=== PATIENT | female | born 1960 | race Caucasian/White ===

== ENCOUNTER 2023-09-17 14:32 | Outpatient (AMB) | payer OTHER, SELFPAY ==
[2023-09-17 14:45] VITALS: BP 140/78; PULSE 76; O2SAT 98
--- NOTE | 2023-09-17 14:45 | A.OFFVIS_ITS ---
Intake Vital Signs 09/17/23 14:45 BP 140/78 H Blood Pressure Location Lt radial Position Sitting Pulse 76 Pulse Source Pulse Oximeter Pulse Oximetry (%) 98 Oxygen Delivery Method Room Air Intake Visit Reasons: mat intake Intake Note: The patient presents for a mat visit Online Advertising Director Required: No Allergies shellfish derived Allergy (Severe, Verified 09/27/23 13:02) Anaphylaxis codeine Adverse Reaction (Mild, Verified 09/27/23 13:02) Anxiety fentanyl patch Allergy (Intermediate, Uncoded 09/27/23 13:02) Redness of Skin Medication List - Last Reconciled 09/18/23 by Joyce Valdez, JONN buprenorphine-naloxone 4-1 mg 1 film buccal BID buprenorphine-naloxone 8-2 mg 1 film buccal DAILY bupropion HCl 300 mg PO QAM celecoxib 200 mg PO BID cetirizine 10 mg PO DAILY PRN clonazepam 1 mg PO DAILY clonidine HCl 0.1 mg PO BID cyclobenzaprine 10 mg PO TID duloxetine 30 mg PO DAILY gabapentin 300 mg PO TID hydromorphone ER 8 mg PO DAILY levothyroxine 100 mcg PO DAILY omeprazole 40 mg PO DAILY ondansetron 4 mg PO Q8H PRN tizanidine 4 mg PO Q8H PRN Do you need a note to return to daycare/school/sports/work: No HPI mat intake HPI Details Patient presents to clinic today with her present as a referral by Dr. Velazco for an induction on suboxone. She is being follow by Dr. Tate at [facility]. She reports her PCP is retiring and closing his practice soon. She has been taking opioid pain medications for 10+ years for chronic pain as the result of cancer and cancer treatments. (See medical history) Has recently been told by her provider that they will not be able to continue to prescribe her opioid medications to her. She endorses complicated medical history and feels as though not many medical providers want touch her or her case Patient and with many questions, repeat questions at times, and needed each step of induction written in great detail. She denies any other substance use, does not smoke or drink. She is stably housed- lives with her . She is currently taking 8mg of hydromorphone extended release nightly. She endorses a poor quality of life due to her chronic pain. She is hoping to achieve a more controlled pain and better quality of life. [facility] Medical History Long COVID Rhinitis Constipation by outlet dysfunction Muscular deconditioning Gastritis, unspecified, without bleeding Vitamin D deficiency, unspecified Postmenopausal Presence of neurostimulator Degenerative disc disease, lumbar Lumbar stenosis with neurogenic claudication Acquired hypothyroidism Moderate persistent asthma, uncomplicated Generalized anxiety disorder Lumbar back pain with radiculopathy affecting lower extremity 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 Rosacea, unspecified Varicose eczema Major depressive disorder, recurrent, in remission, unspecified Fibromyalgia Encounter for screening mammogram for malignant neoplasm of breast IBS (irritable bowel syndrome) Chronic sinusitis, unspecified Moderate persistent asthma with (acute) exacerbation Encounter for therapeutic drug level monitoring 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, intra-abdominal lymph nodes Burkitt's lymphoma of extranodal site excluding spleen and other solid organs Surgical History Hx laparoscopic cholecystectomy H/O: hysterectomy Social History (Updated 09/26/23 @ 13:29 by Angelia Sahu DO) Patient Tobacco Use Status: Tobacco use Unknown Review of Systems Const Reports as per HPI Physical Exam Vital Signs: Last Vital Signs Pulse 76 09/17/23 14:45 BP 140/78 H 09/17/23 14:45 Pulse Ox 98 09/17/23 14:45 Oxygen Delivery Method Room Air 09/17/23 14:45 Const General: cooperative and no acute distress Resp Effort & Inspection: normal respiratory effort Psych Appearance: grossly normal and well kempt Mental Status: mental status grossly normal Speech and movement: Normal speech and movement present Affect: Animated affect present and Anxious affect present Attitude: cooperative Assessment & Plan Assessment & Plan (1) Opioid dependence: Code(s): F11.20 - Opioid dependence, uncomplicated Plan: Induction plan reviewed at length with patient and her . Plan written down for patient understanding, Discussed with pt when to begin induction- (following Saturday to account for office closure over the holiday) Both patient and this administrative underwriter felt comfortable beginning induction on a Saturday so the office could follow up with her periodically during the week to offer support where needed. Comfort medications ordered and education provided on when to take and what each medication addresses. Patient and agreeable to this plan at this time. Will follow up with patient Saturday to re-iterate induction plan. Medications: New buprenorphine-naloxone 4-[address] 1 strip/tab under (each) side of tongue 1 film buccal BID 6 ea 0RF buprenorphine-naloxone 8-2 mg To be started following induction with 4mg films 1 film buccal DAILY 14 ea 0RF ondansetron 4 mg PO Q8H PRN 21 tabs 0RF nausea and vomiting tizanidine 4 mg PO Q8H PRN 21 caps 0RF muscle spasticity hydroxyzine HCl 25 mg PO TID PRN 90 tabs 0RF itching epinephrine (EpiPen) Use as directed for allergic response- after use seek emergency care 0.3 mg (0.3 mL) IM Q4H PRN 2 ea 0RF anaphylaxis Coding Level of Care Code New Pt Level 4 (03628) Diagnoses Opioid dependence F11.20 Time Spent (min) 120
== END 2023-09-17 16:59 | disposition home or self-care (01) ==
PROVIDERS: Visit Provider Nurse Practitioner Psychiatric/Mental Health
DX: F11.20 Opioid dependence, uncomplicated (principal)
CPT/HCPCS: 99204

== ENCOUNTER → 2023-09-17 14:32 | Outpatient (BNVA) | payer SELFPAY | PROVIDERS: Visit Provider Nurse Practitioner Psychiatric/Mental Health ==

== ENCOUNTER → 2023-09-23 15:37 | Outpatient (BNVA) | payer SELFPAY | PROVIDERS: Visit Provider Nurse Practitioner Family ==

== ENCOUNTER 2023-09-26 11:17 | Emergency (ER) | payer MEDICARE, SELFPAY ==
--- NOTE | 2023-09-26 | ECG_ITS ---
Test Reason : MED REACTION Blood Pressure : / mmHG Vent. Rate : 108 BPM Atrial Rate : 108 BPM P-R Int : 140 ms QRS Dur : 080 ms QT Int : 338 ms P-R-T Axes : 073 035 047 degrees QTc Int : 452 ms Sinus tachycardia Otherwise normal ECG No previous ECGs available Referred By: Generic ED Physician Electronically Signed By:MARLON ALVAREZ MD
--- NOTE | ~2023-09-26 | CT_ITS ---
EXAMINATION: CT HEAD WITHOUT CONTRAST CLINICAL INFORMATION: Altered mental status, weakness COMPARISON: None available. TECHNIQUE: Contiguous axial imaging was performed from the skull base to vertex without intravenous administration of contrast. This CT examination was performed using dose optimization techniques as appropriate, variously including the following: *Automated exposure control *Adjustment of mA and/or kV according to patient size (this includes techniques or standardized protocols for targeted exams where dose is matched to indication/reason for exam; i.e. extremities or head) *Use of iterative reconstruction technique DLP: 696 mGy-cm FINDINGS: Right frontal ventriculostomy shunt catheter is present. The tip lies just above the clivus in the region of the suprasellar cistern. The ventricles and sulci are normal in size and configuration. There is no evidence of hydrocephalus. No acute hemorrhage, mass effect or shift is evident. [place]-white differentiation is maintained. In the posterior fossa, the brainstem, cerebellum and fourth ventricle image normally. The orbits and calvarium are intact. The paranasal sinuses and mastoid air cells are well pneumatized and clear. CT/CT head/brain wo IV con IMPRESSION: 1. Right frontal shunt catheter, its tip in the suprasellar cistern, with no evidence of hydrocephalus. No acute hemorrhage, mass effect or shift.
[2023-09-26 11:23] VITALS: BP 130/62; PULSE 115; RESP 18; TEMP 36.2; O2SAT 92; BMI 34.6
--- NOTE | 2023-09-26 12:54 | ED_ITS ---
HPI - General Adult General Chief complaint: General Medical Stated complaint: going thur medication detox was unresponsive Time Seen by Provider: 09/26/23 12:52 Source: patient, family and old records reviewed Mode of arrival: EMS Limitations: altered mental status History of Present Illness HPI narrative: 62 yo female who just started to transition from pain management to suboxone comes in with c/o sedation and both arm pain and feeling R arm was off this AM though it is fine now. She is sedated and partner had a hard time with suboxone label from [facility] - was supposed to start on 2mg suboxone TID and ended up taking 8mg TID. She is sleepy and groggy and has a dry mouth. Addiction team [facility] at bedside on arrival. They have been trying to handle this from clinic since Saturday but patient's sedation worsened overnight. She is sleepy but at baseline and addiction medicine is at baseline with plan in place and follow up tomorrow MD complaint: weakness, confusion Onset (ago): day(s) (last night) Severity: moderate Relieving factors: none Exacerbating factors: medication Associated symptoms: other (had pain in arms and acting confused and disoriented, unsteady gait. ) Treatments prior to arrival: none Related Data Home Medications Medication Instructions Recorded Confirmed bupropion HCl 300 mg 24 hr tablet, 300 mg PO QAM 09/18/23 09/18/23 extended release celecoxib 200 mg capsule 200 mg PO BID 09/18/23 09/18/23 cetirizine 10 mg tablet 10 mg PO DAILY PRN 09/18/23 09/18/23 clonazepam 1 mg tablet 1 mg PO DAILY 09/18/23 09/18/23 clonidine HCl 0.1 mg tablet 0.1 mg PO BID 09/18/23 09/18/23 cyclobenzaprine 10 mg tablet 10 mg PO TID 09/18/23 09/18/23 duloxetine 30 mg capsule,delayed 30 mg PO DAILY 09/18/23 09/18/23 release gabapentin 300 mg capsule 300 mg PO TID 09/18/23 09/18/23 hydromorphone 8 mg tablet,extended 8 mg PO DAILY 09/18/23 09/18/23 release 24 hr levothyroxine 100 mcg capsule 100 mcg PO DAILY 09/18/23 09/18/23 omeprazole 40 mg capsule,delayed 40 mg PO DAILY 09/18/23 09/18/23 release Previous Rx's Medication Instructions Recorded buprenorphine 4 mg-naloxone 1 mg 1 film buccal BID #6 ea 09/17/23 sublingual film buprenorphine 8 mg-naloxone 2 mg 1 film buccal DAILY #14 ea 09/17/23 sublingual film ondansetron 4 mg disintegrating 4 mg PO Q8H PRN nausea and 09/17/23 tablet vomiting #21 tabs tizanidine 4 mg capsule 4 mg PO Q8H PRN muscle spasticity 09/17/23 #21 caps hydroxyzine HCl 25 mg tablet 25 mg PO TID PRN itching #90 tabs 09/23/23 epinephrine 0.3 mg/0.3 mL 0.3 mg (0.3 mL) IM Q4H PRN 09/24/23 injection, auto-injector (EpiPen) anaphylaxis #2 ea Allergies Allergy/AdvReac Type Severity Reaction Status Date / Time shellfish derived Allergy Severe Anaphylaxis Verified 09/26/23 11:23 codeine AdvReac Mild Anxiety Verified 09/26/23 11:23 fentanyl patch Allergy Intermediate Redness of Uncoded 09/17/23 16:32 Skin Review of Systems 2 Review of Systems: Constitutional : No Fever, No Chills, No Fatigue ENT/Mouth : No sore throat, No Rhinorrhea Eyes: No Eye Pain, No Swelling, No Redness Cardiovascular : No Chest Pain, No SOB, No Dyspnea on Exertion Respiratory : No Cough, No Sputum Gastrointestinal : No Nausea, No Vomiting, No Diarrhea, No abdominal Pain Genitourinary : No Dysuria, No Urinary Frequency, No Hematuria, Musculoskeletal : No joint pain, No Myalgias, No Joint Swelling Skin : No Skin Lesions, No rash Neuro : pos Weakness, No Numbness, No Dizziness, no Headache, pos confusion Psych : No Anxiety/Panic, No Depression Heme/Lymph: No Bruising, No Bleeding,No Lymphadenopathy Endocrine : No Polyuria, No Polydipsia All other systems reviewed and are negative [facility] Past Medical History Attestation statement: The following information was validated with the patient. 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 Rosacea, unspecified Varicose eczema Major depressive disorder, recurrent, in remission, unspecified Fibromyalgia Encounter for screening mammogram for malignant neoplasm of breast IBS (irritable bowel syndrome) Chronic sinusitis, unspecified Moderate persistent asthma with (acute) exacerbation Encounter for therapeutic drug level monitoring 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, intra-abdominal lymph nodes Burkitt's lymphoma of extranodal site excluding spleen and other solid organs Surgical History Hx laparoscopic cholecystectomy H/O: hysterectomy Social History Social History (Updated 09/26/23 @ 13:29 by Angelia Sahu DO) Patient Tobacco Use Status: Tobacco use Unknown Advance Directives: No Physical Exam ED Vital Signs: Vital Signs - 24 hr 09/26/23 11:23 09/26/23 14:30 Temperature 97.2 F 98.0 F Pulse Rate 115 H 100 Respiratory Rate 18 16 Blood Pressure 130/62 124/69 Pulse Oximetry 92 94 Oxygen Delivery Method Room Air Room Air BMI result Body Mass Index 34.6 Appearance:Oriented X3. No acute distress. Slightly sedated Eyes: Pin point ENT: Pharynx dry MM. Neck: Normal inspection. Neck supple. CVS: Normal heart rate and rhythm. Pulses normal. Respiratory: No respiratory distress. Breath sounds normal. Abdomen: Soft and nontender. Skin: Skin warm and dry. Normal skin color. Normal skin turgor. Extremities: No lower extremity edema. No calf ttp Neuro: Oriented X 3. No motor deficit. No sensory deficit. CN2-12 intact, no deficits Course Course Course Narrative: repeat labs much better and stable, reliable outpatient follow up Medications Administered Discontinued Medications Generic Name Dose Route Start Last Admin Trade Name Freq PRN Reason Stop Dose Admin Sodium Chloride 1,000 mls @ 999 mls/hr 09/26/23 15:30 09/26/23 17:24 Ns IV 09/26/23 16:30 Infused .Q1H1M BOY Infusion Sodium Chloride 1,000 mls @ 999 mls/hr 09/26/23 15:30 09/26/23 18:24 Ns IV 09/26/23 16:30 Infused .Q1H1M BOY Infusion Medical Decision Making Medical Decision Making MDM Narrative: 62 yo female with new transition to suboxone who in error took 8mg TID instead of 2mg TID now sedated and confused but no signs of resp distress and on exam not altered and no deficits. At thist [facility] addiction team at bedside and patient is stable and plan in place with follow up. Was more sedated this AM. WIll obtain labs, EKG, CT head for ICH but given lack of focal deficits I doubt she has stroke. Differential Diagnosis Differential Diagnoses: The differential diagnosis associated with the presentation includes med error, sedation Admission/Observation Consideration of admission/observation: Escalation of care including admission/observation considered GCS 15 at baseline have plan in place, Cr stable, CPK trending down Consult Healthcare Provider Management of the patient was discussed with: Clinical Research Technician Lab Data MDM Lab Attestation statement: I reviewed the patient's lab results. 09/26/23 14:38 09/26/23 17:55 Labs: Lab Results 09/26/23 09/26/23 09/26/23 Range/Units 14:38 15:56 15:59 WBC 7.7 (4.8-10.8) X10*3/uL RBC 3.97 L (4.20-5.50) X10*6/uL Hgb 11.1 L (12.0-16.0) g/dl Hct 34.5 L (37.0-47.0) % MCV 86.9 (80.0-98.0) fL MCH 28.0 (27.0-33.0) pg MCHC 32.2 (31.0-35.0) g/dl RDW 13.6 (11.0-16.0) % Plt Count 174 (160-400) X10*3/uL MPV 9.2 L (9.4-12.3) fL Immature Gran % (Auto) 0.4 (0.0-0.4) % Neut % (Auto) 62.8 (45-73) % Lymph % (Auto) 28.4 (20-40) % [place] % (Auto) 8.0 (2-11) % Eos % (Auto) 0.1 (0-4) % Baso % (Auto) 0.3 (0-2) % Lymph # (Auto) 2.2 (1.2-4.9) X10*3/uL [place] # (Auto) 0.6 (0.1-1.2) X10*3/uL Eos # (Auto) 0.0 (0.0-0.4) X10*3/uL Baso # (Auto) 0.0 (0.0-0.2) X10*3/uL Abs Immat Gran (auto) 0.03 (0.00-0.03) X10*3/uL Absolute Neuts (auto) 4.8 (2.0-8.3) x10*3/uL Absolute Nucleated RBC 0.000 (0.0-0.012) X10*3/uL Nucleated RBC % (auto) 0.0 (0.0-0.2) /100WBC VBG pH 7.37 (7.32-7.43) VBG pCO2 62 mmHg VBG pO2 38 mmHg VBG HCO3 36 H (22-26) mmol/L VBG O2 Saturation 63.0 % VBG Base Excess 9.0 mmol/L Sodium 136 (135-145) mmol/L Potassium 4.8 (3.3-5.1) mmol/L Chloride 97 (96-108) mmol/L Carbon Dioxide 34 H (22-29) mmol/L Anion Gap 10 L (12-20) BUN 19 H (9-16) mg/dL Creatinine 0.80 (0.5-1.4) mg/dL Estim Creat Clear Calc 87.9 Estimated GFR > 60 Random Glucose 89 (60-115) mg/dL Calcium 9.0 (8.4-10.2) mg/dL Total Bilirubin 0.2 (0.0-1.0) mg/dL AST 78 H (5-31) U/L ALT 75 H (0-31) U/L Alkaline Phosphatase 134 H (39-117) U/L Ammonia 26 (13-55) umol/L Total Creatine Kinase 1709 H (26-140) U/L Total Protein 6.7 (6.5-8.0) g/dL Albumin 4.2 (3.5-5.0) g/dL Urine Color Yellow Urine Appearance Clear Urine pH 6.0 (5.0-9.0) Ur Specific [place] 1.025 (1.005-1.025) Urine Protein Negative (Neg-Trace) mg/dL Urine Glucose (UA) Negative (Negative) mg/dL Urine Ketones Negative (Negative) mg/dL Urine Blood Trace H (Negative) Urine Nitrite Negative (Negative) Ur Leukocyte Esterase Negative (Negative) Urine RBC 6-10 H (0-2) /HPF Urine WBC 0-5 (0-5) /HPF Ur Squamous Epith Cells 0-2 (0-2) /HPF Urine Bacteria None Seen (None Seen) Hyaline Casts 0-2 (0-2) /LPF Urine Opiates Screen Not Detected (Not Detect) Urine Fentanyl Screen Not Detected (Not Detect) Ur Barbiturates Screen Not Detected (Not Detect) Ur Phencyclidine Scrn Not Detected (Not Detect) Ur Amphetamines Screen Not Detected (Not Detect) U Benzodiazepines Scrn Not Detected (Not Detect) Urine Cocaine Screen Not Detected (Not Detect) U Marijuana (THC) Screen Not Detected (Not Detect) 09/26/23 Range/Units 17:55 WBC (4.8-10.8) X10*3/uL RBC (4.20-5.50) X10*6/uL Hgb (12.0-16.0) g/dl Hct (37.0-47.0) % MCV (80.0-98.0) fL MCH (27.0-33.0) pg MCHC (31.0-35.0) g/dl RDW (11.0-16.0) % Plt Count (160-400) X10*3/uL MPV (9.4-12.3) fL Immature Gran % (Auto) (0.0-0.4) % Neut % (Auto) (45-73) % Lymph % (Auto) (20-40) % [place] % (Auto) (2-11) % Eos % (Auto) (0-4) % Baso % (Auto) (0-2) % Lymph # (Auto) (1.2-4.9) X10*3/uL [place] # (Auto) (0.1-1.2) X10*3/uL Eos # (Auto) (0.0-0.4) X10*3/uL Baso # (Auto) (0.0-0.2) X10*3/uL Abs Immat Gran (auto) (0.00-0.03) X10*3/uL Absolute Neuts (auto) (2.0-8.3) x10*3/uL Absolute Nucleated RBC (0.0-0.012) X10*3/uL Nucleated RBC % (auto) (0.0-0.2) /100WBC VBG pH (7.32-7.43) VBG pCO2 mmHg VBG pO2 mmHg VBG HCO3 (22-26) mmol/L VBG O2 Saturation % VBG Base Excess mmol/L Sodium 138 (135-145) mmol/L Potassium 4.4 (3.3-5.1) mmol/L Chloride 102 (96-108) mmol/L Carbon Dioxide 32 H (22-29) mmol/L Anion Gap 8 L (12-20) BUN 17 H (9-16) mg/dL Creatinine 0.73 (0.5-1.4) mg/dL Estim Creat Clear Calc 96.3 Estimated GFR > 60 Random Glucose 90 (60-115) mg/dL Calcium 8.2 L D (8.4-10.2) mg/dL Total Bilirubin (0.0-1.0) mg/dL AST (5-31) U/L ALT (0-31) U/L Alkaline Phosphatase (39-117) U/L Ammonia (13-55) umol/L Total Creatine Kinase 1601 H (26-140) U/L Total Protein (6.5-8.0) g/dL Albumin (3.5-5.0) g/dL Urine Color Urine Appearance Urine pH (5.0-9.0) Ur Specific [place] (1.005-1.025) Urine Protein (Neg-Trace) mg/dL Urine Glucose (UA) (Negative) mg/dL Urine Ketones (Negative) mg/dL Urine Blood (Negative) Urine Nitrite (Negative) Ur Leukocyte Esterase (Negative) Urine RBC (0-2) /HPF Urine WBC (0-5) /HPF Ur Squamous Epith Cells (0-2) /HPF Urine Bacteria (None Seen) Hyaline Casts (0-2) /LPF Urine Opiates Screen (Not Detect) Urine Fentanyl Screen (Not Detect) Ur Barbiturates Screen (Not Detect) Ur Phencyclidine Scrn (Not Detect) Ur Amphetamines Screen (Not Detect) U Benzodiazepines Scrn (Not Detect) Urine Cocaine Screen (Not Detect) U Marijuana (THC) Screen (Not Detect) Independent Interpretation I performed an independent interpretation of an: EKG and CT Scan Interpretation: Rate: 108 Rhythm: sinus tachycardia [place]: mpr,a; Normal P waves. Normal WILL. Normal QRS complex. ST T wave : normal no JIM qTC: normal prior studies: no acute ischemia The study has been interpreted contemporaneously by me. . Radiology Impression Discussion of test interpretation with radiology: I have reviewed the radiologist's reading. Independent Historian Clinical information obtained from an independent historian. History obtained from or confirmed by: Spouse External Record Review External record reviewed: Office record Critical Care Time Critical Care Time Critical Care Time: Yes Total Critical Care Time: 35 Attestation: 2L of IVF, repeat kidney function and CPK, medical consult I attest to this time spent taking care of the patient Discharge Plan Discharge Clinical Impression: Accidental medication error Qualifiers: Encounter type: initial encounter Qualified Code(s): T50.901A - Poisoning by unspecified drugs, medicaments and biological substances, accidental (unintentional), initial encounter Rhabdomyolysis Qualifiers: Rhabdomyolysis type: non-traumatic Qualified Code(s): M62.82 - Rhabdomyolysis Patient Disposition: Home, Self-Care Instructions: Rhabdomyolysis (ED), Adult Overdose (ED) Additional Instructions: 2mg dosing up to three times a day - wait for next dose until you start to feel withdrawal symptoms. follow up in the clinic tomorrow as planned. drink plenty of fluids after clinic tomorrow - need repeat labs, kidney function and CPK level. return for worsening pain or decreased urination. Prescriptions: No Action buprenorphine-naloxone 4-1 mg film 1 film buccal BID Qty: 6 0RF Rx Instructions: place 1 strip/tab under (each) side of tongue buprenorphine-naloxone 8-2 mg film 1 film buccal DAILY Qty: 14 0RF Rx Instructions: To be started following induction with 4mg films ondansetron 4 mg tablet,disintegrating 4 mg PO Q8H PRN (Reason: nausea and vomiting) Qty: 21 0RF tizanidine 4 mg capsule 4 mg PO Q8H PRN (Reason: muscle spasticity) Qty: 21 0RF bupropion HCl 300 mg tablet extended release 24 hr 300 mg PO QAM celecoxib 200 mg capsule 200 mg PO BID cetirizine 10 mg tablet 10 mg PO DAILY PRN clonazepam 1 mg tablet 1 mg PO DAILY clonidine HCl 0.1 mg tablet 0.1 mg PO BID cyclobenzaprine 10 mg tablet 10 mg PO TID duloxetine 30 mg capsule,delayed release(DR/EC) 30 mg PO DAILY gabapentin 300 mg capsule 300 mg PO TID hydromorphone 8 mg tablet extended release 24 hr 8 mg PO DAILY levothyroxine 100 mcg capsule 100 mcg PO DAILY omeprazole 40 mg capsule,delayed release(DR/EC) 40 mg PO DAILY hydroxyzine HCl 25 mg tablet 25 mg PO TID PRN (Reason: itching) Qty: 90 0RF epinephrine [EpiPen] 0.3 mg/0.3 mL auto-injector 0.3 mg IM Q4H PRN (Reason: anaphylaxis) Qty: 2 0RF Rx Instructions: Use as directed for allergic response- after use seek emergency care Interventions: ED Discharge Assessment Last Done: 09/26/23 18:46 Discharge Date/Time: 09/26/23 18:46
--- NOTE | 2023-09-26 13:52 | MHC.RECOVRN ---
Met with pt in ED1 as t/w spoke with pt this morning on the phone regarding concerning symptoms. Pt is a new pt to the [facility] and had been initiated on Suboxone on Sunday 09/23. Pts , Louis, called the [facility] this morning and informed t/w that pt was disoriented, unsteady gait, and could not move right arm. After speaking with [facility] provider, pt encouraged to present to ED. While in ED, pt appears drowsy, endorses feelings of lethargy. Pts Suboxone induction was complicated by the prescription being mislabeled, per pts . Pt has been taking 24 mg Suboxone daily when pt should have been taking 2-4 mg TID for induction and then titrating as appropriate. After speaking with [facility] and ED provider, pt educated and instructed to take 2 mg TID. Pt does have follow up appt at the [facility] on 09/27. Pt and deny questions or concerns for t/w at this time.
[2023-09-26 14:30] VITALS: BP 124/69; PULSE 100; RESP 16; TEMP 36.7; O2SAT 94
[2023-09-26 14:46] LABS: MANUAL DIFF FLAG NO
[2023-09-26 14:49] LABS: Basophils Percent Auto 0.3 % (0-2); Eosinophils Percent Auto 0.1 % (0-4); Hematocrit 34.5 % (37.0-47.0); Hemoglobin 11.1 g/dl (12.0-16.0); Imm Gran Abs Auto 0.03 X10*3/uL (0.00-0.03); Imm Gran Pct Auto 0.4 % (0.0-0.4); Lymphocytes Absolute Auto 2.2 X10*3/uL (1.2-4.9); Lymphocytes Percent Auto 28.4 % (20-40); Mean Corpuscular HGB Conc 32.2 g/dl (31.0-35.0); Mean Corpuscular Volume 86.9 fL (80.0-98.0); Mean Platelet Volume 9.2 fL (9.4-12.3); Monocytes Absolute Auto 0.6 X10*3/uL (0.1-1.2); Neutrophils Absolute Auto 4.8 x10*3/uL (2.0-8.3); Neutrophils Percent Auto 62.8 % (45-73); Platelet Count 174 X10*3/uL (160-400); Red Blood Count 3.97 X10*6/uL (4.20-5.50); Red Cell Distribution Width 13.6 % (11.0-16.0); White Blood Count 7.7 X10*3/uL (4.8-10.8)
[2023-09-26 15:03] LABS: Ammonia 26 umol/L (13-55)
[2023-09-26 15:09] LABS: Alanine Aminotransferase 75 U/L (0-31); Albumin Level 4.2 g/dL (3.5-5.0); Alkaline Phosphatase 134 U/L (39-117); Anion Gap 10 (12-20); Aspartate Amino Transferase 78 U/L (5-31); Bilirubin Total 0.2 mg/dL (0.0-1.0); Blood Urea Nitrogen 19 mg/dL (9-16); Carbon Dioxide 34 mmol/L (22-29); Chloride 97 mmol/L (96-108); Creatinine Clr Calc Pharmacy 87.9; Estimated Glomerular Filt Rate > 60; Glucose Random 89 mg/dL (60-115); Potassium 4.8 mmol/L (3.3-5.1); Sodium 136 mmol/L (135-145); Total Protein 6.7 g/dL (6.5-8.0)
[2023-09-26 16:02] LABS: VBG HCO3 36 mmol/L (22-26); VBG pCO2 62 mmHg; VBG pH 7.37 (7.32-7.43); VBG pO2 38 mmHg
[2023-09-26 16:03] LABS: Venous Blood Gas Refer to POC result
[2023-09-26 16:09] LABS: Appearance Urine Clear; Color Urine Yellow; Glucose Urine UA Negative (Negative); Leukocyte Esterase Urine Negative (Negative); Nitrite Urine Negative (Negative); Specific Gravity - Urine 1.025 (1.005-1.025); UMIC TRIGGER UACC YES; Urine Blood Trace (Negative); Urine Ketones Negative (Negative); Urine Protein Negative (Neg-Trace)
[2023-09-26] MEDS: 0.9 % Sodium Chloride 1,000 ML 999 ML IV ×2 (16:13→16:54)
[2023-09-26 16:14] LABS: Bacteria Urine None Seen (None Seen); Hyaline Casts Urine 0-2 /LPF (0-2); Squamous Epithelial Cell Urine 0-2 /HPF (0-2); WBC Urine 0-5 /HPF (0-5)
--- NOTE | 2023-09-26 17:18 | PC.NURSE ---
patient offering no complaints at this time, second liter of fluids infusing. patient ambulates to bathroom with strong, steady gait. aware of plan for repeat lab work after the second liter of fluids has infused. remains at bedside, call bal within reach
[2023-09-26 17:53] LABS: Amphetamine Screen Urine Not Detected (Not Detect); Barbiturates, Urine Not Detected (Not Detect); Benzodiazepines Screen Urine Not Detected (Not Detect); Cannabinoid Screen Urine Not Detected (Not Detect); Cocaine Screen Urine Not Detected (Not Detect); Fentanyl, urine Not Detected (Not Detect); Opiate Screen Urine Not Detected (Not Detect); Phencyclidine Screen Urine Not Detected (Not Detect)
[2023-09-26 18:22] LABS: Anion Gap 8 (12-20); Blood Urea Nitrogen 17 mg/dL (9-16); Calcium 8.2 mg/dL (8.4-10.2); Carbon Dioxide 32 mmol/L (22-29); Chloride 102 mmol/L (96-108); Creatinine Clr Calc Pharmacy 96.3; Estimated Glomerular Filt Rate > 60; Glucose Random 90 mg/dL (60-115); Potassium 4.4 mmol/L (3.3-5.1); Sodium 138 mmol/L (135-145)
== END 2023-09-26 18:46 | disposition home or self-care (01) ==
PROVIDERS: Emergency Provider Emergency Medicine; PCP Internal Medicine
DX: M62.82 Rhabdomyolysis (principal); R26.81 Unsteadiness on feet; R41.82 Altered mental status, unspecified; M79.602 Pain in left arm; R00.0 Tachycardia, unspecified; M79.601 Pain in right arm; R53.1 Weakness; Z79.899 Other long term (current) drug therapy
CPT/HCPCS: 36415; 70450; 80048; 80053; 80307; 81001; 82140; 82550; 82803; 85025; 93005; 96360; 96361; 99284; 99285

== ENCOUNTER → 2023-09-26 11:39 | Outpatient (BNV) | payer MEDICARE, SELFPAY | PROVIDERS: Emergency Provider Emergency Medicine; PCP Internal Medicine; Visit Provider Internal Medicine Cardiovascular Disease | DX: R00.0 Tachycardia, unspecified (principal) | CPT/HCPCS: 93010 ==

== ENCOUNTER 2023-09-27 12:57 | Outpatient (REF) | payer OTHER, SELFPAY ==
[2023-09-27 15:29] LABS: Alanine Aminotransferase 68 U/L (0-31); Albumin Level 3.8 g/dL (3.5-5.0); Alkaline Phosphatase 121 U/L (39-117); Anion Gap 9 (12-20); Aspartate Amino Transferase 61 U/L (5-31); Bilirubin Total 0.4 mg/dL (0.0-1.0); Blood Urea Nitrogen 14 mg/dL (9-16); Calcium 8.7 mg/dL (8.4-10.2); Carbon Dioxide 34 mmol/L (22-29); Chloride 103 mmol/L (96-108); Estimated Glomerular Filt Rate > 60; Glucose Random 100 mg/dL (60-115); Potassium 3.9 mmol/L (3.3-5.1); Sodium 142 mmol/L (135-145)
== END 2023-09-27 12:58 | disposition home or self-care (01) ==
LOC: HO.LAB 12:57
PROVIDERS: PCP Internal Medicine; Visit Provider Nurse Practitioner Family
DX: M62.82 Rhabdomyolysis (principal); F11.20 Opioid dependence, uncomplicated
CPT/HCPCS: 36415; 80053; 82550

== ENCOUNTER 2023-09-27 12:57 | Outpatient (AMB) | payer OTHER, SELFPAY ==
--- NOTE | 2023-09-27 13:01 | MHC.AM.SUB ---
Intake Vital Signs 09/27/23 13:21 BP 128/70 Blood Pressure Location Lt radial Position Sitting Pulse 100 Pulse Source Pulse Oximeter Intake Visit Reasons: MAT Visit Intake Note: The patient presents for a mat visit Pulmonary Disease Specialist Required: No Allergies shellfish derived Allergy (Severe, Verified 09/27/23 13:02) Anaphylaxis codeine Adverse Reaction (Mild, Verified 09/27/23 13:02) Anxiety fentanyl patch Allergy (Intermediate, Uncoded 09/27/23 13:02) Redness of Skin Do you need a note to return to daycare/school/sports/work: No HPI MAT Visit HPI Details Pt presents with her present for opioid dependence treatment and follow up She was in emergency department yesterday with suspected overdose of the buprenorphine. Upon chart review it was noted that her CPK was elevated. She reports the labels on the bottle were misleading and feels as though the pharmacy should have labeled them better. She feels groggy today, but overall states much better than yesterday. She expressed concerns that she was not done detoxing. T/w explained that the detox portion of her induction is over, and that the goal is to now find an appropriate maintenance dose. She expressed relief over this, and was agreeable to making a plan for dosing. Initially upon induction she was tolerating 8mg 2-3 daily on Saturday and Saturday per self report, she felt as though Saturday went ok. When she awoke morning, she was altered and brought to emergency department by her . T/w explained half life of medication and intent to re-start at the lowest dose. [facility] Medical History Long COVID Rhinitis Constipation by outlet dysfunction Muscular deconditioning Gastritis, unspecified, without bleeding Vitamin D deficiency, unspecified Postmenopausal Presence of neurostimulator Degenerative disc disease, lumbar Lumbar stenosis with neurogenic claudication Acquired hypothyroidism Moderate persistent asthma, uncomplicated Generalized anxiety disorder Lumbar back pain with radiculopathy affecting lower extremity 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 Rosacea, unspecified Varicose eczema Major depressive disorder, recurrent, in remission, unspecified Fibromyalgia Encounter for screening mammogram for malignant neoplasm of breast IBS (irritable bowel syndrome) Chronic sinusitis, unspecified Moderate persistent asthma with (acute) exacerbation Encounter for therapeutic drug level monitoring 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, intra-abdominal lymph nodes Burkitt's lymphoma of extranodal site excluding spleen and other solid organs Surgical History Hx laparoscopic cholecystectomy H/O: hysterectomy Social History (Updated 09/26/23 @ 13:29 by Angelia Sahu DO) Patient Tobacco Use Status: Tobacco use Unknown Physical Exam Vital Signs: Last Vital Signs Pulse 100 09/27/23 13:21 BP 128/70 09/27/23 13:21 Assessment & Plan Assessment & Plan (1) Opioid dependence: Code(s): F11.20 - Opioid dependence, uncomplicated Plan: Order for repeat labwork (CMP and CPK) per ED provider recommendation on d/c Dose of suboxone adjusted to 2mg BID Reviewed signs and symptoms of suboxone toxicity and when to present to emergency department Plan to follow up with pt via phone on Saturday Pt to follow up in office 1 week Encouraged pt to call the [facility] with any questions or concerned Orders: Orders Comprehensive Met. Panel 09/27/23 M62.82 - Rhabdomyolysis Creatine Kinase Total 09/27/23 M62.82 - Rhabdomyolysis Medications: New docusate sodium (Colace) 100 mg PO BID 60 caps 3RF buprenorphine-naloxone 2-0.5 mg (Suboxone) place 1 strip/tab under (each) side of tongue 2 film buccal DAILY 14 ea 0RF Discontinued buprenorphine-naloxone 4-[address] 1 strip/tab under (each) side of tongue Discontinued Reason: Patient no longer taking 1 film buccal BID 6 ea 0RF buprenorphine-naloxone 8-2 mg To be started following induction with 4mg films Discontinued Reason: Patient no longer taking 1 film buccal DAILY 14 ea 0RF Coding Level of Care Code Est Pt Level 4 (66472) Diagnoses Opioid dependence F11.20
[2023-09-27 13:21] VITALS: BP 128/70; PULSE 100
== END 2023-09-27 14:07 | disposition home or self-care (01) ==
PROVIDERS: Visit Provider Nurse Practitioner Family
DX: F11.20 Opioid dependence, uncomplicated (principal)
CPT/HCPCS: 99214

== ENCOUNTER 2023-10-04 12:59 | Outpatient (AMB) | payer OTHER, SELFPAY ==
--- NOTE | 2023-10-04 13:04 | MHC.AM.SUB ---
Intake Intake Visit Reasons: MAT Visit Allergies shellfish derived Allergy (Severe, Verified 09/27/23 13:02) Anaphylaxis codeine Adverse Reaction (Mild, Verified 09/27/23 13:02) Anxiety fentanyl patch Allergy (Intermediate, Uncoded 09/27/23 13:02) Redness of Skin HPI MAT Visit HPI Details Patient presents for follow up via telehealth Reports ongoing pain -- feels it is worse than when she was on hydromorphone (and even then it was not well controlled) Reports absolutely no relief with suboxone. Reports she is not sedated. Reporting poor sleep --not a new issue Sharing decreased quality of life, however upon clarification this is not new and has been an issue for months or years. Discussed possibility of either increasing dose to 4mg in the morning instead of 2mg BID Patient agreeable to trial [facility] Medical History Long COVID Rhinitis Constipation by outlet dysfunction Muscular deconditioning Gastritis, unspecified, without bleeding Vitamin D deficiency, unspecified Postmenopausal Presence of neurostimulator Degenerative disc disease, lumbar Lumbar stenosis with neurogenic claudication Acquired hypothyroidism Moderate persistent asthma, uncomplicated Generalized anxiety disorder Lumbar back pain with radiculopathy affecting lower extremity 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 Rosacea, unspecified Varicose eczema Major depressive disorder, recurrent, in remission, unspecified Fibromyalgia Encounter for screening mammogram for malignant neoplasm of breast IBS (irritable bowel syndrome) Chronic sinusitis, unspecified Moderate persistent asthma with (acute) exacerbation Encounter for therapeutic drug level monitoring 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, intra-abdominal lymph nodes Burkitt's lymphoma of extranodal site excluding spleen and other solid organs Surgical History Hx laparoscopic cholecystectomy H/O: hysterectomy Social History (Updated 09/26/23 @ 13:29 by Angelia Sahu DO) Patient Tobacco Use Status: Tobacco use Unknown Review of Systems Const Reports as per HPI Assessment & Plan Assessment & Plan (1) Opioid dependence: Code(s): F11.20 - Opioid dependence, uncomplicated Plan: patient will trial increase in AM dose follow up one week Medications: Refilled buprenorphine-naloxone 2-0.5 mg (Suboxone) place 1 strip/tab under (each) side of tongue 2 film buccal DAILY 14 ea 0RF Telehealth Telehealth Location of provider rendering services: practice address Location of patient: address on file Patient Identification confirmed using: Name, : Yes Telehealth method: voice only Patient verbally consented to treatment: Yes Patient verbally consented to billing insurance company: Yes Coding Level of Care Code Est Pt Level 4 (72806) Diagnoses Opioid dependence F11.20 Time Spent (min) 30 Comment 20 mins with patient remainder on chart review and documentation
== END 2023-10-04 13:37 | disposition home or self-care (01) ==
PROVIDERS: Visit Provider Nurse Practitioner Psychiatric/Mental Health
DX: F11.20 Opioid dependence, uncomplicated (principal)
CPT/HCPCS: 99214

== ENCOUNTER → 2023-10-04 12:59 | Outpatient (BNVA) | payer OTHER, SELFPAY | PROVIDERS: Visit Provider Nurse Practitioner Psychiatric/Mental Health | DX: M62.82 Rhabdomyolysis (principal) ==

== ENCOUNTER 2023-10-11 14:35 | Outpatient (AMB) | payer OTHER, SELFPAY ==
[2023-10-11 14:44] VITALS: BP 130/78; PULSE 100; O2SAT 96
--- NOTE | 2023-10-11 14:44 | MHC.AM.SUB ---
Intake Vital Signs 10/11/23 14:44 BP 130/78 Blood Pressure Location Lt radial Position Sitting Pulse 100 Pulse Source Pulse Oximeter Pulse Oximetry (%) 96 Oxygen Delivery Method Room Air Intake Visit Reasons: mat visit Intake Note: the patient present s for a mat visit Felt Hat Pouncing Operator Hand Required: No Allergies shellfish derived Allergy (Severe, Verified 10/11/23 14:46) Anaphylaxis codeine Adverse Reaction (Mild, Verified 10/11/23 14:46) Anxiety fentanyl patch Allergy (Intermediate, Uncoded 10/11/23 14:46) Redness of Skin HPI mat visit HPI Details Patient presents for follow up Trialed 4mg during the day--it was too sedating Still having difficulty sleeping --chronic Looking for new primary care provider. feeling very sore all over. PFSH Medical History Long COVID Rhinitis Constipation by outlet dysfunction Muscular deconditioning Gastritis, unspecified, without bleeding Vitamin D deficiency, unspecified Postmenopausal Presence of neurostimulator Degenerative disc disease, lumbar Lumbar stenosis with neurogenic claudication Acquired hypothyroidism Moderate persistent asthma, uncomplicated Generalized anxiety disorder Lumbar back pain with radiculopathy affecting lower extremity 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 Rosacea, unspecified Varicose eczema Major depressive disorder, recurrent, in remission, unspecified Fibromyalgia Encounter for screening mammogram for malignant neoplasm of breast IBS (irritable bowel syndrome) Chronic sinusitis, unspecified Moderate persistent asthma with (acute) exacerbation Encounter for therapeutic drug level monitoring 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, intra-abdominal lymph nodes Burkitt's lymphoma of extranodal site excluding spleen and other solid organs Surgical History Hx laparoscopic cholecystectomy H/O: hysterectomy Social History (Updated 09/26/23 @ 13:29 by Angelia Sahu DO) Patient Tobacco Use Status: Tobacco use Unknown Review of Systems Const Reports as per HPI Physical Exam Vital Signs: Last Vital Signs Pulse 100 10/11/23 14:44 BP 130/78 10/11/23 14:44 Pulse Ox 96 10/11/23 14:44 Oxygen Delivery Method Room Air 10/11/23 14:44 Const General: cooperative and anxious Assessment & Plan Assessment & Plan (1) Opioid dependence: Code(s): F11.20 - Opioid dependence, uncomplicated Plan: increase dose to 2mg TID follow up one week via telehealth Medications: Changed From buprenorphine-naloxone 2-0.5 mg (Suboxone) place 1 strip/tab under (each) side of tongue 2 film buccal DAILY 14 ea 0RF To buprenorphine-naloxone 2-0.5 mg (Suboxone) 1 film buccal TID 22 ea 0RF Coding Level of Care Code Est Pt Level 4 (59572) Diagnoses Opioid dependence F11.20
== END 2023-10-11 15:59 | disposition home or self-care (01) ==
PROVIDERS: Visit Provider Nurse Practitioner Psychiatric/Mental Health
DX: F11.20 Opioid dependence, uncomplicated (principal)
CPT/HCPCS: 99214

== ENCOUNTER → 2023-10-11 14:35 | Outpatient (BNVA) | payer OTHER, SELFPAY | PROVIDERS: Visit Provider Nurse Practitioner Psychiatric/Mental Health ==

== ENCOUNTER 2023-10-18 09:05 | Outpatient (AMB) | payer OTHER, SELFPAY ==
--- NOTE | 2023-10-18 09:13 | MHC.AM.SUB ---
Intake Intake Visit Reasons: mat visit Allergies shellfish derived Allergy (Severe, Verified 10/11/23 14:46) Anaphylaxis codeine Adverse Reaction (Mild, Verified 10/11/23 14:46) Anxiety fentanyl patch Allergy (Intermediate, Uncoded 10/11/23 14:46) Redness of Skin HPI mat visit HPI Details Patient presents for follow up via telehealth Last visit Suboxone dose was increased by 2mg in the middle of the day, found it helpful however feels sleepy Discussed trialing 1/2 film in AM and afternoon to see if that decreases drowsiness, patient agreeable [facility] Medical History Long COVID Rhinitis Constipation by outlet dysfunction Muscular deconditioning Gastritis, unspecified, without bleeding Vitamin D deficiency, unspecified Postmenopausal Presence of neurostimulator Degenerative disc disease, lumbar Lumbar stenosis with neurogenic claudication Acquired hypothyroidism Moderate persistent asthma, uncomplicated Generalized anxiety disorder Lumbar back pain with radiculopathy affecting lower extremity 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 Rosacea, unspecified Varicose eczema Major depressive disorder, recurrent, in remission, unspecified Fibromyalgia Encounter for screening mammogram for malignant neoplasm of breast IBS (irritable bowel syndrome) Chronic sinusitis, unspecified Moderate persistent asthma with (acute) exacerbation Encounter for therapeutic drug level monitoring 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, intra-abdominal lymph nodes Burkitt's lymphoma of extranodal site excluding spleen and other solid organs Surgical History Hx laparoscopic cholecystectomy H/O: hysterectomy Social History (Updated 09/26/23 @ 13:29 by Angelia Sahu DO) Patient Tobacco Use Status: Tobacco use Unknown Review of Systems Const Reports as per HPI Assessment & Plan Assessment & Plan (1) Opioid dependence: Code(s): F11.20 - Opioid dependence, uncomplicated Plan: continue suboxone at current dose, however patient will trial 1mg instead of 2mg dose in AM and afternoon follow up 2 weeks Medications: Refilled buprenorphine-naloxone 2-0.5 mg (Suboxone) 1 film buccal TID 42 ea 0RF Telehealth Telehealth Location of provider rendering services: practice address Location of patient: address on file Patient Identification confirmed using: Name, : Yes Telehealth method: voice only Patient verbally consented to treatment: Yes Patient verbally consented to billing insurance company: Yes Coding Level of Care Code Tele Est Pt Level 4 (02481) Diagnoses Opioid dependence F11.20 Time Spent (min) 35 Comment 25 mins with patient remainder on chart review and documentation
== END 2023-10-18 09:31 | disposition home or self-care (01) ==
PROVIDERS: Visit Provider Nurse Practitioner Psychiatric/Mental Health
DX: F11.20 Opioid dependence, uncomplicated (principal)
CPT/HCPCS: 99214

== ENCOUNTER → 2023-10-18 09:05 | Outpatient (BNVA) | payer OTHER, SELFPAY | PROVIDERS: Visit Provider Nurse Practitioner Psychiatric/Mental Health ==

== ENCOUNTER 2023-11-11 09:33 | Outpatient (AMB) | payer MEDICARE, SELFPAY ==
--- NOTE | 2023-11-11 09:34 | MHC.AM.SUB ---
Intake Vital Signs 11/11/23 09:40 BP 132/88 Blood Pressure Location Lt radial Position Sitting Pulse 98 Pulse Source Pulse Oximeter Pulse Oximetry (%) 94 Oxygen Delivery Method Room Air Intake Visit Reasons: mat visit Intake Note: the patient presents for a mat visit Semiconductor Manufacturing Technician Required: No Allergies shellfish derived Allergy (Severe, Verified 11/11/23 09:41) Anaphylaxis codeine Adverse Reaction (Mild, Verified 11/11/23 09:41) Anxiety fentanyl patch Allergy (Intermediate, Uncoded 11/11/23 09:41) Redness of Skin Do you need a note to return to daycare/school/sports/work: No HPI mat visit HPI Details Patient presents for follow up Feeling worse painwise Tolerating splitting up suboxone doses --less drowsy Verbalizing frustration with ongoing pain Has not connected with new primary care provider yet. Scheduled for injection this week [facility] Medical History Long COVID Rhinitis Constipation by outlet dysfunction Muscular deconditioning Gastritis, unspecified, without bleeding Vitamin D deficiency, unspecified Postmenopausal Presence of neurostimulator Degenerative disc disease, lumbar Lumbar stenosis with neurogenic claudication Acquired hypothyroidism Moderate persistent asthma, uncomplicated Generalized anxiety disorder Lumbar back pain with radiculopathy affecting lower extremity 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 Rosacea, unspecified Varicose eczema Major depressive disorder, recurrent, in remission, unspecified Fibromyalgia Encounter for screening mammogram for malignant neoplasm of breast IBS (irritable bowel syndrome) Chronic sinusitis, unspecified Moderate persistent asthma with (acute) exacerbation Encounter for therapeutic drug level monitoring 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, intra-abdominal lymph nodes Burkitt's lymphoma of extranodal site excluding spleen and other solid organs Surgical History Hx laparoscopic cholecystectomy H/O: hysterectomy Social History (Updated 09/26/23 @ 13:29 by Angelia Sahu DO) Patient Tobacco Use Status: Tobacco use Unknown Review of Systems Const Reports as per HPI, Reports body aches, Reports difficulty sleeping, Reports headache(s) and Reports lethargy ENT Reports headache(s) Neuro Reports headache(s) Physical Exam Vital Signs: Last Vital Signs Pulse 98 11/11/23 09:40 BP 132/88 11/11/23 09:40 Pulse Ox 94 11/11/23 09:40 Oxygen Delivery Method Room Air 11/11/23 09:40 Const General: cooperative and anxious Assessment & Plan Assessment & Plan (1) Opioid dependence: Code(s): F11.20 - Opioid dependence, uncomplicated Plan: continue suboxone at current dose follow up 3 weeks Medications: Refilled buprenorphine-naloxone 2-0.5 mg (Suboxone) 1 film buccal TID 63 ea 0RF Coding Level of Care Code Est Pt Level 4 (83400) Diagnoses Opioid dependence F11.20
[2023-11-11 09:40] VITALS: BP 132/88; PULSE 98; O2SAT 94
== END 2023-11-11 10:32 | disposition home or self-care (01) ==
PROVIDERS: Visit Provider Nurse Practitioner Psychiatric/Mental Health
DX: F11.20 Opioid dependence, uncomplicated (principal)
CPT/HCPCS: 99214

== ENCOUNTER → 2023-11-11 09:33 | Outpatient (BNVA) | payer MEDICARE, OTHER, SELFPAY | PROVIDERS: Visit Provider Nurse Practitioner Psychiatric/Mental Health | DX: F11.20 Opioid dependence, uncomplicated (principal) | CPT/HCPCS: 99212 ==

== ENCOUNTER 2023-12-13 10:46 | Outpatient (AMB) | payer OTHER, MEDICARE, SELFPAY ==
--- NOTE | 2023-12-13 11:34 | A.OFFVISCC_ITS ---
Intake Intake Visit Reasons: mat visit Allergies shellfish derived Allergy (Severe, Verified 11/11/23 09:41) Anaphylaxis codeine Adverse Reaction (Mild, Verified 11/11/23 09:41) Anxiety fentanyl patch Allergy (Intermediate, Uncoded 11/11/23 09:41) Redness of Skin HPI mat visit HPI Details Patient presents for MAT visit via telehealth She reports she has been continuing to experience a lot of acid which she describes as reflux after taking her films She is also reporting blisters under her tongue that coincides with her starting the films She is experiencing poor pain control per her report, taking her films 1mg morning, 1mg afternoon, and 2mg at night. She does admit she forgets the midday dose at times because she has so many different meds to take She had covid 2-3 weeks ago and is continuing to recover from it She endorses poor sleep [facility] Medical History Long COVID Rhinitis Constipation by outlet dysfunction Muscular deconditioning Gastritis, unspecified, without bleeding Vitamin D deficiency, unspecified Postmenopausal Presence of neurostimulator Degenerative disc disease, lumbar Lumbar stenosis with neurogenic claudication Acquired hypothyroidism Moderate persistent asthma, uncomplicated Generalized anxiety disorder Lumbar back pain with radiculopathy affecting lower extremity 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 Rosacea, unspecified Varicose eczema Major depressive disorder, recurrent, in remission, unspecified Fibromyalgia Encounter for screening mammogram for malignant neoplasm of breast IBS (irritable bowel syndrome) Chronic sinusitis, unspecified Moderate persistent asthma with (acute) exacerbation Encounter for therapeutic drug level monitoring 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, intra-abdominal lymph nodes Burkitt's lymphoma of extranodal site excluding spleen and other solid organs Surgical History Hx laparoscopic cholecystectomy H/O: hysterectomy Social History (Updated 09/26/23 @ 13:29 by Angelia Sahu DO) Patient Tobacco Use Status: Tobacco use Unknown Review of Systems Const Reports as per HPI and Reports lethargy ENT Reports mouth lesions Resp Reports chest congestion GI Reports dyspepsia and Reports heartburn Assessment & Plan Assessment & Plan (1) Opioid dependence: Code(s): F11.20 - Opioid dependence, uncomplicated Plan: -Discussed with patient switching to SL tablets to address the blisters under her tongue -Discussed with her the possibility of switching to butrans to address pain and prevent withdrawal, will discuss this more weith her at next appt if she is unable to tolerate the tablets -Follow up 2 weeks teleheatlth Medications: New buprenorphine-naloxone 2-0.5 mg 1 tab sublingual TID 36 tabs 0RF Telehealth Telehealth Location of provider rendering services: practice address Location of patient: address on file Patient Identification confirmed using: Name, : Yes Telehealth method: voice only Patient verbally consented to treatment: Yes Patient verbally consented to billing insurance company: Yes Patient informed of any privacy concerns related to visit: Yes Minutes spent on Phone/Video with Pt.: 35 Coding Level of Care Code Tele [facility] Pt Level 4 (79354) Diagnoses Opioid dependence F11.20
== END 2023-12-13 11:54 | disposition home or self-care (01) ==
PROVIDERS: Visit Provider Nurse Practitioner Family
DX: F11.20 Opioid dependence, uncomplicated (principal)
CPT/HCPCS: 99443

== ENCOUNTER → 2023-12-13 10:46 | Outpatient (BNVA) | payer MEDICARE, SELFPAY | PROVIDERS: Visit Provider Nurse Practitioner Family ==

== ENCOUNTER 2023-12-25 14:00 | Outpatient (AMB) | payer MEDICARE, SELFPAY ==
--- NOTE | 2023-12-25 14:01 | A.OFFVISCC_ITS ---
Intake Vital Signs 12/25/23 14:10 BP 126/86 Blood Pressure Location Lt radial Position Sitting Pulse 74 Pulse Source Pulse Oximeter Pulse Oximetry (%) 96 Oxygen Delivery Method Room Air Intake Visit Reasons: MAT Intake Note: The patient presents for a mat visit Center Receptionist Required: No Allergies shellfish derived Allergy (Severe, Verified 12/25/23 14:01) Anaphylaxis codeine Adverse Reaction (Mild, Verified 12/25/23 14:01) Anxiety fentanyl patch Allergy (Intermediate, Uncoded 12/25/23 14:01) Redness of Skin Do you need a note to return to daycare/school/sports/work: No HPI MAT HPI Details Patient presents for MAT visit She reports she continues to experience pain (chronic) associated with her various medical conditions,most notably in her back She also endorses excessive daytime sleepiness due to her narcolepsy, and various sedating medications She reports the tablets have been better for her than the films, sublingual blisters have resolved Upset because she feels her quality of life is poor due to pain and excessive daytime drowsiness She is also upset because she feels medical illustrator don't want to touch her because of her various medical conditions. She reports that she has been told by prior providers that you're not supposed to still be here she says this is because of her history of cancer She is continueing to experience profound acid reflux despite taking omeprazole, she also describes a feeling of fullness she describes a jug in her stomach She is asking for new inhaler script, reports her old inhaler is [facility] Medical History (Updated 12/27/23 @ 10:12 by Joyce Valdez NP) Long COVID Rhinitis Constipation by outlet dysfunction Muscular deconditioning Gastritis, unspecified, without bleeding Vitamin D deficiency, unspecified Postmenopausal Presence of neurostimulator Degenerative disc disease, lumbar Lumbar stenosis with neurogenic claudication Acquired hypothyroidism Moderate persistent asthma, uncomplicated Generalized anxiety disorder Lumbar back pain with radiculopathy affecting lower extremity 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 Rosacea, unspecified Varicose eczema Major depressive disorder, recurrent, in remission, unspecified Fibromyalgia Encounter for screening mammogram for malignant neoplasm of breast IBS (irritable bowel syndrome) Chronic sinusitis, unspecified Moderate persistent asthma with (acute) exacerbation Encounter for therapeutic drug level monitoring 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, intra-abdominal lymph nodes Burkitt's lymphoma of extranodal site excluding spleen and other solid organs Surgical History Hx laparoscopic cholecystectomy H/O: hysterectomy Social History (Updated 09/26/23 @ 13:29 by Angelia Sahu DO) Patient Tobacco Use Status: Tobacco use Unknown Review of Systems Const Reports as per HPI, Reports daytime sleepiness and Reports fatigue GI Denies melena, Denies hematochezia, Reports early satiety, Reports dyspepsia, Reports heartburn, Denies vomiting and Denies hematemesis Musc Reports muscle cramps and Reports muscle weakness Endo Reports fatigue Physical Exam Vital Signs: Last Vital Signs Pulse 74 12/25/23 14:10 BP 126/86 12/25/23 14:10 Pulse Ox 96 12/25/23 14:10 Oxygen Delivery Method Room Air 12/25/23 14:10 Const General: cooperative and no acute distress Resp Effort & Inspection: normal respiratory effort Skin General skin exam: no rashes or lesions noted Psych Appearance: grossly normal and well kempt Mental Status: mental status grossly normal Speech and movement: Normal speech and movement present Affect: normal affect Attitude: cooperative Thought process: Normal thought process present Assessment & Plan Assessment & Plan (1) Reflux gastritis: Code(s): K29.60 - Other gastritis without bleeding Plan: -Referral to gastroenterology for further workup (2) Fibromyalgia: Code(s): M79.7 - Fibromyalgia Plan: -Increase duloxetine from 30mg to 60mg -D/c cyclobenzaprine, reviewed with patient to start taking tizanidine to decrease daytime sedation (3) 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: Code(s): G47.429 - 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 Plan: -Start modafinil 100mg in the morning to address excessive daytime fatigue, reviewed with her she is starting at a lower dose to ensure she is able to tolerate it. Med education provided. Orders: Orders TSH reflex Free T4 12/25/23 F11.20 - Opioid dependence, uncomplicated Comprehensive Met. Panel 12/25/23 U09.9 - Post COVID-19 condition, unspecified Complete Blood Count Auto Diff 12/25/23 U09.9 - Post COVID-19 condition, unspecified Magnesium 12/25/23 F11.20 - Opioid dependence, uncomplicated Referrals Gastroenterology Referral K29.60 - Other gastritis without bleeding, K58.9 - Irritable bowel syndrome without diarrhea Medications: New albuterol sulfate 90 mcg/actuation 2 puffs inhalation 6XD PRN 8.5 grams 0RF shortness of breath or wheezing modafinil 100 mg PO QAM 7 tabs 0RF duloxetine 60 mg PO DAILY 14 caps 0RF Refilled buprenorphine-naloxone 2-0.5 mg 1 tab sublingual TID 36 tabs 0RF Discontinued hydroxyzine HCl Discontinued Reason: Patient Completed Course 25 mg PO TID 270 tabs 1RF for itch buprenorphine-naloxone 2-0.5 mg (Suboxone) Discontinued Reason: Patient no longer taking 1 film buccal TID 63 ea 0RF Coding Level of Care Code Est Pt Level 4 (55774) Diagnoses Reflux gastritis K29.60 Fibromyalgia M79.7 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 G47.429
[2023-12-25 14:10] VITALS: BP 126/86; PULSE 74; O2SAT 96
== END 2023-12-25 14:54 | disposition home or self-care (01) ==
PROVIDERS: Visit Provider Nurse Practitioner Family
DX: F11.20 Opioid dependence, uncomplicated (principal); K29.60 Other gastritis without bleeding; M79.7 Fibromyalgia; G47.429 Narcolepsy 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
CPT/HCPCS: 99214

== ENCOUNTER 2023-12-25 14:00 | Outpatient (REF) | payer OTHER, MEDICARE, SELFPAY ==
[2023-12-25 15:07] LABS: MANUAL DIFF FLAG NO
[2023-12-25 16:29] LABS: Basophils Percent Auto 0.5 % (0-2); Eosinophils Absolute Auto 0.1 X10*3/uL (0.0-0.4); Eosinophils Percent Auto 2.5 % (0-4); Hematocrit 32.4 % (37.0-47.0); Hemoglobin 10.5 g/dl (12.0-16.0); Imm Gran Abs Auto 0.04 X10*3/uL (0.00-0.03); Imm Gran Pct Auto 0.7 % (0.0-0.4); Lymphocytes Absolute Auto 2.1 X10*3/uL (1.2-4.9); Lymphocytes Percent Auto 38.3 % (20-40); Mean Corpuscular HGB Conc 32.4 g/dl (31.0-35.0); Mean Corpuscular Hemoglobin 26.8 pg (27.0-33.0); Mean Corpuscular Volume 82.7 fL (80.0-98.0); Mean Platelet Volume 10.5 fL (9.4-12.3); Monocytes Absolute Auto 0.5 X10*3/uL (0.1-1.2); Monocytes Percent Auto 9.5 % (2-11); Neutrophils Absolute Auto 2.7 x10*3/uL (2.0-8.3); Neutrophils Percent Auto 48.5 % (45-73); Platelet Count 173 X10*3/uL (160-400); Red Blood Count 3.92 X10*6/uL (4.20-5.50); Red Cell Distribution Width 13.8 % (11.0-16.0); White Blood Count 5.6 X10*3/uL (4.8-10.8)
[2023-12-25 18:08] LABS: Alanine Aminotransferase 20 U/L (0-31); Albumin Level 3.9 g/dL (3.5-5.0); Alkaline Phosphatase 84 U/L (39-117); Anion Gap 10 (12-20); Aspartate Amino Transferase 21 U/L (5-31); Bilirubin Total 0.3 mg/dL (0.0-1.0); Blood Urea Nitrogen 15 mg/dL (9-16); Calcium 9.3 mg/dL (8.4-10.2); Carbon Dioxide 29 mmol/L (22-29); Chloride 104 mmol/L (96-108); Estimated Glomerular Filt Rate > 60; Glucose Random 84 mg/dL (60-115); Magnesium 1.9 mg/dL (1.6-2.6); Potassium 3.9 mmol/L (3.3-5.1); Sodium 139 mmol/L (135-145); Total Protein 6.1 g/dL (6.5-8.0)
[2023-12-25 18:09] LABS: TSH reflex Free T4 1.22 uIU/mL (0.32-4.0)
== END 2023-12-25 14:01 | disposition home or self-care (01) ==
LOC: HO.LAB 14:00
PROVIDERS: PCP Internal Medicine; Visit Provider Nurse Practitioner Family
DX: U09.9 Post COVID-19 condition, unspecified (principal); F11.20 Opioid dependence, uncomplicated
CPT/HCPCS: 36415; 80053; 83735; 84443; 85025; 99212

== ENCOUNTER 2024-01-08 14:37 | Outpatient (AMB) | payer OTHER, MEDICARE, SELFPAY ==
--- NOTE | 2024-01-09 13:35 | A.OFFVISCC_ITS ---
Intake Intake Visit Reasons: MAT Allergies shellfish derived Allergy (Severe, Verified 12/25/23 14:01) Anaphylaxis codeine Adverse Reaction (Mild, Verified 12/25/23 14:01) Anxiety fentanyl patch Allergy (Intermediate, Uncoded 12/25/23 14:01) Redness of Skin HPI MAT HPI Details Patient presents for telehealth MAT appointment She reports good effect from the modafinil calling it a game changer , she no longer feels fatigued and has experienced a significant decrease in mental fog. She had an EMG today that she is awaiting results for, reports she has been experiencing an increase in muscle spasticity and rigidity and notes that it seems to have been exacerbated by having Covid in Sep/Oct. She has been taking suboxone 2mg tid, and is reporting less drowsiness associated with taking it She reports she continues to experience poor sleep at night, mostly due to the muscle spasticity and pain, although she does report there has been a decrease in pain after the adjustment in duloxetine She reports that she has been having difficulties getting refills on her medications prescribed by her PCP, she has been trying to get ahold of someone from their office for the past few weeks with no luck [facility] Medical History (Updated 01/09/24 @ 17:43 by Joyce Valdez NP) Long COVID Rhinitis Constipation by outlet dysfunction Muscular deconditioning Gastritis, unspecified, without bleeding Vitamin D deficiency, unspecified Postmenopausal Presence of neurostimulator Degenerative disc disease, lumbar Lumbar stenosis with neurogenic claudication Acquired hypothyroidism Moderate persistent asthma, uncomplicated Generalized anxiety disorder Lumbar back pain with radiculopathy affecting lower extremity 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 Rosacea, unspecified Varicose eczema Major depressive disorder, recurrent, in remission, unspecified Fibromyalgia Encounter for screening mammogram for malignant neoplasm of breast IBS (irritable bowel syndrome) Chronic sinusitis, unspecified Moderate persistent asthma with (acute) exacerbation Encounter for therapeutic drug level monitoring 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, intra-abdominal lymph nodes Burkitt's lymphoma of extranodal site excluding spleen and other solid organs Surgical History Hx laparoscopic cholecystectomy H/O: hysterectomy Social History (Updated 09/26/23 @ 13:29 by Angelia Sahu DO) Patient Tobacco Use Status: Tobacco use Unknown Review of Systems Const Reports as per HPI Musc Reports as per HPI, Reports muscle cramps, Reports muscle weakness and Reports stiffness Assessment & Plan Assessment & Plan (1) Opioid dependence: Code(s): F11.20 - Opioid dependence, uncomplicated Qualifiers: Substance use status: uncomplicated Qualified Code(s): F11.20 - Opioid dependence, uncomplicated Plan: -Mass pat reviewed -Tolerating suboxone dose, refill sent to pharmacy -[facility] -Follow up 2 weeks (2) 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: Code(s): G47.429 - 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 Plan: -Refill sent for modafinil, tolerating well, cont same dose (100mg/day) (3) Hypothyroid: Code(s): E03.9 - Hypothyroidism, unspecified Qualifiers: Hypothyroidism type: acquired Qualified Code(s): E03.9 - Hypothyroidism, unspecified Plan: -Refilled levothyroxine Medications: New levothyroxine 100 mcg PO DAILY 30 caps 0RF bupropion HCl 300 mg PO QAM 30 tabs 2RF celecoxib 200 mg PO BID 30 caps 0RF Refilled modafinil 100 mg PO QAM 30 tabs 2RF duloxetine 60 mg PO DAILY 30 caps 2RF buprenorphine-naloxone 2-0.5 mg 1 tab sublingual TID 90 tabs 0RF tizanidine 4 mg PO Q8H PRN 90 caps 0RF muscle spasticity Discontinued ondansetron Discontinued Reason: Patient no longer taking 4 mg PO Q8H PRN 21 tabs 0RF nausea and vomiting Telehealth Telehealth Location of provider rendering services: practice address Location of patient: address on file Patient Identification confirmed using: Name, : Yes Telehealth method: voice only Patient verbally consented to treatment: Yes Patient verbally consented to billing insurance company: Yes Patient informed of any privacy concerns related to visit: Yes Minutes spent on Phone/Video with Pt.: 40 Coding Level of Care Code Tele Est Pt Level 4 (75929) Diagnoses Uncomplicated opioid dependence F11.20 Substance use status: uncomplicated 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 G47.429 Acquired hypothyroidism E03.9 Hypothyroidism type: acquired
== END 2024-01-08 14:48 | disposition home or self-care (01) ==
LOC: HO.HCC 14:37
PROVIDERS: PCP Internal Medicine; Visit Provider Nurse Practitioner Family
DX: F11.20 Opioid dependence, uncomplicated (principal); G47.429 Narcolepsy 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; E03.9 Hypothyroidism, unspecified
CPT/HCPCS: 99443

== ENCOUNTER → 2024-01-08 14:37 | Outpatient (BNVA) | payer MEDICARE, SELFPAY | PROVIDERS: PCP Internal Medicine; Visit Provider Nurse Practitioner Family | DX: U09.9 Post COVID-19 condition, unspecified (principal); F11.20 Opioid dependence, uncomplicated ==

== ENCOUNTER 2024-01-22 16:20 | Outpatient (AMB) | payer OTHER, MEDICARE, SELFPAY ==
--- NOTE | 2024-01-22 16:44 | MHC.AM.SUB ---
Intake Intake Visit Reasons: MAT Allergies shellfish derived Allergy (Severe, Verified 12/25/23 14:01) Anaphylaxis codeine Adverse Reaction (Mild, Verified 12/25/23 14:01) Anxiety fentanyl patch Allergy (Intermediate, Uncoded 12/25/23 14:01) Redness of Skin HPI MAT HPI Details Patient presents via telehealth as she was unable to obtain a ride to the clinic Reports she is having a really hard time States her pain has been minimally controlled, she also has been having alternating episodes of muscle spasticity and flacidity Recently had EMG done- abnormal results, has been referred by [facility] to [facility] for further follow up Reports her mental fog has been alleviated to some degree with the modafinil Has never been checked for Lyme PFSH Medical History (Updated 01/24/24 @ 09:54 by Joyce Valdez NP) Long COVID Rhinitis Constipation by outlet dysfunction Muscular deconditioning Gastritis, unspecified, without bleeding Vitamin D deficiency, unspecified Postmenopausal Presence of neurostimulator Degenerative disc disease, lumbar Lumbar stenosis with neurogenic claudication Acquired hypothyroidism Moderate persistent asthma, uncomplicated Generalized anxiety disorder Lumbar back pain with radiculopathy affecting lower extremity 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 Rosacea, unspecified Varicose eczema Major depressive disorder, recurrent, in remission, unspecified Fibromyalgia Encounter for screening mammogram for malignant neoplasm of breast IBS (irritable bowel syndrome) Chronic sinusitis, unspecified Moderate persistent asthma with (acute) exacerbation Encounter for therapeutic drug level monitoring 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, intra-abdominal lymph nodes Burkitt's lymphoma of extranodal site excluding spleen and other solid organs Surgical History Hx laparoscopic cholecystectomy H/O: hysterectomy Social History (Updated 09/26/23 @ 13:29 by Angelia Sahu DO) Patient Tobacco Use Status: Tobacco use Unknown Review of Systems Const Reports as per HPI, Reports fatigue and Reports weakness Musc Reports muscle cramps, Reports muscle weakness and Reports stiffness Neuro Reports weakness Endo Reports fatigue Assessment & Plan Assessment & Plan (1) Opioid dependence: Code(s): F11.20 - Opioid dependence, uncomplicated Qualifiers: Substance use status: uncomplicated Qualified Code(s): F11.20 - Opioid dependence, uncomplicated Plan: -Given patient was pain transfer, and has been experiencing suboptimal relief with the buprenorphine tablets, plan is to switch to butrans patch 5mcg/hr. Med education provided, reviewed with her to discontinue patch and resume tablets if she becomes lethargic -Follow up 2 weeks (2) Muscle spasticity: Code(s): M62.838 - Other muscle spasm Plan: -Plan to check labs iron panel, folate, B12, lyme panel, ESR, CRP, and Vitamin D to help rule out underlying causes. Will check MADY pending results of initial labwork. -Pt to follow up with [facility] -Follow up 2 weeks Orders: Orders Lyme IgG/IgM w/reflex to WB Today M6.838 - Other muscle spasm Vitamin D 1,25 dihydroxy Today M6.838 - Other muscle spasm IRON PROFILE Today M6.838 - Other muscle spasm Erythrocyte Sedimentation Rate Today M6.838 - Other muscle spasm CRP High Sensitivity Today M62.838 - Other muscle spasm Transferrin Today M62.838 - Other muscle spasm Ferritin Today M62.838 - Other muscle spasm Vitamin B12 and Folate Today M62.838 - Other muscle spasm Medications: New buprenorphine 5 mcg/hour 1 patch transdermal Q7D 4 ea 0RF gabapentin 600 mg (2 x 300 mg) PO BEDTIME 60 caps 0RF gabapentin 300 mg PO DAILY 30 caps 0RF Telehealth Telehealth Location of provider rendering services: practice address Location of patient: address on file Patient Identification confirmed using: Name, : Yes Telehealth method: voice only Patient verbally consented to treatment: Yes Patient verbally consented to billing insurance company: Yes Patient informed of any privacy concerns related to visit: Yes Minutes spent on Phone/Video with Pt.: 55 Coding Level of Care Code Tele Est Pt Level 5 (08725) Diagnoses Uncomplicated opioid dependence F11.20 Substance use status: uncomplicated Muscle spasticity M62.838 Time Spent (min) 55
== END 2024-01-22 16:29 | disposition home or self-care (01) ==
LOC: HO.HCC 16:20
PROVIDERS: PCP Internal Medicine; Visit Provider Nurse Practitioner Family
DX: F11.20 Opioid dependence, uncomplicated (principal); M62.838 Other muscle spasm
CPT/HCPCS: 99443

== ENCOUNTER → 2024-01-22 16:20 | Outpatient (BNVA) | payer MEDICARE, SELFPAY | PROVIDERS: PCP Internal Medicine; Visit Provider Nurse Practitioner Family | DX: U09.9 Post COVID-19 condition, unspecified (principal); F11.20 Opioid dependence, uncomplicated ==

== ENCOUNTER 2024-02-04 16:22 | Outpatient (REF) | payer OTHER, SELFPAY ==
[2024-02-04 17:54] LABS: Appearance Urine Clear; Color Urine Yellow; Glucose Urine UA Negative (Negative); Leukocyte Esterase Urine Trace (Negative); Nitrite Urine Negative (Negative); PH 6.5 (5.0-9.0); Specific Gravity - Urine 1.025 (1.005-1.025); UMIC TRIGGER UA YES; Urine Blood Trace (Negative); Urine Ketones Negative (Negative); Urine Protein Negative (Neg-Trace)
[2024-02-04 18:02] LABS: Bacteria Urine None Seen (None Seen); Hyaline Casts Urine 0-2 /LPF (0-2); Squamous Epithelial Cell Urine 0-2 /HPF (0-2); WBC Urine 0-5 /HPF (0-5)
[2024-02-04 19:01] LABS: Iron 33 mcg/dL (30-160); Percent Iron Saturation 8 % (15-50); Total Iron Binding Capacity 412 mcg/dL (228-428); Unsaturated Iron Binding 379 ug/dL
[2024-02-04 19:09] LABS: Erythrocyte Sedimentation Rate 6 MM/HR (0-20)
[2024-02-04 19:18] LABS: Ferritin 10 ng/mL (10-250)
[2024-02-04 19:29] LABS: Vitamin B12 368 pg/mL (200-900)
[2024-02-06 08:39] LABS: Lyme Abs Screen <0.90 index
[2024-02-06 12:43] LABS: Transferrin 372 mg/dL (188-341)
[2024-02-08 17:24] LABS: VITAMIN D (1,25 OH) D3 56 pg/mL; Vit D (1,25-Dihydroxy) Total 76 pg/mL (18-72); Vitamin D (1,25 OH) D2 20 pg/mL
== END 2024-02-04 16:23 | disposition home or self-care (01) ==
LOC: HO.LAB 16:22
PROVIDERS: PCP Internal Medicine; Visit Provider Nurse Practitioner Family
DX: M62.838 Other muscle spasm (principal); U09.9 Post COVID-19 condition, unspecified; F11.20 Opioid dependence, uncomplicated
CPT/HCPCS: 36415; 81001; 82607; 82652; 82728; 82746; 83540; 84466; 85652; 86141; 86617; 86618

== ENCOUNTER 2024-02-17 12:59 | Outpatient (AMB) | payer OTHER, MEDICARE, SELFPAY ==
--- NOTE | 2024-02-17 13:06 | A.OFFVISCC_ITS ---
Vital Signs 02/17/24 13:07 BP 130/70 Blood Pressure Location Lt radial Position Sitting Respiration 19 Pulse 115 H Pulse Oximetry (%) 98 Intake Visit Reasons: MAT Allergies shellfish derived Allergy (Severe, Verified 12/25/23 14:01) Anaphylaxis codeine Adverse Reaction (Mild, Verified 12/25/23 14:01) Anxiety fentanyl patch Allergy (Intermediate, Uncoded 12/25/23 14:01) Redness of Skin HPI HPI MAT: Details: Patient presents for treatment and follow up SHe brought her medication list to verify with t/w Stating she needs a letter for her disability that she is receiving care at the [facility] She is reporting frequent hot and cold flashes that began shortly after switching from buprenorphine tablet to patch She feels as though the patch has been semi-effective in addressing her pain She continues to report poor sleep She feels as though the modafinil has been effective in addressing her chronic daytime fatigue [facility] Medical History (Updated 02/04/24 @ 16:54 by Joyce Valdez NP) Long COVID Rhinitis Constipation by outlet dysfunction Muscular deconditioning Gastritis, unspecified, without bleeding Vitamin D deficiency, unspecified Postmenopausal Presence of neurostimulator Degenerative disc disease, lumbar Lumbar stenosis with neurogenic claudication Acquired hypothyroidism Moderate persistent asthma, uncomplicated Generalized anxiety disorder Lumbar back pain with radiculopathy affecting lower extremity 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 Rosacea, unspecified Varicose eczema Major depressive disorder, recurrent, in remission, unspecified Fibromyalgia Encounter for screening mammogram for malignant neoplasm of breast IBS (irritable bowel syndrome) Chronic sinusitis, unspecified Moderate persistent asthma with (acute) exacerbation Encounter for therapeutic drug level monitoring 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, intra-abdominal lymph nodes Burkitt's lymphoma of extranodal site excluding spleen and other solid organs Surgical History Hx laparoscopic cholecystectomy H/O: hysterectomy Social History (Updated 09/26/23 @ 13:29 by Angelia Sahu DO) Patient Tobacco Use Status: Tobacco use Unknown Review of Systems Const Reports as per HPI Physical Exam Vital Signs: Last Vital Signs Pulse 115 H 02/17/24 13:07 Resp 19 02/17/24 13:07 BP 130/70 02/17/24 13:07 Pulse Ox 98 02/17/24 13:07 Const General: cooperative and no acute distress Psych Appearance: grossly normal Mental Status: mental status grossly normal Speech and movement: Normal speech and movement present Affect: normal affect Attitude: cooperative Thought process: Perseverating thought process present Thought content: Normal thought content present Assessment & Plan Assessment & Plan (1) Opioid dependence: Code(s): F11.20 - Opioid dependence, uncomplicated Category: Medical Qualifiers: Substance use status: uncomplicated Qualified Code(s): F11.20 - Opioid dependence, uncomplicated Plan -Increase bupenorphine patch from 5mcg to 7.5 mcg/hr to address potential withdrawal symptoms (hot and cold flashes), reviewed with patient to step back down to the 5mcg dose if she finds herself becoming significantly fatigued -Refilled gabapentin -Encouraged patient to continue search for PCP -Offered reassurance -Follow up 4 weeks Medications: New buprenorphine 7.5 mcg/hour 1 patch transdermal Q7D 4 ea 0RF modafinil 50 mg (1/2 x 100 mg) PO DAILY 30 tabs 0RF Refilled gabapentin 600 mg (2 x 300 mg) PO BEDTIME 60 caps 0RF gabapentin 300 mg PO DAILY 30 caps 0RF Discontinued buprenorphine-naloxone 2-0.5 mg Discontinued Reason: Patient no longer taking 1 tab sublingual TID 90 tabs 0RF
[2024-02-17 13:07] VITALS: BP 130/70; PULSE 115; RESP 19; O2SAT 98
== END 2024-02-17 14:25 | disposition home or self-care (01) ==
LOC: HO.HCC 12:59
PROVIDERS: PCP Internal Medicine; Visit Provider Nurse Practitioner Family
DX: F11.20 Opioid dependence, uncomplicated (principal)
CPT/HCPCS: 99213

== ENCOUNTER → 2024-02-17 12:59 | Outpatient (BNVA) | payer MEDICARE, SELFPAY | PROVIDERS: PCP Internal Medicine; Visit Provider Nurse Practitioner Family | DX: F11.20 Opioid dependence, uncomplicated (principal) | CPT/HCPCS: 99212 ==

== ENCOUNTER 2024-03-24 15:02 | Outpatient (AMB) | payer MEDICARE, SELFPAY ==
--- NOTE | 2024-03-24 16:06 | A.OFFVISCC_ITS ---
Intake Visit Reasons: MAT Tele Allergies shellfish derived Allergy (Severe, Verified 12/25/23 14:01) Anaphylaxis codeine Adverse Reaction (Mild, Verified 12/25/23 14:01) Anxiety fentanyl patch Allergy (Intermediate, Uncoded 12/25/23 14:01) Redness of Skin HPI HPI MAT Tele: Details: Patient presents via telehealth States she has better pain control with the dose Denies any concerns with the patches, notes some occasional itching to application site Reports she is going out of town next week to visit her mother in [place] She is asking to restart hydroxyzine, states she had some left over from her suboxone induction, and they have been helping her to fall asleep at night Reports she has been cutting her modafinil dose (100mg) in half and is having positive effect [facility] Medical History (Updated 02/04/24 @ 16:54 by Joyce Valdez NP) Long COVID Rhinitis Constipation by outlet dysfunction Muscular deconditioning Gastritis, unspecified, without bleeding Vitamin D deficiency, unspecified Postmenopausal Presence of neurostimulator Degenerative disc disease, lumbar Lumbar stenosis with neurogenic claudication Acquired hypothyroidism Moderate persistent asthma, uncomplicated Generalized anxiety disorder Lumbar back pain with radiculopathy affecting lower extremity 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 Rosacea, unspecified Varicose eczema Major depressive disorder, recurrent, in remission, unspecified Fibromyalgia Encounter for screening mammogram for malignant neoplasm of breast IBS (irritable bowel syndrome) Chronic sinusitis, unspecified Moderate persistent asthma with (acute) exacerbation Encounter for therapeutic drug level monitoring 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, intra-abdominal lymph nodes Burkitt's lymphoma of extranodal site excluding spleen and other solid organs Surgical History Hx laparoscopic cholecystectomy H/O: hysterectomy Social History (Updated 09/26/23 @ 13:29 by Angelia Sahu DO) Patient Tobacco Use Status: Tobacco use Unknown Review of Systems Const Reports as per HPI Telehealth Telehealth Telehealth Platform: Telephone Location of provider rendering services: practice address Location of patient: address on file Patient Identification confirmed using: Name, : Yes Telehealth method: voice only Patient verbally consented to treatment: Yes Patient verbally consented to billing insurance company: Yes Patient informed of any privacy concerns related to visit: Yes Minutes spent on Phone/Video with Pt.: 40 Assessment & Plan Assessment & Plan (1) Opioid dependence: Code(s): F11.20 - Opioid dependence, uncomplicated Category: Medical Qualifiers: Substance use status: uncomplicated Qualified Code(s): F11.20 - Opioid dependence, uncomplicated Plan: -TULIO palencia reviewed -No refill indicated at this time -Tolerating butrans patch 7.5mcg/hr well -Follow up 4 weeks Medications: New hydroxyzine HCl 25 mg PO BID PRN 60 tabs 0RF itching Refilled tizanidine 4 mg PO Q8H PRN 90 caps 3RF for muscle spasm
== END 2024-03-24 15:53 | disposition home or self-care (01) ==
LOC: HO.HCC 15:02
PROVIDERS: PCP Internal Medicine; Visit Provider Nurse Practitioner Family
DX: F11.20 Opioid dependence, uncomplicated (principal)
CPT/HCPCS: 99443

== ENCOUNTER → 2024-03-24 15:02 | Outpatient (BNVA) | payer OTHER, MEDICARE, SELFPAY | PROVIDERS: PCP Internal Medicine; Visit Provider Nurse Practitioner Family ==

== ENCOUNTER 2024-04-17 10:27 | Outpatient (AMB) | payer MEDICARE, SELFPAY ==
--- NOTE | 2024-04-17 10:28 | MHC.AM.SUB ---
Intake Visit Reasons: MAT Tele Allergies shellfish derived Allergy (Severe, Verified 12/25/23 14:01) Anaphylaxis codeine Adverse Reaction (Mild, Verified 12/25/23 14:01) Anxiety fentanyl patch Allergy (Intermediate, Uncoded 12/25/23 14:01) Redness of Skin HPI HPI MAT Tele: Details: Patient presents via telehealth Reports things are going well Had recent visit with her mother in [place] that went well Is unsure at this time if the 7.5 mcg/hr is too much for her or not She is electing to wait another month and see how she feels as she is also concerned about dropping her dose PFS Medical History (Updated 02/04/24 @ 16:54 by Joyce Valdez NP) Long COVID Rhinitis Constipation by outlet dysfunction Muscular deconditioning Gastritis, unspecified, without bleeding Vitamin D deficiency, unspecified Postmenopausal Presence of neurostimulator Degenerative disc disease, lumbar Lumbar stenosis with neurogenic claudication Acquired hypothyroidism Moderate persistent asthma, uncomplicated Generalized anxiety disorder Lumbar back pain with radiculopathy affecting lower extremity 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 Rosacea, unspecified Varicose eczema Major depressive disorder, recurrent, in remission, unspecified Fibromyalgia Encounter for screening mammogram for malignant neoplasm of breast IBS (irritable bowel syndrome) Chronic sinusitis, unspecified Moderate persistent asthma with (acute) exacerbation Encounter for therapeutic drug level monitoring 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, intra-abdominal lymph nodes Burkitt's lymphoma of extranodal site excluding spleen and other solid organs Surgical History Hx laparoscopic cholecystectomy H/O: hysterectomy Social History (Updated 09/26/23 @ 13:29 by Angelia Sahu DO) Patient Tobacco Use Status: Tobacco use Unknown Review of Systems Const Reports as per HPI Telehealth Telehealth Telehealth Platform: Telephone Location of provider rendering services: practice address Location of patient: address on file Patient Identification confirmed using: Name, : Yes Telehealth method: voice only Patient verbally consented to treatment: Yes Patient verbally consented to billing insurance company: Yes Patient informed of any privacy concerns related to visit: Yes Minutes spent on Phone/Video with Pt.: 25 Assessment & Plan Assessment & Plan (1) Opioid dependence: Code(s): F11.20 - Opioid dependence, uncomplicated Category: Medical Qualifiers: Substance use status: uncomplicated Qualified Code(s): F11.20 - Opioid dependence, uncomplicated Plan: -Refills sent to pharmacy for multiple medications, she was again encouraged to find a PCP as soon as possible, but assured she will have medications for the next few months. Educated her that [facility] performs one time refills for medications also if she is waiting for a PCP still in a few months. -No refill on buprenorphine patch indicated at this time -Follow up 1 week Medications: Changed From gabapentin 300 mg PO DAILY 30 caps 0RF To gabapentin Take in the morning 300 mg PO DAILY 90 caps 1RF Refilled celecoxib 200 mg PO BID 180 caps 1RF hydroxyzine HCl 25 mg PO BID PRN 60 tabs 2RF itching levothyroxine 100 mcg PO DAILY 30 tabs 2RF omeprazole 40 mg PO DAILY 90 caps 3RF duloxetine 60 mg PO DAILY 90 caps 2RF gabapentin 600 mg (2 x 300 mg) PO BEDTIME 180 caps 1RF modafinil 50 mg (1/2 x 100 mg) PO DAILY 60 tabs 0RF
== END 2024-04-17 11:15 | disposition home or self-care (01) ==
PROVIDERS: PCP Internal Medicine; Visit Provider Nurse Practitioner Family
DX: F11.20 Opioid dependence, uncomplicated (principal)
CPT/HCPCS: 99443

== ENCOUNTER → 2024-04-17 10:27 | Outpatient (BNVA) | payer MEDICARE, SELFPAY | PROVIDERS: PCP Internal Medicine; Visit Provider Nurse Practitioner Family ==

== ENCOUNTER → 2024-04-24 08:45 | Outpatient (BNVA) | payer MEDICARE, SELFPAY | PROVIDERS: PCP Internal Medicine; Visit Provider Nurse Practitioner Psychiatric/Mental Health ==

== ENCOUNTER 2024-06-03 09:14 | Outpatient (AMB) | payer OTHER, MEDICARE, SELFPAY ==
--- NOTE | 2024-06-03 08:47 | A.OFFVISCC_ITS ---
Intake Visit Reasons: MAT Tele Allergies shellfish derived Allergy (Severe, Verified 12/25/23 14:01) Anaphylaxis codeine Adverse Reaction (Mild, Verified 12/25/23 14:01) Anxiety fentanyl patch Allergy (Intermediate, Uncoded 12/25/23 14:01) Redness of Skin HPI HPI MAT Tele: Details: Patient presents for follow up via telehealth Currently prescribed buprenorphine patch 7.5mcg Tolerating current dose. Was inquiring about changing dose or formulation, however after some discussion and previous challenges with films agreeable to staying on current dose Inquiring about refilling medications, Klonopin in particular. 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 Provided additional information related to primary care providers [facility] Medical History (Updated 02/04/24 @ 16:54 by Joyce Valdez NP) Long COVID Rhinitis Constipation by outlet dysfunction Muscular deconditioning Gastritis, unspecified, without bleeding Vitamin D deficiency, unspecified Postmenopausal Presence of neurostimulator Degenerative disc disease, lumbar Lumbar stenosis with neurogenic claudication Acquired hypothyroidism Moderate persistent asthma, uncomplicated Generalized anxiety disorder Lumbar back pain with radiculopathy affecting lower extremity 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 Rosacea, unspecified Varicose eczema Major depressive disorder, recurrent, in remission, unspecified Fibromyalgia Encounter for screening mammogram for malignant neoplasm of breast IBS (irritable bowel syndrome) Chronic sinusitis, unspecified Moderate persistent asthma with (acute) exacerbation Encounter for therapeutic drug level monitoring 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, intra-abdominal lymph nodes Burkitt's lymphoma of extranodal site excluding spleen and other solid organs Surgical History Hx laparoscopic cholecystectomy H/O: hysterectomy Social History (Updated 09/26/23 @ 13:29 by Angelia Sahu DO) Patient Tobacco Use Status: Tobacco use Unknown Review of Systems Const Reports as per HPI and Reports no additional complaints Telehealth Telehealth Telehealth Platform: Telephone Location of provider rendering services: practice address Telehealth method: voice only Patient verbally consented to treatment: Yes Patient verbally consented to billing insurance company: Yes Minutes spent on Phone/Video with Pt.: 20 Assessment & Plan Assessment & Plan (1) Opioid dependence: Code(s): F11.20 - Opioid dependence, uncomplicated Category: Medical Qualifiers: Substance use status: uncomplicated Qualified Code(s): F11.20 - Opioid dependence, uncomplicated Plan: * continue patch at current dose * follow up 2 months * refill to be requested end of the week
== END 2024-06-03 09:20 | disposition home or self-care (01) ==
PROVIDERS: PCP Internal Medicine; Visit Provider Nurse Practitioner Psychiatric/Mental Health
DX: F11.20 Opioid dependence, uncomplicated (principal)
CPT/HCPCS: 99213

== ENCOUNTER → 2024-06-03 09:14 | Outpatient (BNVA) | payer MEDICARE, SELFPAY | PROVIDERS: PCP Internal Medicine; Visit Provider Nurse Practitioner Psychiatric/Mental Health ==

== ENCOUNTER 2024-07-22 13:05 | Outpatient (AMB) | payer MEDICARE, SELFPAY ==
--- NOTE | 2024-07-22 13:03 | A.OFFVISCC_ITS ---
Intake Visit Reasons: MAT Tele Allergies shellfish derived Allergy (Severe, Verified 12/25/23 14:01) Anaphylaxis codeine Adverse Reaction (Mild, Verified 12/25/23 14:01) Anxiety fentanyl patch Allergy (Intermediate, Uncoded 12/25/23 14:01) Redness of Skin HPI HPI MAT Tele: Details: Patient presents for follow up will be seeing Harman cardona appt next Saturday tolerating current buprenorphine dose no concerns related to this [facility] Medical History (Updated 02/04/24 @ 16:54 by Joyce Valdez NP) Long COVID Rhinitis Constipation by outlet dysfunction Muscular deconditioning Gastritis, unspecified, without bleeding Vitamin D deficiency, unspecified Postmenopausal Presence of neurostimulator Degenerative disc disease, lumbar Lumbar stenosis with neurogenic claudication Acquired hypothyroidism Moderate persistent asthma, uncomplicated Generalized anxiety disorder Lumbar back pain with radiculopathy affecting lower extremity 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 Rosacea, unspecified Varicose eczema Major depressive disorder, recurrent, in remission, unspecified Fibromyalgia Encounter for screening mammogram for malignant neoplasm of breast IBS (irritable bowel syndrome) Chronic sinusitis, unspecified Moderate persistent asthma with (acute) exacerbation Encounter for therapeutic drug level monitoring 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, intra-abdominal lymph nodes Burkitt's lymphoma of extranodal site excluding spleen and other solid organs Surgical History Hx laparoscopic cholecystectomy H/O: hysterectomy Social History (Updated 09/26/23 @ 13:29 by Angelia Sahu DO) Patient Tobacco Use Status: Tobacco use Unknown Review of Systems Const Reports as per HPI Telehealth Telehealth Telehealth Platform: Telephone Location of provider rendering services: practice address Location of patient: address on file Patient Identification confirmed using: Name, : Yes Telehealth method: voice only Patient verbally consented to treatment: Yes Patient verbally consented to billing insurance company: Yes Minutes spent on Phone/Video with Pt.: 15 Assessment & Plan Assessment & Plan (1) Opioid dependence: Code(s): F11.20 - Opioid dependence, uncomplicated Category: Medical Qualifiers: Substance use status: uncomplicated Qualified Code(s): F11.20 - Opioid dependence, uncomplicated Plan: * no refill needed * after PCP appt, will determine if they will take over bup rx
== END 2024-07-22 13:32 | disposition home or self-care (01) ==
PROVIDERS: PCP Internal Medicine; Visit Provider Nurse Practitioner Psychiatric/Mental Health
DX: F11.20 Opioid dependence, uncomplicated (principal)
CPT/HCPCS: 99442

== ENCOUNTER → 2024-07-22 13:05 | Outpatient (BNVA) | payer MEDICARE, SELFPAY | PROVIDERS: PCP Internal Medicine; Visit Provider Nurse Practitioner Psychiatric/Mental Health ==

== ENCOUNTER 2024-11-18 10:03 | Outpatient (AMB) | payer MEDICARE, SELFPAY ==
[2024-11-18 10:08] VITALS: BP 140/80; RESP 22
--- NOTE | 2024-11-18 10:08 | A.OFFVISCC_ITS ---
Vital Signs 11/18/24 10:08 BP 140/80 H Blood Pressure Location Rt radial Position Sitting Respiration 22 H Intake Visit Reasons: MAT Allergies shellfish derived Allergy (Severe, Verified 12/25/23 14:01) Anaphylaxis codeine Adverse Reaction (Mild, Verified 12/25/23 14:01) Anxiety fentanyl patch Allergy (Intermediate, Uncoded 12/25/23 14:01) Redness of Skin Medication List - Last Reconciled 11/18/24 by Debby Mckenzie CNP albuterol sulfate 90 mcg/actuation 2 puffs inhalation Q4H PRN buprenorphine 7.5 mcg/hour 1 patch transdermal Q7D bupropion HCl XL 300 mg PO QAM celecoxib 200 mg PO BID clonazepam 1 mg PO DAILY docusate sodium 100 mg PO BID duloxetine 90mg orally daily; 60mg in AM and 30mg PM epinephrine (EpiPen) 0.3 mg (0.3 mL) IM Q4H PRN gabapentin 300 mg PO DAILY gabapentin 600 mg (2 x 300 mg) PO BEDTIME inhalational spacing device (Aerochamber MV spacer) As directed levothyroxine 100 mcg PO DAILY modafinil 100 mg PO DAILY omeprazole 40 mg PO DAILY tizanidine 4 mg PO Q8H PRN HPI HPI MAT: Details: Patient presents for follow up Currently prescribed buprenorphine 7.5mg patch Tolerating current dose Has engaged with Primary Care at [facility] No other changes to report Review of Systems Const Reports as per HPI and Reports no additional complaints Physical Exam Vital Signs: Last Vital Signs Resp 22 H 11/18/24 10:08 BP 140/80 H 11/18/24 10:08 Const General: cooperative and no acute distress Psych Appearance: grossly normal Mental Status: mental status grossly normal Speech and movement: Normal speech and movement present Affect: normal affect Attitude: cooperative Thought content: Normal thought content present [facility] Medical History (Updated 02/04/24 @ 16:54 by Joyce Valdez NP) Long COVID Rhinitis Constipation by outlet dysfunction Muscular deconditioning Gastritis, unspecified, without bleeding Vitamin D deficiency, unspecified Postmenopausal Presence of neurostimulator Degenerative disc disease, lumbar Lumbar stenosis with neurogenic claudication Acquired hypothyroidism Moderate persistent asthma, uncomplicated Generalized anxiety disorder Lumbar back pain with radiculopathy affecting lower extremity 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 Rosacea, unspecified Varicose eczema Major depressive disorder, recurrent, in remission, unspecified Fibromyalgia Encounter for screening mammogram for malignant neoplasm of breast IBS (irritable bowel syndrome) Chronic sinusitis, unspecified Moderate persistent asthma with (acute) exacerbation Encounter for therapeutic drug level monitoring 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, intra-abdominal lymph nodes Burkitt's lymphoma of extranodal site excluding spleen and other solid organs Surgical History Hx laparoscopic cholecystectomy H/O: hysterectomy Social History (Updated 09/26/23 @ 13:29 by Angelia Sahu DO) Patient Tobacco Use Status: Tobacco use Unknown Assessment & Plan Assessment & Plan (1) Opioid dependence: Code(s): F11.20 - Opioid dependence, uncomplicated Category: Medical Qualifiers: Substance use status: uncomplicated Qualified Code(s): F11.20 - Opioid dependence, uncomplicated Plan: * no change to current dose * PCP will take over prescribing patch in December --will send refills until then Medications: Changed From duloxetine 60 mg PO DAILY 90 caps 2RF To duloxetine 90mg orally daily; 60mg in AM and 30mg PM
--- OUTSIDE RECORDS SUMMARY | 2024-11-18 11:02 | XMS_ITS | Continuity of Care Document ---
Author Organization [facility] Address [address] [place] [address] Phone Care Team Providers Care Changeover Operator Name Role Phone Krystin Monge Unavailable Unavailable Allergies, Adverse Reactions, Alerts Substance Reaction Status Criticality adhesive Active No Information shellfish derived Active No Informa tion codeine Active No Information Medications Medication Instructions Dosage Effective Dates (start - stop) Status Comments Femring 0.05 mg/24 hr vaginal insert 1 vaginal ring by vaginal route every 3 months 0.05 MG - Active lactulose 10 gram/15 mL oral solution take 15 milliliter by oral route every day 10 G - Active alprazolam 0.25 mg tablet take 1 tablet by oral route 3 times every day 0.25 MG - Active morphine 15 mg tablet take 1 tablet by oral route every 4 hours as needed 15 MG - Active ProAir HFA 90 mcg/actuation aerosol inhaler inhale 2 puff by inhalation route every 4 - 6 hours as needed - Active ibuprofen 800 mg tablet take 1 tablet by oral route 3 times every day with food 800 MG - Active BUPROPION XL (unknown strength) take 1 tablet by oral route every day Not Available - Active CYMBALTA (unknown strength) take 1 capsule by oral route 2 times every day Not Available - Active CELEBREX (unknown strength) take 2 capsule by oral route 2 times every day Not Available - Active SYNTHROID (unknown strength) take 1 tablet by oral route every day Not Available - Active OXYCONTIN (unknown strength) take 1 tablet by oral route every 12 hours Not Available - Active KLONOPIN (unknown strength) take 1 tablet by oral route 3 times every day Not Available - Active FLONASE (unknown strength) spray 1 spray by intranasal route every day in each nostril Not Available - Active LEXAPRO (unknown strength) take 1 tablet by oral route every day Not Available - Active NEURONTIN (unknown strength) take 3 capsule by oral route 3 times every day Not Available - Active CITALOPRAM HBR (unknown strength) take 1 tablet by oral route every day Not Available - Active LIDODERM (unknown strength) apply 1 patch by transdermal route every day (May wear up to 12hours.) Not Available - Active ANUSOL-HC (unknown strength) apply by topical route 2 times every day to the affected area(s) Not Available - Active estradiol 1 mg tablet take 1 tablet by oral route every day 1 MG - No Longer Active Problems Condition Type Effective Dates (start - stop) Clini altaf Status Comments No Known Problems Procedures Procedure Date Offic/outpt E&m Estab [facility] 2 15 Offic/outpt E&m Estab [facility] 2 15 Offic/outpt E&m Estab [facility] 2 15 Offic/outpt E&m Estab [facility] 2 15 Offic/outpt E&m Estab Low-mod 5 Offic/outpt E&m Estab Low-mod 5 Offic/outpt E&m Estab [facility] 2 14 Offic/outpt E&m Estab [facility] 2 14 Init Preven Meds E&m New Pt; 4064 Cytopath Cerv/vag Thin Prep; R 14 Bld Occlt Fecl Hgb Immuoas Macario 14 Cytopath Cerv/vag Thin Prep; R 14 Cytopath Cerv/vag Thin Prep; R 14 Init Preven Meds E&m New Pt; 4064 Advance Directives Directive Yes / No Effective Date File Name No Information Encounters Encounter Description Practice Location Reason(s) For Visit Diagnoses Date Provider Providers Copied on Encounter [facility], [address], [place], [place], [id number], [place] tel:[phone] VALENTIN Monge MD [facility] No Information [address], [address], [place], [place], [id number] , [place]. tel:[phone] Offic/outpt E&m Estab Mod-hi 2 [facility], [address], [place], [place], [id number], [place] tel:[phone] VALENTIN Monge MD [facility] menopausal symptoms (chief complaint) ClimactericFatigue InsomniaVitamin D deficiency [address], [address], [place], [place], [id number] , [place]. tel:[phone] Offic/outpt E&m Estab Mod-hi 2 [facility], [address], [place], [place], [id number], [place] tel:[phone] VALENTIN Monge MD [facility] menopausal symptoms (chief complaint) ClimactericInsomni a [address], [address], [place], [place], [id number] , [place]. tel:[phone] [facility], [address], [place], [place], [address], [place] tel:[phone] VALENTIN PALM No Information [address], [address], [place], [place], [id number] , [place]. tel:[phone] Offic/outpt E&m Estab Low-mod [facility], [address], [place], [place], [id number], [place] tel:[phone] VALENTIN PALM menopausal symptoms (chief complaint) ClimactericVitamin D deficiency 5 [address]le[address]and. [address], [address], [place], [place], [id number] , . tel:[phone] Offic/outpt E&m Estab Mod-hi 2 [facility], [address], [place], [place], [id number], tel:[phone] VALENTIN PALM menopausal symptoms (chief complaint) ClimactericVitamin D deficiencyFatigue 4 [address] Mccle[address]and. [address], [address], [place], [place], [id number] , [place]. tel:[phone] Init Preven Meds E&m New Pt; 40-64 [facility], [address], [place], [place], [address], tel:[phone] VALENTIN PALM annual exam (chief complaint)M enopausal symptoms (chief complaint) ROUTINE GREEN WARE CASTER EXAMINATION Jun- 4 [address]rystin[address], [address], [place], [place], [address] , [place]. tel:[phone] [facility], [address], [place], [place], [id number], tel:[phone] VALENTIN PALM No Information Sep-0 4 [address]rystin[address], [address], [place], [place], [id number] , [place]. tel:[phone] Family History Family Member Type Diagnosis Age At Onset Maternal grandmother Problem (finding) hypercholestero lemia Father Problem (finding) hypertension Paternal grandmother Problem (finding) hypertension Payers Payer name Insurance type Covered libertarian ID Authordoron murilloalberto(s) Xenia JUSTINOO BL [id number] Social History Type Description Quantity Date Captured Comments Alcohol Use Details Unknown Caffeine Use Details Unknown Tobacco Use Status No Information Smoking Status No Information Sex Female Chief Complaint And Reason For Visit No Information Reason For Referral Reason For Referral No Information Plan Of Treatment Date Type Action Status Future Order: Lab Order ThinPrep Pap with Imaging-HPV test if ASCUS Pap result (T2), Ordered on: Ordered Future Order: Lab Order ThinPrep Pap with Imaging-HPV test if ASCUS Pap result (T2), Ordered on: Ordered History Of Present Illness Encounter Date Complaint History Of Prese nt Illness menopausal symptoms The patient describes it as diminished sex drive, anorgasmia and memory loss. Associated symptoms include abdominal pain, bladder problems, bone pain, diaphoresis, hot flashes, insomnia, mood swings, palpitations, thinning hair, vaginal discharge, vaginal dryness and weight gain. Pertinent negatives include fever. menopausal symptoms The problem is worse. It occurs constantly. The patient describes it as diminished sex drive, anorgasmia and memory loss. Symptom is aggravated by stress. Denies relieving factors. Associated symptoms include diaphoresis, hot flashes, insomnia, mood swings, thinning hair, vaginal dryness and weight loss. Pertinent negatives include abdominal pain, bladder problems, bone pain, fever, nipple discharge, oligomenorrhea, palpitations and vaginal discharge. menopausal symptoms (comments) Gillian chau is a 54 yo [id number] WF, here for a follow-up on her mary-menopausal sx's which have become progressive. She started on estradiol 1 mg daily and stopped it after 5 weeks due to breast tenderness, headaches and increased vaginal discharge. She now has worsening hot flushes, insomnia and overall malaise and feels that I'm miserable. She c/o worsening joint pain and has multiple joints involved. menopausal symptoms (comments) Gillian chau is a 54 yo [id number] WF, here for a follow-up visit on her desire for HT and her menopausal sx's. She feels she is well aware of her risks and benefits of HT and agrees to them. Specifically, she is aware of the risks of VTE, brest CA and CAD/CVA. menopausal symptoms The patient describes it as diminished sex drive, anorgasmia and memory loss. Associated symptoms include hot flashes, insomnia, mood swings, thinning hair, vaginal dryness and weight gain. Pertinent negatives include abdominal pain, bladder problems, bone pain, fever, irregular menses, menorrhagia, nipple discharge, oligomenorrhea, palpitations, vaginal discharge and weight loss. menopausal symptoms The patient describes it as diminished sex drive, anorgasmia and memory loss. Associated symptoms include hot flashes, insomnia, mood swings and weight gain. Pertinent negatives include abdominal pain, bladder problems, diaphoresis, fever, menorrhagia, nipple discharge, oligomenorrhea, palpitations, thinning hair, vaginal discharge, vaginal dryness and weight loss. menopausal symptoms (comments) S he is a 53 yo [id number] WF, here for follow-up from her complex new patient exam and visit. She is fatigued, has no libido, has weight gain, poor self-esteem and night sweats. She is on Estadiol 1 mg and feels this is not enough. She is a 7 year survivor of her Burkitt's lymphoma and had salvage chemoRx which she believes started all of her emotional problems. She is on Neurontin, clonazepan, Cymbalta and alprazolam, being followed by her PCP, Dr. Mcdaniels at [facility]. Menopausal symptoms annual exam : 5. Haley ty: Term: 2. : 3. Livin. The patient states she uses hysterectomy for control. Her menses is absent. Negative for: breast discharge, breast lump(s) and breast pain. Positive for: breast self exam.Postmenopausal. Positive for Hormone replacement therapy (Type: estrogen). Menopausal symptoms negative for: vaginal dryness. Menopausal symptoms positive for: hot flashes, insomnia and night sweats. Associated symptoms include decreased libido and dyspareunia. Pertinent negatives include abnormal vaginal bleeding, anxiety, depression, difficulty falling sleep, history of infertility, nocturia, sexual dysfunction, sleep disturbances, urinary incontinence, urinary urgency, vaginal discharge and vaginal itching. Diet high calorie. She does not take calcium. She does not take Vitamin D. She does not take multivitamins.The patient states her exercise level is sedentary and frequency is never. She has not been exposed to passive smoke. She does not drink alcohol. annual exam (comments) Pt. is a 53 yo [id number] WF, here for a new patient annual exam, referred by Dr. Gil.. She has a complicated medical history and has few records here at this visit. She has a hx of Burkitt's lymphoma, Stage IV in 2006 and underwent chemotherapy. She is S/P supracervical hysterectomy, BSO, sacralcolpoexy, enterocele, perineoplasty with Dr. Gil in November 2013. She had a rectal sphincteroplasty with Dr. Gregg Branch in 2007. Menopausal symptoms (comments) S he also c/o menopausal symtoms including: hot flashes, vaginal dryness, poor libido, breast concerns, poor sleep and energy. She was started on Activella last week, but has since discontinued it. She has difficulty maintaining a schedule to her complex medical history and forgets many of her medical issues, then states, it should be in the records however, she did not arrange for her records to be sent in advance and she handed some to me at the close of the visit. This will take more than this new visit with an annual exam to sort out her many issues. Functional Status Date Functional Assessmen t No Information Instructions Date Instruction Additional Infor darshan Menopause Related to Insom johnathan Discussed diet and exercise Rela tasha to Insomnia Instructed in homeop athic and traditional options for menopause. Related to Climacteric Calcium supplementation Related to Fatigue Perform self breast exam Related to Fatigue Discussed diet and exercise Rela tasha to Fatigue Kegel exercises Related to Fatig ue Kegel exercises Related to ROUTI NE GREEN WARE CASTER EXAMINATION Calcium supplementation Related to ROUTINE GREEN WARE CASTER EXAMINATION Perform self breast exam Related to ROUTINE GREEN WARE CASTER EXAMINATION Menopause Related to ROUTI NE GREEN WARE CASTER EXAMINATION Discussed Diet and exercise Rela tasha to ROUTINE GREEN WARE CASTER EXAMINATION Assessments Type Assessment Date No Information Patient Care Teams Name Effective Dates (start - stop) Status Members No Information
--- OUTSIDE RECORDS SUMMARY | 2024-11-18 11:02 | XMS_ITS | Clinical Summary ---
Author Organization [facility] it Address [address] [place] [address] Care Team Providers Care Cable Splicer Helper Name Role Phone David Britton MD Primary Care Provider Encounters Date Type Department Care Team Description 10/22/2024 Telephone Gastroenterology - [address] [place] [address] Maame Razo MA from Last 3 Months Surgical History Surgery Date Site/Laterality Comments PARTIAL HYSTERECTOMY 2014 PROCEDURE: FL SUPRACERVICAL ABDL HYSTER W/WO RMVL TUBE OVARY CHOLECYSTECTOMY PROCEDURE: FL LAPAROSCOPY SURG CHOLECYSTECTOMY OTHER SURGICAL HISTORY 2012 PROCEDURE: HISTORY OTHER; COMMENT: Shpincteroplasty with perineum reconstruction OTHER SURGICAL HISTORY 2014 PROCEDURE: HISTORY OTHER; COMMENT: supracervical hysterectomy, BSO, reduciton of perineum, vaginal reconstruction, enterocele repair OTHER SURGICAL HISTORY 2018 PROCEDURE: FL OPEN IMPLANTATION SHARON SACRAL NERVE OTHER SURGICAL HISTORY 2006 PROCEDURE: HISTORY OTHER; COMMENT: Ommaya port insertion BACK SURGERY 2004 PROCEDURE: HISTORICAL BACK SURGERY; COMMENT: Lumbar laminectomy with instrumentation COLONOSCOPY PROCEDURE: HISTORICAL COLONOSCOPY Medical History Medical History Date Comments Burkitt lymphoma (CMS/HCC) 2006 DX:Bu rkitt lymphoma (HCC); COMMENT: stage 4 High cholesterol DX:High cholest syed Fibromyalgia DX:Fibromyalgia Hypothyroidism DX:Hypothyroidis m Insomnia DX:Insomnia Depression DX:Depression Family History Medical History Relation Name Comments Brain cancer Aunt Relation Name Status Comments Aunt Other Social History Tobacco Use Types Packs/Day Years Used Date Smoking Tobacco: Never Smokeless Tobacco: Never Alcohol Use Standard Drinks/Week Comments Never 0 (1 standard drink = 0.6 oz pur e alcohol) Sex and Gender Information Value Date Recorded Sex Assigned at Not on file Gender Identity Not on file Sexual Orientation Not on file Obstetrics History Last Filed Vital Signs Vital Sign Reading Time Taken Comments Blood Pressure 123/82 09/05/2022 1:58 PM EST Pulse 108 09/05/2022 1:58 PM EST Temperature - - Respiratory Rate - - Oxygen Saturation - - Inhaled Oxygen Concentration - - Weight 89.5 kg (197 lb 6.4 oz) 09/05/2022 1:58 P M EST Height 167.6 cm (5' 6 ) 05/31/2022 10:10 AM EDT Body Mass Index 31.86 05/31/2022 10:10 AM EDT Plan of Treatment Health Maintenance Due Date Last Done Comments COVID-19 Vaccine (#1) 1967 Pneumococcal Vaccine: Pediat rics (0 to 5 Years) and At-Risk Patients (6 to 64 Years) (1 of 2 - PCV) 1968 DTaP,Tdap,and Td Vaccines (1 - Tdap) 1981 Zoster Vaccines (1 of 2) 1981 Cervical Cancer Screening: P ap Smear 1983 Colorectal Cancer Screening: Colonoscopy 09/30/2022 Depression Screening 09/30/2022 HIV Screening 09/30/2022 Hepatitis C Screening 09/30/2022 Social Influencers of Health Screening 09/30/2022 RSV Immunization Patients 60 + Years Old (1 - Risk 60-74 years 1-dose series) 2022 Breast Cancer Screening 05/07/2024 05/07/2022 Influenza Vaccine (#1) 2024 HIB Vaccines Aged Out No longer eligi ble based on patient's age to complete this topic HPV Vaccines Aged Out No longer eligi ble based on patient's age to complete this topic Hepatitis A Vaccines Aged Out No long er eligible based on patient's age to complete this topic Hepatitis B Vaccines Aged Out No long er eligible based on patient's age to complete this topic IPV Vaccines Aged Out No longer eligi ble based on patient's age to complete this topic MMR Vaccines Aged Out No longer eligi ble based on patient's age to complete this topic Meningococcal ACWY Vaccine Aged Out N o longer eligible based on patient's age to complete this topic RSV Immunization Patients Un rodger 20 months Aged Out No longer eligible b ased on patient's age to complete this topic Varicella Vaccines Aged Out No longer eligible based on patient's age to complete this topic Procedures Procedure Name Priority Date/Time Associated Diagnosis Comments [facility] SCREENING DIGITAL Routine 05/07/2022 11:31 AM EDT Encounter for screening mammogram for malignant neoplasm of breast from Last 3 Months or Most Recently Relevant to Health Maintenance Results * [facility] SCREENING DIGITAL (05/07/2022 11:31 AM EDT) Anatomical Region Laterality Modality Mammography 05/02/2022 1:26 PM EDT Narrative 05/07/2022 11:31 AM EDT [facility] Diagnostic Imaging Department [address] [place], [place] [address] Patient: ??MAGGIE MCKEON ?/Age/Sex: 1960 - 61 - F Unit#: ??[id number] ? Location/Status: ??SPDIMAM/REG CLI ? [facility] Order[facility] Physician: ??DAVID BRITTON MD [facility] Screening Digital - 05/02/22 - 1248 INDICATION: SCREENING COMPARISON: No prior studies are available for comparison. TECHNIQUE: CC and MLO views of the breasts were obtained, using full field digital mammography with 3D tomosynthesis views in the MLO projection. XCCL views of each breast were obtained. Computer aided detection with the [employer] 7.2-H was employed. FINDINGS: The breasts contain scattered fibroglandular tissues. Metallic tissue marker visualized within the medial aspect of the right breast and lateral aspect of the left breast. 1.8 x 0.2 cm oval asymmetry within the upper outer central left breast seen on MLO tomographic slice 22 of 73 without demonstrable correlate in the CC projection. No evidence of suspicious mass on the right. ??No evidence of suspicious clustering microcalcification or architectural distortion within either breast. Rare benign-appearing breast calcifications are present bilaterally. IMPRESSION: ??Oval asymmetry within the upper outer quadrant of the left breast. Further evaluation to include MLO spot compression view and tomography in the CC and MLO projections recommended No specific mammographic evidence of breast malignancy on the right. Lack of an imaging correlate should not deter or delay biopsy of a clinically significant palpable finding. BI-RADS ??- Category 0 - Incomplete needs additional imaging evaluation. 3340F, 7025F ([id number] / [id number]) , ??[id number] Dictating Physician: ??VISHNU MORALES MD Electronically Signed by: ??VISHNU MROALES MD Dic Date/Time: ??05/07/22 1126 Sign date/Time: ??05/07/22 1131 Procedure Note Vishnu Morales MD - 10/17/2022 [facility] Diagnostic Imaging Department [address] [place] [address] Patient: MAGGIE MCKEONO.B./Age/Sex: 1960 - 61 - F Unit#: [id number] Location/Status: SPDIMAM/REG CLI Mnemonic/Ordering Site: [facility] Ordering Physician: DAVID BRITTON MD [facility] Screening Digital - 05/02/22 - 1446 INDICATION: SCREENING COMPARISON: No prior studies are available for comparison. TECHNIQUE: CC and MLO views of the breasts were obtained, using full field digital mammography with 3D tomosynthesis views in the MLO projection. XCCL viewsof each breast were obtained. Computer aided detection with the [employer] 7.2-H was employed. FINDINGS: The breasts contain scattered fibroglandular tissues. Metallic tissue marker visualized within the medial aspect of the rightbreast and lateral aspect of the left breast. 1.8 x 0.2 cm oval asymmetry within the upper outer central left breastseen on MLO tomographic slice 22 of 73 without demonstrable correlate in the CC projection. No evidence of suspicious mass on the right. No evidence of suspicious clustering microcalcification or architectural distortion within eitherbreast. Rare benign-appearing breast calcifications are present bilaterally. IMPRESSION: Oval asymmetry within the upper outer quadrant of the leftbreast. Further evaluation to include MLO spot compression view and tomography inthe CC and MLO projections recommended No specific mammographic evidence of breast malignancy on the right. Lack of an imaging correlate should not deter or delay biopsy of aclinically significant palpable finding. BI-RADS - Category 0 - Incomplete needs additional imaging evaluation.3340F, 7025F ([id number] / [id number]) , [id number] Dictating Physician: VISHNU MORALES MD Electronically Signed by: VISHNU MORALES MD Dic Date/Time: 05/07/22 1126 Sign date/Time: 05/07/22 1131 David Britton MD IMG BI PROCEDURES from Last 3 Months or Most Recently Relevant to Health Maintenance Care Teams Cable Splicer Helper Relationship Specialty Start Date End Date David Britton MD PCP - General Internal Medicine 02/23/21
--- OUTSIDE RECORDS SUMMARY | 2024-11-18 11:02 | XMS_ITS | Clinical Summary ---
Author Organization [facility] Address [address] [place] [address] Care Team Providers Care Attorney Law Clerk Name Role Phone David Britton MD Primary Care Provider [phone] Allergies Active Allergy Reactions Criticality Noted Date Comments Fentanyl 06/05/2014 Other reaction(s): Unknown Other reaction(s): DURAGESIC-25 Other reaction(s): DURAGESIC-25 Other reaction(s): Unknown Morphine And Codeine Hives 09/29/2012 Other reaction(s): Unknown Other reaction(s): <OXYCONTIN> Other reaction(s): CODEINE Other reaction(s): Unknown Shellfish 04/16/2022 Other reaction(s): Surgical adhesive tape, Unknown Shellfish Allergy 09/29/2012 01/23/2016 States can take IVP dye and topical iodine w/o difficulty ??- ??SATYA Silva Other reaction(s): Unknown Tape 02/22/2021 Other reaction(s): Unknown Medications Medication Sig Dispensed Refills Start Date End Date Status pravastatin (PRAVACHOL) tablet 20 mg 1 tablet 0 01/18/2021 Active predniSONE (DELTASONE) tablet 20 mg 1 tablet 0 04/12/2020 Active oxyCODONE-acetaminoph en (PERCOCET) 5-325 MG per tablet 1 tablet as needed 0 03/27/2022 Act johnnie omeprazole (PriLOSEC) 40 MG capsule TAKE 1 CAPSULE BY MOUTH 30 MINS BEFORE MORNING MEAL 0 02/09/2020 Active montelukast (SINGULAIR) 10 MG tablet 1 tablet 0 03/24/2020 Active minocycline (DYNACIN) 50 MG tablet Take 50 mg by mouth. 0 Active levothyroxine (SYNTHROID) tablet 100 mcg Take 1 tablet by mouth daily. 0 02/09/2020 Active hydrOXYzine (ATARAX) 25 MG tablet 1 tablet as needed 0 01/25/2020 Acti ve HYDROmorphone HCl ER 8 MG TB24 1 tablet 0 03/24/2020 Active gabapentin (NEURONTIN) 300 MG capsule 1 capsule 0 03/24/2020 Active DULoxetine (CYMBALTA) DR capsule 30 mg TAKE 1 CAPSULE BY MOUTH 3 TIMES A DAY WITH MEALS 90 0 02/09/2020 Active cyclobenzaprine (FLEXERIL) 10 MG tablet 1 tablet 0 01/25/2020 Active cloNIDine (CATAPRES) tablet 0.1 mg Take 1 tablet by mouth 2 (two) times a day. 0 02/09/2020 Active clonazePAM (KlonoPIN) 1 MG tablet TAKE 1/2-1 TABLET BY MOUTH NEEDED AT BEDTIME FOR 90 DAYS 0 01/20/2020 Active cetirizine (ZyrTEC) 10 MG tablet 1 tablet 0 Active buPROPion (WELLBUTRIN XL) 300 MG 24 hr tablet Take 1 tablet by mouth daily. 0 04/08/2020 Active celecoxib (CeleBREX) 200 MG capsule TAKE 1 CAPSULE BY MOUTH TWICE A DAY WITH FOOD 0 02/09/2020 Active budesonide-formoterol (SYMBICORT) 160-4.5 MCG/ACT inhaler Inhale 2 puffs into the lungs every 12 (twelve) hours. 0 03/24/2020 Active Bempedoic Acid (Nexletol) 180 MG TABS 1 tablet 0 Active azithromycin (ZITHROMAX) 250 MG tablet 2 tablets on the first day, then 1 tablet daily for 4 days 0 Active beclomethasone dipropionate (QVAR) 40 MCG/ACT inhaler 2 puffS 0 06/18/2019 Active beclomethasone (Qvar) 80 MCG/ACT inhaler 1 puff 0 01/25/2020 Active Azelaic Acid 15 % cream 1 application 0 Active albuterol (Ventolin HFA) 108 (90 Base) MCG/ACT inhaler 2 puff as needed 0 01/25/2020 Act johnnie Active Problems Problem Noted Date Diagnosed Date Acute medial meniscus tear, right, initial encou nter 05/10/2022 Family History Medical History Relation Name Comments Diabetes Father Relation Name Status Comments Father Social History Tobacco Use Types Packs/Day Years Used Date Smoking Tobacco: Never Smokeless Tobacco: Never Alcohol Use Standard Drinks/Week Comments Not Currently 0 (1 standard drink = 0.6 oz pur e alcohol) Sex and Gender Information Value Date Recorded Sex Assigned at Not on file Gender Identity Not on file Sexual Orientation Not on file Job Start Date Occupation Industry Not on file Not on file Not on file Last Filed Vital Signs Vital Sign Reading Time Taken Comments Blood Pressure - - Pulse - - Temperature - - Respiratory Rate - - Oxygen Saturation - - Inhaled Oxygen Concentration - - Weight 88.5 kg (195 lb) 05/09/2022 2:53 PM EDT Height 165.1 cm (5' 5 ) 05/09/2022 2:53 PM EDT Body Mass Index 32.45 05/09/2022 2:53 PM EDT Plan of Treatment Health Maintenance Due Date Last Done Comments Hepatitis C Screening 1960 COVID-19 Vaccine (#1) 04/13/1963 Depression Screening 1974 BMI Counseling 1980 Preventative Health Evaluation 1980 DTap / Tdap / Td (1 - Tdap) 1981 Cervical Cancer Screening (Pap Smear) 1983 Colon Cancer Screening (Colonoscopy) 2007 Breast Cancer Screening (Mammogram) 2012 Shingrix-Zoster Vaccine (1 of 2) 2012 Influenza Vaccine (#1) 2024 8, 10/03/2017, 07/16/2016, Additional history exists RSV Adult > 60+ Yrs or (1 - 1-dose 75+ series) 2037 Pneumococcal Vaccine Aged Out 02/06/2016 No long er eligible based on patient's age to complete this topic Hepatitis B Vaccines Aged Out No long er eligible based on patient's age to complete this topic RSV Ped < 20 months Aged Out No longe r eligible based on patient's age to complete this topic Care Teams Attorney Law Clerk Relationship Specialty Start Date End Date David Britton MD PCP - General Internal Medicine 02/26/22
--- OUTSIDE RECORDS SUMMARY | 2024-11-18 11:02 | XMS_ITS | Encounter Summary ---
Author Organization [facility] Address [address] [place] [address] Care Team Providers Care Subscription Clerk Name Role Phone David Britton MD Primary Care Provider [phone] Encounter Details Date Type Department Care Team (Late st Contact Info) Description 10/22/2024 Telephone Gastroenterology - [address] [place] [address] Maame Razo MA Social History Tobacco Use Types Packs/Day Years Used Date Smoking Tobacco: Never Smokeless Tobacco: Never Alcohol Use Standard Drinks/Week Comments Never 0 (1 standard drink = 0.6 oz pur e alcohol) Sex and Gender Information Value Date Recorded Sex Assigned at Not on file Gender Identity Not on file Sexual Orientation Not on file documented as of this encounter Progress Notes * Maame Razo MA - 10/22/2024 2:50 PM EST PT UNABLE TO BE SCHEDULED DUE TO THE INSURANCE BEING [employer]. documented in this encounter Plan of Treatment Not on file documented as of this encounter Visit Diagnoses Not on filedocumented in this encounter Care Teams Subscription Clerk Relationship Specialty Start Date End Date David Britton MD PCP - General Internal Medicine 02/23/21 documented as of this encounter
== END 2024-11-18 11:52 | disposition home or self-care (01) ==
PROVIDERS: PCP Internal Medicine; Visit Provider Nurse Practitioner Psychiatric/Mental Health
DX: F11.20 Opioid dependence, uncomplicated (principal)
CPT/HCPCS: 99213

== ENCOUNTER → 2024-11-18 10:03 | Outpatient (BNVA) | payer MEDICARE, SELFPAY | PROVIDERS: PCP Internal Medicine; Visit Provider Nurse Practitioner Psychiatric/Mental Health | DX: F11.20 Opioid dependence, uncomplicated (principal); Z51.81 Encounter for therapeutic drug level monitoring | CPT/HCPCS: 99212 ==

== ENCOUNTER 2024-12-16 09:29 | Outpatient (REF) | payer MEDICARE, OTHER, SELFPAY ==
--- OUTSIDE RECORDS SUMMARY | 2024-12-16 11:52 | XMS_ITS | Patient Health Record ---
Author Organization [facility] Address [address] [place] [address] Care Team Providers Care Head Porter Baggage Name Role Phone DAVID BRITTON Primary Care Provider David Birtton Unavailable [phone] Allergies Allergen (clinical drug ingredient) Drug/Non Drug Allergy documented on EMR Reaction Allergy Type Onset Date Status Shellfish (FN) SHELLFISH (uncoded) Unknown Allergy Active SURGICAL TAPE (uncoded) Unknown Allergy Active fentanyl Fentanyl Unknown Drug Allergy Active oxycodone Oxycodone HCl Unknown Drug Allergy Act johnnie Reason For Referral No Information Medications Medication SIG (Take, Route, Frequency, Duration) Notes Start Date End Date Status oxyCODONE-Acetaminophen 5-325 MG 1 tablet as needed Orally every 24 hrs for 30 days 04/18/2023 Active Levothyroxine Sodium 100 MCG TAKE 1 TABLET BY MOUTH EVERY DAY for 90 Active Beclomethasone Dipropionate 40 MCG/ACT 2 puffS Inhalation BID Not-Taking Cetirizine HCl 10 MG 1 tablet Orally Onc e a day for 90 days Active Montelukast Sodium 10 MG 1 tablet Orally Once a day for 90 days Not-Taking cloNIDine HCl 0.1 MG TAKE 1 TABLET BY [facility] TWICE A DAY for 90 Active Qvar 80 MCG/ACT 1 puff Inhalation Twice a day for 30 Not-Taking predniSONE 20 MG 1 tablet Orally TAPERING DOSE Not-Taking Celecoxib 200 MG TAKE 1 CAPSULE BY MOUTH TWICE A DAY WITH FOOD for 90 Active Omeprazole 40 MG TAKE 1 CAPSULE BY MOUTH 30 MINS BEFORE MORNING MEAL for 90 Active Paxlovid (300/100) 20 x 150 MG & 10 x 100MG as directed Orally as directed for 5 days 08/15/2023 Active DULoxetine HCl 30 MG TAKE 1 CAPSULE BY MOUTH 3 TIMES A DAY WITH MEALS for 90 Active Azithromycin 500 MG 1 tablet Orally Once a day for 10 days Not-Taking Ventolin HFA 108 (90 Base) MCG/ACT 2 puff as needed Inhalation every 4 hrs PRN PRN Not-Taking ProAir HFA 108 (90 Base) MCG/ACT 2 puffs as needed Inhalation every 4 hrs prn PRN Not-Taking HYDROmorphone HCl ER 8 MG 1 tablet Orall y Once a day for 30 days 09/16/2023 Active buPROPion HCl ER (XL) 300 MG TAKE 1 TABLET BY MOUTH EVERY DAY for 90 Active hydrOXYzine HCl 25 MG 1 tablet as needed Orally TID PRN Active Pravastatin Sodium 20 MG 1 tablet Orally Once a day for 90 days 01/18/2021 Not-Taking Azelaic Acid 15 % 1 application Externally Twice a day Active Azithromycin 250 MG 2 tablets on the day, then 1 tablet daily for 4 days Orally Once a day for 5 day(s) Not-Taking Gabapentin 300 MG TAKE 1 CAPSULE BY MOUTH 3 TIMES A DAY for 90 Active Azithromycin 250 MG [address] day, then 1 tablet daily for 4 days Orally Once a day for 5 day(s) Not-Taking Albuterol Sulfate HFA 108 (90 Base) MCG/ACT INHALE 2 PUFFS BY MOUTH EVERY 4 HOURS NEEDED for 20 Active Nexletol 180 MG 1 tablet Orally Once a day for 90 days Not-Taking clonazePAM 1 MG 1 tablet Orally Twic e a day for 60 days 10/26/2023 Active Cyclobenzaprine HCl 10 MG TAKE 1 TABLET BY MOUTH THREE TIMES A DAY for 30 Active Immunizations Vaccine Route Administration Date Status Comme nts H1N1 Immunization administration, including counseling when performed IM Intramuscular 10/10/2009 Administered [facility] Influenza (split), 3 yrs and above IM Intramuscular 09/28/2019 Administered [facility] Influenza (split), 3 yrs and above IM Intramuscular 07/29/2020 Administered [facility] Pneumococcal conjugate PCV 13 IM Intramuscular 02/06/2016 Administered [facility] Tdap IM Intramuscular 04/15/2015 Administered [facility] Social History Tobacco Use: Social History Observation Description Date Details (start date - stop date) Never Smoker NA - NA Tobacco Use/Smoking Question Answer Notes Are you a nonsmoker Additional Findings: Tobacco Non-User Current no n-smoker Alcohol Screen (Audit-C) Question Answer Notes Did you have a drink containing alcohol in the p ast year? No Points 0 Interpretation Negative Tobacco use other than smoking: Question Answer Notes Are you an other tobacco user? No Section Notes: MARITAL HX: Met Louis at [facility]. Lied together for3 years and the got 30 years ago. He was born in [facility] His father was in [facility] [employer]. [place] in [place] 18 [place] y[place] Parents Has a brother and a sister who lives in [place] and a yemeni . 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 Good health Type 2 diabetic on metformin Exercises regularly Moved to [facility] in 1975 . Moved to in 2019 She followed in January and living in a rental house in [facility] to buy a house. Have 2 daughters: Kd Mckeon 29 yr single Masters in Public Health from [address] Working as coordinator for [employer] in [facility] Lives with boyfriend Ahmet Obi Mike 25 yrs Studying at [employer] in [employer] Living in [place] other girls MARITAL HX: Met Louis at [facility]. Lied together for3 years and the got 30 years ago. He was born in [facility] His father was in [facility] [employer]. Lived [place] age 18 Speaks y[place] Parents Has a brother and a sister who lives in [place] and a yemeni . 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 Good health Type 2 diabetic on metformin Exercises regularly Moved to [facility] in 1975 . Moved to in 2019 She followed in January and living in a rental house in [facility] to buy a house. Have 2 daughters: Kd Mckeon 29 yr single Masters in Public Health from [address] Working as coordinator for [employer] in [facility] Lives with boyfriend Ahmet Obi Mike 25 yrs Studying at [employer] in Communications Living in [place] other girls. MARITAL HX: Met Louis at [facility]. Lied together for3 years and the got 30 years ago. He was born in [facility] His father was in [employer]. [place] age 18 [place] y[place] Parents Has a brother and a sister who lives in [place] and a yemeni . 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 Good health Type 2 diabetic on metformin Exercises regularly Moved to [facility] in 1975 . Moved to in 2019 She followed in January and living in a rental house in [facility] to buy a house. Have 2 daughters: Kd Mckeon 29 yr single Masters in Public Health from [address] Working as coordinator for [employer] in [facility] Lives with boyfriend Ahmet Obi Mckeon 25 yrs Studying at [employer] in [employer] Living in apt[place] other girls. MARITAL HX: Met Louis at [facility]. Lied together for3 years and the got 30 years ago. He was born in [facility] His father was in [employer]. Lived in [facility] till age 18 [place]aks y[place] Parents Has a brother and a sister who lives in [place] and a yemeni . 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 Good health Type 2 diabetic on metformin Exercises regularly Moved to [facility] in 1975 . Moved to in 2019 She followed in January and living in a rental house in [facility] to buy a house. Have 2 daughters: Kd Mckeon 29 yr single Masters in Public Health from [address] Working as coordinator for [employer] in [facility] Lives with boyfriend Ahmet Obi Mike 25 yrs Studying at [employer] BA in [employer] Living in [place] other girls MARITAL HX: Met Louis at [facility]. Lied together for3 years and the got 30 years ago. He was born in [facility] His father was in [employer]. [place] age 18 [place] Parents Has a brother and a sister who lives in [place] and a yemeni . 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 Good health Type 2 diabetic on metformin Exercises regularly Moved to [facility] in 1975 . Moved to in 2019 She followed in January and living in a rental house in [facility] to buy a house. Have 2 daughters: Kd Mckeon 29 yr single Masters in Public Health from [address] Working as coordinator for [employer] in [facility] Lives with boyfriend Ahmet Obi Mckeon 25 yrs Studying at [employer] in [employer] Living in apt[place] other girls MARITAL HX: Met Louis at [facility]. Lied together for3 years and the got 30 years ago. He was born in [facility] His father was in [facility] [employer]. [place] age 18 [place] Parents Has a brother and a sister who lives in [place] and a yemeni . 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 Good health Type 2 diabetic on metformin Exercises regularly Moved to [facility] in 1975 . Moved to in 2019 She followed in January and living in a rental house in [facility] to buy a house. Have 2 daughters: Kd Mckeon 29 yr single Masters in Public Health from [address] Working as coordinator for [employer] in [facility] Lives with boyfriend Ahmet Obi Mckeon 25 yrs Studying at [employer] in [employer] Living in apt[place] other girls MARITAL HX: Met Louis at [facility]. Lied together for3 years and the got 30 years ago. He was born in [facility] His father was in [employer]. [place] age 18 [place] Parents Has a brother and a sister who lives in [place] and a yemeni . 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 Good health Type 2 diabetic on metformin Exercises regularly Moved to [facility] in 1975 . Moved to in 2019 She followed in January and living in a rental house in [facility] to buy a house. Have 2 daughters: Kd Mckeon 29 yr single Masters in Public Health from [address] 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 Lied together for3 years and the got 30 years ago. He was born in [facility] His father was in [employer]. [place] age 18 [place] Parents Has a brother and a sister who lives in [place] and a yemeni . 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 Good health Type 2 diabetic on metformin Exercises regularly Moved to [facility] in 1975 . Moved to in 2019 She followed in January and living in a rental house in [facility] to buy a house. Have 2 daughters: Kd Mckeon 29 yr single Masters in Public Health from [address]. Working as coordinator for [employer] in [facility] Lives with boyfriend Ahmet Obi Mckeon 25 yrs Studying at [employer] in [employer] Living in apt[place] other girls MARITAL HX: Met Louis at [facility]. Lied together for3 years and the got 30 years ago. He was born in [facility] His father was in [employer]. [place] age 18 [place] Parents Has a brother and a sister who lives in [place] and a y[place]i . 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 Good health Type 2 diabetic on metformin Exercises regularly Moved to [facility] in 1975 . Moved to in 2019 She followed in January and living in a rental house in [facility] to buy a house. Have 2 daughters: Kd Mckeon 29 yr single Masters in Public Health from [address]. Working as coordinator for [employer] in [facility] Lives with boyfriend Ahmet Obi Mckeon 25 yrs Studying at [employer] in [employer] Living in apt[place] other girls MARITAL HX: Met Louis at [facility]. Lied together for3 years and the got 30 years ago. He was born in [facility] His father was in [employer]. [place] age 18 [place] Parents Has a brother and a sister who lives in [place] and a y[place]i . 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 Good health Type 2 diabetic on metformin Exercises regularly Moved to [facility] in 1975 . Moved to in 2019 She followed in January and living in a rental house in [facility] to buy a house. Have 2 daughters: Kd Mckeon 29 yr single Masters in Public Health from [address]. Working as coordinator for [employer] in [facility] Lives with boyfriend Ahmet Obi Mckeon 25 yrs Studying at [employer] in Communications Living in apt[place] other girls MARITAL HX: Met Louis at [facility]. Lied together for3 years and the got 30 years ago. He was born in [facility] His father was in [employer]. [place] age 18 [place] Parents Has a brother and a sister who lives in [place] and a y[place]i . 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 Good health Type 2 diabetic on metformin Exercises regularly Moved to [facility] in 1975 . Moved to in 2019 She followed in January and living in a rental house in [facility] to buy a house. Have 2 daughters: Kd Mckeon 29 yr single Masters in Public Health from [address]. Working as coordinator for [employer] in [facility] Lives with boyfriend Ahmet Obi Mckeon 25 yrs Studying at [employer] in Communications Living in apt[place] other girls MARITAL HX: Met Louis at [facility]. Lied together for3 years and the got 30 years ago. He was born in [facility] His father was in [facility] [employer]. Lived [place] age 18 [place] Parents Has a brother and a sister who lives in [place] and a y[place]i . 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 Good health Type 2 diabetic on metformin Exercises regularly Moved to [facility] in 1975 . Moved to in 2019 She followed in January and living in a rental house in [facility] to buy a house. Have 2 daughters: Kd Mckeon 29 yr single Masters in Public Health from [address]. 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 Lied together for3 years and the got 30 years ago. He was born in [facility] His father was in [employer]. [place] age 18 [place] Parents Has a brother and a sister who lives in [place] and a y[place]i . 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 Good health Type 2 diabetic on metformin Exercises regularly Moved to [facility] in 1975 . Moved to in 2019 She followed in January and living in a rental house in [facility] to buy a house. Have 2 daughters: Kd Mckeon 29 yr single Masters in Public Health from [address]. Working as coordinator for [employer] in [facility] Lives with boyfriend Ahmet Obi Mckeon 25 yrs Studying at [employer] in [employer] Living in [place] other girls MARITAL HX: Met Louis at [facility]. Lied together for3 years and the got 30 years ago. He was born in [facility] His father was in [employer]. L[place] age 18 [place] Parents Has a brother and a sister who lives in [place] and a y[place]i . 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 Good health Type 2 diabetic on metformin Exercises regularly Moved to [facility] in 1975 . Moved to in 2019 She followed in January and living in a rental house in [facility] to buy a house. Have 2 daughters: Kd Mckeon 29 yr single Masters in Public Health from [address]. Working as coordinator for [employer] in [facility] Lives with boyfriend Ahmet Obi Mckeon 25 yrs Studying at [employer] in [employer] Living in apt[place] other girls MARITAL HX: Met oLuis at [facility]. Lied together for3 years and the got 30 years ago. He was born in [facility] His father was in [employer]. L[place] age 18 [place] Parents Has a brother and a sister who lives in [place] and a y[place] . 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 Good health Type 2 diabetic on metformin Exercises regularly Moved to [facility] in 1975 . Moved to in 2019 She followed in January and living in a rental house in [facility] to buy a house. Have 2 daughters: Kd Mckeon 29 yr single Masters in Public Health from [address]. Working as coordinator for [employer] in [facility] Lives with boyfriend Ahmet Obi Mike 25 yrs Studying at [employer] in [employer] [facility] [place] [facility] [place] [place]. MARITAL HX: Met Louis at [facility]. Lied together for3 years and the got 30 years ago. He was born in [facility] His father was in [employer]. Lived in [facility] [place] age 18 [place] Parents Has a brother and a sister who lives in [place] and a y[place]i . 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 Good health Type 2 diabetic on metformin Exercises regularly Moved to [facility] in 1975 . Moved to in 2019 She followed in January and living in a rental house in [facility] to buy a house. Have 2 daughters: Kd Mckeon 29 yr single Masters in Public Health from [address]. Working as coordinator for [employer] in [facility] Lives with boyfriend Ahmet Obi Mike 25 yrs Studying at [employer] in [employer] Living in [place] other girls MARITAL HX: Met Louis at [facility]. Lied together for3 years and the got 30 years ago. He was born in [facility] His father was in [employer]. L[place] age 18 [place] Parents Has a brother and a sister who lives in [place] and a yemeni . 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 Good health Type 2 diabetic on metformin Exercises regularly Moved to [facility] in 1975 . Moved to in 2019 She followed in January and living in a rental house in [facility] to buy a house. Have 2 daughters: Kd Mckeon 29 yr single Masters in Public [employer] from [address]. Working as coordinator for [employer] in [facility] Lives with boyfriend Ahmet Obi Mckeno 25 yrs Studying at [employer] in [employer] Living in [place] other girls MARITAL HX: Met Louis at [facility]. Lied together for3 years and the got 30 years ago. He was born in [facility] His father was in [employer]. L[place] age 18 [place] Parents Has a brother and a sister who lives in [place] and a [place] . 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 Good health Type 2 diabetic on metformin Exercises regularly Moved to [facility] in 1975 . Moved to in 2019 She followed in January and living in a rental house in [facility] to buy a house. Have 2 daughters: dK Mckeon 29 yr single Masters in Public Health from [address]. Working as coordinator for [employer] in [facility] Lives with boyfriend Ahmet Obi Mckeon 25 yrs Studying at [employer] in [employer] Living in apt[place] other girls MARITAL HX: Met Louis at [facility]. Lied together for3 years and the got 30 years ago. He was born in [facility] His father was in [employer]. [place] age 18 [place] Parents Has a brother and a sister who lives in [place] and a [place] . 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 Good health Type 2 diabetic on metformin Exercises regularly Moved to [facility] in 1975 . Moved to in 2019 She followed in January and living in a rental house in [facility] to buy a house. Have 2 daughters: Kd Mckeon 29 yr single Masters in Public Health from [address]. Working as coordinator for [employer] in [facility] Lives with boyfriend Ahmet Obi Mckeon 25 yrs Studying at [employer] in [employer] Living in apt[place] other girls MARITAL HX: Met Louis at [facility]. Lied together for3 years and the got 30 years ago. He was born in [facility] His father was in [employer]. [place]ived [place] age 18 [place] Parents Has a brother and a sister who lives in [place] and a [place] . 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 Good health Type 2 diabetic on metformin Exercises regularly Moved to [facility] in 1975 . Moved to in 2019 She followed in January and living in a rental house in [facility] to buy a house. Have 2 daughters: Kd Mckeon 29 yr single Masters in Public Health from [address] 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 Lied together for3 years and the got 30 years ago. He was born in [facility] His father was in [facility] [employer]. [place] 18 Speaks yemeni Parents Has a brother and a sister who lives in [place] and a yemeni . 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 Good health Type 2 diabetic on metformin Exercises regularly Moved to [facility] in 1975 . Moved to in 2019 She followed in January and living in a rental house in [facility] [facility] [place] to buy a house. Have 2 daughters: Kd Mckeon 29 yr single Masters in Public Health from [address] 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 Lied together for3 years and the got 30 years ago. He was born in [facility] His father was in [facility] [employer]. [place] age 18 Speaks yemeni Parents Has a brother and a sister who lives in [place] and a yemeni . 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 Good health Type 2 diabetic on metformin Exercises regularly Moved to [facility] in 1975 . Moved to in 2019 She followed in January and living in a rental house in [place] to buy a house. Have 2 daughters: #Polly Mckeon 29 yr single Masters in Public Health from [address] Working as coordinator for [employer] in [place] Lives with boyfriend Ahmet #Shawnee Mckeon 25 yrs Studying at [employer] BA in Communications [place] Problems Problem Type SNOMED Code ICD Code Onset Dates Problem Status W/U Status Risk Notes Problem Rosacea (066024525) Rosacea (695.3) Active confirmed Problem 104389399 Fibromyalgia (M79.7) Active confirmed Problem Screening for malignant neoplasm of breast (870554800) Encounter for screening mammogram for malignant neoplasm of breast (Z12.31) Active confirmed Problem 09671844 KADEEM (generalized anxiety disorder) (F41.1) Active confirmed Problem Rosacea (225887492) Rosacea (L71.9) Active confirmed 12/14/20 Was on chronic antibiotics. Told her to wait till she sees Dr aj on 01/17/21 Problem 49978857 Vitamin D deficiency (E55.9) Active confirmed 03/06/23 Will start on 50,000 units weekly for 3 months and 2000 units Problem Hyperlipidemia (54580872) Hyperlipidemia (E78.5) Active confirmed 03/21/21 started on pravastatin 2 months ago, will repeat lipid profile before next tigist. high ldl low hdl levels 01/22/22 pravastatin gave pt a headache and muscle aches and pt stopped using it. cholesterol high total 217, low HDL, low LDL. pt has a high ratio due to low hdl. will discuss in detail next appt. spent 45 minutes todays visit on back pain and bowel habit changes Problem Fatigue (35081345) Fatigue (R53.83) Active confirmed 08/19/23 Reassured her that she will get better Problem Rhinitis (38097553) Rhinitis (J31.0) Active confirmed Problem Urinary incontinence (335445851) Urinary incontinence (R32) Active confirmed 06/21/21 Started after her pelvic surgery Having incontinence now . Will refer to urogynecologist Problem 718389936 Acquired hypothyroidism (E03.9) Active confirmed Problem Sinusitis (66945693) Sinusitis (J32.9) Active confirmed 05/22/22 seasonal, ongoing over a week. will send azithromycin and prednisone which usually works for pt Problem Medication monitoring (911260390) Medication monitoring encounter (Z51.81) Active confirmed Will come every 2 months for medication review to monitor efficacy , pill count. 03/21/21 continues taking hydromorphone daily, will send in early prescription, pt going on vacation and will not be back until after the medication would run out. Problem Constipation by outlet obstruction (39290053) Constipation by outlet dysfunction (K59.02) Active confirmed Problem Postmenopausal (50112809) Postmenopausal (Z78.0) Active confirmed Getting hot flashes Feels hot all the time Will refer her to business control manager Dr Yovani adair at [facility] She wants to wait until the pandemic is over. Problem 04330004 Recurrent major depressive disorder, in remission (F33.40) Active confirmed Problem 81269684 Irritable bowel syndrome, unspecified type (K58.9) Active confirmed 02/22/[address] Guardado next month for colonoscopy/endo scopy 03/21/21 endoscopy/colono scopy scheduled for end of march/early april Problem Nondependent opioid abuse (595487817) Chronic narcotic use (F11.90) Active confirmed Problem 4086000 Gastritis without bleeding, unspecified chronicity, unspecified gastritis type (K29.70) Active confirmed Will refer to Miguel Guardado Problem Narcolepsy without cataplexy (87620880063626) Narcolepsy due to underlying condition without cataplexy (G47.429) Active confirmed 12/14/20 Staes this is from the consequence of her chemotherapy Problem 276573418 Failed back syndrome of lumbar spine (M96.1) Active confirmed Problem Encounter for disability assessment (Z02.71) Active confirmed Problem 460141096762150 Moderate persistent reactive airway disease with acute exacerbation (J45.41) Active confirmed Will give medro l dose orquidea and refer to Dr Dinh Problem Lumbar radiculopathy (267473857) Lumbar back pain with radiculopathy affecting lower extremity (M54.16) Active confirmed Problem 683553118 Hx laparoscopic cholecystectomy (Z90.49) Active confirmed Problem Neurostimulator device in situ (finding) (493866180) Presence of neurostimulator (Z96.82) Active confirmed in lumbar regio n for pain. [facility] will refer to [facility], dr shaheed jama, he works with this Problem 77523413 Muscular deconditioning (R29.898) Active confirmed Following her chemotherapy Feels very week Wants PT program only after risk ov Covid is over Problem 961500556 Pain syndrome, chronic (G89.4) Active confirmed on hydromorphone. Back pain getting worse. Mobility decreased Has an imbedded neurostimulator put in 2019 in [place]. Will get MRI and refer 01/22/22 MRI showed stenosis of spinal canal. was referred to Dr Fuentes . 04/17/[address] Ema Mora last month She advised PT with [facility] and couldnt offer her programming for [employer] . She hasnt started the PT yet. I gave her Percocet 5/325 TID prn #30 a month ago She was nervous and used one only. Told her to take for breakthrough pain 05/22/22 not started PT for back due to knee issue. starting Knee PT and hopes to do PT for back as well and get in with [facility] for [facility] 05/15/23 Lost her handcontroller for her neurostimulator. Will make personal request to Dr Shaheed Jama to see her cary. Problem 438307580 Burkitt's lymphoma of extranodal site excluding spleen and other solid organs (C83.79) Active confirmed 02/22/21 in remission, on chronic pain management Problem 784117715 Burkitt's lymphoma of intra-abdominal lymph nodes (C83.73) Active confirmed Problem Uncomplicated moderate persistent asthma (139933944) Moderate persistent reactive airway disease without complication (J45.40) Active confirmed Problem 510804156 Hx of hysterectomy (Z90.710) Active confirmed Problem 074953152 Varicose eczema (I83.10) Active confirmed Will refer to [facility] for evaluation Problem Degeneration of lumbar intervertebral disc (85785491) Degenerative disc disease, lumbar (M51.36) Active confirmed Problem Neurogenic claudication (541449445) Lumbar stenosis with neurogenic claudication (M48.062) Active confirmed Problem 243925975 COVID (U07.1) Active confirmed 08/15/23 Had Vaccine and 1 booster Tested positive last night Has laryngitis, sinus symptoms Will send Saumyalovimiguel and Cherelle Gibbons. Told Louis to get tested He is asymptomatic Problem Chronic [id number]-[id number]-37 syndrome (disorder) (7248706272) Long COVID (U09.9) Active confirmed Plan Of Treatment Pending Test Test Name Order Date DEXA Hip and Spine 03/21/2021 Future Test Test Name Order Date DEXA Hip and Spine 08/26/2020 MAMMOGRAM, SCREENING 08/26/2020 CBC WITH AUTO DIFF 11/12/2022 COMPREHENSIVE METABOLIC PANEL 11/12/2022 LIPID PROFILE 11/12/2022 TSH 11/12/2022 VITAMIN D, 25-HYDROXY 11/12/2022 Insurance Providers Payer Name Payer Address Payer Phone Subscriber Number Group Number Insured Name Patient Relationship to Insured Coverage Start Date Coverage End Date [employer] Preferred [address] [place] [address] [id number] Kia Mckeon Self - patient is the insured Medical (General) History Medical History History ICD Code Chicken Pox. When she was in graduate [place] [employer] Irritable Bowel Syndrome..briggs ffered from abdominal pain, bloating and diarrhea Levsin sl helped. Now gets constipation. Fibromyalgia/Chronic Fatigue Syndrome. Had weakness and somnolence for many years Had seen medical director of hospice, sleep specialists and neurologist and this diagnoses was affixed Reactive Airway Disease , Gets sneezing, cough and wheezing with change in season, Went to [facility] ED 2 weeks ago and given QVar, Montelukast and oral prednisone with tapered dose Reactive Airway Disease/Neftaly rgies Gets sneezing, cough , wheezing with season changes, Went to [facility] ED 2 weeks ago and received treatment with QVar, Montelukast and Oral Prednisone in tapered dose Primary Hypothyroidism. Diag nosed 10 years ago. On levothyroxine replacement dose Generalized Anxiety Disorder . Takes 1/2 mg Clonazepam 1 mg at night to help her calm down and sleep. Also has Hydroxyzine on hand although hasnt used it for over a year Chronic Recurrent Depression . Started after diagnosed and treated for Burkitts Lymphoma in 2006 . Prescribed various antidepressants Currently on Duloxetine and apparently in remission Failed Back Syndrome. Had fu dorcas of her Lumbar4 and 5 with donor bone and hardware by Dr Kevin Burr, neurosurgeon at [facility] in [place] in 2004. Had relief from pain for 1 year and after that the pain came back Has been on treated with muscle relaxants, Shraddha and now hydromorphone 8 mg alvino at bedtime for past 10 years. Was given medical disability Burkitts Lymphoma Stage 4. D iagnosed when she noticed her breasts were getting bigger Had 3 breast biopsies Fibrous tissue The she started to have sever back pain . Saw her PCP who did labs and XRay and out her in hospital Had biopsy of spinal tumor and diagnosis made in May 2007, Had 2 chest port and a brain [place] surgically implanted and started on agressive chemo/adjuvant therapy protocol given by [facility] collaboration in [place]. Told she had very slim chances of survival. Had 18 months of treatment and hospitalized twice for neutropenic fever. 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 Had received blood transfusions and blood products during the treatment. Told she may get relapse and it is a miracle that she is still alive! Medical Disability. 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 It will be valid till she turns 67 Surgical History Surgery Date(Month/Year) Laparascopic surgeriesx3 for endometrios es Partial hysterectomy and rec onstruction of vagina and perineum when she had urinary incontinence after complication of sphincteroplasty 2013 Sphincteroplasty for rectal incontinence .Made too tight Had difficulty in moving bowels Reoperated and fixed 4 years later 2009 Lap Cholecystectomy Showed metastases in gallbladder 2007 Fusion of Lumbar4 and 5 with hardware and bone grafts Dr Kevin Burr Relief of pain was for 1 year only. [address] Mcintyre [facility] 2018 Chest Ports. 2 placed for chemo Removed 2009 2006 [place] brain, For chemotherapy Still in situ 2006 Breast biopsies x3 2006
--- OUTSIDE RECORDS SUMMARY | 2024-12-16 11:52 | XMS_ITS | Clinical Summary ---
Author Organization [facility] it Address [address] [place] [address] Care Team Providers Care Second Shift Supervisor Name Role Phone David Britton MD Primary Care Provider [phone] Encounters Date Type Department Care Team Description 10/22/2024 Telephone Gastroenterology - [address] [place] [address] Maame Razo MA from Last 3 Months Surgical History Surgery Date Site/Laterality Comments PARTIAL HYSTERECTOMY 2014 PROCEDURE: [place] SUPRACERVICAL ABDL HYSTER W/WO RMVL TUBE OVARY CHOLECYSTECTOMY PROCEDURE: [place] LAPAROSCOPY SURG CHOLECYSTECTOMY OTHER SURGICAL HISTORY 2012 PROCEDURE: HISTORY OTHER; COMMENT: Shpincteroplasty with perineum reconstruction OTHER SURGICAL HISTORY 2014 PROCEDURE: HISTORY OTHER; COMMENT: supracervical hysterectomy, BSO, reduciton of perineum, vaginal reconstruction, enterocele repair OTHER SURGICAL HISTORY 2018 PROCEDURE: [place] OPEN IMPLANTATION SHARON SACRAL NERVE OTHER SURGICAL [...] Procedure Name Priority Date/Time Associated Diagnosis Comments [facility] SCREENING DIGITAL Routine 05/07/2022 11:31 AM EDT Encounter for screening mammogram for malignant neoplasm of breast from Last 3 Months or Most Recently Relevant to Health Maintenance Results * [facility] SCREENING DIGITAL (05/07/2022 11:31 AM EDT) Anatomical Region Laterality Modality Mammography 05/02/2022 1:26 PM EDT Narrative 05/07/2022 11:31 AM EDT [facility] Diagnostic Imaging Department [address] [place], [place] [address] Patient: ??MAGGIE MCKEON ?/Age/Sex: 1960 - 61 - F Unit#: ??[id number] ? Location/Status: ??SPDIMAM/REG CLI ? Mnemonic/Ordering Site: ??DIGSC/SPMAM Ordering Physician: ??DAVID BRITTON MD [facility] Screening Digital - 05/02/22 - 3070 INDICATION: SCREENING COMPARISON: No prior studies are available for comparison. TECHNIQUE: CC and MLO views of the breasts were obtained, using full field digital mammography with 3D tomosynthesis views in the MLO projection. XCCL views of each breast were obtained. Computer aided detection with the BlastRoots 7.2-H was employed. FINDINGS: The breasts contain [...] additional imaging evaluation. 3340F, 7025F (G0202 / 74407) , ??[id number] Dictating Physician: ??VISHNU MORALES MD Electronically Signed by: ??VISHNU MORALES MD Dic Date/Time: ??05/07/22 1126 Sign date/Time: ??05/07/22 1131 Procedure Note Vishnu Morales MD - 10/17/2022 [facility] Diagnostic Imaging Department [address] [place] [id number] Patient: MAGGIE MCKEON /Age/Sex: 1960 - 61 - F Unit#: [id number] Location/Status: SPDIMA/REG CLI Mnemonic/Ordering Site: [facility] Ordering Physician: DAVID BRITTON MD [facility] Screening Digital - 05/02/22 - 1456 INDICATION: SCREENING COMPARISON: No prior studies are available for comparison. TECHNIQUE: CC and MLO views of the breasts were obtained, using full field digital mammography with 3D tomosynthesis views in the MLO projection. XCCL viewsof each breast were obtained. Computer aided detection with the BlastRoots 7.2-H was employed. FINDINGS: The breasts contain [...] needs additional imaging evaluation.3340F, 7025F (G0202 / [id number]) , [id number] Dictating Physician: VISHNU MORALES MD Electronically Signed by: VISHNU MORALES MD Dic Date/Time: 05/07/22 1126 Sign date/Time: 05/07/22 1131 David Britton MD IMG BI PROCEDURES Final Result from Last 3 Months or Most Recently Relevant to Health Maintenance Care Teams Second Shift Supervisor Relationship Specialty Start Date End Date David Britton MD PCP - General Internal Medicine 02/23/21
--- OUTSIDE RECORDS SUMMARY | 2024-12-16 11:52 | XMS_ITS | Continuity of Care Document ---
Author Organization [facility] Address [address] [place] [address] Phone Care Team Providers Care Dormitory Maid Name Role Phone Krystin Monge Unavailable Unavailable [...] Problems Procedures Procedure Date Offic/outpt E&m Estab [facility] 2 15 Offic/outpt E&m Estab [facility] 2 15 Offic/outpt E&m Estab [facility] 2 15 Offic/outpt E&m Estab [facility] 2 15 Offic/outpt E&m Estab Low-mod 5 Offic/outpt E&m Estab Low-mod 5 Offic/outpt E&m Estab [facility] 2 14 Offic/outpt E&m Estab [facility] 2 14 Init Preven Meds E&m New [...] Diagnoses Date Provider Providers Copied on Encounter [facility], [address], [place], [place], [id number], [place] tel:[phone] VALENTIN Monge MD [facility] No Information [address] Krystin. [address] [facility], [address], [place], [place], [address] , [place]. tel:[phone] Offic/outpt E&m Estab Mod-hi 2 [facility], [address], [place], [place], [address], [place] tel:[phone] VALENTIN Monge MD [facility] menopausal symptoms (chief complaint) ClimactericFatigue InsomniaVitamin D deficiency 5 [address] Krystin. [address] [facility], [address], [place], [place], [address] , [place]. tel:[phone] Offic/outpt E&m Estab Mod-hi 2 [facility], [address], [place], [place], [address], [place] tel:[phone] VALENTIN Monge MD [facility] menopausal symptoms (chief complaint) ClimactericInsomni a 5 [address] Krystin. [address] [facility], [address], [place], [place], [address] , [place]. tel:[phone] [facility], [address], [place], [place], [address], [place] tel:[phone] VALENTIN PALM No Information [address]. [address] [facility] [facility], [address], [place], [place], [address] , [place]. tel:[phone] Offic/outpt E&m Estab Low-mod [facility], [address], [place], [place], [address], [place] tel:[phone] VALENTIN PALM menopausal symptoms (chief complaint) ClimactericVitamin D deficiency 5 Mariposa Mcclelland. [address] [facility], [facility] [address], [place], [place], [address] , . tel:[phone] Offic/outpt E&m Estab Mod-hi 2 [facility], [address], [place], [place], [address], tel:[phone] VALENTIN PALM menopausal symptoms (chief complaint) ClimactericVitamin D deficiencyFatigue 4 Mariposa Mcclelland. [address] [facility], [address], [place], [place], [address] , [place]. tel:[phone] Init Preven Meds E&m New Pt; 40-64 [facility], [address], [place], [place], [address], tel:[phone] VALENTIN PALM annual exam (chief complaint)M enopausal symptoms (chief complaint) ROUTINE PATROL SERGEANT SHERIFF'S OFFICE EXAMINATION Jun- 4 Bakarier Krystin. [address] [facility], [facility] [address], [place], [place], [address] , [place]. tel:[phone] [facility], [address], [place], [place], [address], tel:[phone] VALENTIN PALM No Information Sep-0 4 Luroberter Krystin. [address] [facility], [address], [place], [place], [address] , [place]. tel:[phone] Family History Family Member Type Diagnosis Age At Onset Maternal grandmother Problem (finding) hypercholestero lemia Father Problem (finding) hypertension Paternal grandmother Problem (finding) hypertension Payers Payer name Insurance type Covered republican ID Authordoron murilloalberto(s) Xenia JUSTINOO BL [id number] Social History Type Description Quantity Date Captured [...] (comments) Gillian chau is a 54 yo [id number] WF, here for a follow-up on her [...] (comments) Gillian chau is a 54 yo [id number] WF, here for a follow-up visit on [...] (comments) S he is a 53 yo [id number] WF, here for follow-up from her complex [...] followed by her PCP, Dr. Mcdaniels at [facility]. Menopausal symptoms annual exam : 5. Haley [...] exam (comments) Pt. is a 53 yo [id number] WF, here for a new patient annual [...] Information Instructions Date Instruction Additional Infor darshan Discussed diet and exercise Rela tasha to Insomnia Menopause Related to Insom johnathan Instructed in homeop athic and traditional options for menopause. Related to Climacteric Kegel exercises Related to Fatig ue Discussed diet and exercise Rela tasha to Fatigue Perform self breast exam Related to Fatigue Calcium supplementation Related to Fatigue Menopause Related to ROUTI NE PATROL SERGEANT SHERIFF'S OFFICE EXAMINATION Perform self breast exam Related to ROUTINE PATROL SERGEANT SHERIFF'S OFFICE EXAMINATION Calcium supplementation Related to ROUTINE PATROL SERGEANT SHERIFF'S OFFICE EXAMINATION Kegel exercises Related to ROUTI NE PATROL SERGEANT SHERIFF'S OFFICE EXAMINATION Discussed Diet and exercise Rela tasha to ROUTINE PATROL SERGEANT SHERIFF'S OFFICE EXAMINATION Assessments Type Assessment Date No Information Patient Care Teams Name Effective Dates (start - stop) Status Members No Information
--- OUTSIDE RECORDS SUMMARY | 2024-12-16 11:52 | XMS_ITS | Encounter Summary ---
Author Organization [facility] Address [address] [place] [address] Care Team Providers Care Business Technology Professor Name Role Phone David Britton MD Primary Care Provider [phone] Encounter Details Date Type Department Care Team (Late st Contact Info) Description 10/22/2024 Telephone Gastroenterology - [address] [place] [address] Maame Razo MA Social History [...] BE SCHEDULED DUE TO THE INSURANCE BEING [facility]. documented in this encounter Plan of Treatment Not on file documented as of this encounter Visit Diagnoses Not on filedocumented in this encounter Care Teams Business Technology Professor Relationship Specialty Start Date End Date David Britton MD PCP - General Internal Medicine 02/23/21 documented as of this encounter
--- OUTSIDE RECORDS SUMMARY | 2024-12-16 11:52 | XMS_ITS | Clinical Summary ---
Author Organization [facility] Address [address] [place] [address] Care Team Providers Care Sap Basis Architect Name Role Phone David Britton MD Primary Care Provider [phone] Allergies Active Allergy Reactions Criticality Noted Date [...] age to complete this topic Care Teams Sap Basis Architect Relationship Specialty Start Date End Date David Britton MD PCP - General Internal Medicine 02/26/22
--- OUTSIDE RECORDS SUMMARY | 2024-12-16 11:52 | XMS_ITS | Patient Health Record ---
Author Organization [facility] [employer] Address [address] [place] [address] [id number] Care Team Providers Care Health Officer Name Role Phone TC HAHN Primary Care Provider MARTITA DARNELL Unavailable [phone] ALLERGIES Allergen (clinical drug ingredient) Drug/Non Drug Allergy documented on EMR Reaction Allergy Type Onset Date Status Shellfish (FN) Shell Fish (uncoded) anaphylaxis Allergy Active codeine Codeine Itchy, SOB Drug Allergy Active RESULTS Component Value Reference Range Notes URIC ACID (905) Reviewed date:08/20/2024 08:47:45 AM Interpretation: Performing Lab:[facility], [place] [facility] Emely Chatman Notes/Report: FASTING: YES FASTING:YES NON-FASTING; NON-FASTING; NON-FASTING; NON-FASTING; NON-FAST URIC ACID 3.1 2.5-7.0 mg/dL Therapeutic ta rget for gout patients: <6.0 mg/dL THYROID PEROXIDASE AND THYRO GLOBULIN ANTIBODIES (7260) Reviewed date:08/20/2024 08:47:45 AM Interpretation: Performing Lab:T[facility], [place] [facility] Emely Chatman Notes/Report: NON-FASTING; NON-FASTING; NON-FASTING; NON-FASTING; NON-FAST FASTING:YES FASTING: YES THYROGLOBULIN ANTIBODIES <1 < or = 1 IU/mL THYROID PEROXIDASE ANTIBODIES 2 <9 IU/mL THYROID PANEL WITH TSH (7444 ) Reviewed date:08/20/2024 08:47:45 AM Interpretation: Performing Lab:NLTamago, [place] [facility] Emely Chatman Notes/Report: NON-FASTING; NON-FASTING; NON-FASTING; NON-FASTING; NON-FAST FASTING:YES FASTING: YES T3 UPTAKE 30 22-35 % T4 (THYROXINE), TOTAL 7.3 5.1-11.9 mcg/dL FREE T4 INDEX (T7) 2.2 1.4-3.8 TSH 1.69 0.40-4.50 mIU/L SED RATE BY MODIFIED WESTERG SADIA (809) Reviewed date:08/20/2024 08:47:45 AM Interpretation: Performing Lab:NL2, [place] [facility] [id number] [facility] [place] Jose Cruz Chatman Notes/Report: NON-FASTING; NON-FASTING; NON-FASTING; NON-FASTING; NON-FAST FASTING:YES FASTING: YES SED RATE BY MODIFIED JEANNAREN 6 < OR = 30 mm/h METHYLMALONIC ACID (15820) Reviewed date:08/24/2024 01:40:29 PM Interpretation: Performing Lab:SRINIVAS [facility] Maureen/Elizabeth HeYing [id number] [facility] , [id number] Luca Tan M.D.,PhD Notes/Report: NON-FASTING; NON-FASTING; NON-FASTING; NON-FASTING; NON-FAST FASTING:YES FASTING: YES METHYLMALONIC ACID 165 69-390 nmol/L Serum methylmalonic acid (MMA) levels are used to diagnose and monitor several rare inborn errors of metabolism, including methylmalonic aciduria. The enzymatic conversion of MMA to succinic acid requires vitamin B12 (adenosyl-cobalamin) as a cofactor. Serum MMA levels are also used for assessing functional vitamin B12 deficiency. Vitamin B12 is essential for neurodevelopment, particularly early in . Undiagnosed maternal vitamin B12 deficiency may be associated with adverse / outcomes, such as neural tube defects and intrauterine growth restriction. [facility] utilized Multi-Modal Decomposition (MMD) analysis to establish first and second trimester- specific MMA reference intervals in , as given below: MMA, First trimester (<13 wks gestation): 58-167 nmol/L MMA, Second trimester (13-23 wks gestation): 63-241 nmol/L This test was developed and its analytical performance characteristics have been determined by [facility]. It has not been cleared or approved by the FDA. This assay has been validated pursuant to the CLIA regulations and is used for clinical purposes. MAGNESIUM (622) Reviewed date:08/20/2024 08:47:45 AM Interpretation: Performing Lab:BRIGIDA2, [place] [facility] [address] [facility] Jose Cruz [facility] Notes/Report: NON-FASTING; NON-FASTING; NON-FASTING; NON-FASTING; NON-FAST FASTING:YES FASTING: YES MAGNESIUM 2.1 1.5-2.5 mg/dL IRON, TIBC AND FERRITIN PANE L (5616) Reviewed date:08/20/2024 08:47:45 AM Interpretation: Performing Lab:BRIGIDA2, [place] [facility] [facility] Notes/Report: NON-FASTING; NON-FASTING; NON-FASTING; NON-FASTING; NON-FAST FASTING:YES FASTING: YES IRON, TOTAL 67 45-160 mcg/dL IRON BINDING CAPACITY 417 250-450 mcg/dL (altaf c) % SATURATION 16 16-45 % (calc) FERRITIN 7 16-288 ng/mL COMPREHENSIVE METABOLIC PANE L (02361) Reviewed date:08/20/2024 08:47:45 AM Interpretation: Performing Lab:Tyra, [place] [facility] [facility] Notes/Report: NON-FASTING; NON-FASTING; NON-FASTING; NON-FASTING; NON-FAST FASTING:YES FASTING: YES GLUCOSE 82 65-99 mg/dL Fasting reference interval UREA NITROGEN (BUN) 17 7-25 mg/dL CREATININE 0.84 0.50-1.05 mg/dL EGFR 79 > OR = 60 mL/min/1.73m2 BUN/CREATININE RATIO SEE NOTE: 6-22 (calc) Not Reported: BUN and Creatinine are within reference range. SODIUM 142 135-146 mmol/L POTASSIUM 4.2 3.5-5.3 mmol/L CHLORIDE 102 98-110 mmol/L CARBON DIOXIDE 32 20-32 mmol/L CALCIUM 9.3 8.6-10.4 mg/dL PROTEIN, TOTAL 6.2 6.1-8.1 g/dL ALBUMIN 4.4 3.6-5.1 g/dL GLOBULIN 1.8 1.9-3.7 g/dL (calc) ALBUMIN/GLOBULIN RATIO 2.4 1.0-2.5 (calc) BILIRUBIN, TOTAL 0.3 0.2-1.2 mg/dL ALKALINE PHOSPHATASE 89 37-153 U/L AST 11 10-35 U/L ALT 14 6-29 U/L CBC (INCLUDES DIFF/PLT) (639 9) Reviewed date:08/20/2024 08:47:45 AM Interpretation: Performing Lab:NL2, [facility] [id number] [id number] Emely Chatman Notes/Report: NON-FASTING; NON-FASTING; NON-FASTING; NON-FASTING; NON-FAST FASTING:YES FASTING: YES WHITE BLOOD CELL COUNT 5.1 3.8-10.8 Thousand/ uL RED BLOOD CELL COUNT 4.85 3.80-5.10 Million/uL HEMOGLOBIN 13.8 11.7-15.5 g/dL HEMATOCRIT 42.3 35.0-45.0 % MCV 87.2 80.0-100.0 fL MCH 28.5 27.0-33.0 pg MCHC 32.6 32.0-36.0 g/dL For adults, a slight decrease in the calculated MCHC value (in the range of 30 to 32 g/dL) is most likely not clinically significant; however, it should be interpreted with caution in correlation with other red cell parameters and the patient's clinical condition. RDW 15.0 11.0-15.0 % PLATELET COUNT 186 140-400 Thousand/uL MPV 10.0 7.5-12.5 fL ABSOLUTE NEUTROPHILS 2372 9105-6658 cells/uL ABSOLUTE LYMPHOCYTES 2264 850-3900 cells/uL ABSOLUTE MONOCYTES 342 200-950 cells/uL ABSOLUTE EOSINOPHILS 92 15-500 cells/uL ABSOLUTE BASOPHILS 31 0-200 cells/uL NEUTROPHILS 46.5 LYMPHOCYTES 44.4 MONOCYTES 6.7 EOSINOPHILS 1.8 BASOPHILS 0.6 CARDIO IQ(R) VITAMIN D, 25 H YDROXY (82392) Reviewed date:08/26/2024 09:11:34 AM Interpretation: Performing Lab:SRINIVAS [facility]/Elizabeth Kebede [id number] [place] [place], NqggyitjpZP[address] Luca Tan M.D.,PhD Notes/Report: NON-FASTING; NON-FASTING; NON-FASTING; NON-FASTING; NON-FAST FASTING:YES FASTING: YES VITAMIN D, 25-OH, TOTAL 21 30-100 ng/mL Vitamin D, 25-Hydroxy reports concentrations of two common forms, 25-OHD2 and 25-OHD3. 25-OHD3 indicates both endogenous production and supplementation. 25-OHD2 is an indicator of exogenous sources such as diet or supplementation. Therapy is based on measurement of Total 25-OHD, with levels <20 ng/mL indicative of Vitamin D deficiency, while levels between 20 ng/mL and 30 ng/mL suggest insufficiency. Optimal levels are > or = 30 ng/mL. For additional information, please refer to http://education.GMI/faq/LLM214 (This link is being provided for informational/ educational purposes only.) VITAMIN D, 25-OH, D3 11 This test was developed and its analytical performance characteristics have been determined by [facility] [place], [place]. It has not been cleared or approved by the U.S. Food and Drug Administration. This assay has been validated pursuant to the CLIA regulations and is used for clinical purposes. VITAMIN D, 25-OH, D2 10 This test was developed and its analytical performance characteristics have been determined by [facility] [place]. It has not been cleared or approved by the U.S. Food and Drug Administration. This assay has been validated pursuant to the CLIA regulations and is used for clinical purposes. CARDIO IQ(R) LIPOPROTEIN (a) (57568) Reviewed date:08/26/2024 09:12:12 AM Interpretation: Performing Lab:[facility] [place] [address], [address], [id number] Matt Smalls PhD,[facility] Notes/Report: NON-FASTING; NON-FASTING; NON-FASTING; NON-FASTING; NON-FAST FASTING:YES FASTING: YES LIPOPROTEIN (a) 42 <75 nmol/L Risk: Optimal <75 nmol/L; Moderate 75-125 nmol/L; High >125 nmol/L. Cardiovascular event risk category cut points (optimal, moderate, high) are based on Isaura Quiñones [facility] 2017;69:692-711. CARDIO IQ(R) LIPID PANEL (91 716) Reviewed date:08/26/2024 09:12:04 AM Interpretation: Performing Lab:Bailey, [employer], [address], QmypwytibFC[address] Matt Smalls PhD,[facility] Notes/Report: NON-FASTING; NON-FASTING; NON-FASTING; NON-FASTING; NON-FAST FASTING:YES FASTING: YES CHOLESTEROL, TOTAL 234 <200 mg/dL HDL CHOLESTEROL 66 >49 mg/dL TRIGLYCERIDES 84 <150 mg/dL LDL-CHOLESTEROL 149 <100 mg/dL (calc) Desirable range <100 mg/dL for primary prevention; <70 mg/dL for patients with CHD or diabetic patients with >= 2 CHD risk factors. LDL-C is now calculated using the Sivakumar-Elam calculation, which is a validated novel method providing better accuracy than the Friedewald equation in the estimation of LDL-C. Sivakumar SS et al. FLAKO. 2013;310(19): 8434-5110 (http://education.Tracab.com/faq/CER384) LDL-C is now calculated using the Sivakumar-Elam calculation, which is a validated novel method providing better accuracy than the Friedewald equation in the estimation of LDL-C. Sivakumar SS et al. FLAKO. 2013;310(19): 1582-3194 (http://education.Tracab.com/faq/LKD852) CHOL/HDLC RATIO 3.5 <5.0 calc NON HDL CHOLESTEROL 168 <130 mg/dL (calc) For patients with diabetes plus 1 major ASCVD risk factor, treating to a non-HDL-C goal of <100 mg/dL (LDL-C of <70 mg/dL) is considered a therapeutic option. For patients with diabetes plus 1 major ASCVD risk factor, treating to a non-HDL-C goal of <100 mg/dL (LDL-C of <70 mg/dL) is considered a therapeutic option. CARDIO IQ(R) INSULIN (82491) Reviewed date:08/26/2024 09:12:12 AM Interpretation: Performing Lab:Bailey [employer] [employer], [address], TqidguodrUP[address] Matt Smalls PhD,[facility] Notes/Report: NON-FASTING; NON-FASTING; NON-FASTING; NON-FASTING; NON-FAST FASTING:YES FASTING: YES INSULIN 7.3 <18.5 uIU/mL CARDIO IQ(R) HS CRP (24178) Reviewed date:08/26/2024 09:12:12 AM Interpretation: Performing Lab:Bailey, [employer], [address], QmbadsvlsFM[address] Matt Smalls PhD,[facility] Notes/Report: NON-FASTING; NON-FASTING; NON-FASTING; NON-FASTING; NON-FAST FASTING:YES FASTING: YES HS CRP 5.1 <1.0 mg/L Reference Range: Optimal <1.0 mg/L, according to Ari MONZON et al. Endocr Pract.2017;23(Suppl 2):1-87. The AHA/CDC Guidelines recommend hs-CRP ranges for identifying Relative Cardiovascular Risk in patients ages >17 years: <1.0 mg/L Lower Relative Cardiovascular Risk; 1.0-3.0 mg/L Average Relative Cardiovascular Risk; 3.1-10.0 mg/L Higher Relative Cardiovascular Risk. If result is between 3.1 and 10.0 mg/L, consider retesting in 1-2 weeks to exclude a benign transient elevation secondary to infection or inflammation from the baseline CRP value. Persistent elevations of >10.0 mg/L upon retesting may be associated with infection and inflammation. The AHA/CDC recommendations are based on Martinez TA, Chanelle GA, Donn RW, et al. Markers of inflammation and cardiovascular disease: application to clinical and public health practice: A statement for healthcare professionals from the Centers for Disease Control and Prevention and the [place] Heart Association. Circulation 2003; 107(3): 499-511. For ages >17 Years: hs-CRP mg/L Risk According to AHA/CDC Guidelines <1.0 Lower relative cardiovascular risk. 1.0-3.0 Average relative cardiovascular risk. 3.1-10.0 Higher relative cardiovascular risk. Consider retesting in 1 to 2 weeks to exclude a benign transient elevation in the baseline CRP value secondary to infection or inflammation. >10.0 Persistent elevation, upon retesting, may be associated with infection and inflammation. Juan TA, Chanelle GA, Donn RW, et al. Markers of inflammation and cardiovascular disease: application to clinical and public health practice: A statement for healthcare professionals from the Centers for Disease Control and Prevention and the [place] Heart Association. Circulation 2003; 107(3): 499-511. CARDIO IQ(R) HOMOCYSTEINE (9 1733) Reviewed date:08/26/2024 09:12:12 AM Interpretation: Performing Lab:Z4, [employer] [address], [address], GdjmypvvhMI[address] Matt Smalls PhD,[facility] Notes/Report: NON-FASTING; NON-FASTING; NON-FASTING; NON-FASTING; NON-FAST FASTING:YES FASTING: YES HOMOCYSTEINE 11.0 <10.4 umol/L Homocysteine is increased by functional deficiency of folate or vitamin B12. Testing for methylmalonic acid differentiates between these deficiencies. Other causes of increased homocysteine include renal failure, folate antagonists such as methotrexate and phenytoin, and exposure to nitrous oxide. Selhumingo J, et al. [facility] [employer]. 1999;131(5):331-9. Homocysteine is increased by functional deficiency of folate or vitamin B12. Testing for methylmalonic acid differentiates between these deficiencies. Other causes of increased homocysteine include renal failure, folate antagonists such as methotrexate and phenytoin, and exposure to nitrous oxide. Selhub J, et al., [place] [employer]. 1999;131(5):331-9. CARDIO IQ(R) HEMOGLOBIN A1c (81367) Reviewed date:08/26/2024 09:12:12 AM Interpretation: Performing Lab:C[place], [employer], [address], KlvwpkzfuET[address] Matt Smalls PhD,[facility] Notes/Report: NON-FASTING; NON-FASTING; NON-FASTING; NON-FASTING; NON-FAST FASTING:YES FASTING: YES HEMOGLOBIN A1c 5.5 <5.7 % For the purpose of screening for the presence of diabetes: <5.7% is consistent with the absence of diabetes; 5.7-6.4% is consistent with increased risk for diabetes (prediabetes); >= 6.5% is consistent with diabetes. This assay result is consistent with a decreased risk of diabetes. Currently, no consensus exists regarding use of hemoglobin A1c for diagnosis of diabetes in children. According to [place] Diabetes Association (ADA) guidelines, hemoglobin A1c <7.0% represents optimal control in non- diabetic patients. Different metrics may apply to specific patient populations. Standards of Medical Care in Diabetes (ADA). This test was performed on the Annamarie ciera c503 platform. Effective 12/31/2023, a change in test platforms from the [employer] Supervisor to the Annamarie ciera c503 may have shifted HbA1c results compared to historical results. Based on laboratory validation testing conducted at [facility], the Annamarie platform relative to the Marinelli platform had an average increase in HbA1c value of <=0.3%. This difference is within accepted variability established by the National Glycohemoglobin Standardization Program. Note that not all individuals will have had a shift in their results and direct comparisons between historical and current results for testing conducted on different platforms is not recommended. CARDIO IQ(R) APOLIPOPROTEIN EVAL (66922) Reviewed date:08/26/2024 09:12:12 AM Interpretation: Performing Lab:[facility], [facility] [place] [address], [address], OgknhtgmhUF[address] Matt Smalls PhD,[facility] Notes/Report: NON-FASTING; NON-FASTING; NON-FASTING; NON-FASTING; NON-FAST FASTING:YES FASTING: YES APOLIPOPROTEIN A1 163 >124 mg/dL Risk, Male: Optimal >= 115 mg/dL; High < 115 mg/dL; Risk, Female: Optimal >= 125 mg/dL; High <125 mg/dL; Cardiovascular event risk category cut points (optimal, high) are based on the AMORIS study Walldius G et al. J [employer] Med. 2004;255:188-205. APOLIPOPROTEIN B 120 <90 mg/dL Risk: Optimal <90 mg/dL; Moderate 90-119 mg/dL; High >= 120 mg/dL; Cardiovascular event risk category cut points (optimal, moderate, high) are based on National Lipid Association recommendations- Rosario TA et al. J of Clin Lipid. 2015; 9: 129-169 and Ari PS et al. Endocr Pract. 2017;23(Suppl 2):1-87. APOLIPOPROTEIN B/A1 RATIO 0.74 <0.63 Risk, Male: Optimal <0.77 mg/dL; Moderate 0.77-0.95 mg/dL; High >0.95 mg/dL; Risk, Female: Optimal <0.63 mg/dL; Moderate 0.63-0.78 mg/dL; High >0.78 mg/dL. Cardiovascular event risk category cut points (optimal, moderate, high) are based on the AMORIS study, Teo Gayle et al. J [employer] Med. 2004;255:188-205. TESTOSTERONE, FREE (DIALYSIS ) AND TOTAL,MS (24452) Reviewed date:08/25/2024 04:36:02 PM Interpretation: Performing Lab:SRINIVAS [place]/As Seen on TV [facility] [id number] Nicole Gannon, BfujonzfqNV[address] Luca Tan M.D.,PhD Notes/Report: NON-FASTING; NON-FASTING; NON-FASTING; NON-FASTING; NON-FAST FASTING:YES FASTING: YES TESTOSTERONE, TOTAL, MS 13 2-45 ng/dL For additional information, please refer to http://education.DocLogix/faq/ TotalTestosteroneLCMSMSFAQ1 65 (This link is being provided for informational/ educational purposes only.) This test was developed and its analytical performance characteristics have been determined by [place]. It has not been cleared or approved by the U.S. Food and Drug Administration. This assay has been validated pursuant to the CLIA regulations and is used for clinical purposes. TESTOSTERONE, FREE 1.8 0.1-6.4 pg/mL This test was developed and its analytical performance characteristics have been determined by [facility] [place], [place]. It has not been cleared or approved by the U.S. Food and Drug Administration. This assay has been validated pursuant to the CLIA regulations and is used for clinical purposes. REASON FOR REFERRAL Reason please refer pt to [facility] for dx of GERD, dysphagia, abdominal bloating Patient would like to try [facility] (Sandra) please resend Diagnosis 1 GERD without esophag itis (K21.9) Diagnosis 2 Dysphagia, unspecifi ed (R13.10) Diagnosis 3 Bloating (R14.0) Referral Organization [facility] Referring Provider First Name MARTITA Referring Provider Last Name CARIE Referring Provider Speciality Preventive Medicine Referred Organization [facility] Referred Address [address] [place] [id number], Referred Provider Specialty Gastroentero logy General Notes NATHANIEL CELESTE 01/2024 12:14:53 PM >BMP Form, Referral, OV Note and insurane information faxed to [facility] [phone] AMY 09/08/2024 02:13:48 PM >Referral, OV Note and Demographics faxed to Gastro [phone] AMY 09/29/2024 12:38:21 PM >[facility] Form, Referral, OV Note and demographics faxed to [phone]. Referral Priority Routine Reason please refer to [facility] for dx of HLD, elevated inflammation Diagnosis 1 Hyperlipidemia, unsp ecified (E78.5) Diagnosis 2 CRP elevated (R79.82 ) Diagnosis 3 Vitamin D deficiency (E55.9) Diagnosis 4 Low ferritin (R79.0) Referral Organization [facility] Referring Provider First Name MARTITA Referring Provider Last Name CARIE Referring Provider Speciality Preventive Medicine Referred Organization [facility] Referred Address [address] [place] [id number], Referred Provider Specialty Nutrition General Notes SHIV GORDON 1 12/07/2023 02:27:35 PM >demographics, insurance info, referral and office note have been faxed to [facility] [phone] Referral Priority Routine MEDICATIONS Medication SIG (Take, Route, Frequency, Duration) Notes Start Date End Date Status Medrol 4 MG as directed Orally daily for 6 days 11/05/2024 Active CoQ10 100 MG 1 tab Orally twice a day for 30 days 08/28/2024 Not-Taking tiZANidine HCl 4 MG 1 tablet at bedtime as needed Orally Every 8 hours PRN Not-Taking Omeprazole 40 MG 1 capsule 30 minutes before morning meal Orally Once a day Not-Taking Levothyroxine Sodium 100 MCG 1 tablet in the morning on an empty stomach Orally Once a day for 90 days Active Co-Enzyme Q-10 Not-T aking Celecoxib 200 MG 1 capsule with food Orally Once a day for 90 days 02/22/2025 Active Multi For Her - as directed Orally Not-Taking Albuterol Sulfate HFA 108 (90 Base) MCG/ACT 1 puff as needed Inhalation every 4 hrs PRN Active Famotidine 20 MG 1 tab Orally Once a day for 90 days 07/31/2024 Active Ezetimibe 10 MG TAKE 1 TABLET BY EMANI TH EVERY DAY FOR 30 DAYS for 90 days Active Atorvastatin Calcium 20 MG TAKE 1 TABLET BY MOUTH EVERY DAY FOR 30 DAYS for 90 Not-Taking DULoxetine HCl 60 MG 1 capsule Orally On ce a day Active clonazePAM 1 MG 1 tablet Orally Once a day Active Vitamin D3 1.25 MG (54541 UT) 1 capsule Orally Not-Taking buPROPion HCl ER (XL) 300 MG 1 tablet in the morning Orally Once a day Active Modafinil 100 MG 1 tablet in the morning Orally Once a day Active hydrOXYzine HCl 25 MG 1 tablet as needed Orally Twice a day PRN Active Gabapentin 300 MG 2 capsules Orally Bedtime Active Buprenorphine 7.5 MCG/HR 1 patch to skin Transdermal once a week for 30 days 11/24/2024 12/24/2024 Active Stress B Not-Taking SOCIAL HISTORY Tobacco Use: Social History Observation Description Date Details (start date - stop date) Never Smoker NA - NA Sex Assigned At : Social History Observation Description Sex Assigned At Unknown Household Question Answer Notes Marital status: Number of adults in household: 2 Tobacco Use/Smoking Question Answer Notes Tobacco use: nonsmoker Section Notes: Kia lives in [place] w /spouse. She loves to read and enjoys watching biographies, documentories and history. Kia lives in [place] w /spouse. She loves to read and enjoys watching biographies, documentories and history. Kia lives in [place] w /spouse. She loves to read and enjoys watching biographies, documentories and history. Kia lives in [place] w /spouse. She loves to read and enjoys watching biographies, documentories and history. 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) Active confirmed Narcolepsy with out cataplexy (45377179704532) Problem Chronic pain syndrome (G89.4) Active confirmed Chronic pain syndrome (002546842) Problem Fibromyalgia (M79.7) Active confirmed Fibromyalgia (047232472) Problem Female genital prolapse, unspecified (N81.9) Active confirmed Prolapse of fem aquiles genital organs (33121691) Problem Dysphagia, unspecified (R13.10) Active confirmed Dysphagia (84877866) Problem Mild intermittent asthma without complication (J45.20) Active confirmed Mild intermitte nt asthma (338934027) Problem Vitamin D deficiency (E55.9) Active confirmed Vitamin D deficiency (31141171) Problem Low ferritin (R79.0) Active confirmed Ferritin level low (247578437) Problem Mixed anxiety and depressive disorder (F41.8) Active confirmed Mixed anxiety a nd depressive disorder (125280537) Problem GERD without esophagitis (K21.9) Active confirmed Gastroesophagea l reflux disease (026283682) Problem 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) Active confirmed Blood chemistry abnormal (293282653) Problem CRP elevated (R79.82) Active confirmed C-reactive prot ein abnormal (787732789) Problem Opiate dependence, continuous (F11.20) Active confirmed Opioid dependen ce (45322915) VITAL SIGNS Heart Rate 109 /min 08/28/2024 Height-cm 166.37 cm 11/05/2024 Oximetry 99 % 08/28/2024 Blood pressure diastolic 88 mm Hg 08/28/2024 Weight-kg 78.47 kg 08/28/2024 Height 65.5 in 11/05/2024 Blood pressure systolic 138 mm Hg 08/28/2024 Weight 173 lbs 08/28/2024 BMI 28.35 kg/m2 08/28/2024 Encounters Encounter Location Date Provider Diagnosis [address] [id number] 07/31/2024 MARTITA DARNELL Chronic pain syndrom e G89.4 ; Opiate dependence, continuous F11.20 ; Fibromyalgia M79.7 ; Hypothyroidism, unspecified E03.9 ; Mixed anxiety and depressive disorder F41.8 ; Insomnia, unspecified G47.00 ; Narcolepsy without cataplexy G47.419 ; Anemia, unspecified D64.9 ; Mild intermittent asthma without complication J45.20 ; GERD without esophagitis K21.9 ; Hyperlipidemia, unspecified E78.5 and Female genital prolapse, unspecified N81.[address] [id number] 08/28/2024 [facility] Hyperlipidemia, unspecified E78.5 ; Vitamin D deficiency E55.9 ; CRP elevated R79.82 ; Elevated homocysteine R79.89 ; Low ferritin R79.0 ; GERD without esophagitis K21.9 ; Bloating R14.0 ; Dysphagia, unspecified R13.10 and Hypothyroidism, unspecified E03.[address] [id number] 09/29/2024 [facility] Hyperlipidemia, unspecified E78.5 and Elevated homocysteine R79.[address] [id number] 11/05/2024 [facility] Hyperlipidemia, unspecified E78.5 ; GERD without esophagitis K21.9 and Bronchitis J40 [address] [id number] 11/09/[address] [id number] 11/19/2024 [facility] GERD without esophagitis K21.9 and Hyperlipidemia, unspecified E78.[address] [id number] 12/01/[address] [id number] 09/29/2024 [facility] ASSESSMENTS Encounter Date Diagnosis Assessment Notes Treatment Notes Treatment Clinical Notes Section Notes 07/31/2024 Chronic pain syndrome (ICD-10 - G89.4) 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 lumber with generalized pain syndrome, opioid therapy since 2008 Currently on topical buprenorphine treatment through [facility] in [facility] and gabapentin also in place Will continue POC at this time 07/31/2024 Opiate dependence, continuous (ICD-10 - F11.20) 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 lumber with generalized pain syndrome, opioid therapy since 2008 Currently on topical buprenorphine treatment through [facility] in [facility] and gabapentin also in place Will continue POC at this 08/28/2024 Hyperlipidemia, unspecified (ICD-10 - E78.5) Pt states she has been on a statin in the past but unable to tolerate again Willing to try again with coq10 Will start atorvastin Discussed mediterranean diet, low inflammatory foods will continue to monitor May need Rapatha if unable to tolerate 08/28/2024 Vitamin D deficiency (ICD-10 - E55.9) Will start high dose x 2 mo then 2000iu daily Increase vit D rich foods Monitor levels periodically 09/29/2024 Hyperlipidemia, unspecified (ICD-10 - E78.5) Will stop statin therapy due to significant increase in her baseline polymyalgias with increase in pain where she does not usually suffer from pain Will trial Zetia 10mg daily Agreed to sport intern to assist with diet, decrease inflammation Will recheck labs in 4 mo 11/05/2024 Hyperlipidemia, unspecified (ICD-10 - E78.5) Pt is tolerating the zetia well Will repeat labs with next visit If still elevated, candidate for Repatha Continue low fat, low cholesterol diet Exercise, maintain healthy weight 11/05/2024 GERD without esophagitis (ICD-10 - K21.9) GI health has improved with the pepcid but continues with belching, flatulence, abd cramping Has GI apt in Nov Also discussed GI mapping in future 11/19/2024 GERD without esophagitis (ICD-10 - K21.9) 11/19/2024 Hyperlipidemia, unspecified (ICD-10 - E78.5) 11/05/2024 Bronchitis (ICD-10 - J40) Discussed viral vs bacterial infections and the need to be proactive with with symptom management in the future; at this time needs antibiotic treatment as sinobrochitis clinically Neti pot/nasal lavage Mucinex DM BID Albuterol inhaler TID fluids To call if any worsening s/s 09/29/2024 Elevated homocysteine (ICD-10 - R79.89) Pt is going to try another brand of b complex Will check back in 4 weeks 08/28/2024 CRP elevated (ICD-10 - R79.82) Low inflammatory diet Increased exercise Statin therapy as indicated Int fasting Will continue to monitor 07/31/2024 Fibromyalgia (ICD-10 - M79.7) Chronic pain syndrome with fibromyalgia Currently on cymbalta and gabapentin Will continue POC at this time 07/31/2024 Hypothyroidism, unspecified (ICD-10 - E03.9) Continue meds as indicated Check thyroid panel yearly, sooner as indicated 08/28/2024 Elevated homocysteine (ICD-10 - R79.89) To start B complex daily Will continue to monitor levels periodically Check CBC 08/28/2024 Low ferritin (ICD-10 - R79.0) Pt to increase iron rich foods at this time Will continue to monitor along with CBC periodically 07/31/2024 Mixed anxiety and 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) Pt just saw psychiatrist Does not see therapy Discussed integrative care with KADE After much discussion, pt was very open with past and its refections on present Will continue to dive into treatment on nonpharm therapies as well through [facility] 07/31/2024 Insomnia, unspecified (ICD-10 - G47.00) Pt states narcolepsy and insomnia Treated with Modafinil at this time Will continue to monitor 08/28/2024 GERD without esophagitis (ICD-10 - K21.9) Discussed adverse effects of pepcid and tizanidine as far as sedation/lower BP and OK to continue take both meds Pt continues to have bloating and int dysphagia that affects her ability to eat Will refer to GI as needs both endo and colonoscopy 07/31/2024 Narcolepsy without cataplexy (ICD-10 - G47.419) As above, treated with with Modafenil 08/28/2024 Bloating (ICD-10 - R14.0) as above 08/28/2024 Dysphagia, unspecified (ICD-10 - R13.10) as above 07/31/2024 Anemia, unspecified (ICD-10 - D64.9) Will check CBC, iron studies, MMA and homocysteine Enriched diet 07/31/2024 Mild intermittent asthma without complication (ICD-10 - J45.20) Continue occasional use of inhaler; mostly exercise induced Avoid allergens Promptly address any infections Call if using inhalers more frequently 08/28/2024 Hypothyroidism, unspecified (ICD-10 - E03.9) Continue meds as indicated currently therapeutic Check thyroid panel yearly, sooner as indicated 07/31/2024 GERD without esophagitis (ICD-10 - K21.9) Discussed having Maalox/Mylanta on hand for times of severe squeezing pain will trial pepcid twice a day for a month then re-eval with next visit 07/31/2024 Hyperlipidemia, unspecified (ICD-10 - E78.5) Discussed lowing lipid levels with diet Low inflammatory, Mediterranean diet Exercise as tolerated Control weight 07/31/2024 Female genital prolapse, unspecified (ICD-10 - N81.9) Will refer patient to pelvic floor therapy Pt has not seen urogyn as well 08/28/2024 Other Total time spen t with patient 32 minutes which includes face to face visit, education and coordination of care. 09/29/2024 Other Pt would also like a referral to [facility] to see if she could get in earlier than Feb She had gone there in past Total time spent with patient 32 minutes which includes face to face visit, education and coordination of care. 11/05/2024 Other Total time spen t with patient 32 minutes which includes face to face visit, education and coordination of care. PLAN OF TREATMENT Future Test Test Name Order Date THYROID PANEL WITH TSH (7444) 08/28/2024 CARDIO IQ(R) LIPID PANEL (72559) 024 IRON, TIBC AND FERRITIN PANEL (5616) 10/2023 COMPREHENSIVE METABOLIC PANEL (12663) CARDIO IQ(R) HS CRP (30939) 08/28/2024 CARDIO IQ(R) APOLIPOPROTEIN EVAL (72701) 08/28/2024 CARDIO IQ(R) HOMOCYSTEINE (89543) 2023 CARDIO IQ(R) VITAMIN D, 25 HYDROXY (9173 5) 08/28/2024 Next Appt Details Provider Name:MARTITA CLAYDYLAN Robb, 01/06/2025 02:15:00 PM, [address] [place] [address], [place], [place], [id number], Insurance Providers Payer Name Payer Address Payer Phone Subscriber Number Group Number Insured Name Patient Relationship to Insured Coverage Start Date Coverage End Date [employer] [address] NATACHA ARANA [phone] [id number] KIA SANDERS Self - patient is the insured [employer] [address] [place] [address] [id number] KIA SANDERS Self - patient is the insured MEDICAL (GENERAL) HISTORY Medical History History ICD Code Allergies Hay fever Anxiety Exercise induced Asthma Blood Transfusion Cancer Depression Fractured coccyx GERD Endometriosis Vaginal prolapse Hyperlipidemia IBS Walking Pneumonia Hypothyroidism Insomnia Fibromyalgia Colon Polyp Surgical History Surgery Date(Month/Year) Endometriosos 1979, 1983 Lumbar Back surgery, PLIF wi th instrumentation 2019 install [employer] [facility] System 2004, 2019 Bilateral breast biopsy 2017, 2021 Colonoscopy Torturous Sphincter - Colon Polyp 2014 Echocardiogram 2021 Stomach Endoscopy 2008 Gallbladder removal - cancerous 2008 Hysterectomy 2017 Sigmoidoscopy - Multiple Stress Echo - 2021 Stress Test (thallium perfusion) 2021 Stage 4 Burkitt's Lymphoma 2007 DEXA Scan 2021 - [facility] normal per patien t 2021 Endoscopy 2014 Hospitalization History Reason Date(Month/Year) [facility] Cancer 2009
[2024-12-16 13:11] LABS: Folate 6.3 ng/mL (> or = 4.0); Vitamin B12 333 pg/mL (200-900)
[2024-12-18 21:13] LABS: Transglutaminase IgA <1.0 U/mL
[2024-12-23 12:04] LABS: Vitamin D 25-OH, D2 5 ng/mL; Vitamin D 25-OH, D3 24 ng/mL; Vitamin D 25-OH, Total 29 ng/mL (30-100)
== END 2024-12-16 09:30 | disposition home or self-care (01) ==
LOC: HO.LAB 09:29
PROVIDERS: PCP Hospitalist; Visit Provider Nurse Practitioner Family
DX: R10.9 Unspecified abdominal pain (principal); R19.7 Diarrhea, unspecified; E55.9 Vitamin D deficiency, unspecified; K58.1 Irritable bowel syndrome with constipation; K21.9 Gastro-esophageal reflux disease without esophagitis; K59.01 Slow transit constipation; R14.0 Abdominal distension (gaseous); R10.13 Epigastric pain
CPT/HCPCS: 36415; 82306; 82607; 82746; 86364; 99202

== ENCOUNTER 2024-12-16 09:29 | Outpatient (AMB) | payer MEDICARE, SELFPAY ==
--- NOTE | 2024-12-16 09:46 | A.OFFVIS_ITS ---
Vital Signs 12/16/24 09:49 Height 5 ft 5.5 in Weight 183 lb BMI 30.0 BP 143/68 H Blood Pressure Location Lt brachial Position Sitting Pulse 104 H Pulse Oximetry (%) 98 Oxygen Delivery Method Room Air Intake Visit Reasons: Dysphagia, GERD, ABD Bloating Intake Note: New consult for dysphagia, GERD, and abdominal bloating. Patient cc: abdominal pain with bloating, acid reflex/burning sensation with acid coming to her throat, chocking and gagging, constipation with bloody hemorrhoids on and off. Electric Furnace Operator Required: No Accompanied by: Self / Same As Patient Allergies shellfish derived Allergy (Severe, Verified 12/16/24 09:45) Anaphylaxis codeine Adverse Reaction (Mild, Verified 12/16/24 09:45) Anxiety fentanyl patch Allergy (Intermediate, Uncoded 12/25/23 14:01) Redness of Skin HPI HPI Dysphagia, GERD, ABD Bloating: Details: 64-year-old female with past medical history of hyper or thyroidism, asthma, anxiety, lumbar pain, narcolepsy, rosacea, depression, IBS, chronic sinusitis, Burkitt's lymphoma hypercholesteremia, muscle spasticity is here today for initial consultation. Patient was sent by addiction medicine for symptoms of IBS and abdominal pain. Patient continues to have symptoms abdominal bloating and cramping as well as constipation. Occasional loose stools but for the most part patient reports that she is constipated. Patient also reports occasional nausea dyspepsia without dysphagia or odynophagia. Patient also reports severe acid reflux, was prescribed omeprazole in the past, however at this time patient is not taking anything. Patient reports that sometimes her acid reflux is so se svetlana that she feels like burning with plan is going up all the way to her throat. Patient denies melena, hematochezia, unintentional weight loss or ribbon like stools. Last colonoscopy and endoscopy in 2014 [facility] Medical History (Updated 01/11/25 @ 20:06 by JAMES Jaime-) Hx of sigmoidoscopy Long COVID Rhinitis Constipation by outlet dysfunction Muscular deconditioning Gastritis, unspecified, without bleeding Vitamin D deficiency, unspecified Postmenopausal Presence of neurostimulator Degenerative disc disease, lumbar Lumbar stenosis with neurogenic claudication Acquired hypothyroidism Moderate persistent asthma, uncomplicated Generalized anxiety disorder Lumbar back pain with radiculopathy affecting lower extremity 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 Rosacea, unspecified Varicose eczema Major depressive disorder, recurrent, in remission, unspecified Fibromyalgia Encounter for screening mammogram for malignant neoplasm of breast IBS (irritable bowel syndrome) Chronic sinusitis, unspecified Moderate persistent asthma with (acute) exacerbation Encounter for therapeutic drug level monitoring 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, intra-abdominal lymph nodes Burkitt's lymphoma of extranodal site excluding spleen and other solid organs Surgical History S/P colon polypectomy History of colonoscopy History of esophagogastroduodenoscopy (EGD) Hx laparoscopic cholecystectomy H/O: hysterectomy Family History (Updated 12/16/24 @ 10:04 by Debby Javier) Father Diabetes Mother HTN (hypertension) Social History (Updated 12/16/24 @ 10:02 by Debby Javier) Household Members: Family Alcohol intake: current Alcohol intake frequency: holidays/special occasions only Patient Tobacco Use Status: Tobacco use Unknown Review of Systems Const Denies weight gain and Denies weight loss ENT Reports no additional complaints, Denies dysphagia and Denies odynophagia Card Reports no additional complaints Resp Reports no additional complaints GI Denies abdominal pain, Denies belching, Denies melena, Denies bloating, Denies change in bowel habits, Denies dysphagia, Denies excessive flatus, Denies dyspepsia, Denies heartburn, Denies diarrhea, Denies loose stools, Denies nausea, Denies odynophagia and Denies vomiting Musc Reports no additional complaints Neuro Reports no additional complaints Psych Reports no additional complaints Endo Reports no additional complaints Physical Exam Vital Signs: Last Vital Signs Pulse 104 H 12/16/24 09:49 BP 143/68 H 12/16/24 09:49 Pulse Ox 98 12/16/24 09:49 Oxygen Delivery Method Room Air 12/16/24 09:49 BMI result Body Mass Index 30.0 Const General: healthy appearing, no acute distress and well developed Nutritional Appearance: well nourished Orientation/consciousness: patient oriented x3 Resp Effort & Inspection: normal respiratory effort, able to speak in complete sentences, no tracheal deviation and symmetric chest movement Auscultation: clear to auscultation bilaterally Cardio Rate: regular rate GI Inspection: Yes normal to inspection and No distended Palpation (GI): Soft to palpation, not firm, nontender and No hepatosplenomegaly present Auscultation: normal bowel sounds General: Yes no CVA tenderness Back/Spine/Pelvis Back: no CVA tenderness Skin General skin exam: elasticity normal, turgor normal and dry skin Neuro General: patient oriented x3 Psych Appearance: grossly normal Mental Status: mental status grossly normal Assessment & Plan Assessment & Plan (1) IBS (irritable bowel syndrome): Code(s): K58.9 - Irritable bowel syndrome, unspecified Category: Medical Qualifiers: Irritable bowel syndrome type: with constipation Qualified Code(s): K58.1 - Irritable bowel syndrome with constipation (2) GERD (gastroesophageal reflux disease): Code(s): K21.9 - Gastro-esophageal reflux disease without esophagitis Qualifiers: Esophagitis presence: esophagitis presence not specified Qualified Code(s): K21.9 - Gastro-esophageal reflux disease without esophagitis (3) Constipation: Code(s): K59.00 - Constipation, unspecified Qualifiers: Constipation type: slow transit constipation Qualified Code(s): K59.01 - Slow transit constipation (4) Postprandial abdominal bloating: Code(s): R14.0 - Abdominal distension (gaseous) (5) Dyspepsia: Code(s): R10.13 - Epigastric pain Plan Discussed with patient the importance of avoiding dietary triggers late night snacking. Staying upright for minimal 3 hours after meals discussed with patient. Patient will start taking pantoprazole. Will check H pylori before patient starts and she can take famotidine in the meantime. Will check transglutaminase, vitamin B12, folate, vitamin-D level. Patient reports constipation. Will start her on Dulcolax daily. Patient will be sent for upper GI with barium swallow. Message sent to Surgical schedule tubal patient for upper endoscopy and colonoscopy. I will see patient in 3 months, sooner on as needed basis. She is agreeable to this plan and verbalizes understanding of instructions. She was given the opportunity to ask questions and all questions answered. Thank you for allowing me to participate in her care Orders: Orders Transglutaminase IgA 12/16/24 R10.9 - Unspecified abdominal pain Vitamin B12 and Folate 12/16/24 R19.7 - Diarrhea, unspecified FL upper GI w Ba Swallow 12/16/24 K21.9 - Gastro-esophageal reflux disease without esophagitis Vitamin D 25-OH (D2 and D3) 12/16/24 E55.9 - Vitamin D deficiency, unspecified Medications: New pantoprazole take one tablet half an hour before breakfast 40 mg PO DAILY 30 tabs 2RF K2 1.9 - Gastro-esophageal reflux disease without esophagitis bisacodyl (Dulcolax (bisacodyl)) 10 mg (2 x 5 mg) PO BEDTIME 180 tabs 4RF Coding Level of Care Code New Pt Level 4 (58648) Diagnoses Irritable bowel syndrome with constipation K58.1 Irritable bowel syndrome type: with constipation Gastroesophageal reflux disease, unspecified whether esophagitis present K21.9 Esophagitis presence: esophagitis presence not specified Slow transit constipation K59.01 Constipation type: slow transit constipation Postprandial abdominal bloating R14.0 Dyspepsia R10.13 Time Spent (min) 50 Comment 35 minute spent with patient and additional 15 minutes spent reviewing her records
--- OUTSIDE RECORDS SUMMARY | 2024-12-16 09:47 | XMS_ITS | Patient Health Record ---
Author Organization [facility] [employer] [facility], [facility] Address [address] [place] [address] Care Team Providers Care Assessment Director Name Role Phone Rohan Dowell Unavailable [phone] Arslan BRICE, Sarah Unavailable Unavailable Allergies Allergen (clinical drug ingredient) Drug/Non Drug Allergy documented on EMR Reaction Allergy Type Onset Date Status codeine Codeine itching Drug Allergy Active Reason For Referral No Information Medications Medication SIG (Take, Route, Frequency, Duration) Notes Start Date End Date Status HYDROmorphone HCl 2 MG 1 tablet as neede d Orally every 6 hrs Active HYDROmorphone HCl ER 8 MG 1 tablet Orally Once a day Active Problems Problem Type SNOMED Code ICD Code Onset Dates Problem Status W/U Status Risk Notes Problem Carpal tunnel syndrome (14414747) Carpal tunnel syndrome, right upper limb (G56.01) Active confirmed Problem Arthralgia of the pelvic region and thigh (027448134) Pain in right hip (M25.551) Active confirmed Problem Solitary sacroiliitis (574534281) Sacroiliitis, not elsewhere classified (M46.1) Active confirmed Problem Lumbosacral spondylosis without myelopathy (89081244) Spondylosis without myelopathy or radiculopathy, lumbar region (M47.816) Active confirmed Problem Spinal stenosis of lumbar region (86061590) Spinal stenosis, lumbar region (M48.06) Active confirmed Problem Fibromyalgia (763338493) Fibromyalgia (M79.7) Active confirmed Problem Post-laminectomy syndrome (57305167) Postlaminectomy syndrome, not elsewhere classified (M96.1) Active confirmed Problem Neurogenic claudication (016159493) Spinal stenosis, lumbar region with neurogenic claudication (M48.062) Active confirmed Plan Of Treatment No Information Insurance Providers Payer Name Payer Address Payer Phone Subscriber Number Group Number Insured Name Patient Relationship to Insured Coverage Start Date Coverage End Date Medical [place] [employer]vant[employer] PPO [address] [place] [phone] [id number] Kia Mcekon Self - patient is the insured Medical (General) History Medical History History ICD Code 10/06/16 per pt no anticoagulants 12/04/16 per pt no anticoagulants 02/28/17 - per pt; no anticoagulants 05/23/17 - per pt; no anticoagulants 08/29/17 - per pt: no anticoagulants 12/26/17 - per pt: no anticoagulants 04/17/18 - per pt: no anticoagulants 07/03/18 - per pt: no anticoagulants 07/16/19 - per pt: no anticoagulants
--- OUTSIDE RECORDS SUMMARY | 2024-12-16 09:47 | XMS_ITS ---
Author Organization [facility] Address [address] [place] [address] Care Team Providers Care Reimbursement Manager Name Role Phone DAVID BRITTON Primary Care Provider David Britton Unavailable [phone] Medications Medication SIG (Take, Route, Fr equency, Duration) Notes Start Date End Date Status clonazePAM 1 MG 1 tablet Orally Twic e a day for 60 days 10/26/2023 Active Encounters Encounter Location Date Provider Diagnosis [facility] [address] [place] [address] 10/26/2023 DAVID BRITTON Plan Of Treatment Medication Medication Name Sig Start Date Stop Date Notes clonazePAM 1 MG 1 tablet Orally Twice a day for 60 days Progress Notes * Mary MCKEONiDOB:1960 (63 yo F)Acc No.[id number]:10/26/2023 Patient:?MIKEMaryi :1960???Age:63 Y???Sex:Female Address:[address] [place], [address] * Refills? Refill clonazePAM Tablet, 1 MG, Orally, 120, 1 tablet, Twice a day, 60 days, Refills=2 * true * Date:? Generated for Printi gil/Fataneshag/eTransmitting on:?12/16/2024 09:47 AM EST
--- OUTSIDE RECORDS SUMMARY | 2024-12-16 09:47 | XMS_ITS | Encounter Summary ---
Author Organization [facility] Address [address] [place] [address] Care Team Providers Care Direct Sales Representative Name Role Phone David Britton MD Primary Care Provider [phone] Encounter Details Date Type Department Care Team (Late st Contact Info) Description 10/22/2024 Telephone Gastroenterology - [address] [place] [address] Maame Razo MA Social History Tobacco Use Types Packs/Day Years Used Date Smoking Tobacco: Never Smokeless Tobacco: Never Alcohol Use Standard Drinks/Week Comments Never 0 (1 standard drink = 0.6 oz pur e alcohol) Comments Unknown Sex and Gender Information Value Date Recorded Sex Assigned at Not on file Legal Sex Female 8:11 AM EST Gender Identity Not on file Sexual Orientation Not on file documented as of this encounter Progress Notes * Maame Razo MA - 10/22/2024 2:50 PM EST PT UNABLE TO BE SCHEDULED DUE TO THE INSURANCE BEING [facility]. documented in this encounter Plan of Treatment Not on file documented as of this encounter Visit Diagnoses Not on filedocumented in this encounter Care Teams Direct Sales Representative Relationship Specialty Start Date End Date David Britton MD PCP - General Internal Medicine 02/23/21 documented as of this encounter
--- OUTSIDE RECORDS SUMMARY | 2024-12-16 09:48 | XMS_ITS ---
Author Organization [facility] Address [address] [place] [address] Care Team Providers Care Senior Safety Support Manager Name Role Phone DAVID BRITTON Primary Care Provider [phone] David Britton Unavailable [phone] REASON FOR VISIT refill controlled Medications Medication SIG (Take, Route, Fr equency, Duration) Notes Start Date End Date Status clonazePAM 1 MG 1 tablet Orally Once a day for 30 days 10/17/2023 Active Encounters Encounter Location Date Provider Diagnosis [facility] [address] [place] [address] 10/16/2023 DAVID BRITTON Plan Of Treatment Medication Medication Name Sig Start Date Stop Date Notes clonazePAM 1 MG 1 tablet Orally Once a day for 30 days Progress Notes * Mary MCKEONiDOB:1960 (63 yo F)Acc No.[id number]:10/16/2023 Patient:?MikeMaryi :1960???Age:63 Y???Sex:Female Address:[address] [place], [address] * Refills? Refill clonazePAM Tablet, 1 MG, Orally, 30 Tablet, 1 tablet, Once a day, 30 days, Refills=2 * true * Date:? Generated for Printi gil/Fataneshag/eTransmitting on:?12/16/2024 09:48 AM EST
--- OUTSIDE RECORDS SUMMARY | 2024-12-16 09:48 | XMS_ITS ---
Author Organization [facility] Address [address] [place] [id number] Care Team Providers Care Human Resources Receptionist Name Role Phone TC HAHN Primary Care Provider MARTITA DARNELL Unavailable [phone] REASON FOR VISIT f/u MEDICATIONS Medication SIG (Take, Route, Frequency, Duration) Notes Start Date End Date Status Levothyroxine Sodium 100 MCG 1 tablet in the morning on an empty stomach Orally Once a day for 90 days Active Celecoxib 200 MG 1 capsule with food Orally Once a day for 90 days 02/22/2025 Active Famotidine 20 MG 1 tab Orally Once a day for 90 days 07/31/2024 Active Ezetimibe 10 MG TAKE 1 TABLET BY EMANI TH EVERY DAY FOR 30 DAYS for 90 days Active Buprenorphine 7.5 MCG/HR 1 patch to skin Transdermal once a week for 30 days 11/24/2024 12/24/2024 Active Encounters Encounter Location Date Provider Diagnosis [address] [phone] 11/19/2024 MARTITA DARNELL GERD without esophagitis K21.9 and Hyperlipidemia, unspecified E78.5 ASSESSMENTS Encounter Date Diagnosis Assessment Notes Treatment Notes Treatment Clinical Notes Section Notes 11/19/2024 GERD without esophagitis (ICD-10 - K21.9) 11/19/2024 Hyperlipidemia, unspecified (ICD-10 - E78.5) PLAN OF TREATMENT Medication Medication Name Sig Start Date Stop Date Notes Levothyroxine Sodium 100 MCG 1 tablet in the morning on an empty stomach Orally Once a day for 90 days Celecoxib 200 MG 1 capsule with food Orally Once a day for 90 days 02/22/2025 Famotidine 20 MG 1 tab Orally Once a day for 90 days 07/31/2024 Ezetimibe 10 MG TAKE 1 TABLET BY EMANI TH EVERY DAY FOR 30 DAYS for 90 days Buprenorphine 7.5 MCG/HR 1 patch to skin Transdermal once a week for 30 days 11/24/2024 12/24/2024 Next Appt Details Provider Name:MARTITA Robb, 01/06/2025 02:15:00 PM, [address] [place] [address], [phone], Progress Notes * STONE SANDERSIDOB:1960 (64 yo F)Acc No.[id number]:11/19/2024 Patient:??MAGGIE SANDERS :1960?Age:64 Y?Sex:Fe male Phone: Address:[address] [place] [address] , [place] [address] * Refills?? Refill Buprenorphine Patch Weekly, 7.5 MCG/HR, Transdermal, 4, 1 patch to skin, once a week, 30 days, Refills=0 Refill Levothyroxine Sodium Tablet, 100 MCG, Orally, 90, 1 tablet in the morning on an empty stomach, Once a day, 90 days, Refills=1 Refill Celecoxib Capsule, 200 MG, Orally, 90, 1 capsule with food, Once a day, 90 days, Refills=1 Refill Famotidine Tablet, 20 MG, Orally, 90 Tablet, 1 tab, Once a day, 90 days, Refills=1 Refill Ezetimibe Tablet, 10 MG, 90 Tablet, TAKE 1 TABLET BY MOUTH EVERY DAY FOR 30 DAYS, 90 days, Refills=1 * true * Date:??
--- OUTSIDE RECORDS SUMMARY | 2024-12-16 09:48 | XMS_ITS | Clinical Summary ---
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 Name Role Phone David Britton MD Primary Care Provider [phone] Encounters Date Type Department Care Team Description 10/22/2024 Telephone Gastroenterology - [address] [place] [address] Maame Razo MA from Last 3 Months Surgical History Surgery Date Site/Laterality Comments PARTIAL HYSTERECTOMY 2014 PROCEDURE: [place] SUPRACERVICAL ABDL HYSTER W/WO RMVL TUBE OVARY CHOLECYSTECTOMY PROCEDURE: [place] LAPAROSCOPY SURG CHOLECYSTECTOMY OTHER SURGICAL HISTORY 2012 PROCEDURE: HISTORY OTHER; COMMENT: Shpincteroplasty with perineum reconstruction OTHER SURGICAL HISTORY 2014 PROCEDURE: HISTORY OTHER; COMMENT: supracervical hysterectomy, BSO, reduciton of perineum, vaginal reconstruction, enterocele repair OTHER SURGICAL HISTORY 2018 PROCEDURE: [place] OPEN IMPLANTATION SHARON SACRAL NERVE OTHER SURGICAL [...] Last Done Comments COVID-19 Vaccine (#1) 1967 DTaP,Tdap,and Td Vaccines (1 - Tdap) 1981 Pneumococcal Vaccine: 50+ Ye ars (1 of 2 - PCV) 1981 Pneumococcal Vaccine: Pediat rics (0 to 5 Years) and At-Risk Patients (6 to 64 Years) (1 of 2 - PCV) 1981 Zoster Vaccines (1 of 2) 1981 [...] patient's age to complete this topic Meningococcal B Vacine Aged Out No lo nger eligible based on patient's age to complete this topic RSV Immunization Patients Un rodger 20 months Aged Out No longer eligible b ased on patient's age to complete this topic Varicella Vaccines Aged Out No longer eligible based on patient's age to complete this topic Procedures Procedure Name Priority Date/Time Associated Diagnosis Comments [facility] SCREENING DIGITAL Routine 05/07/2022 11:31 AM EDT Encounter for screening mammogram for malignant neoplasm of breast from Last 3 Months or Most Recently Relevant to Health Maintenance Results * [facility] SCREENING DIGITAL (05/07/2022 11:31 AM EDT) Anatomical Region Laterality Modality Mammography 05/02/2022 1:26 PM EDT Narrative 05/07/2022 11:[address] [facility] Diagnostic Imaging Department [address] [place], [place] [id number] Patient: ??MAGGIE MCKEON ?/Age/Sex: 1960 - 61 - F Unit#: ??[id number] ? Location/Status: ??SPDIMAM/REG CLI ? Mnemonic/Ordering Site: ??DIGSC/SPMAM Ordering Physician: ??DAVID BRITTON MD [facility] Screening Digital - 05/02/22 - [id number] INDICATION: SCREENING COMPARISON: No prior studies are available for comparison. TECHNIQUE: CC and MLO views of the breasts were obtained, using full field digital mammography with 3D tomosynthesis views in the MLO projection. XCCL views of each breast were obtained. Computer aided detection with the Stratasan 7.2-H was employed. FINDINGS: The breasts contain [...] additional imaging evaluation. 3340F, 7025F (G0202 / [id number]) , ??[id number] Dictating Physician: ??VISHNU MORALES MD Electronically Signed by: ??VISHNU MORALES MD Dic Date/Time: ??05/07/22 1126 Sign date/Time: ??05/07/22 1131 Procedure Note Vishnu Morales MD - 10/17/2022 [facility] Diagnostic Imaging Department [address] [place] [id number] Patient: MAGGIE MCKEON /Age/Sex: 1960 - 61 - F Unit#: [id number] Location/Status: SPDIMA/REG CLI Mnemonic/Ordering Site: [facility] Ordering Physician: DAVID BRITTON MD [facility] Screening Digital - 05/02/22 - [id number] INDICATION: SCREENING COMPARISON: No prior studies are available for comparison. TECHNIQUE: CC and MLO views of the breasts were obtained, using full field digital mammography with 3D tomosynthesis views in the MLO projection. XCCL viewsof each breast were obtained. Computer aided detection with the Stratasan 7.2-H was employed. FINDINGS: The breasts contain [...] needs additional imaging evaluation.3340F, 7025F (G0202 / [id number]) , [id number] Dictating Physician: VISHNU MORALES MD Electronically Signed by: VISHNU MORALES MD Dic Date/Time: 05/07/22 1126 Sign date/Time: 05/07/22 1131 David Britton MD IMG BI PROCEDURES Final Result from Last 3 Months or Most Recently Relevant to Health Maintenance Care Teams Coffee Roaster Helper Relationship Specialty Start Date End Date David Britton MD PCP - General Internal Medicine 02/23/21
--- OUTSIDE RECORDS SUMMARY | 2024-12-16 09:48 | XMS_ITS | Patient Health Record ---
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 Role Phone TOM ANDREW Primary Care Provider Allergies Allergen (clinical drug ingredient) Drug/Non Drug Allergy documented on EMR Reaction Allergy Type Onset Date Status codeine Codeine hives Drug Allergy Active Shellfish (FN) Shellfish-derived Products anaphylaxis Drug Allergy Active Reason For Referral Reason Burkitt lymphoma- Dr Frazier Referral Organization [facility] Referring Provider First Name ANDREW Referring Provider Last Name [facility] Referring Provider Speciality Internal M edicine Referred Provider Specialty Hematology Referral Priority Routine Reason narcolepsy without c ataplexy- Dr Dinh Referral Organization [facility] Referring Provider First Name ANDREW Referring Provider Last Name [facility] Referring Provider Speciality Internal edicine Referred Provider Specialty Sleep Medici ne Referral Priority Routine Medications Medication SIG (Take, Route, Frequency, Duration) Notes Start Date End Date Status Modafinil 100 MG 1 tablet in the morn ing Orally Once a day Active Levothyroxine Sodium 100 MCG 1 tablet in the morning on an empty stomach Orally Once a day Active Co-Enzyme Q-10 30 MG as directed Orally Active Vitamin D3 125 MCG (5000 UT) 1 capsule Orally Once a day Active CoQ10 100 MG as directed Orally Active buPROPion HCl ER (XL) 300 MG 1 tablet in the morning Orally Once a day Active tiZANidine HCl 4 MG 1 tablet at bedtime as needed Orally Once a day Active DULoxetine HCl 60 MG 1 capsule Orally On ce a day Active clonazePAM 1 MG 1 tablet Orally Once a day Active Famotidine 20 MG 1 tablet at bedtime as needed Orally 2 times a day Active Ezetimibe 10 MG 1 tablet Orally Once a day Active Multi For Her 50+ - as directed Orally Active Albuterol Sulfate HFA 108 (90 Base) MCG/ACT 1 puff as needed Inhalation every 4 hrs Active Gabapentin 300 MG 1 capsule Orally Onc e a day Active Buprenorphine 7.5 MCG/HR 1 patch to skin Transdermal Active Celecoxib 200 MG 1 capsule with food Orally Once a day Active Problems Problem Type SNOMED Code ICD Code Onset Dates Problem Status W/U Status Risk Notes Problem Hypothyroidism (30910017) Hypothyroidism, unspecified (E03.9) Active confirmed Problem Vitamin D deficiency (10025752) Vitamin D deficiency, unspecified (E55.9) Active confirmed Problem Mixed hyperlipidemia (315269384) Mixed hyperlipidemia (E78.2) Active confirmed Problem Generalized anxiety disorder (34316052) Generalized anxiety disorder (F41.1) Active confirmed Problem Narcolepsy without cataplexy (85994095834461) 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) Active confirmed Problem Chronic pain syndrome (519470203) Chronic pain syndrome (G89.4) Active confirmed Problem Mild intermittent asthma (834927470) Mild intermittent asthma, uncomplicated (J45.20) Active confirmed Problem Gastro-esophageal reflux disease without esophagitis (733493344) Gastro-esophageal reflux disease without esophagitis (K21.9) Active confirmed Problem Degeneration of thoracolumbar intervertebral disc (09974267) Other intervertebral disc degeneration, thoracolumbar region (M51.35) Active confirmed Problem Fibromyalgia (356528668) Fibromyalgia (M79.7) Active confirmed Vital Signs Heart Rate 112 /min 12/10/2024 Temperature 97.8 degrees Fahrenheit 12/10/2024 Blood pressure diastolic 100 mm Hg 12/10/2024 Oximetry 97 % 12/10/2024 Height 5'5'' in 12/10/2024 Blood pressure systolic 150 mm Hg 12/10/2024 Weight 185.1 lbs 12/10/2024 BMI 30.8 kg/m2 12/10/2024 Encounters Encounter Location Date Provider Diagnosis [address] [address] 12/10/2024 [facility] Mixed hyperlipidemia E78.2 ; Burkitt lymphoma, in remission C83.7A ; Gastro-esophageal reflux disease without esophagitis K21.9 ; Hypothyroidism, unspecified E03.9 ; Mild intermittent asthma, uncomplicated J45.20 ; Vitamin D deficiency, unspecified E55.9 ; Generalized anxiety disorder F41.1 ; Drug-induced constipation K59.03 ; Narcolepsy without cataplexy G47.419 ; Fibromyalgia M79.7 ; Chronic pain syndrome G89.4 and Other intervertebral disc degeneration, thoracolumbar region M51.35 Assessments Encounter Date Diagnosis (ICD Code) Assessment Notes Treatment Notes Treatment Clinical Notes Section Notes 12/10/2024 Mixed hyperlipidemia (ICD-10 - E78.2) Mrs. Mckeon is 64 years old lady with metastatic Burkitt's lymphoma diagnosed in 2006 status post chemo, degenerative disc disease and status post back surgery in 2004 and had donor bone placement along with hardware, chronic pain syndrome currently on Suboxone and gabapentin through [facility], generalized anxiety disorder/depression /insomnia, narcolepsy without cataplexy, mixed hyperlipidemia, GERD, hypothyroidism, mild intermittent asthma, vitamin D deficiency, constipation is here to establish care. Plan is as Burkitt's lymphoma. According to the patient diagnosed in 2006 with stage IV/metastatic Burkitt's lymphoma especially in the spine. She have Port in scalp for chemotherapy or CSF. She is not seen hematology oncology at [facility] but no records were found at the system. She is stable at this point and does not complain of any weight loss or any other systemic or constitutional symptoms. We will give her referral to see hematology oncology. Narcolepsy without cataplexy. She is currently on modafinil 100 mg. She has not had polysomnographic or any other studies. She will be given referral to sleep medicine for further evaluation and treatment. Chronic pain syndrome/fibromyalg ia. Currently on Suboxone 7.5 mg patch and she is also on gabapentin 300 mg along with duloxetine which helps with fibromyalgia and neuropathic pain. Will continue on current regimen. She will come back in 4 weeks and we will sign a controlled substance contract and will take over medication. Generalized anxiety disorder/depression . She is stable on current regimen and she may benefit from therapy which we will discuss on next appointment. Mixed hyperlipidemia. Currently on Zetia 10 mg daily. Her recent lipid panel showed total cholesterol of 234, HDL 66, triglycerides 84 and LDL of 149. Unfortunately she cannot tolerate statins. We will try pravastatin or Crestor and we will discuss our next appointment. Her goal total cholesterol is less than 200 and LDL under 100. Hypothyroidism. Continue levothyroxine 100 mcg daily and TSH was 1.69. Anemia. Her hemoglobin was 13 and hematocrit was 42 but ferritin levels were running low and iron studies were within normal limits. Acid reflux. She is currently on famotidine 20 mg 1 tablet twice a day and she is going to have intake with GI at [facility] for upper endoscopy and colonoscopy in the next few weeks Generalized anxiety disorder/depression . She is stable at this point on duloxetine 60 mg 1 tablet daily, bupropion ER 300 mg 1 tablet daily and she is also on Klonopin 1 mg. Chronic constipation. Most likely secondary to opioid use. Advised to use [id number] Metamucil/:/MiraLAX and she can also use prunes, appropriate hydration. Vitamin D deficiency. Her vitamin D levels were running low. Currently on vitamin D3 2000 international units. She will take it for 12 weeks and after that she will take 1000 international units 3-4 times a week for maintenance. Mild intermittent asthma. Stable on albuterol inhaler as needed. Inflammatory markers. Her last sed rate and CRP were normal. Stress incontinence and uterine prolapse. She will make appointment with your bond runner at [place]. She has seen them before. She will need referral to a bond runner. She had mammogram done roughly 2 years ago. 60 minutes spent with the patient reviewing her history, making a plan, documentation, referrals 12/10/2024 Burkitt lymphoma, in remission (ICD-10 - C83.7A) Mrs. Mckeon is 64 years old lady with metastatic Burkitt's lymphoma diagnosed in 2006 status post chemo, degenerative disc disease and status post back surgery in 2004 and had donor bone placement along with hardware, chronic pain syndrome currently on Suboxone and gabapentin through [facility], generalized anxiety disorder/depression /insomnia, narcolepsy without cataplexy, mixed hyperlipidemia, GERD, hypothyroidism, mild intermittent asthma, vitamin D deficiency, constipation is here to establish care. Plan is as Burkitt's lymphoma. According to the patient diagnosed in 2006 with stage IV/metastatic Burkitt's lymphoma especially in the spine. She have Port in scalp for chemotherapy or CSF. She is not seen hematology oncology at [facility] but no records were found at the system. She is stable at this point and does not complain of any weight loss or any other systemic or constitutional symptoms. We will give her referral to see hematology oncology. Narcolepsy without cataplexy. She is currently on modafinil 100 mg. She has not had polysomnographic or any other studies. She will be given referral to sleep medicine for further evaluation and treatment. Chronic pain syndrome/fibromyalg ia. Currently on Suboxone 7.5 mg patch and she is also on gabapentin 300 mg along with duloxetine which helps with fibromyalgia and neuropathic pain. Will continue on current regimen. She will come back in 4 weeks and we will sign a controlled substance contract and will take over medication. Generalized anxiety disorder/depression . She is stable on current regimen and she may benefit from therapy which we will discuss on next appointment. Mixed hyperlipidemia. Currently on Zetia 10 mg daily. Her recent lipid panel showed total cholesterol of 234, HDL 66, triglycerides 84 and LDL of 149. Unfortunately she cannot tolerate statins. We will try pravastatin or Crestor and we will discuss our next appointment. Her goal total cholesterol is less than 200 and LDL under 100. Hypothyroidism. Continue levothyroxine 100 mcg daily and TSH was 1.69. Anemia. Her hemoglobin was 13 and hematocrit was 42 but ferritin levels were running low and iron studies were within normal limits. Acid reflux. She is currently on famotidine 20 mg 1 tablet twice a day and she is going to have intake with GI at [facility] for upper endoscopy and colonoscopy in the next few weeks Generalized anxiety disorder/depression . She is stable at this point on duloxetine 60 mg 1 tablet daily, bupropion ER 300 mg 1 tablet daily and she is also on Klonopin 1 mg. Chronic constipation. Most likely secondary to opioid use. Advised to use [id number] Metamucil/:/MiraLAX and she can also use prunes, appropriate hydration. Vitamin D deficiency. Her vitamin D levels were running low. Currently on vitamin D3 2000 international units. She will take it for 12 weeks and after that she will take 1000 international units 3-4 times a week for maintenance. Mild intermittent asthma. Stable on albuterol inhaler as needed. Inflammatory markers. Her last sed rate and CRP were normal. Stress incontinence and uterine prolapse. She will make appointment with your bond runner at [place]. She has seen them before. She will need referral to a bond runner. She had mammogram done roughly 2 years ago. 60 minutes spent with the patient reviewing her history, making a plan, documentation, referrals 12/10/2024 Gastro-esophageal reflux disease without esophagitis (ICD-10 - K21.9) Mrs. Mckeon is 64 years old lady with metastatic Burkitt's lymphoma diagnosed in 2006 status post chemo, degenerative disc disease and status post back surgery in 2004 and had donor bone placement along with hardware, chronic pain syndrome currently on Suboxone and gabapentin through [facility], generalized anxiety disorder/depression /insomnia, narcolepsy without cataplexy, mixed hyperlipidemia, GERD, hypothyroidism, mild intermittent asthma, vitamin D deficiency, constipation is here to establish care. Plan is as Burkitt's lymphoma. According to the patient diagnosed in 2006 with stage IV/metastatic Burkitt's lymphoma especially in the spine. She have Port in scalp for chemotherapy or CSF. She is not seen hematology oncology at [facility] but no records were found at the system. She is stable at this point and does not complain of any weight loss or any other systemic or constitutional symptoms. We will give her referral to see hematology oncology. Narcolepsy without cataplexy. She is currently on modafinil 100 mg. She has not had polysomnographic or any other studies. She will be given referral to sleep medicine for further evaluation and treatment. Chronic pain syndrome/fibromyalg ia. Currently on Suboxone 7.5 mg patch and she is also on gabapentin 300 mg along with duloxetine which helps with fibromyalgia and neuropathic pain. Will continue on current regimen. She will come back in 4 weeks and we will sign a controlled substance contract and will take over medication. Generalized anxiety disorder/depression . She is stable on current regimen and she may benefit from therapy which we will discuss on next appointment. Mixed hyperlipidemia. Currently on Zetia 10 mg daily. Her recent lipid panel showed total cholesterol of 234, HDL 66, triglycerides 84 and LDL of 149. Unfortunately she cannot tolerate statins. We will try pravastatin or Crestor and we will discuss our next appointment. Her goal total cholesterol is less than 200 and LDL under 100. Hypothyroidism. Continue levothyroxine 100 mcg daily and TSH was 1.69. Anemia. Her hemoglobin was 13 and hematocrit was 42 but ferritin levels were running low and iron studies were within normal limits. Acid reflux. She is currently on famotidine 20 mg 1 tablet twice a day and she is going to have intake with GI at [facility] for upper endoscopy and colonoscopy in the next few weeks Generalized anxiety disorder/depression . She is stable at this point on duloxetine 60 mg 1 tablet daily, bupropion ER 300 mg 1 tablet daily and she is also on Klonopin 1 mg. Chronic constipation. Most likely secondary to opioid use. Advised to use [id number] Metamucil/:/MiraLAX and she can also use prunes, appropriate hydration. Vitamin D deficiency. Her vitamin D levels were running low. Currently on vitamin D3 2000 international units. She will take it for 12 weeks and after that she will take 1000 international units 3-4 times a week for maintenance. Mild intermittent asthma. Stable on albuterol inhaler as needed. Inflammatory markers. Her last sed rate and CRP were normal. Stress incontinence and uterine prolapse. She will make appointment with your bond runner at [place]. She has seen them before. She will need referral to a bond runner. She had mammogram done roughly 2 years ago. 60 minutes spent with the patient reviewing her history, making a plan, documentation, referrals 12/10/2024 Hypothyroidism, unspecified (ICD-10 - E03.9) Mrs. Mckeon is 64 years old lady with metastatic Burkitt's lymphoma diagnosed in 2006 status post chemo, degenerative disc disease and status post back surgery in 2004 and had donor bone placement along with hardware, chronic pain syndrome currently on Suboxone and gabapentin through [facility], generalized anxiety disorder/depression /insomnia, narcolepsy without cataplexy, mixed hyperlipidemia, GERD, hypothyroidism, mild intermittent asthma, vitamin D deficiency, constipation is here to establish care. Plan is as Burkitt's lymphoma. According to the patient diagnosed in 2006 with stage IV/metastatic Burkitt's lymphoma especially in the spine. She have Port in scalp for chemotherapy or CSF. She is not seen hematology oncology at [facility] but no records were found at the system. She is stable at this point and does not complain of any weight loss or any other systemic or constitutional symptoms. We will give her referral to see hematology oncology. Narcolepsy without cataplexy. She is currently on modafinil 100 mg. She has not had polysomnographic or any other studies. She will be given referral to sleep medicine for further evaluation and treatment. Chronic pain syndrome/fibromyalg ia. Currently on Suboxone 7.5 mg patch and she is also on gabapentin 300 mg along with duloxetine which helps with fibromyalgia and neuropathic pain. Will continue on current regimen. She will come back in 4 weeks and we will sign a controlled substance contract and will take over medication. Generalized anxiety disorder/depression . She is stable on current regimen and she may benefit from therapy which we will discuss on next appointment. Mixed hyperlipidemia. Currently on Zetia 10 mg daily. Her recent lipid panel showed total cholesterol of 234, HDL 66, triglycerides 84 and LDL of 149. Unfortunately she cannot tolerate statins. We will try pravastatin or Crestor and we will discuss our next appointment. Her goal total cholesterol is less than 200 and LDL under 100. Hypothyroidism. Continue levothyroxine 100 mcg daily and TSH was 1.69. Anemia. Her hemoglobin was 13 and hematocrit was 42 but ferritin levels were running low and iron studies were within normal limits. Acid reflux. She is currently on famotidine 20 mg 1 tablet twice a day and she is going to have intake with GI at [facility] for upper endoscopy and colonoscopy in the next few weeks Generalized anxiety disorder/depression . She is stable at this point on duloxetine 60 mg 1 tablet daily, bupropion ER 300 mg 1 tablet daily and she is also on Klonopin 1 mg. Chronic constipation. Most likely secondary to opioid use. Advised to use [id number] Metamucil/:/MiraLAX and she can also use prunes, appropriate hydration. Vitamin D deficiency. Her vitamin D levels were running low. Currently on vitamin D3 2000 international units. She will take it for 12 weeks and after that she will take 1000 international units 3-4 times a week for maintenance. Mild intermittent asthma. Stable on albuterol inhaler as needed. Inflammatory markers. Her last sed rate and CRP were normal. Stress incontinence and uterine prolapse. She will make appointment with your bond runner at [place]. She has seen them before. She will need referral to a bond runner. She had mammogram done roughly 2 years ago. 60 minutes spent with the patient reviewing her history, making a plan, documentation, referrals 12/10/2024 Mild intermittent asthma, uncomplicated (ICD-10 - J45.20) Mrs. Mckeon is 64 years old lady with metastatic Burkitt's lymphoma diagnosed in 2006 status post chemo, degenerative disc disease and status post back surgery in 2004 and had donor bone placement along with hardware, chronic pain syndrome currently on Suboxone and gabapentin through [facility], generalized anxiety disorder/depression /insomnia, narcolepsy without cataplexy, mixed hyperlipidemia, GERD, hypothyroidism, mild intermittent asthma, vitamin D deficiency, constipation is here to establish care. Plan is as Burkitt's lymphoma. According to the patient diagnosed in 2006 with stage IV/metastatic Burkitt's lymphoma especially in the spine. She have Port in scalp for chemotherapy or CSF. She is not seen hematology oncology at [facility] but no records were found at the system. She is stable at this point and does not complain of any weight loss or any other systemic or constitutional symptoms. We will give her referral to see hematology oncology. Narcolepsy without cataplexy. She is currently on modafinil 100 mg. She has not had polysomnographic or any other studies. She will be given referral to sleep medicine for further evaluation and treatment. Chronic pain syndrome/fibromyalg ia. Currently on Suboxone 7.5 mg patch and she is also on gabapentin 300 mg along with duloxetine which helps with fibromyalgia and neuropathic pain. Will continue on current regimen. She will come back in 4 weeks and we will sign a controlled substance contract and will take over medication. Generalized anxiety disorder/depression . She is stable on current regimen and she may benefit from therapy which we will discuss on next appointment. Mixed hyperlipidemia. Currently on Zetia 10 mg daily. Her recent lipid panel showed total cholesterol of 234, HDL 66, triglycerides 84 and LDL of 149. Unfortunately she cannot tolerate statins. We will try pravastatin or Crestor and we will discuss our next appointment. Her goal total cholesterol is less than 200 and LDL under 100. Hypothyroidism. Continue levothyroxine 100 mcg daily and TSH was 1.69. Anemia. Her hemoglobin was 13 and hematocrit was 42 but ferritin levels were running low and iron studies were within normal limits. Acid reflux. She is currently on famotidine 20 mg 1 tablet twice a day and she is going to have intake with GI at [facility] for upper endoscopy and colonoscopy in the next few weeks Generalized anxiety disorder/depression . She is stable at this point on duloxetine 60 mg 1 tablet daily, bupropion ER 300 mg 1 tablet daily and she is also on Klonopin 1 mg. Chronic constipation. Most likely secondary to opioid use. Advised to use [id number] Metamucil/:/MiraLAX and she can also use prunes, appropriate hydration. Vitamin D deficiency. Her vitamin D levels were running low. Currently on vitamin D3 2000 international units. She will take it for 12 weeks and after that she will take 1000 international units 3-4 times a week for maintenance. Mild intermittent asthma. Stable on albuterol inhaler as needed. Inflammatory markers. Her last sed rate and CRP were normal. Stress incontinence and uterine prolapse. She will make appointment with your bond runner at [place]. She has seen them before. She will need referral to a bond runner. She had mammogram done roughly 2 years ago. 60 minutes spent with the patient reviewing her history, making a plan, documentation, referrals 12/10/2024 Vitamin D deficiency, unspecified (ICD-10 - E55.9) Mrs. Mckeon is 64 years old lady with metastatic Burkitt's lymphoma diagnosed in 2006 status post chemo, degenerative disc disease and status post back surgery in 2004 and had donor bone placement along with hardware, chronic pain syndrome currently on Suboxone and gabapentin through [facility], generalized anxiety disorder/depression /insomnia, narcolepsy without cataplexy, mixed hyperlipidemia, GERD, hypothyroidism, mild intermittent asthma, vitamin D deficiency, constipation is here to establish care. Plan is as Burkitt's lymphoma. According to the patient diagnosed in 2006 with stage IV/metastatic Burkitt's lymphoma especially in the spine. She have Port in scalp for chemotherapy or CSF. She is not seen hematology oncology at [facility] but no records were found at the system. She is stable at this point and does not complain of any weight loss or any other systemic or constitutional symptoms. We will give her referral to see hematology oncology. Narcolepsy without cataplexy. She is currently on modafinil 100 mg. She has not had polysomnographic or any other studies. She will be given referral to sleep medicine for further evaluation and treatment. Chronic pain syndrome/fibromyalg ia. Currently on Suboxone 7.5 mg patch and she is also on gabapentin 300 mg along with duloxetine which helps with fibromyalgia and neuropathic pain. Will continue on current regimen. She will come back in 4 weeks and we will sign a controlled substance contract and will take over medication. Generalized anxiety disorder/depression . She is stable on current regimen and she may benefit from therapy which we will discuss on next appointment. Mixed hyperlipidemia. Currently on Zetia 10 mg daily. Her recent lipid panel showed total cholesterol of 234, HDL 66, triglycerides 84 and LDL of 149. Unfortunately she cannot tolerate statins. We will try pravastatin or Crestor and we will discuss our next appointment. Her goal total cholesterol is less than 200 and LDL under 100. Hypothyroidism. Continue levothyroxine 100 mcg daily and TSH was 1.69. Anemia. Her hemoglobin was 13 and hematocrit was 42 but ferritin levels were running low and iron studies were within normal limits. Acid reflux. She is currently on famotidine 20 mg 1 tablet twice a day and she is going to have intake with GI at [facility] for upper endoscopy and colonoscopy in the next few weeks Generalized anxiety disorder/depression . She is stable at this point on duloxetine 60 mg 1 tablet daily, bupropion ER 300 mg 1 tablet daily and she is also on Klonopin 1 mg. Chronic constipation. Most likely secondary to opioid use. Advised to use [id number] Metamucil/:/MiraLAX and she can also use prunes, appropriate hydration. Vitamin D deficiency. Her vitamin D levels were running low. Currently on vitamin D3 2000 international units. She will take it for 12 weeks and after that she will take 1000 international units 3-4 times a week for maintenance. Mild intermittent asthma. Stable on albuterol inhaler as needed. Inflammatory markers. Her last sed rate and CRP were normal. Stress incontinence and uterine prolapse. She will make appointment with your bond runner at [place]. She has seen them before. She will need referral to a bond runner. She had mammogram done roughly 2 years ago. 60 minutes spent with the patient reviewing her history, making a plan, documentation, referrals 12/10/2024 Generalized anxiety disorder (ICD-10 - F41.1) Mrs. Mckeon is 64 years old lady with metastatic Burkitt's lymphoma diagnosed in 2006 status post chemo, degenerative disc disease and status post back surgery in 2004 and had donor bone placement along with hardware, chronic pain syndrome currently on Suboxone and gabapentin through [facility], generalized anxiety disorder/depression /insomnia, narcolepsy without cataplexy, mixed hyperlipidemia, GERD, hypothyroidism, mild intermittent asthma, vitamin D deficiency, constipation is here to establish care. Plan is as Burkitt's lymphoma. According to the patient diagnosed in 2006 with stage IV/metastatic Burkitt's lymphoma especially in the spine. She have Port in scalp for chemotherapy or CSF. She is not seen hematology oncology at [facility] but no records were found at the system. She is stable at this point and does not complain of any weight loss or any other systemic or constitutional symptoms. We will give her referral to see hematology oncology. Narcolepsy without cataplexy. She is currently on modafinil 100 mg. She has not had polysomnographic or any other studies. She will be given referral to sleep medicine for further evaluation and treatment. Chronic pain syndrome/fibromyalg ia. Currently on Suboxone 7.5 mg patch and she is also on gabapentin 300 mg along with duloxetine which helps with fibromyalgia and neuropathic pain. Will continue on current regimen. She will come back in 4 weeks and we will sign a controlled substance contract and will take over medication. Generalized anxiety disorder/depression . She is stable on current regimen and she may benefit from therapy which we will discuss on next appointment. Mixed hyperlipidemia. Currently on Zetia 10 mg daily. Her recent lipid panel showed total cholesterol of 234, HDL 66, triglycerides 84 and LDL of 149. Unfortunately she cannot tolerate statins. We will try pravastatin or Crestor and we will discuss our next appointment. Her goal total cholesterol is less than 200 and LDL under 100. Hypothyroidism. Continue levothyroxine 100 mcg daily and TSH was 1.69. Anemia. Her hemoglobin was 13 and hematocrit was 42 but ferritin levels were running low and iron studies were within normal limits. Acid reflux. She is currently on famotidine 20 mg 1 tablet twice a day and she is going to have intake with GI at [facility] for upper endoscopy and colonoscopy in the next few weeks Generalized anxiety disorder/depression . She is stable at this point on duloxetine 60 mg 1 tablet daily, bupropion ER 300 mg 1 tablet daily and she is also on Klonopin 1 mg. Chronic constipation. Most likely secondary to opioid use. Advised to use [id number] Metamucil/:/MiraLAX and she can also use prunes, appropriate hydration. Vitamin D deficiency. Her vitamin D levels were running low. Currently on vitamin D3 2000 international units. She will take it for 12 weeks and after that she will take 1000 international units 3-4 times a week for maintenance. Mild intermittent asthma. Stable on albuterol inhaler as needed. Inflammatory markers. Her last sed rate and CRP were normal. Stress incontinence and uterine prolapse. She will make appointment with your bond runner at [place]. She has seen them before. She will need referral to a bond runner. She had mammogram done roughly 2 years ago. 60 minutes spent with the patient reviewing her history, making a plan, documentation, referrals 12/10/2024 Drug-induced constipation (ICD-10 - K59.03) Mrs. Mckeon is 64 years old lady with metastatic Burkitt's lymphoma diagnosed in 2006 status post chemo, degenerative disc disease and status post back surgery in 2004 and had donor bone placement along with hardware, chronic pain syndrome currently on Suboxone and gabapentin through [facility], generalized anxiety disorder/depression /insomnia, narcolepsy without cataplexy, mixed hyperlipidemia, GERD, hypothyroidism, mild intermittent asthma, vitamin D deficiency, constipation is here to establish care. Plan is as Burkitt's lymphoma. According to the patient diagnosed in 2006 with stage IV/metastatic Burkitt's lymphoma especially in the spine. She have Port in scalp for chemotherapy or CSF. She is not seen hematology oncology at [facility] but no records were found at the system. She is stable at this point and does not complain of any weight loss or any other systemic or constitutional symptoms. We will give her referral to see hematology oncology. Narcolepsy without cataplexy. She is currently on modafinil 100 mg. She has not had polysomnographic or any other studies. She will be given referral to sleep medicine for further evaluation and treatment. Chronic pain syndrome/fibromyalg ia. Currently on Suboxone 7.5 mg patch and she is also on gabapentin 300 mg along with duloxetine which helps with fibromyalgia and neuropathic pain. Will continue on current regimen. She will come back in 4 weeks and we will sign a controlled substance contract and will take over medication. Generalized anxiety disorder/depression . She is stable on current regimen and she may benefit from therapy which we will discuss on next appointment. Mixed hyperlipidemia. Currently on Zetia 10 mg daily. Her recent lipid panel showed total cholesterol of 234, HDL 66, triglycerides 84 and LDL of 149. Unfortunately she cannot tolerate statins. We will try pravastatin or Crestor and we will discuss our next appointment. Her goal total cholesterol is less than 200 and LDL under 100. Hypothyroidism. Continue levothyroxine 100 mcg daily and TSH was 1.69. Anemia. Her hemoglobin was 13 and hematocrit was 42 but ferritin levels were running low and iron studies were within normal limits. Acid reflux. She is currently on famotidine 20 mg 1 tablet twice a day and she is going to have intake with GI at [facility] for upper endoscopy and colonoscopy in the next few weeks Generalized anxiety disorder/depression . She is stable at this point on duloxetine 60 mg 1 tablet daily, bupropion ER 300 mg 1 tablet daily and she is also on Klonopin 1 mg. Chronic constipation. Most likely secondary to opioid use. Advised to use [id number]-hdyaevr Metamucil/:/MiraLAX and she can also use prunes, appropriate hydration. Vitamin D deficiency. Her vitamin D levels were running low. Currently on vitamin D3 2000 international units. She will take it for 12 weeks and after that she will take 1000 international units 3-4 times a week for maintenance. Mild intermittent asthma. Stable on albuterol inhaler as needed. Inflammatory markers. Her last sed rate and CRP were normal. Stress incontinence and uterine prolapse. She will make appointment with your bond runner at [place]. She has seen them before. She will need referral to a bond runner. She had mammogram done roughly 2 years ago. 60 minutes spent with the patient reviewing her history, making a plan, documentation, referrals 12/10/2024 Narcolepsy without cataplexy (ICD-10 - G47.419) Mrs. Mckeon is 64 years old lady with metastatic Burkitt's lymphoma diagnosed in 2006 status post chemo, degenerative disc disease and status post back surgery in 2004 and had donor bone placement along with hardware, chronic pain syndrome currently on Suboxone and gabapentin through [facility], generalized anxiety disorder/depression /insomnia, narcolepsy without cataplexy, mixed hyperlipidemia, GERD, hypothyroidism, mild intermittent asthma, vitamin D deficiency, constipation is here to establish care. Plan is as Burkitt's lymphoma. According to the patient diagnosed in 2006 with stage IV/metastatic Burkitt's lymphoma especially in the spine. She have Port in scalp for chemotherapy or CSF. She is not seen hematology oncology at [facility] but no records were found at the system. She is stable at this point and does not complain of any weight loss or any other systemic or constitutional symptoms. We will give her referral to see hematology oncology. Narcolepsy without cataplexy. She is currently on modafinil 100 mg. She has not had polysomnographic or any other studies. She will be given referral to sleep medicine for further evaluation and treatment. Chronic pain syndrome/fibromyalg ia. Currently on Suboxone 7.5 mg patch and she is also on gabapentin 300 mg along with duloxetine which helps with fibromyalgia and neuropathic pain. Will continue on current regimen. She will come back in 4 weeks and we will sign a controlled substance contract and will take over medication. Generalized anxiety disorder/depression . She is stable on current regimen and she may benefit from therapy which we will discuss on next appointment. Mixed hyperlipidemia. Currently on Zetia 10 mg daily. Her recent lipid panel showed total cholesterol of 234, HDL 66, triglycerides 84 and LDL of 149. Unfortunately she cannot tolerate statins. We will try pravastatin or Crestor and we will discuss our next appointment. Her goal total cholesterol is less than 200 and LDL under 100. Hypothyroidism. Continue levothyroxine 100 mcg daily and TSH was 1.69. Anemia. Her hemoglobin was 13 and hematocrit was 42 but ferritin levels were running low and iron studies were within normal limits. Acid reflux. She is currently on famotidine 20 mg 1 tablet twice a day and she is going to have intake with GI at [facility] for upper endoscopy and colonoscopy in the next few weeks Generalized anxiety disorder/depression . She is stable at this point on duloxetine 60 mg 1 tablet daily, bupropion ER 300 mg 1 tablet daily and she is also on Klonopin 1 mg. Chronic constipation. Most likely secondary to opioid use. Advised to use [id number] Metamucil/:/MiraLAX and she can also use prunes, appropriate hydration. Vitamin D deficiency. Her vitamin D levels were running low. Currently on vitamin D3 2000 international units. She will take it for 12 weeks and after that she will take 1000 international units 3-4 times a week for maintenance. Mild intermittent asthma. Stable on albuterol inhaler as needed. Inflammatory markers. Her last sed rate and CRP were normal. Stress incontinence and uterine prolapse. She will make appointment with your bond runner at [place]. She has seen them before. She will need referral to a bond runner. She had mammogram done roughly 2 years ago. 60 minutes spent with the patient reviewing her history, making a plan, documentation, referrals 12/10/2024 Fibromyalgia (ICD-10 - M79.7) Mrs. Mckeon is 64 years old lady with metastatic Burkitt's lymphoma diagnosed in 2006 status post chemo, degenerative disc disease and status post back surgery in 2004 and had donor bone placement along with hardware, chronic pain syndrome currently on Suboxone and gabapentin through [facility], generalized anxiety disorder/depression /insomnia, narcolepsy without cataplexy, mixed hyperlipidemia, GERD, hypothyroidism, mild intermittent asthma, vitamin D deficiency, constipation is here to establish care. Plan is as Burkitt's lymphoma. According to the patient diagnosed in 2006 with stage IV/metastatic Burkitt's lymphoma especially in the spine. She have Port in scalp for chemotherapy or CSF. She is not seen hematology oncology at [facility] but no records were found at the system. She is stable at this point and does not complain of any weight loss or any other systemic or constitutional symptoms. We will give her referral to see hematology oncology. Narcolepsy without cataplexy. She is currently on modafinil 100 mg. She has not had polysomnographic or any other studies. She will be given referral to sleep medicine for further evaluation and treatment. Chronic pain syndrome/fibromyalg ia. Currently on Suboxone 7.5 mg patch and she is also on gabapentin 300 mg along with duloxetine which helps with fibromyalgia and neuropathic pain. Will continue on current regimen. She will come back in 4 weeks and we will sign a controlled substance contract and will take over medication. Generalized anxiety disorder/depression . She is stable on current regimen and she may benefit from therapy which we will discuss on next appointment. Mixed hyperlipidemia. Currently on Zetia 10 mg daily. Her recent lipid panel showed total cholesterol of 234, HDL 66, triglycerides 84 and LDL of 149. Unfortunately she cannot tolerate statins. We will try pravastatin or Crestor and we will discuss our next appointment. Her goal total cholesterol is less than 200 and LDL under 100. Hypothyroidism. Continue levothyroxine 100 mcg daily and TSH was 1.69. Anemia. Her hemoglobin was 13 and hematocrit was 42 but ferritin levels were running low and iron studies were within normal limits. Acid reflux. She is currently on famotidine 20 mg 1 tablet twice a day and she is going to have intake with GI at [facility] for upper endoscopy and colonoscopy in the next few weeks Generalized anxiety disorder/depression . She is stable at this point on duloxetine 60 mg 1 tablet daily, bupropion ER 300 mg 1 tablet daily and she is also on Klonopin 1 mg. Chronic constipation. Most likely secondary to opioid use. Advised to use [id number] Metamucil/:/MiraLAX and she can also use prunes, appropriate hydration. Vitamin D deficiency. Her vitamin D levels were running low. Currently on vitamin D3 2000 international units. She will take it for 12 weeks and after that she will take 1000 international units 3-4 times a week for maintenance. Mild intermittent asthma. Stable on albuterol inhaler as needed. Inflammatory markers. Her last sed rate and CRP were normal. Stress incontinence and uterine prolapse. She will make appointment with your bond runner at [place]. She has seen them before. She will need referral to a bond runner. She had mammogram done roughly 2 years ago. 60 minutes spent with the patient reviewing her history, making a plan, documentation, referrals 12/10/2024 Chronic pain syndrome (ICD-10 - G89.4) Mrs. Mckeon is 64 years old lady with metastatic Burkitt's lymphoma diagnosed in 2006 status post chemo, degenerative disc disease and status post back surgery in 2004 and had donor bone placement along with hardware, chronic pain syndrome currently on Suboxone and gabapentin through [facility], generalized anxiety disorder/depression /insomnia, narcolepsy without cataplexy, mixed hyperlipidemia, GERD, hypothyroidism, mild intermittent asthma, vitamin D deficiency, constipation is here to establish care. Plan is as Burkitt's lymphoma. According to the patient diagnosed in 2006 with stage IV/metastatic Burkitt's lymphoma especially in the spine. She have Port in scalp for chemotherapy or CSF. She is not seen hematology oncology at [facility] but no records were found at the system. She is stable at this point and does not complain of any weight loss or any other systemic or constitutional symptoms. We will give her referral to see hematology oncology. Narcolepsy without cataplexy. She is currently on modafinil 100 mg. She has not had polysomnographic or any other studies. She will be given referral to sleep medicine for further evaluation and treatment. Chronic pain syndrome/fibromyalg ia. Currently on Suboxone 7.5 mg patch and she is also on gabapentin 300 mg along with duloxetine which helps with fibromyalgia and neuropathic pain. Will continue on current regimen. She will come back in 4 weeks and we will sign a controlled substance contract and will take over medication. Generalized anxiety disorder/depression . She is stable on current regimen and she may benefit from therapy which we will discuss on next appointment. Mixed hyperlipidemia. Currently on Zetia 10 mg daily. Her recent lipid panel showed total cholesterol of 234, HDL 66, triglycerides 84 and LDL of 149. Unfortunately she cannot tolerate statins. We will try pravastatin or Crestor and we will discuss our next appointment. Her goal total cholesterol is less than 200 and LDL under 100. Hypothyroidism. Continue levothyroxine 100 mcg daily and TSH was 1.69. Anemia. Her hemoglobin was 13 and hematocrit was 42 but ferritin levels were running low and iron studies were within normal limits. Acid reflux. She is currently on famotidine 20 mg 1 tablet twice a day and she is going to have intake with GI at [facility] for upper endoscopy and colonoscopy in the next few weeks Generalized anxiety disorder/depression . She is stable at this point on duloxetine 60 mg 1 tablet daily, bupropion ER 300 mg 1 tablet daily and she is also on Klonopin 1 mg. Chronic constipation. Most likely secondary to opioid use. Advised to use [id number] Metamucil/:/MiraLAX and she can also use prunes, appropriate hydration. Vitamin D deficiency. Her vitamin D levels were running low. Currently on vitamin D3 2000 international units. She will take it for 12 weeks and after that she will take 1000 international units 3-4 times a week for maintenance. Mild intermittent asthma. Stable on albuterol inhaler as needed. Inflammatory markers. Her last sed rate and CRP were normal. Stress incontinence and uterine prolapse. She will make appointment with your bond runner at [place]. She has seen them before. She will need referral to a bond runner. She had mammogram done roughly 2 years ago. 60 minutes spent with the patient reviewing her history, making a plan, documentation, referrals 12/10/2024 Other intervertebral disc degeneration, thoracolumbar region (ICD-10 - M51.35) Mrs. Mckeon is 64 years old lady with metastatic Burkitt's lymphoma diagnosed in 2006 status post chemo, degenerative disc disease and status post back surgery in 2004 and had donor bone placement along with hardware, chronic pain syndrome currently on Suboxone and gabapentin through [facility], generalized anxiety disorder/depression /insomnia, narcolepsy without cataplexy, mixed hyperlipidemia, GERD, hypothyroidism, mild intermittent asthma, vitamin D deficiency, constipation is here to establish care. Plan is as Burkitt's lymphoma. According to the patient diagnosed in 2006 with stage IV/metastatic Burkitt's lymphoma especially in the spine. She have Port in scalp for chemotherapy or CSF. She is not seen hematology oncology at [facility] but no records were found at the system. She is stable at this point and does not complain of any weight loss or any other systemic or constitutional symptoms. We will give her referral to see hematology oncology. Narcolepsy without cataplexy. She is currently on modafinil 100 mg. She has not had polysomnographic or any other studies. She will be given referral to sleep medicine for further evaluation and treatment. Chronic pain syndrome/fibromyalg ia. Currently on Suboxone 7.5 mg patch and she is also on gabapentin 300 mg along with duloxetine which helps with fibromyalgia and neuropathic pain. Will continue on current regimen. She will come back in 4 weeks and we will sign a controlled substance contract and will take over medication. Generalized anxiety disorder/depression . She is stable on current regimen and she may benefit from therapy which we will discuss on next appointment. Mixed hyperlipidemia. Currently on Zetia 10 mg daily. Her recent lipid panel showed total cholesterol of 234, HDL 66, triglycerides 84 and LDL of 149. Unfortunately she cannot tolerate statins. We will try pravastatin or Crestor and we will discuss our next appointment. Her goal total cholesterol is less than 200 and LDL under 100. Hypothyroidism. Continue levothyroxine 100 mcg daily and TSH was 1.69. Anemia. Her hemoglobin was 13 and hematocrit was 42 but ferritin levels were running low and iron studies were within normal limits. Acid reflux. She is currently on famotidine 20 mg 1 tablet twice a day and she is going to have intake with GI at [facility] for upper endoscopy and colonoscopy in the next few weeks Generalized anxiety disorder/depression . She is stable at this point on duloxetine 60 mg 1 tablet daily, bupropion ER 300 mg 1 tablet daily and she is also on Klonopin 1 mg. Chronic constipation. Most likely secondary to opioid use. Advised to use [id number] Metamucil/:/MiraLAX and she can also use prunes, appropriate hydration. Vitamin D deficiency. Her vitamin D levels were running low. Currently on vitamin D3 2000 international units. She will take it for 12 weeks and after that she will take 1000 international units 3-4 times a week for maintenance. Mild intermittent asthma. Stable on albuterol inhaler as needed. Inflammatory markers. Her last sed rate and CRP were normal. Stress incontinence and uterine prolapse. She will make appointment with your bond runner at [place]. She has seen them before. She will need referral to a bond runner. She had mammogram done roughly 2 years ago. 60 minutes spent with the patient reviewing her history, making a plan, documentation, referrals Plan Of Treatment Next Appt Details Provider Name:ANDREW SANTOS , 01/07/2025 10:30:00 AM, [address] [place] [address] [address], [place], [id number], Insurance Providers Payer Name Payer Address Payer Phone Subscriber Number Group Number Insured Name Patient Relationship to Insured Coverage Start Date Coverage End Date [employer] [address] [place] [address] [id number] Kia Mckeon Self - patient is the insured 3 [employer] [address] [address] [place] [address] [id number] Kia Mckeon Self - patient is the insured 4 Medical (General) History Medical History History ICD Code GERD HLD Hypothyriodism Narcolepsy/ Insomnia W/O CATAPLEXY KADEEM/ MDD fibromyalgia CPS Dysphagia Elevated Homocystiene Opiod dependent Burkitts Lymphoma in spine stage- 05/2007 - S/P Chemo stage 4 chronic constipation secondary to long-t erm opioid use Surgical History Surgery Date(Month/Year) Anal sphinctorplasty after Enteroecle repair after Back surgery cage and donor bone and burak in lumbar area 2004 dwelling Port in scalp used for chemothe rapy
[2024-12-16 09:49] VITALS: BP 143/68; PULSE 104; O2SAT 98
--- OUTSIDE RECORDS SUMMARY | 2024-12-16 09:49 | XMS_ITS | Clinical Summary ---
Author Organization [facility] Address [address] [place] [id number] Care Team Providers Care Heavy Equipment Supervisor Name Role Phone David Britton MD Primary Care Provider [phone] Allergies Active Allergy Reactions Criticality Noted Date [...] age to complete this topic Care Teams Heavy Equipment Supervisor Relationship Specialty Start Date End Date David Britton MD PCP - General Internal Medicine 02/26/22
--- OUTSIDE RECORDS SUMMARY | 2024-12-16 09:49 | XMS_ITS ---
Author Organization [facility] Address [address] [place] [address] Care Team Providers Care Supervisor Phosphoric Acid Name Role Phone ANDREW SANTOS Primary Care Provider Allergies Allergen (clinical drug ingredient) Drug/Non Drug Allergy documented on EMR Reaction Allergy Type Onset Date Status codeine Codeine hives Drug Allergy Active Shellfish (FN) Shellfish-derived Products anaphylaxis Drug Allergy Active Reason For Referral Reason Burkitt lymphoma- Dr Frazier Referral Organization [facility] Referring Provider First Name ANDREW Referring Provider Last Name JANET Referring Provider Speciality Internal M edicine Referred Provider Specialty Hematology Referral Priority Routine Reason narcolepsy without c ataplexy- Dr Dinh Referral Organization [facility] Referring Provider First Name ANDREW Referring Provider Last Name [facility] Referring Provider Speciality Internal edicine Referred Provider Specialty Sleep Medici ne Referral Priority Routine REASON FOR VISIT new patient; ppw mailed Medications Medication SIG (Take, Route, Frequency, Duration) Notes Start Date End Date Status Levothyroxine Sodium 100 MCG 1 tablet in the morning on an empty stomach Orally Once a day Active CoQ10 100 MG as directed Orally Active tiZANidine HCl 4 MG 1 tablet at bedtime as needed Orally Once a day Active Gabapentin 300 MG 1 capsule Orally Onc e a day Active Buprenorphine 7.5 MCG/HR 1 patch to skin Transdermal Active Co-Enzyme Q-10 30 MG as directed Orally Active Famotidine 20 MG 1 tablet at bedtime as needed Orally 2 times a day Active Multi For Her 50+ - as directed Orally Active Albuterol Sulfate HFA 108 (90 Base) MCG/ACT 1 puff as needed Inhalation every 4 hrs Active Celecoxib 200 MG 1 capsule with food Orally Once a day Active Vitamin D3 125 MCG (5000 UT) 1 capsule Orally Once a day Active buPROPion HCl ER (XL) 300 MG 1 tablet in the morning Orally Once a day Active DULoxetine HCl 60 MG 1 capsule Orally On ce a day Active clonazePAM 1 MG 1 tablet Orally Once a day Active Ezetimibe 10 MG 1 tablet Orally Once a day Active Modafinil 100 MG 1 tablet in the morn ing Orally Once a day Active Problems Problem Type SNOMED Code ICD Code Onset Dates Problem Status W/U Status Risk Notes Problem Mixed hyperlipidemia (471163590) Mixed hyperlipidemia (E78.2) Active confirmed Problem Gastro-esophageal reflux disease without esophagitis (302992126) Gastro-esophageal reflux disease without esophagitis (K21.9) Active confirmed Problem Hypothyroidism (30475894) Hypothyroidism, unspecified (E03.9) Active confirmed Problem Mild intermittent asthma (668482921) Mild intermittent asthma, uncomplicated (J45.20) Active confirmed Problem Vitamin D deficiency (06550240) Vitamin D deficiency, unspecified (E55.9) Active confirmed Problem Generalized anxiety disorder (92633833) Generalized anxiety disorder (F41.1) Active confirmed Problem Narcolepsy without cataplexy (46695964341671) 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) Active confirmed Problem Fibromyalgia (837680291) Fibromyalgia (M79.7) Active confirmed Problem Chronic pain syndrome (819484198) Chronic pain syndrome (G89.4) Active confirmed Problem Degeneration of thoracolumbar intervertebral disc (00043533) Other intervertebral disc degeneration, thoracolumbar region (M51.35) Active confirmed Vital Signs Temperature 97.8 degrees Fahrenheit 12/10/19 25 Oximetry 97 % 12/10/2024 Heart Rate 112 /min 12/10/2024 Blood pressure systolic 150 mm Hg 12/10/19 25 Blood pressure diastolic 100 mm Hg 025 Weight 185.1 lbs 12/10/2024 BMI 30.8 kg/m2 12/10/2024 Height 5'5'' in 12/10/2024 Encounters Encounter Location Date Provider Diagnosis [address] [address] 12/10/2024 ANDREW SANTOS Mixed hyperlipidemia E78.2 ; Burkitt lymphoma, in [...] syndrome currently on Suboxone and gabapentin through [facility], generalized anxiety disorder/depression /insomnia, narcolepsy without cataplexy, mixed hyperlipidemia, GERD, hypothyroidism, mild intermittent asthma, vitamin D deficiency, constipation is here to establish care. Plan is as Burkitt's lymphoma. According to the patient diagnosed in 2006 with stage IV/metastatic Burkitt's lymphoma especially in the spine. She have Port in scalp for chemotherapy or CSF. She is not seen hematology oncology at [facility] but no records were found at the [...] going to have intake with GI at [facility] for upper endoscopy and colonoscopy in the next few weeks Generalized anxiety disorder/depression . She is stable at this point on duloxetine 60 mg 1 tablet daily, bupropion ER 300 mg 1 tablet daily and she is also on Klonopin 1 mg. Chronic constipation. Most likely secondary to opioid use. Advised to use [id number] Metamucil/:/MiraLAX and she can also use prunes, [...] prolapse. She will make appointment with your washing and screening plant supervisor at [facility]. She has seen them before. She will need referral to a washing and screening plant supervisor. She had mammogram done roughly 2 years [...] syndrome currently on Suboxone and gabapentin through [facility], generalized anxiety disorder/depression /insomnia, narcolepsy without cataplexy, mixed hyperlipidemia, GERD, hypothyroidism, mild intermittent asthma, vitamin D deficiency, constipation is here to establish care. Plan is as Burkitt's lymphoma. According to the patient diagnosed in 2006 with stage IV/metastatic Burkitt's lymphoma especially in the spine. She have Port in scalp for chemotherapy or CSF. She is not seen hematology oncology at [facility] but no records were found at the [...] going to have intake with GI at [facility] for upper endoscopy and colonoscopy in the next few weeks Generalized anxiety disorder/depression . She is stable at this point on duloxetine 60 mg 1 tablet daily, bupropion ER 300 mg 1 tablet daily and she is also on Klonopin 1 mg. Chronic constipation. Most likely secondary to opioid use. Advised to use [id number]-htgpofm Metamucil/:/MiraLAX and she can also use prunes, [...] prolapse. She will make appointment with your washing and screening plant supervisor at [facility]. She has seen them before. She will need referral to a washing and screening plant supervisor. She had mammogram done roughly 2 years [...] syndrome currently on Suboxone and gabapentin through [facility], generalized anxiety disorder/depression /insomnia, narcolepsy without cataplexy, mixed hyperlipidemia, GERD, hypothyroidism, mild intermittent asthma, vitamin D deficiency, constipation is here to establish care. Plan is as Burkitt's lymphoma. According to the patient diagnosed in 2006 with stage IV/metastatic Burkitt's lymphoma especially in the spine. She have Port in scalp for chemotherapy or CSF. She is not seen hematology oncology at [facility] but no records were found at the [...] going to have intake with GI at [facility] for upper endoscopy and colonoscopy in the next few weeks Generalized anxiety disorder/depression . She is stable at this point on duloxetine 60 mg 1 tablet daily, bupropion ER 300 mg 1 tablet daily and she is also on Klonopin 1 mg. Chronic constipation. Most likely secondary to opioid use. Advised to use [id number]-fth-pzegkrr Metamucil/:/MiraLAX and she can also use prunes, [...] prolapse. She will make appointment with your washing and screening plant supervisor at [facility]. She has seen them before. She will need referral to a washing and screening plant supervisor. She had mammogram done roughly 2 years [...] syndrome currently on Suboxone and gabapentin through [facility], generalized anxiety disorder/depression /insomnia, narcolepsy without cataplexy, mixed hyperlipidemia, GERD, hypothyroidism, mild intermittent asthma, vitamin D deficiency, constipation is here to establish care. Plan is as Burkitt's lymphoma. According to the patient diagnosed in 2006 with stage IV/metastatic Burkitt's lymphoma especially in the spine. She have Port in scalp for chemotherapy or CSF. She is not seen hematology oncology at [facility] but no records were found at the [...] going to have intake with GI at [facility] for upper endoscopy and colonoscopy in the next few weeks Generalized anxiety disorder/depression . She is stable at this point on duloxetine 60 mg 1 tablet daily, bupropion ER 300 mg 1 tablet daily and she is also on Klonopin 1 mg. Chronic constipation. Most likely secondary to opioid use. Advised to use [id number]-dxhszeo Metamucil/:/MiraLAX and she can also use prunes, [...] prolapse. She will make appointment with your washing and screening plant supervisor at [facility]. She has seen them before. She will need referral to a washing and screening plant supervisor. She had mammogram done roughly 2 years [...] syndrome currently on Suboxone and gabapentin through [facility], generalized anxiety disorder/depression /insomnia, narcolepsy without cataplexy, mixed hyperlipidemia, GERD, hypothyroidism, mild intermittent asthma, vitamin D deficiency, constipation is here to establish care. Plan is as Burkitt's lymphoma. According to the patient diagnosed in 2006 with stage IV/metastatic Burkitt's lymphoma especially in the spine. She have Port in scalp for chemotherapy or CSF. She is not seen hematology oncology at [facility] but no records were found at the [...] going to have intake with GI at [facility] for upper endoscopy and colonoscopy in the next few weeks Generalized anxiety disorder/depression . She is stable at this point on duloxetine 60 mg 1 tablet daily, bupropion ER 300 mg 1 tablet daily and she is also on Klonopin 1 mg. Chronic constipation. Most likely secondary to opioid use. Advised to use [id number]-nhx-btayyty Metamucil/:/MiraLAX and she can also use prunes, [...] prolapse. She will make appointment with your washing and screening plant supervisor at [facility]. She has seen them before. She will need referral to a washing and screening plant supervisor. She had mammogram done roughly 2 years [...] syndrome currently on Suboxone and gabapentin through [facility], generalized anxiety disorder/depression /insomnia, narcolepsy without cataplexy, mixed hyperlipidemia, GERD, hypothyroidism, mild intermittent asthma, vitamin D deficiency, constipation is here to establish care. Plan is as Burkitt's lymphoma. According to the patient diagnosed in 2006 with stage IV/metastatic Burkitt's lymphoma especially in the spine. She have Port in scalp for chemotherapy or CSF. She is not seen hematology oncology at [facility] but no records were found at the [...] going to have intake with GI at [facility] for upper endoscopy and colonoscopy in the next few weeks Generalized anxiety disorder/depression . She is stable at this point on duloxetine 60 mg 1 tablet daily, bupropion ER 300 mg 1 tablet daily and she is also on Klonopin 1 mg. Chronic constipation. Most likely secondary to opioid use. Advised to use [id number]-txa-wdlqrrr Metamucil/:/MiraLAX and she can also use prunes, [...] prolapse. She will make appointment with your washing and screening plant supervisor at [facility]. She has seen them before. She will need referral to a washing and screening plant supervisor. She had mammogram done roughly 2 years [...] syndrome currently on Suboxone and gabapentin through [facility], generalized anxiety disorder/depression /insomnia, narcolepsy without cataplexy, mixed hyperlipidemia, GERD, hypothyroidism, mild intermittent asthma, vitamin D deficiency, constipation is here to establish care. Plan is as Burkitt's lymphoma. According to the patient diagnosed in 2006 with stage IV/metastatic Burkitt's lymphoma especially in the spine. She have Port in scalp for chemotherapy or CSF. She is not seen hematology oncology at [facility] but no records were found at the [...] going to have intake with GI at [facility] for upper endoscopy and colonoscopy in the next few weeks Generalized anxiety disorder/depression . She is stable at this point on duloxetine 60 mg 1 tablet daily, bupropion ER 300 mg 1 tablet daily and she is also on Klonopin 1 mg. Chronic constipation. Most likely secondary to opioid use. Advised to use umqa-avt-puvvcxk Metamucil/:/MiraLAX and she can also use prunes, [...] prolapse. She will make appointment with your washing and screening plant supervisor at [facility]. She has seen them before. She will need referral to a washing and screening plant supervisor. She had mammogram done roughly 2 years [...] syndrome currently on Suboxone and gabapentin through [facility], generalized anxiety disorder/depression /insomnia, narcolepsy without cataplexy, mixed hyperlipidemia, GERD, hypothyroidism, mild intermittent asthma, vitamin D deficiency, constipation is here to establish care. Plan is as Burkitt's lymphoma. According to the patient diagnosed in 2006 with stage IV/metastatic Burkitt's lymphoma especially in the spine. She have Port in scalp for chemotherapy or CSF. She is not seen hematology oncology at [facility] but no records were found at the [...] going to have intake with GI at [facility] for upper endoscopy and colonoscopy in the next few weeks Generalized anxiety disorder/depression . She is stable at this point on duloxetine 60 mg 1 tablet daily, bupropion ER 300 mg 1 tablet daily and she is also on Klonopin 1 mg. Chronic constipation. Most likely secondary to opioid use. Advised to use [id number]-sdc-owfptsc Metamucil/:/MiraLAX and she can also use prunes, [...] prolapse. She will make appointment with your washing and screening plant supervisor at [facility]. She has seen them before. She will need referral to a washing and screening plant supervisor. She had mammogram done roughly 2 years [...] syndrome currently on Suboxone and gabapentin through [facility], generalized anxiety disorder/depression /insomnia, narcolepsy without cataplexy, mixed hyperlipidemia, GERD, hypothyroidism, mild intermittent asthma, vitamin D deficiency, constipation is here to establish care. Plan is as Burkitt's lymphoma. According to the patient diagnosed in 2006 with stage IV/metastatic Burkitt's lymphoma especially in the spine. She have Port in scalp for chemotherapy or CSF. She is not seen hematology oncology at [facility] but no records were found at the [...] going to have intake with GI at [facility] for upper endoscopy and colonoscopy in the next few weeks Generalized anxiety disorder/depression . She is stable at this point on duloxetine 60 mg 1 tablet daily, bupropion ER 300 mg 1 tablet daily and she is also on Klonopin 1 mg. Chronic constipation. Most likely secondary to opioid use. Advised to use [id number]-lay-odpdgmb Metamucil/:/MiraLAX and she can also use prunes, [...] prolapse. She will make appointment with your washing and screening plant supervisor at [facility]. She has seen them before. She will need referral to a washing and screening plant supervisor. She had mammogram done roughly 2 years [...] syndrome currently on Suboxone and gabapentin through [facility], generalized anxiety disorder/depression /insomnia, narcolepsy without cataplexy, mixed hyperlipidemia, GERD, hypothyroidism, mild intermittent asthma, vitamin D deficiency, constipation is here to establish care. Plan is as Burkitt's lymphoma. According to the patient diagnosed in 2006 with stage IV/metastatic Burkitt's lymphoma especially in the spine. She have Port in scalp for chemotherapy or CSF. She is not seen hematology oncology at [facility] but no records were found at the [...] going to have intake with GI at [facility] for upper endoscopy and colonoscopy in the next few weeks Generalized anxiety disorder/depression . She is stable at this point on duloxetine 60 mg 1 tablet daily, bupropion ER 300 mg 1 tablet daily and she is also on Klonopin 1 mg. Chronic constipation. Most likely secondary to opioid use. Advised to use saio-saz-wuxuaus Metamucil/:/MiraLAX and she can also use prunes, [...] prolapse. She will make appointment with your washing and screening plant supervisor at [facility]. She has seen them before. She will need referral to a washing and screening plant supervisor. She had mammogram done roughly 2 years [...] syndrome currently on Suboxone and gabapentin through [facility], generalized anxiety disorder/depression /insomnia, narcolepsy without cataplexy, mixed hyperlipidemia, GERD, hypothyroidism, mild intermittent asthma, vitamin D deficiency, constipation is here to establish care. Plan is as Burkitt's lymphoma. According to the patient diagnosed in 2006 with stage IV/metastatic Burkitt's lymphoma especially in the spine. She have Port in scalp for chemotherapy or CSF. She is not seen hematology oncology at [facility] but no records were found at the [...] going to have intake with GI at [facility] for upper endoscopy and colonoscopy in the next few weeks Generalized anxiety disorder/depression . She is stable at this point on duloxetine 60 mg 1 tablet daily, bupropion ER 300 mg 1 tablet daily and she is also on Klonopin 1 mg. Chronic constipation. Most likely secondary to opioid use. Advised to use uklq-qth-fdgomur Metamucil/:/MiraLAX and she can also use prunes, [...] prolapse. She will make appointment with your washing and screening plant supervisor at [facility]. She has seen them before. She will need referral to a washing and screening plant supervisor. She had mammogram done roughly 2 years [...] syndrome currently on Suboxone and gabapentin through [facility], generalized anxiety disorder/depression /insomnia, narcolepsy without cataplexy, mixed hyperlipidemia, GERD, hypothyroidism, mild intermittent asthma, vitamin D deficiency, constipation is here to establish care. Plan is as Burkitt's lymphoma. According to the patient diagnosed in 2006 with stage IV/metastatic Burkitt's lymphoma especially in the spine. She have Port in scalp for chemotherapy or CSF. She is not seen hematology oncology at [facility] but no records were found at the [...] going to have intake with GI at [facility] for upper endoscopy and colonoscopy in the next few weeks Generalized anxiety disorder/depression . She is stable at this point on duloxetine 60 mg 1 tablet daily, bupropion ER 300 mg 1 tablet daily and she is also on Klonopin 1 mg. Chronic constipation. Most likely secondary to opioid use. Advised to use [id number]-aeethdg Metamucil/:/MiraLAX and she can also use prunes, [...] prolapse. She will make appointment with your washing and screening plant supervisor at [facility]. She has seen them before. She will need referral to a washing and screening plant supervisor. She had mammogram done roughly 2 years ago. 60 minutes spent with the patient reviewing her history, making a plan, documentation, referrals Plan Of Treatment Referrals Referral Date Details 12/10/2024 12/10/2024, Burkitt lymphoma- Dr Frazier 12/10/2024 12/10/2024, narcolep sy without cataplexy- Dr Dinh Next Appt Details Follow Up: 4 Weeks- Suboxone , Reason: Provider Name:ANDREW SANTOS , 01/07/2025 10:30:00 AM, [address] [place] [address], [id number], Progress Notes * Mary MCKEONiDOB:1960 (64 yo F)Acc No.[id number]:12/10/2024 Progress Notes Patient:?Kia MCKEON Provider:?ANDREW SANTOS MD :1960???Age:64 Y???Sex:Female D ate:12/10/2024 Phone: Address:[address] [place] [address] , [place], [id number] Subjective: * Chief Complaints: * ???New patient; ppw mailed * HPI: ???Internal Medicine:? Mrs. Mckeon is 64-year-old lady with history of stage IV Burkitt's lymphoma diagnosed in 2006 when she was in [place] with significant metastases to the spine, hyperlipidemia, acid reflux, hypothyroidism, mild intermittent asthma, vitamin D deficiency, chronic pain syndrome secondary to back surgery, generalized anxiety disorder, narcolepsy/insomnia without cataplexy, stress incontinence because of uterine prolapse and enterocele/anal sphincter procedures after .? According to the patient she was diagnosed with Burkitt's lymphoma after back surgery in 2004 and she had a donor bone.? She had chemo through [facility] in scalp for spine metastatic lesions.? She has not seen hematology oncology since he came to [place] 2- 3 years ago. She has chronic pain syndrome and she is currently on Suboxone 7.5 mcg weekly patch and she gets it from [facility] pain management.? She has acid reflux and she is going to have upper endoscopy and colonoscopy intake in the next few weeks.? She is seeing your washing and screening plant supervisor at [facility] for uterine prolapse and stress incontinence.? She has narcolepsy and insomnia without cataplexy but she has not seen press service reader for further workup.? She has anxiety/depression and symptoms are well controlled on current regimen.? She does not see a therapist or psychiatrist at this point in time.? She has elevated sed rate and CRP most likely secondary to inflammation.? She tries to be active as much as possible but she does not exercise regularly.? She has chronic constipation and she is not using any laxatives at this point.? No other active issues or concerns. * ROS:?General/Constitutional:?Overall health?Good.?Change in appetite?denies.?Chills?denies.?Fever?denies.?Night sweats?denies.?Sleep disturbance?denies.?Weight gain?denies.?Weight loss?denies.?Neurologic:?Patient denies?balance difficulty, difficulty speaking, dizziness.?Difficulty speaking?denies.?Dizziness?denies.?Gait abnormality?denies.?Headache?denies.?Loss of strength?denies.?Memory loss?denies.?Seizures?denies.?Tingling/Numbness?denies .?Ophthalmologic:?Blurred vision?denies.?Discharge?denies.?Dry eye?denies.?Red eye?denies.?ENT:?Change in Voice?Denies.?Cold Symptoms?Denies.?Cough?Denies.?Dizziness?Denies.?Nasal Congestion?Denies.?Otalgia?Denies.?postnasal drip?Denies.?Blocked ear?denies.?Nosebleed?denies.?Snoring?denies.?Cardiovascular:?Diaphoresis?Denies.?Pedal Edema?Denies.?PND (Paroxsymal nocturnal dyspnea)?Denies.?Chest pain?denies.?Difficulty laying flat?denies.?Dyspnea on exertion?denies.?Heart murmur?denies.?Orthopnea?denies.?Respiratory:?Asthma?denies.?Cough?denies.?Shortness of breath with exertion?denies.?Sputum production?denies.?Wheezing?denies.?Gastrointestinal:?Change in bowel habits?denies.?Constipation?denies.?Decreased appetite?denies.?Diarrhea?denies.?Heartburn?denies.?Nausea?denies.?Vomiting?jacqueline es.?Musculoskeletal:?tingling/numbness?Denies.?myalgias?Denies.?Joint Swelling?Denies.?extremeties?normal.?Arthritis?denies.?Back problems?,admits.?Carpal tunnel?denies.?Joint stiffness?denies.?Muscle aches?denies.?Endocrine:?Bowel Changes?Denies.?Breast Discharge?Denies.?poor libido?Denies.?Cold intolerance?denies.?Excessive sweating?denies.?Excessive thirst?denies.?Frequent urination?denies.?Thyroid problems?denies.?Skin:?Bruising?Denies.?Eczema?denies.?Hair changes?denies.?Rash?denies.?Skin lesion(s)?denies.?Psychiatric:?Anxiety?denies.?Depressed mood?denies.?Difficulty sleeping?,admits.?Nervous breakdown?denies.?Substance abuse?denies.?Urology:?abnormal menstrual bleeding?denies.?blood in urine?denies.?burning on urination?denies.?difficulty urinating?denies.?discharge?denies.?dysuria?denies.?urinary incontinence?stress incontinence secondary to uterine prolapse.? * Medical History:? * OB History:?Total pregnancies?4, .?Total living children?2.?Miscarriage(s)?2.? * Surgical History:?Anal sphin ctorplasty after Enteroecle repair after Back surgery cage and donor bone and burak in lumbar area 2005dwelling Port in scalp used for chemotherapy * Hospitalization/Major Diagno stic Procedure:? * Family History:?Father: dece ased, diagnosed with Diabetes.?Mother: .?Maternal Grand Mother: diagnosed with Stroke.? Father had DM T 1. * Social History:?Miscellaneous:?Exercise: none. ?Living with: spouse. ?Marital status: . ?Occupation: Unemployed. ???Non smoker Etoh- No. * Medications:?TakingBuprenorp jurgen 7.5 MCG/HR Patch Weekly 1 patch to skin Transdermal Gabapentin 300 MG Capsule 1 capsule Orally Once a day Modafinil 100 MG Tablet 1 tablet in the morning Orally Once a day buPROPion HCl ER (XL) 300 MG Tablet Extended Release 24 Hour 1 tablet in the morning Orally Once a day Vitamin D3 125 MCG (5000 UT) Capsule 1 capsule Orally Once a day clonazePAM 1 MG Tablet 1 tablet Orally Once a day DULoxetine HCl 60 MG Capsule Delayed Release Particles 1 capsule Orally Once a day Ezetimibe 10 MG Tablet 1 tablet Orally Once a day Famotidine 20 MG Tablet 1 tablet at bedtime as needed Orally 2 times a day Albuterol Sulfate HFA 108 (90 Base) MCG/ACT Aerosol Solution 1 puff as needed Inhalation every 4 hrs Multi For Her 50+ - Tablet as directed Orally Celecoxib 200 MG Capsule 1 capsule with food Orally Once a day Co-Enzyme Q-10 30 MG Capsule as directed Orally Levothyroxine Sodium 100 MCG Tablet 1 tablet in the morning on an empty stomach Orally Once a day tiZANidine HCl 4 MG Tablet 1 tablet at bedtime as needed Orally Once a day CoQ10 100 MG Capsule as directed Orally Medication List reviewed and reconciled with the patientTaking Buprenorphine 7.5 MCG/HR Patch Weekly 1 patch to skin Transdermal Taking Gabapentin 300 MG Capsule 1 capsule Orally Once a day Taking Modafinil 100 MG Tablet 1 tablet in the morning Orally Once a day Taking buPROPion HCl ER (XL) 300 MG Tablet Extended Release 24 Hour 1 tablet in the morning Orally Once a day Taking Vitamin D3 125 MCG (5000 UT) Capsule 1 capsule Orally Once a day Taking clonazePAM 1 MG Tablet 1 tablet Orally Once a day Taking DULoxetine HCl 60 MG Capsule Delayed Release Particles 1 capsule Orally Once a day Taking Ezetimibe 10 MG Tablet 1 tablet Orally Once a day Taking Famotidine 20 MG Tablet 1 tablet at bedtime as needed Orally 2 times a day Taking Albuterol Sulfate HFA 108 (90 Base) MCG/ACT Aerosol Solution 1 puff as needed Inhalation every 4 hrs Taking Multi For Her 50+ - Tablet as directed Orally Taking Celecoxib 200 MG Capsule 1 capsule with food Orally Once a day Taking Co-Enzyme Q-10 30 MG Capsule as directed Orally Taking Levothyroxine Sodium 100 MCG Tablet 1 tablet in the morning on an empty stomach Orally Once a day Taking tiZANidine HCl 4 MG Tablet 1 tablet at bedtime as needed Orally Once a day Taking CoQ10 100 MG Capsule as directed Orally Medication List reviewed and reconciled with the patient * Allergies:?Shellfish-derived Products: anaphylaxis - Allergy - Criticality HighCodeine: hives - Side Effects - Criticality High Objective: * Vitals:?Temp:97.8F, Oxygen s at %:97%, HR:112/min, BP:150/100mm Hg, Wt:185.1lbs, BMI:30.8Index, Ht: 5'5''. * Examination: ???General Examination: ?Psychiatry?Normal.?GENERAL APPEARANCE:?Well developed, well nourished, in no acute distress.?MUSCULOSKELETAL:?Normal.?HEAD:?Normocephalic, atraumatic.?EYES:?Pupils equal, round, reactive to light and accommodation, sclera non-icteric.?EARS:?Normal.?ORAL CAVITY:?Normal.?THROAT:?Clear.?OROPHARYNX?Normal.?SINUSES?Normal.?NECK/THYROID:?Neck supple, full range of motion, no cervical lymphadenopathy.?SKIN:?Warm and dry, no suspicious lesions.?HEART:?Normal.?LUNGS:?Normal.?BREASTS:?__.?ABDOMEN:?Soft, nontender, nondistended, bowel sounds present, normal.?EXTREMITIES:?Normal.?PERIPHERAL PULSES:?Normal.?NEUROLOGIC:?Nonfocal,? appropriate?motor strength normal upper and lower extremities, sensory exam intact.?FEMALE GENITOURINARY:?__.?MALE GENITOURINARY:?__.?PODIATRIC:?Normal.?Chief Hospital Administrator? .? Assessment: * Assessment: 1.?Burkitt lymphoma, in jerry ssion - C83.7A (Primary)???2.?Mixed hyperlipidemia - E78.2???3.?Gastro-esophageal reflux disease without esophagitis - K21.9???4.?Hypothyroidism, unspecified - E03.9???5.?Mild intermittent asthma, uncomplicated - J45.20???6.?Vitamin D deficiency, unspecified - E55.9???7.?Generalized anxiety disorder - F41.1???8.?Drug-induced constipation - K59.03???9.?Narcolepsy without cataplexy - G47.419?? 10.?Fibromyalgia - M79.7???11.?Chronic pain syndrome - G89.4???12.?Other intervertebral disc degeneration, thoracolumbar region - M51.35??? Mrs. Mckeon is 64 years old lady with metastatic Burkitt's lymphoma diagnosed in 2006 status post chemo, degenerative disc disease and status post back surgery in 2004 and had donor bone placement along with hardware, chronic pain syndrome currently on Suboxone and gabapentin through [facility], generalized anxiety disorder/depression/insomnia, narcolepsy without cataplexy, mixed hyperlipidemia, GERD, hypothyroidism, mild intermittent asthma, vitamin D deficiency, constipation is here to establish care.? Plan is as Burkitt's lymphoma.? According to the patient diagnosed in 2006 with stage IV/metastatic Burkitt's lymphoma especially in the spine.? She have Port in scalp for chemotherapy or CSF.? She is not seen hematology oncology at [facility] but no records were found at the system.? She is stable at this point and does not complain of any weight loss or any other systemic or constitutional symptoms.? We will give her referral to see hematology oncology. Narcolepsy without cataplexy.? She is currently on modafinil 100 mg.? She has not had polysomnographic or any other studies.? She will be given referral to sleep medicine for further evaluation and treatment. Chronic pain syndrome/fibromyalgia.? Currently on Suboxone 7.5 mg patch and she is also on gabapentin 300 mg along with duloxetine which helps with fibromyalgia and neuropathic pain.? Will continue on current regimen.? She will come back in 4 weeks and we will sign a controlled substance contract and will take over medication. Generalized anxiety disorder/depression.? She is stable on current regimen and she may benefit from therapy which we will discuss on next appointment. Mixed hyperlipidemia.? Currently on Zetia 10 mg daily.? Her recent lipid panel showed total cholesterol of 234, HDL 66, triglycerides 84 and LDL of 149.? Unfortunately she cannot tolerate statins.? We will try pravastatin or Crestor and we will discuss our next appointment.? Her goal total cholesterol is less than 200 and LDL under 100. Hypothyroidism.? Continue levothyroxine 100 mcg daily and TSH was 1.69. Anemia.? Her hemoglobin was 13 and hematocrit was 42 but ferritin levels were running low and iron studies were within normal limits. Acid reflux.? She is currently on famotidine 20 mg 1 tablet twice a day and she is going to have intake with GI at [facility] for upper endoscopy and colonoscopy in the next few weeks Generalized anxiety disorder/depression.? She is stable at this point on duloxetine 60 mg 1 tablet daily, bupropion ER 300 mg 1 tablet daily and she is also on Klonopin 1 mg. Chronic constipation.? Most likely secondary to opioid use.? Advised to use [id number] Metamucil/:/MiraLAX and she can also use prunes, appropriate hydration. Vitamin D deficiency.? Her vitamin D levels were running low.? Currently on vitamin D3 2000 international units.? She will take it for 12 weeks and after that she will take 1000 international units 3-4 times a week for maintenance. Mild intermittent asthma.? Stable on albuterol inhaler as needed. Inflammatory markers.? Her last sed rate and CRP were normal. Stress incontinence and uterine prolapse.? She will make appointment with your washing and screening plant supervisor at [facility].? She has seen them before. She will need referral to a washing and screening plant supervisor.? She had mammogram done roughly 2 years ago. 60 minutes spent with the patient reviewing her history, making a plan, documentation, referrals Plan: * Treatment: * Procedure Codes:?3077F SYST BP = 140 MM HG6 [id number] DIAST BP = 90 MM HG * Preventive Medicine:?COVID- DONE FLU- DONE Pneumonia- Shingrix- Tdap- Colonoscopy- Mammogram-2022 Promotional Marketing Analyst-? Eye Exam-? Derm-. * Follow Up:?4 Weeks- Suboxone * * Sign off status: Completed true * Provider:?ANDREW SANTOS MD Date:?12/10 Generated for Rob cordero/Elsi/eTransmitting on:?12/16/2024 09:49 AM EST History and Physical Notes * HPI (History of Present Illness) Category Sub-Category Detail Notes Category Not es Internal Medicine Mrs. Minoo mullins is 64-year-old lady with history of stage IV Burkitt's lymphoma diagnosed in 2006 when she was in [place] with significant metastases to the spine, hyperlipidemia, acid reflux, hypothyroidism, mild intermittent asthma, vitamin D deficiency, chronic pain syndrome secondary to back surgery, generalized anxiety disorder, narcolepsy/insomnia without cataplexy, stress incontinence because of uterine prolapse and enterocele/anal sphincter procedures after . According to the patient she was diagnosed with Burkitt's lymphoma after back surgery in 2004 and she had a donor bone. She had chemo through [place] in scalp for spine metastatic lesions. She has not seen hematology oncology since he came to [place] 2-3 years ago. She has chronic pain syndrome and she is currently on Suboxone 7.5 mcg weekly patch and she gets it from [facility] pain management. She has acid reflux and she is going to have upper endoscopy and colonoscopy intake in the next few weeks. She is seeing your washing and screening plant supervisor at [facility] for uterine prolapse and stress incontinence. She has narcolepsy and insomnia without cataplexy but she has not seen press service reader for further workup. She has anxiety/depression and symptoms are well controlled on current regimen. She does not see a therapist or psychiatrist at this point in time. She has elevated sed rate and CRP most likely secondary to inflammation. She tries to be active as much as possible but she does not exercise regularly. She has chronic constipation and she is not using any laxatives at this point. No other active issues or concerns Examination Category Sub-Category Detail Notes Category Not es General Examination GENERAL APPEARANCE: Well dev eloped, well nourished, in no acute distress HEAD: Normocephalic, atrau matic EYES: Pupils equal, round, reactive to light and accommodation, sclera non-icteric EARS: Normal THROAT: Clear NECK/THYROID: Neck supple, full ra nge of motion, no cervical lymphadenopathy HEART: Normal LUNGS: Normal ABDOMEN: Soft, nontender, non distended, bowel sounds present, normal NEUROLOGIC: Nonfocal, appropriat e motor strength normal upper and lower extremities, sensory exam intact SKIN: Warm and dry, no michael picious lesions EXTREMITIES: Normal PERIPHERAL PULSES: Normal BREASTS: __ MUSCULOSKELETAL: Normal MALE GENITOURINARY: __ FEMALE GENITOURINARY: __ ORAL CAVITY: Normal PODIATRIC: Normal Psychiatry Normal OROPHARYNX Normal SINUSES Normal Chief Hospital Administrator Consultation Request Notes Referral Date Referring Provider Referred Provider Not es 12/10/2024 ANDREW SANTOS Burkitt lympho ma- Dr Frazier 12/10/2024 ANDREW SANTOS narcolepsy wit hout cataplexy- Dr Dinh
--- OUTSIDE RECORDS SUMMARY | 2024-12-16 09:49 | XMS_ITS ---
Author Organization [facility], [facility] Address [address], [place] [id number] Care Team Providers Care Warehouse Record Clerk Name Role Phone TC HAHN Primary Care Provider [phone] [facility] MARTITA DARNELL Unavailable [phone] REASON FOR VISIT Refills MEDICATIONS Medication SIG (Take, Route, Frequency, Duration) Notes Start Date End Date Status Buprenorphine 7.5 MCG/HR 1 patch to skin Transdermal once a week for 28 days 11/09/2024 12/09/2024 Active Encounters Encounter Location Date Provider Diagnosis [facility] [address], [place] [id number] 11/09/2024 MARTITA DARNELL PLAN OF TREATMENT Medication Medication Name Sig Start Date Stop Date Notes Buprenorphine 7.5 MCG/HR 1 patch to skin Transdermal once a week for 28 days 11/09/2024 12/09/2024 Next Appt Details Provider Name:MARTITA Robb, 01/06/2025 02:15:00 PM, [address] [place] [address], [phone], Progress Notes * LIYAH SANDERSB:1960 (64 yo F)Acc No.[id number]:11/09/2024 Patient:??MAGGIE SANDERS :1960?Age:64 Y?Sex:Fe male Phone: Address:[address] [place] [place] [address] * Refills?? Refill Buprenorphine Patch Weekly, 7.5 MCG/HR, Transdermal, 4, 1 patch to skin, once a week, 28 days, Refills=0 * true * Date:??
--- OUTSIDE RECORDS SUMMARY | 2024-12-16 09:49 | XMS_ITS ---
Author Organization [facility] Address [address] [place] [address] Care Team Providers Care Frame Polisher Name Role Phone ADVID BRITTON Primary Care Provider [phone] David [place]on Unavailable [phone] REASON FOR VISIT controlled refill Medications Medication SIG (Take, Route, Frequency, Duration) Notes Start Date End Date Status HYDROmorphone HCl ER 8 MG 1 tablet Orall y Once a day for 30 days 09/16/2023 Active clonazePAM 1 MG 1 tablet Orally Once a day for 30 days 09/16/2023 Active Encounters Encounter Location Date Provider Diagnosis [facility] [address] [place] [address] 09/16/2023 DAVID BRITTON Plan Of Treatment Medication Medication Name Sig Start Date Stop Date Notes HYDROmorphone HCl ER 8 MG 1 tablet Orall y Once a day for 30 days 09/16/2023 clonazePAM 1 MG 1 tablet Orally Once a day for 30 days 09/16/2023 Progress Notes * Mary MCKEONiDOB:1960 (62 yo F)Acc No.[id number]:09/16/2023 Patient:?Kia Mckeon :1960???Age:62 Y???Sex:Female Address:[address] [place], [address] * Refills? Refill clonazePAM Tablet, 1 MG, Orally, 30 Tablet, 1 tablet, Once a day, 30 days, Refills=0 Refill HYDROmorphone HCl ER Tablet Extended Release 24 Hour, 8 MG, Orally, 30 Tablet, 1 tablet, Once a day, 30 days, Refills=0 * true * Date:? Generated for Rob cordero/Elsi/Danielle on:?12/16/2024 09:49 AM EST
--- OUTSIDE RECORDS SUMMARY | 2024-12-16 09:49 | XMS_ITS ---
Author Organization [facility], [facility] Address [address] [place] [id number] Care Team Providers Care Software Design Engineer Name Role Phone TC HAHN Primary Care Provider MARTITA DARNELL Unavailable [phone] REASON FOR VISIT Referral? Encounters Encounter Location Date Provider Diagnosis [facility], [address] [phone] 12/01/2024 MARTITA DARNELL PLAN OF TREATMENT Next Appt Details Provider Name:MARTITA Robb, 01/06/2025 02:15:00 PM, [address] [place] [address], [phone], Progress Notes * STONE SANDERSIDOB:1960 (64 yo F)Acc No.[id number]:12/01/2024 Patient:??MAGGIE SANDERS :1960?Age:64 Y?Sex:Fe male Phone: Address:[address] [place] [address] * true * Date:??
== END 2024-12-16 10:45 | disposition home or self-care (01) ==
PROVIDERS: PCP Internal Medicine; Visit Provider Nurse Practitioner Family
DX: K58.1 Irritable bowel syndrome with constipation (principal); K21.9 Gastro-esophageal reflux disease without esophagitis; K59.01 Slow transit constipation; R14.0 Abdominal distension (gaseous); R10.13 Epigastric pain
CPT/HCPCS: 99204

== ENCOUNTER 2024-12-17 13:34 | Outpatient (REF) | payer MEDICARE, OTHER, SELFPAY ==
--- OUTSIDE RECORDS SUMMARY | 2024-12-17 15:36 | XMS_ITS | Encounter Summary ---
Author Organization [facility] Address [address] [place] [address] Care Team Providers Care Semiconductor Technician Name Role Phone David Britton MD Primary Care Provider [phone] Encounter Details Date Type Department Care Team (Late st Contact Info) Description 10/22/2024 Telephone Gastroenterology - [address] [place] [address] Maame Razo [place] Social History [...] as of this encounter Progress Notes * Maaem Razo [place] - 10/22/2024 2:50 PM EST PT UNABLE TO BE SCHEDULED DUE TO THE INSURANCE BEING [facility] / [facility]. documented in this encounter Plan of Treatment Not on file documented as of this encounter Visit Diagnoses Not on filedocumented in this encounter Care Teams Semiconductor Technician Relationship Specialty Start Date End Date David Britton MD PCP - General Internal Medicine 02/23/21 documented as of this encounter
--- OUTSIDE RECORDS SUMMARY | 2024-12-17 15:36 | XMS_ITS | Patient Health Record ---
Author Organization [facility] Address [address] [place] [address] Care Team Providers Care Medical Geneticist Name Role Phone DAVID BRITTON Primary Care Provider [phone] David Britton Unavailable [phone] Allergies Allergen (clinical drug ingredient) Drug/Non Drug [...] HCl 0.1 MG TAKE [address]T [address] [facility] TWICE A DAY for 90 Active Qvar [...] Vaccine Route Administration Date Status Comme nts Tdap IM Intramuscular 04/15/2015 Administered OLD RE CORDS Pneumococcal conjugate PCV 13 IM Intramuscular 02/06/2016 Administered OLD RECORDS Influenza (split), 3 yrs and above IM Intramuscular 09/28/2019 Administered OLD RECORDS Influenza (split), 3 yrs and above IM Intramuscular 07/29/2020 Administered CVS H1N1 Immunization administration, including counseling when performed IM Intramuscular 10/10/2009 Administered OLD RECORDS Social History Tobacco Use: Social History Observation [...] Section Notes: MARITAL HX: Met Louis at [facility]. Lied together for3 years and the got 30 years ago. He was born in [place] His father was in [facility] [employer]. [place] 18 Speaks ecuad[place] Parents Has a brother and a sister who lives in [place] and a ecuadorean . 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 Good health Type 2 diabetic on metformin Exercises regularly Moved to [facility] in 1975 . Moved to in 2019 She followed in January and living in a rental house in [facility] to buy a house. Have 2 daughters: Kd Mckeon 29 yr single Masters in Public Health from [address] Working as coordinator for [employer] in [facility] Lives with boyfriend Ahmet Obi Mike 25 yrs Studying at [employer] in [place] Living in [place] other girls MARITAL HX: Met Louis at [facility]. Lied together for3 years and the got 30 years ago. He was born in [place] His father was in [facility] [employer]. [place] 18 Speaks ecu[place] Parents Has a brother and a sister who lives in [place] and a ecuadorean . 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 Good health Type 2 diabetic on metformin Exercises regularly Moved to [facility] in 1975 . Moved to in 2019 She followed in January and living in a rental house in [facility] to buy a house. Have 2 daughters: Kd Mckeon 29 yr single Masters in Public Health from [address] Working as coordinator for [employer] in [facility] Lives with boyfriend Ahmet Obi Mike 25 yrs Studying at [employer] in [place] Living in apt[place] other girls MARITAL HX: Met Louis at [facility]. Lied together for3 years and the got 30 years ago. He was born in [place] His father was in [employer]. [place] 18 Speaks ecu[place] Parents Has a brother and a sister who lives in [place] and a ecuadorean . 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 Good health Type 2 diabetic on metformin Exercises regularly Moved to [facility] in 1975 . Moved to in 2019 She followed in January and living in a rental house in [facility] to buy a house. Have 2 daughters: Kd Mckeon 29 yr single Masters in Public Health from [address] Working as coordinator for [employer] in [facility] Lives with boyfriend Ahmet Obi Mckeon 25 yrs Studying at [employer] in [place] Living in apt[place] other girls MARITAL HX: Met Louis at [facility]. Lied together for3 years and the got 30 years ago. He was born in [place] His father was in [employer]. Lived in [facility] till age 18 Speaks ecuad[place] Parents Has a brother and a sister who lives in [place] and a ecuadorean . 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 Good health Type 2 diabetic on metformin Exercises regularly Moved to [facility] in 1975 . Moved to in 2019 She followed in January and living in a rental house in [facility] to buy a house. Have 2 daughters: Kd Mckeon 29 yr single Masters in Public Health from [address] Working as coordinator for [employer] in [facility] Lives with boyfriend Ahmet Obi Mckeon 25 yrs Studying at [employer] BA in [place] [employer] Living in apt[place] other girls MARITAL HX: Met Louis at [facility]. Lied together for3 years and the got 30 years ago. He was born in [place] His father was in [employer]. [place] 18 Speaks ecu[place] Parents Has a brother and a sister who lives in [place] and a ecuadorean . 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 Good health Type 2 diabetic on metformin Exercises regularly Moved to [facility] in 1975 . Moved to in 2019 She followed in January and living in a rental house in [facility] to buy a house. Have 2 daughters: Kd Mckeon 29 yr single Masters in Public Health from [address] Working as coordinator for [employer] in [facility] Lives with boyfriend Ahmet Obi Mckeon 25 yrs Studying at [employer] in [employer] Living in apt[place] other girls MARITAL HX: Met Louis at [facility]. Lied together for3 years and the got 30 years ago. He was born in [place] His father was in [facility] [employer]. [place] 18 Speaks ecu[place] Parents Has a brother and a sister who lives in [place] and a ecuadorean . 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 Good health Type 2 diabetic on metformin Exercises regularly Moved to [facility] in 1975 . Moved to in 2019 She followed in January and living in a rental house in [facility] to buy a house. Have 2 daughters: Kd Mckeon 29 yr single Masters in Public Health from [address] Working as coordinator for [employer] in [facility] Lives with boyfriend Ahmet Obi Mckeon 25 yrs Studying at [employer] in [place] Living in apt[place] other girls MARITAL HX: Met Louis at [facility]. Lied together for3 years and the got 30 years ago. He was born in [place] His father was in [employer]. [place] 18 Speaks ecu[place] Parents Has a brother and a sister who lives in [place] and a ecuadorean . 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 Good health Type 2 diabetic on metformin Exercises regularly Moved to [facility] in 1975 . Moved to in 2019 She followed in January and living in a rental house in [facility] to buy a house. Have 2 daughters: Kd Mckeon 29 yr single Masters in Public Health from [address] Working as coordinator for [employer] in [facility] Lives with boyfriend Ahmet Obi Mckeon 25 yrs Studying at [employer] in [place] Living in apt[place] other girls MARITAL HX: Met Louis at [facility]. Lied together for3 years and the got 30 years ago. He was born in [place] His father was in [employer]. [place] 18 Speaks [place] Parents Has a brother and a sister who lives in [place] and a ecuadorean . 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 Good health Type 2 diabetic on metformin Exercises regularly Moved to [facility] in 1975 . Moved to in 2019 She followed in January and living in a rental house in [facility] to buy a house. Have 2 daughters: Kd Mckeon 29 yr single Masters in Public Health from [address] Working as coordinator for [employer] in [place] Lives with boyfriend Ahmet Obi Mckeon 25 yrs Studying at [employer] in [place] [facility] MARITAL HX: Met Louis at [facility]. Lied together for3 years and the got 30 years ago. He was born in [place] His father was in [employer]. Lived in [facility] till age 18 Speaks ecu[place] Parents Has a brother and a sister who lives in [place] and a ecuadorean . 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 Good health Type 2 diabetic on metformin Exercises regularly Moved to [facility] in 1975 . Moved to in 2019 She followed in January and living in a rental house in [facility] to buy a house. Have 2 daughters: Kd Mckeon 29 yr single Masters in Public Health from [address] Working as coordinator for [employer] in [place] Lives with boyfriend Ahmet Obi Mckeon 25 yrs Studying at [employer] in [place] Living in apt[place] other girls MARITAL HX: Met Louis at [facility]. Lied together for3 years and the got 30 years ago. He was born in [place] His father was in [employer]. [place] 18 Speaks [place] Parents Has a brother and a sister who lives in [place] and a ecuadorean . 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 Good health Type 2 diabetic on metformin Exercises regularly Moved to [facility] in 1975 . Moved to in 2019 She followed in January and living in a rental house in [facility] to buy a house. Have 2 daughters: Kd Mckeon 29 yr single Masters in Public Health from [address]. Working as coordinator for [employer] in [facility] Lives with boyfriend Ahmet Obi Mckeon 25 yrs Studying at [employer] in [employer] Living in apt[place] other girls MARITAL HX: Met Louis at [facility]. Lied together for3 years and the got 30 years ago. He was born in [place] His father was in [employer]. [place] 18 Speaks [place] Parents Has a brother and a sister who lives in [place] and a ecuadorean . 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 Good health Type 2 diabetic on metformin Exercises regularly Moved to [facility] in 1975 . Moved to in 2019 She followed in January and living in a rental house in [facility] to buy a house. Have 2 daughters: Kd Mckeon 29 yr single Masters in Public Health from [address]. Working as coordinator for [employer] in [facility] Lives with boyfriend Ahmet Obi Mckeon 25 yrs Studying at [employer] BA in Communications Living in [place] other girls MARITAL HX: Met Louis at [facility]. Lied together for3 years and the got 30 years ago. He was born in [place] His father was in [facility] [employer]. [place] 18 Speaks [place] Parents Has a brother and a sister who lives in [place] and a ecuadorean . 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 Good health Type 2 diabetic on metformin Exercises regularly Moved to [facility] in 1975 . Moved to in 2019 She followed in January and living in a rental house in [facility] to buy a house. Have 2 daughters: Kd Mckeon 29 yr single Masters in Public Health from [address]. Working as coordinator for [employer] in [facility] Lives with boyfriend Ahmet Obi Mckeon 25 yrs Studying at [employer] in [place] Living in apt[place] other girls MARITAL HX: Met Louis at [facility]. Lied together for3 years and the got 30 years ago. He was born in [place] His father was in [employer]. [place] 18 Speaks [place] Parents Has a brother and a sister who lives in [place] and a ecuadorean . 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 Good health Type 2 diabetic on metformin Exercises regularly Moved to [facility] in 1975 . Moved to in 2019 She followed in January and living in a rental house in [facility] to buy a house. Have 2 daughters: Kd Mckeon 29 yr single Masters in Public Health from [address] Working as coordinator for [employer] in [facility] Lives with boyfriend Ahmet Obi Mckeon 25 yrs Studying at [employer] in [place] [facility]. MARITAL HX: Met Louis at [facility]. Lied together for3 years and the got 30 years ago. He was born in [place] His father was in [employer]. [place] 18 Speaks ecu[place] Parents Has a brother and a sister who lives in [place] and a ecuadorean . 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 Good health Type 2 diabetic on metformin Exercises regularly Moved to [facility] in 1975 . Moved to in 2019 She followed in January and living in a rental house in [facility] to buy a house. Have 2 daughters: Kd Mckeon 29 yr single Masters in Public Health from [address] Working as coordinator for [employer] in [facility] Lives with boyfriend Ahmet Obi Mckeon 25 yrs Studying at [employer] in [place] Living in apt[place] other girls MARITAL HX: Met Louis at [facility]. Lied together for3 years and the got 30 years ago. He was born in [place] His father was in [employer]. L[place] 18 Speaks [place] Parents Has a brother and a sister who lives in [place] and a ecuadorean . 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 Good health Type 2 diabetic on metformin Exercises regularly Moved to [facility] in 1975 . Moved to in 2019 She followed in January and living in a rental house in [facility] to buy a house. Have 2 daughters: Kd Mckeon 29 yr single Masters in Public Health from [address] Working as coordinator for [employer] in [facility] Lives with boyfriend Ahmet Obi Mckeon 25 yrs Studying at [employer] BA in [place] [employer] [facility]. MARITAL HX: Met Louis at [facility]. Lied together for3 years and the got 30 years ago. He was born in [place] His father was in [employer]. Lived in [facility] till age 18 Speaks ecu[place] Parents Has a brother and a sister who lives in [place] and a ecuadorean . 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 Good health Type 2 diabetic on metformin Exercises regularly Moved to [facility] in 1975 . Moved to in 2019 She followed in January and living in a rental house in [facility] to buy a house. Have 2 daughters: Kd Mckeon 29 yr single Masters in Public Health from [address] Working as coordinator for [employer] in [facility] Lives with boyfriend Ahmet Obi Mike 25 yrs Studying at [employer] BA in [place] [employer] Living in apt[place] other girls. MARITAL HX: Met Louis at [facility]. Lied together for3 years and the got 30 years ago. He was born in [place] His father was in [employer]. Lived [place] age 18 Speaks [place] Parents Has a brother and a sister who lives in [place] and a [place] . 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 Good health Type 2 diabetic on metformin Exercises regularly Moved to [facility] in 1975 . Moved to in 2019 She followed in January and living in a rental house in [facility] to buy a house. Have 2 daughters: Kd Mckeon 29 yr single Masters in Public Health from [address] Working as coordinator for [employer] in [facility] Lives with boyfriend Ahmet Obi Mckeon 25 yrs Studying at [employer] in [place] Living in apt[place] other girls MARITAL HX: Met Louis at [facility]. Lied together for3 years and the got 30 years ago. He was born in [place] His father was in [employer]. [place] 18 Speaks [place] Parents Has a brother and a sister who lives in [place] and a ecu[place]orean . 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 Good health Type 2 diabetic on metformin Exercises regularly Moved to [facility] in 1975 . Moved to in 2019 She followed in January and living in a rental house in [facility] to buy a house. Have 2 daughters: Kd Mckeon 29 yr single Masters in Public Health from [address] Working as coordinator for [employer] in [facility] Lives with boyfriend Ahmet Obi Mckeon 25 yrs Studying at [employer] in [place] Living in apt[place] other girls MARITAL HX: Met Louis at [facility]. Lied together for3 years and the got 30 years ago. He was born in [place] His father was in [employer]. [place] 18 Speaks ecu[place] Parents Has a brother and a sister who lives in [place] and a ecu[place] . 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 Good health Type 2 diabetic on metformin Exercises regularly Moved to [facility] in 1975 . Moved to in 2019 She followed in January and living in a rental house in [facility] to buy a house. Have 2 daughters: Kd Mckeon 29 yr single Masters in Public Health from [address] Working as coordinator for [employer] in [facility] Lives with boyfriend Ahmet Obi Mckeon 25 yrs Studying at [employer] in [place] Living in apt[place] other girls MARITAL HX: Met Louis at [facility]. Lied together for3 years and the got 30 years ago. He was born in [place] His father was in [employer]. [place] 18 Speaks [place] Parents Has a brother and a sister who lives in [place] and a [place] . 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 Good health Type 2 diabetic on metformin Exercises regularly Moved to [facility] in 1975 . Moved to in 2019 She followed in January and living in a rental house in [facility] to buy a house. Have 2 daughters: Kd Mckeon 29 yr single Masters in Public Health from [address] Working as coordinator for [employer] in [facility] Lives with boyfriend Ahmet Obi Mckeon 25 yrs Studying at [employer] BA in [place] [employer] Living in apt[place] other girls MARITAL HX: Met Louis at [facility]. Lied together for3 years and the got 30 years ago. He was born in [place] His father was in [facility] [employer]. [place] 18 Speaks [place] Parents Has a brother and a sister who lives in [place] and a [place] . 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 Good health Type 2 diabetic on metformin Exercises regularly Moved to [facility] in 1975 . Moved to in 2019 She followed in January and living in a rental house in [facility] to buy a house. Have 2 daughters: Kd Mckeon 29 yr single Masters in Public Health from [address] Working as coordinator for [employer] in [facility] Lives with boyfriend Ahmet Obi Mckeon 25 yrs Studying at [employer] BA in [place] [employer] Living in apt[place] other girls MARITAL HX: Met Louis at [facility]. Lied together for3 years and the got 30 years ago. He was born in [place] His father was in [facility] [employer]. [place] 18 Speaks [place] Parents Has a brother and a sister who lives in [place] and a [place] . 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 Good health Type 2 diabetic on metformin Exercises regularly Moved to [facility] in 1975 . Moved to in 2019 She followed in January and living in a rental house in [facility] to buy a house. Have 2 daughters: #Polly Mckeon 29 yr single Masters in Public Health from [address] Working as coordinator for [employer] in [place] Lives with boyfriend Ahmet #Shawnee Mckeon 25 yrs Studying at [employer] BA in Communications [facility] Problems Problem Type SNOMED Code ICD Code Onset Dates Problem Status W/U Status Risk Notes Problem Rosacea (731160910) Rosacea (695.3) Active confirmed Problem 238763098 Fibromyalgia (M79.7) Active confirmed Problem Screening for malignant neoplasm of breast (111003797) Encounter for screening mammogram for malignant neoplasm of breast (Z12.31) Active confirmed Problem 40137126 KADEEM (generalized anxiety disorder) (F41.1) Active confirmed Problem Rosacea (843546743) Rosacea (L71.9) Active confirmed 12/14/20 Was on chronic antibiotics. Told her to wait till she sees Dr aj on 01/17/21 Problem 02119927 Vitamin D deficiency (E55.9) Active confirmed 03/06/23 Will start on 50,000 units weekly for 3 months and 2000 units Problem Hyperlipidemia (65037868) Hyperlipidemia (E78.5) Active confirmed 03/21/21 started on [...] pain and bowel habit changes Problem Fatigue (45094114) Fatigue (R53.83) Active confirmed 08/19/23 Reassured her that she will get better Problem Rhinitis (78375800) Rhinitis (J31.0) Active confirmed Problem Urinary incontinence (740437362) Urinary incontinence (R32) Active confirmed 06/21/21 Started after her pelvic surgery Having incontinence now . Will refer to urogynecologist Problem 742916226 Acquired hypothyroidism (E03.9) Active confirmed Problem Sinusitis (66034824) Sinusitis (J32.9) Active confirmed 05/22/22 seasonal, ongoing over a week. will send azithromycin and prednisone which usually works for pt Problem Medication monitoring (106911081) Medication monitoring encounter (Z51.81) Active confirmed Will come every 2 months for medication review to monitor efficacy , pill count. 03/21/21 continues taking hydromorphone daily, will send in early prescription, pt going on vacation and will not be back until after the medication would run out. Problem Constipation by outlet obstruction (99487926) Constipation by outlet dysfunction (K59.02) Active confirmed Problem Postmenopausal (62884194) Postmenopausal (Z78.0) Active confirmed Getting hot flashes Feels hot all the time Will refer her to cloth printing inspector Dr Yovani adair at [facility] She wants to wait until the pandemic is over. 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) Active confirmed 12/14/20 Staes this is from the consequence of her chemotherapy Problem 717852522 Failed back syndrome of lumbar spine (M96.1) Active confirmed Problem Encounter for disability assessment (Z02.71) Active confirmed Problem 918719354602417 Moderate persistent reactive airway disease with acute exacerbation (J45.41) Active confirmed Will give medro l dose orquidea and refer to Dr Dinh Problem Lumbar radiculopathy (171626782) Lumbar back pain with radiculopathy affecting lower extremity (M54.16) Active confirmed Problem 955059210 Hx laparoscopic cholecystectomy (Z90.49) Active confirmed Problem Neurostimulator device in situ (finding) (838491304) Presence of neurostimulator (Z96.82) Active confirmed in lumbar regio n for pain. [employer] will refer to [facility], dr shaheed jama, he works with this Problem 01671173 Muscular deconditioning (R29.898) Active confirmed Following her chemotherapy Feels very week Wants PT program only after risk ov Covid is over Problem 121200959 Pain syndrome, chronic (G89.4) Active confirmed on hydromorphone. Back pain getting worse. Mobility decreased Has an imbedded neurostimulator put in 2019 in [place]. Will get MRI and refer 01/22/22 MRI [...] Shaheed Jama to see her cary. 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) Active confirmed Problem Uncomplicated moderate persistent asthma (247321737) Moderate persistent reactive airway disease without complication (J45.40) Active confirmed Problem 682459735 Hx of hysterectomy (Z90.710) Active confirmed Problem 979610312 Varicose eczema (I83.10) Active confirmed Will refer to [facility] for evaluation Problem Degeneration of lumbar intervertebral disc (37377901) Degenerative disc disease, lumbar (M51.36) Active confirmed Problem Neurogenic claudication (806424419) Lumbar stenosis with neurogenic claudication (M48.062) Active confirmed Problem 633221430 COVID (U07.1) Active confirmed 08/15/23 Had Vaccine and 1 booster Tested positive last night Has laryngitis, sinus symptoms Will send Saumyalovimiguel and Cherelle Gibbons. 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 Now gets constipation. Fibromyalgia/Chronic Fatigue Syndrome. Had weakness and somnolence for many years Had seen bow machine operator, sleep specialists and neurologist and this diagnoses was affixed Reactive Airway Disease , Gets sneezing, cough and wheezing with change in season, Went to [facility] ED 2 weeks ago and given QVar, Montelukast and oral prednisone with tapered dose Reactive Airway Disease/Neftaly rgies Gets sneezing, cough , wheezing with season changes, Went to [facility] 2 weeks ago and received treatment [...] hardware by Dr Kevin Burr, neurosurgeon at [facility] in [place] in 2004. Had relief from pain for [...] on agressive chemo/adjuvant therapy protocol given by [facility] in [place]. Told she had very slim chances of survival. Had 18 months of treatment and hospitalized twice for neutropenic fever. 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 Had received blood transfusions and blood products during the treatment. Told she may get relapse and it is a miracle that she is still alive! Medical Disability. 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 [...] only. [address] Mcintyre [facility] 2018 Chest Ports. 2 placed for chemo Removed 2009 2006 [place] brain, For chemotherapy Still in situ 2006 Breast biopsies x3 2006
--- OUTSIDE RECORDS SUMMARY | 2024-12-17 15:36 | XMS_ITS | Clinical Summary ---
Author Organization [facility] it Address [address] [place] [address] Care Team Providers Care Assembly Machine Feeder Name Role Phone David Britton MD Primary Care Provider [phone] Encounters Date Type Department Care Team Description 10/22/2024 Telephone Gastroenterology - [address] [place] [address] Maame Razo MA from Last 3 Months Surgical History Surgery Date Site/Laterality Comments PARTIAL HYSTERECTOMY 2014 PROCEDURE: WI SUPRACERVICAL ABDL HYSTER W/WO RMVL TUBE OVARY CHOLECYSTECTOMY PROCEDURE: WI LAPAROSCOPY SURG CHOLECYSTECTOMY OTHER SURGICAL HISTORY 2012 PROCEDURE: HISTORY OTHER; COMMENT: Shpincteroplasty with perineum reconstruction OTHER SURGICAL HISTORY 2014 PROCEDURE: HISTORY OTHER; COMMENT: supracervical hysterectomy, BSO, reduciton of perineum, vaginal reconstruction, enterocele repair OTHER SURGICAL HISTORY 2018 PROCEDURE: WI OPEN IMPLANTATION SHARON SACRAL NERVE OTHER SURGICAL [...] Procedure Name Priority Date/Time Associated Diagnosis Comments [facility] SCREENING DIGITAL Routine 05/07/2022 11:31 AM EDT Encounter for screening mammogram for malignant neoplasm of breast from Last 3 Months or Most Recently Relevant to Health Maintenance Results * [facility] SCREENING [facility] (05/07/2022 11:31 AM EDT) Anatomical Region Laterality Modality Mammography 05/02/2022 1:26 PM EDT Narrative 05/07/2022 11:31 AM EDT [facility] Diagnostic Imaging Department [address] [place], [place] [id number] Patient: ??MAGGIE MCKEON ?/Age/Sex: 1960 - 61 - F Unit#: ??[id number] ? Location/Status: ??SPDIMAM/REG CLI ? Mnemonic/Ordering Site: ??DIGSC/SPMAM Ordering Physician: ??DAVID BRITTON MD [facility] Screening Digital - 05/02/22 - 1469 INDICATION: SCREENING COMPARISON: No prior studies are available for comparison. TECHNIQUE: CC and MLO views of the breasts were obtained, using full field digital mammography with 3D tomosynthesis views in the MLO projection. XCCL views of each breast were obtained. Computer aided detection with the Chegg 7.2-H was employed. FINDINGS: The breasts contain [...] additional imaging evaluation. 3340F, 7025F (G0202 / 70272) , ??[id number] Dictating Physician: ??VISHNU MORALES MD Electronically Signed by: ??VISHNU MORALES MD Dic Date/Time: ??05/07/22 1126 Sign date/Time: ??05/07/22 1131 Procedure Note Vishnu Morales MD - 10/17/2022 [facility] Diagnostic Imaging Department [address] [place] [id number] Patient: MAGGIE MCKEON /Age/Sex: 1960 - 61 - F Unit#: [id number] Location/Status: SPDIMA/REG CLI Mnemonic/Ordering Site: [facility] Ordering Physician: DAVID BRITTON MD [facility] Screening Digital - 05/02/22 - 1456 INDICATION: SCREENING COMPARISON: No prior studies are available for comparison. TECHNIQUE: CC and MLO views of the breasts were obtained, using full field digital mammography with 3D tomosynthesis views in the MLO projection. XCCL viewsof each breast were obtained. Computer aided detection with the Chegg 7.2-H was employed. FINDINGS: The breasts contain [...] needs additional imaging evaluation.3340F, 7025F (G0202 / 87730) , [id number] Dictating Physician: VISHNU MORALES MD Electronically Signed by: VISHNU MORALES MD Dic Date/Time: 05/07/22 1126 Sign date/Time: 05/07/22 1131 David Britton MD IMG BI PROCEDURES Final Result from Last 3 Months or Most Recently Relevant to Health Maintenance Care Teams Assembly Machine Feeder Relationship Specialty Start Date End Date David Britton MD PCP - General Internal Medicine 02/23/21
--- OUTSIDE RECORDS SUMMARY | 2024-12-17 15:37 | XMS_ITS | Clinical Summary ---
Author Organization [facility] Address [address] [place] [address] Care Team Providers Care Assistant Media Buyer Name Role Phone David Britton MD Primary Care Provider [phone] Allergies Active Allergy Reactions Criticality Noted Date [...] age to complete this topic Care Teams Assistant Media Buyer Relationship Specialty Start Date End Date David Britton MD PCP - General Internal Medicine 02/26/22
--- OUTSIDE RECORDS SUMMARY | 2024-12-17 15:37 | XMS_ITS | Continuity of Care Document ---
Author Organization [facility] Address [address] [place] [address] Phone Care Team Providers Care Transitional Care Liaison Name Role Phone Krystin Monge Unavailable Unavailable [...] Problems Procedures Procedure Date Offic/outpt E&m Estab [facility] 2 15 Offic/outpt E&m Estab [facility] 2 15 Offic/outpt E&m Estab [facility] 2 15 Offic/outpt E&m Estab [facility] 2 15 Offic/outpt E&m Estab Low-mod 5 Offic/outpt E&m Estab Low-mod 5 Offic/outpt E&m Estab [facility] 2 14 Offic/outpt E&m Estab [facility] 2 14 Init Preven Meds E&m New [...] Diagnoses Date Provider Providers Copied on Encounter [facility], [address], [place], [place], [address], [place] tel:[phone] VALENTIN Monge MD [facility] No Information [address] Lutter Krystin. [address] [facility], [address], [place], [place], [address] , [place]. tel:[phone] Offic/outpt E&m Estab Mod-hi 2 [facility], [address], [place], [place], [address], [place] tel:[phone] VALENTIN Monge MD [facility] menopausal symptoms (chief complaint) ClimactericFatigue InsomniaVitamin D deficiency 5 Lutter Krystin. [address], [address], [place], [place], [address] , [place]. tel:[phone] Offic/outpt E&m Estab Mod-hi 2 [facility], [address], [place], [place], [address], [place] tel:[phone] VALENTIN Monge MD [facility] menopausal symptoms (chief complaint) ClimactericInsomni a 5 [address]utter Krystin. [address], [address], [place], [place], [address] , [place]. tel:[phone] [facility], [address], [place], [place], [address], [place] tel:[phone] VALENTIN PALM No Information [address]rystin. [address], [address], [place], [place], [address] , [place]. tel:[phone] Offic/outpt E&m Estab Low-mod [facility], [address], [place], [place], [address], [place] tel:[phone] VALENTIN PALM menopausal symptoms (chief complaint) ClimactericVitamin D deficiency 5 Mariposa Mcclelland. [address], [facility] [address], [place], [place], [address] , . tel:[phone] Offic/outpt E&m Estab Mod-hi 2 [facility], [address], [place], [place], [address], tel:[phone] VALENTIN PALM menopausal symptoms (chief complaint) ClimactericVitamin D deficiencyFatigue 4 Mariposa Mcclelland. [address], [address], [place], [place], [address] , [place]. tel:[phone] Init Preven Meds E&m New Pt; 40-64 [facility], [address], [place], [place], [address], tel:[phone] VALENTIN PLAM annual exam (chief complaint)M enopausal symptoms (chief complaint) ROUTINE PAVING BLOCK CUTTER EXAMINATION Jun- 4 Bakarier Krystin. [address], [facility] [address], [place], [place], [address] , [place]. tel:[phone] [facility], [address], [place], [place], [address], tel:[phone] VALENTIN PALM No Information Sep-0 4 Luroberter Krystin. [address], [address], [place], [place], [address] , [place]. tel:[phone] Family History Family Member Type Diagnosis Age At Onset Maternal grandmother Problem (finding) hypercholestero lemia Father Problem (finding) hypertension Paternal grandmother Problem (finding) hypertension Payers Payer name Insurance type Covered democrat ID Authordoron murilloalberto(s) Xenia JUSTINOO BL [id number] Social History Type Description Quantity Date Captured [...] (comments) Gillian chau is a 54 yo [id number] WF, here for a follow-up on her [...] (comments) Gillian chau is a 54 yo [id number] WF, here for a follow-up visit on [...] (comments) S he is a 53 yo [id number] WF, here for follow-up from her complex [...] followed by her PCP, Dr. Mcdaniels at [facility]. Menopausal symptoms annual exam : 5. [...] exam (comments) Pt. is a 53 yo [id number] WF, here for a new patient annual [...] to Fatigue Menopause Related to ROUTI NE PAVING BLOCK CUTTER EXAMINATION Perform self breast exam Related to ROUTINE PAVING BLOCK CUTTER EXAMINATION Calcium supplementation Related to ROUTINE PAVING BLOCK CUTTER EXAMINATION Kegel exercises Related to ROUTI NE PAVING BLOCK CUTTER EXAMINATION Discussed Diet and exercise Rela tasha to ROUTINE PAVING BLOCK CUTTER EXAMINATION Assessments Type Assessment Date No Information Patient Care Teams Name Effective Dates (start - stop) Status Members No Information
[2024-12-18 15:03] LABS: H Pylori Breath Test Negative (Negative)
== END 2024-12-17 13:35 | disposition home or self-care (01) ==
LOC: HO.LNP 13:34
PROVIDERS: PCP Hospitalist; Visit Provider Nurse Practitioner Family
DX: K29.60 Other gastritis without bleeding (principal)
CPT/HCPCS: 83013; 99211

== ENCOUNTER 2024-12-17 13:34 | Outpatient (AMB) | payer MEDICARE, OTHER, SELFPAY ==
--- NOTE | 2024-12-17 14:07 | AM.OFFVISNUR ---
Intake Visit Reasons: H Pylori Breath Test Allergies shellfish derived Allergy (Severe, Verified 12/16/24 09:45) Anaphylaxis codeine Adverse Reaction (Mild, Verified 12/16/24 09:45) Anxiety fentanyl patch Allergy (Intermediate, Uncoded 12/25/23 14:01) Redness of Skin Nursing Note Patient presents for collection of H Pylori breath test. Patient has been fasting for 1 hour (nothing to eat, drink, no chewing gum or smoking) has not taken any antacid medication for at least 2 weeks and has no allergies to artificial sweeteners.?? Assessment & Plan Assessment & Plan (1) Reflux gastritis: Code(s): K29.60 - Other gastritis without bleeding Category: Medical Plan Patient presents for collection of H Pylori breath test. Patient has been fasting for 1 hour (nothing to eat, drink, no chewing gum or smoking) has not taken any antacid medication for at least 2 weeks and has no allergies to artificial sweeteners.???This test checks for an overgrowth of bacteria in your stomach. We all have bacteria but some may have more than others. It is treatable. if the test comes back negative there is nothing else to do. If the test result is positive we will treat you with 2 antibiotics and a medication to decrease the acid in your stomach (PPI) for 2 weeks. Two weeks after you have completed the treatment we will retest you to make sure the overgrowth has resolved Patient Instructions: Process for specimen collection and reason for testing was explained to the patient. Specimen collection. Patient instructed to take a deep breath and then exhale into the blue bag, filling it up as much as possible. Patient instructed to drink a mixture of water and the artificial sweetener with a straw. A 15 minute wait period was observed. Patient instructed to take a deep breath and then exhale into the pink bag, filling it up as much as possible.?? Coding Level of Care Code Established Pt Est Pt Level 1 (31431) Patient Type Established Medical Decision Making Straight Forward Diagnoses Reflux gastritis K29.60
--- OUTSIDE RECORDS SUMMARY | 2024-12-17 14:31 | XMS_ITS ---
Author Organization [facility] Address [address] [place] [address] Care Team Providers Care Welder Fitter Apprentice Name Role Phone DAVID BRITTON Primary Care Provider David Britton Unavailable [phone] Medications Medication SIG (Take, Route, Fr equency, Duration) Notes Start Date End Date Status clonazePAM 1 MG 1 tablet Orally Twic e a day for 60 days 10/26/2023 Active Encounters Encounter Location Date Provider Diagnosis [facility] [address] [place] [address] 10/26/2023 DAVID BRITTON Plan Of Treatment Medication Medication Name Sig Start Date Stop Date Notes clonazePAM 1 MG 1 tablet Orally Twice a day for 60 days Progress Notes * MIKE MaryiDOB:1960 (63 yo F)Acc No.[id number]:10/26/2023 Patient:?Mary MCKEONi :1960???Age:63 Y???Sex:Female Address:[address] [place], [address] * Refills? Refill clonazePAM Tablet, 1 MG, Orally, 120, 1 tablet, Twice a day, 60 days, Refills=2 * true * Date:? Generated for Printi ng/Fataneshag/eTransmitting on:?12/17/2024 02:31 PM EST
--- OUTSIDE RECORDS SUMMARY | 2024-12-17 14:31 | XMS_ITS | Encounter Summary ---
Author Organization [facility] Address [address] [place] [address] Care Team Providers Care Engraving Plate Maker Name Role Phone David Britton MD Primary Care Provider [phone] Encounter Details Date Type Department Care Team (Late st Contact Info) Description 10/22/2024 Telephone Gastroenterology - [address] [place] [address] Maame Razo [place] Social History [...] BE SCHEDULED DUE TO THE INSURANCE BEING FOR[facility]LY [facility]. documented in this encounter Plan of Treatment Not on file documented as of this encounter Visit Diagnoses Not on filedocumented in this encounter Care Teams Engraving Plate Maker Relationship Specialty Start Date End Date David Britton MD PCP - General Internal Medicine 02/23/21 documented as of this encounter
--- OUTSIDE RECORDS SUMMARY | 2024-12-17 14:31 | XMS_ITS | Patient Health Record ---
Author Organization [facility] [place] [facility], [facility] Address [address] [place] [address] Care Team Providers Care Groundwater Monitoring Technician Name Role Phone Rohan Dowell Unavailable [phone] Arslan BRICE, Sarah Unavailable Unavailable Allergies Allergen [...] Status Risk Notes Problem Carpal tunnel syndrome (95980663) Carpal tunnel syndrome, right upper limb (G56.01) Active confirmed Problem Arthralgia of the pelvic region and thigh (994338605) Pain in right hip (M25.551) Active confirmed Problem Solitary sacroiliitis (575188941) Sacroiliitis, not elsewhere classified (M46.1) Active confirmed Problem Lumbosacral spondylosis without myelopathy (08425732) Spondylosis without myelopathy or radiculopathy, lumbar region (M47.816) Active confirmed Problem Spinal stenosis of lumbar region (92524053) Spinal stenosis, lumbar region (M48.06) Active confirmed Problem Fibromyalgia (418613325) Fibromyalgia (M79.7) Active confirmed Problem Post-laminectomy syndrome (03072514) Postlaminectomy syndrome, not elsewhere classified (M96.1) Active confirmed Problem Neurogenic claudication (544067103) Spinal stenosis, lumbar region with neurogenic claudication (M48.062) Active confirmed Plan Of Treatment No Information Insurance Providers Payer Name Payer Address Payer Phone Subscriber Number Group Number Insured Name Patient Relationship to Insured Coverage Start Date Coverage End Date [employer] [place] [employer] Advantage PPO [address] [place] [phone] [id number] Kia Mckeon Self - patient is the [...]
--- OUTSIDE RECORDS SUMMARY | 2024-12-17 14:32 | XMS_ITS ---
Author Organization [facility], [facility] Address [address] [place] [id number] Care Team Providers Care Pharmacy Coordinator Name Role Phone TC HAHN Primary Care Provider [phone] MARTITA DARNELL Unavailable [phone] REASON FOR VISIT f/u MEDICATIONS Medication SIG [...] Active Encounters Encounter Location Date Provider Diagnosis [address] [id number] 11/19/2024 MARTITA DARNELL GERD without esophagitis K21.9 [...] Details Provider Name:MARTITA Robb, 01/06/2025 02:15:00 PM, [address] [place] [address], [phone], Progress Notes * STONE SANDERSIDOB:1960 (64 yo F)Acc No.[id number]:11/19/2024 Patient:??MAGGIE SANDERS :1960?Age:64 Y?Sex:Fe male Phone: Address:[address] [place] [address] , [place] [address] * Refills?? Refill Buprenorphine Patch Weekly, 7.5 [...]
--- OUTSIDE RECORDS SUMMARY | 2024-12-17 14:32 | XMS_ITS | Patient Health Record ---
Author Organization [facility] [employer] [facility] Address 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 Patrol Police Officer Name Role Phone TOM MORALES Primary Care Provider Allergies Allergen (clinical drug ingredient) Drug/Non Drug Allergy documented on EMR Reaction Allergy Type Onset Date Status codeine Codeine hives Drug Allergy Active Shellfish (FN) Shellfish-derived Products anaphylaxis Drug Allergy Active Reason For Referral Reason Burkitt lymphoma- Dr Frazier Referral Organization [facility] Referring Provider First Name ANDREW Referring Provider Last Name [facility] Referring Provider Speciality Internal M edicine Referred Provider Specialty Hematology Referral Priority Routine Reason narcolepsy without c ataplexy- Dr Dinh Referral Organization [facility] Referring Provider First Name ANDREW Referring Provider Last Name [facility] Referring Provider Speciality Internal edicine Referred Provider [...] Status W/U Status Risk Notes Problem Hypothyroidism (11340708) Hypothyroidism, unspecified (E03.9) Active confirmed Problem Vitamin D deficiency (14447499) Vitamin D deficiency, unspecified (E55.9) Active confirmed Problem Mixed hyperlipidemia (194070440) Mixed hyperlipidemia (E78.2) Active confirmed Problem Generalized anxiety disorder (91310721) Generalized anxiety disorder (F41.1) Active confirmed Problem Narcolepsy without cataplexy (20381165493412) 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) Active confirmed Problem Chronic pain syndrome (008500311) Chronic pain syndrome (G89.4) Active confirmed Problem Mild intermittent asthma (813523957) Mild intermittent asthma, uncomplicated (J45.20) Active confirmed Problem Gastro-esophageal reflux disease without esophagitis (854984604) Gastro-esophageal reflux disease without esophagitis (K21.9) Active confirmed Problem Degeneration of thoracolumbar intervertebral disc (51650518) Other intervertebral disc degeneration, thoracolumbar region (M51.35) Active confirmed Problem Fibromyalgia (716928340) Fibromyalgia (M79.7) Active confirmed Vital Signs Heart Rate 112 /min 12/10/2024 Temperature 97.8 degrees Fahrenheit 12/10/2024 Blood pressure diastolic 100 mm Hg 12/10/2024 Oximetry 97 % 12/10/2024 Height 5'5'' in 12/10/2024 Blood pressure systolic 150 mm Hg 12/10/2024 Weight 185.1 lbs 12/10/2024 BMI 30.8 kg/m2 12/10/2024 Encounters Encounter Location Date Provider Diagnosis [address] [address] 12/10/2024 MORALES GUL Mixed hyperlipidemia E78.2 ; [...] syndrome currently on Suboxone and gabapentin through [facility], generalized anxiety disorder/depression /insomnia, narcolepsy without cataplexy, mixed hyperlipidemia, GERD, hypothyroidism, mild intermittent asthma, vitamin D deficiency, constipation is here to establish care. Plan is as Burkitt's lymphoma. According to the patient diagnosed in 2006 with stage IV/metastatic Burkitt's lymphoma especially in the spine. She have Port in scalp for chemotherapy or CSF. She is not seen hematology oncology at [facility] but no records were found at [...] going to have intake with GI at [facility] for upper endoscopy and colonoscopy in the next few weeks Generalized anxiety disorder/depression . She is stable at this point on duloxetine 60 mg 1 tablet daily, bupropion ER 300 mg 1 tablet daily and she is also on Klonopin 1 mg. Chronic constipation. Most likely secondary to opioid use. Advised to use dhkn-dum-knrqhfo Metamucil/:/MiraLAX and she can also use prunes, [...] prolapse. She will make appointment with your operations and maintenance specialist at [facility]. She has seen them before. She will need referral to a operations and maintenance specialist. She had mammogram done roughly 2 years [...] syndrome currently on Suboxone and gabapentin through [facility], generalized anxiety disorder/depression /insomnia, narcolepsy without cataplexy, mixed hyperlipidemia, GERD, hypothyroidism, mild intermittent asthma, vitamin D deficiency, constipation is here to establish care. Plan is as Burkitt's lymphoma. According to the patient diagnosed in 2006 with stage IV/metastatic Burkitt's lymphoma especially in the spine. She have Port in scalp for chemotherapy or CSF. She is not seen hematology oncology at [facility] but no records were found at [...] going to have intake with GI at [facility] for upper endoscopy and colonoscopy in the next few weeks Generalized anxiety disorder/depression . She is stable at this point on duloxetine 60 mg 1 tablet daily, bupropion ER 300 mg 1 tablet daily and she is also on Klonopin 1 mg. Chronic constipation. Most likely secondary to opioid use. Advised to use zdof-duz-areusmx Metamucil/:/MiraLAX and she can also use prunes, [...] prolapse. She will make appointment with your operations and maintenance specialist at [facility]. She has seen them before. She will need referral to a operations and maintenance specialist. She had mammogram done roughly 2 years [...] syndrome currently on Suboxone and gabapentin through [facility], generalized anxiety disorder/depression /insomnia, narcolepsy without cataplexy, mixed hyperlipidemia, GERD, hypothyroidism, mild intermittent asthma, vitamin D deficiency, constipation is here to establish care. Plan is as Burkitt's lymphoma. According to the patient diagnosed in 2006 with stage IV/metastatic Burkitt's lymphoma especially in the spine. She have Port in scalp for chemotherapy or CSF. She is not seen hematology oncology at [facility] but no records were found at [...] going to have intake with GI at [facility] for upper endoscopy and colonoscopy in the next few weeks Generalized anxiety disorder/depression . She is stable at this point on duloxetine 60 mg 1 tablet daily, bupropion ER 300 mg 1 tablet daily and she is also on Klonopin 1 mg. Chronic constipation. Most likely secondary to opioid use. Advised to use nkvk-ybo-nvhwumj Metamucil/:/MiraLAX and she can also use prunes, [...] prolapse. She will make appointment with your operations and maintenance specialist at [facility]. She has seen them before. She will need referral to a operations and maintenance specialist. She had mammogram done roughly 2 years [...] syndrome currently on Suboxone and gabapentin through [facility], generalized anxiety disorder/depression /insomnia, narcolepsy without cataplexy, mixed hyperlipidemia, GERD, hypothyroidism, mild intermittent asthma, vitamin D deficiency, constipation is here to establish care. Plan is as Burkitt's lymphoma. According to the patient diagnosed in 2006 with stage IV/metastatic Burkitt's lymphoma especially in the spine. She have Port in scalp for chemotherapy or CSF. She is not seen hematology oncology at [facility] but no records were found at [...] going to have intake with GI at [facility] for upper endoscopy and colonoscopy in the next few weeks Generalized anxiety disorder/depression . She is stable at this point on duloxetine 60 mg 1 tablet daily, bupropion ER 300 mg 1 tablet daily and she is also on Klonopin 1 mg. Chronic constipation. Most likely secondary to opioid use. Advised to use cxue-rej-lerwhcb Metamucil/:/MiraLAX and she can also use prunes, [...] prolapse. She will make appointment with your operations and maintenance specialist at [facility]. She has seen them before. She will need referral to a operations and maintenance specialist. She had mammogram done roughly 2 years [...] syndrome currently on Suboxone and gabapentin through [facility], generalized anxiety disorder/depression /insomnia, narcolepsy without cataplexy, mixed hyperlipidemia, GERD, hypothyroidism, mild intermittent asthma, vitamin D deficiency, constipation is here to establish care. Plan is as Burkitt's lymphoma. According to the patient diagnosed in 2006 with stage IV/metastatic Burkitt's lymphoma especially in the spine. She have Port in scalp for chemotherapy or CSF. She is not seen hematology oncology at [facility] but no records were found at [...] going to have intake with GI at [facility] for upper endoscopy and colonoscopy in the next few weeks Generalized anxiety disorder/depression . She is stable at this point on duloxetine 60 mg 1 tablet daily, bupropion ER 300 mg 1 tablet daily and she is also on Klonopin 1 mg. Chronic constipation. Most likely secondary to opioid use. Advised to use ssac-zuk-oieijts Metamucil/:/MiraLAX and she can also use prunes, [...] prolapse. She will make appointment with your operations and maintenance specialist at [facility]. She has seen them before. She will need referral to a operations and maintenance specialist. She had mammogram done roughly 2 years [...] syndrome currently on Suboxone and gabapentin through [facility], generalized anxiety disorder/depression /insomnia, narcolepsy without cataplexy, mixed hyperlipidemia, GERD, hypothyroidism, mild intermittent asthma, vitamin D deficiency, constipation is here to establish care. Plan is as Burkitt's lymphoma. According to the patient diagnosed in 2006 with stage IV/metastatic Burkitt's lymphoma especially in the spine. She have Port in scalp for chemotherapy or CSF. She is not seen hematology oncology at [facility] but no records were found at [...] going to have intake with GI at [facility] for upper endoscopy and colonoscopy in the next few weeks Generalized anxiety disorder/depression . She is stable at this point on duloxetine 60 mg 1 tablet daily, bupropion ER 300 mg 1 tablet daily and she is also on Klonopin 1 mg. Chronic constipation. Most likely secondary to opioid use. Advised to use fhrh-fno-alhrbit Metamucil/:/MiraLAX and she can also use prunes, [...] prolapse. She will make appointment with your operations and maintenance specialist at [facility]. She has seen them before. She will need referral to a operations and maintenance specialist. She had mammogram done roughly 2 years [...] syndrome currently on Suboxone and gabapentin through [facility], generalized anxiety disorder/depression /insomnia, narcolepsy without cataplexy, mixed hyperlipidemia, GERD, hypothyroidism, mild intermittent asthma, vitamin D deficiency, constipation is here to establish care. Plan is as Burkitt's lymphoma. According to the patient diagnosed in 2006 with stage IV/metastatic Burkitt's lymphoma especially in the spine. She have Port in scalp for chemotherapy or CSF. She is not seen hematology oncology at [facility] but no records were found at [...] going to have intake with GI at [facility] for upper endoscopy and colonoscopy in the next few weeks Generalized anxiety disorder/depression . She is stable at this point on duloxetine 60 mg 1 tablet daily, bupropion ER 300 mg 1 tablet daily and she is also on Klonopin 1 mg. Chronic constipation. Most likely secondary to opioid use. Advised to use bfla-jsm-vzqpybs Metamucil/:/MiraLAX and she can also use prunes, [...] prolapse. She will make appointment with your operations and maintenance specialist at [facility]. She has seen them before. She will need referral to a operations and maintenance specialist. She had mammogram done roughly 2 years [...] syndrome currently on Suboxone and gabapentin through [facility], generalized anxiety disorder/depression /insomnia, narcolepsy without cataplexy, mixed hyperlipidemia, GERD, hypothyroidism, mild intermittent asthma, vitamin D deficiency, constipation is here to establish care. Plan is as Burkitt's lymphoma. According to the patient diagnosed in 2006 with stage IV/metastatic Burkitt's lymphoma especially in the spine. She have Port in scalp for chemotherapy or CSF. She is not seen hematology oncology at [facility] but no records were found at [...] going to have intake with GI at [facility] for upper endoscopy and colonoscopy in the next few weeks Generalized anxiety disorder/depression . She is stable at this point on duloxetine 60 mg 1 tablet daily, bupropion ER 300 mg 1 tablet daily and she is also on Klonopin 1 mg. Chronic constipation. Most likely secondary to opioid use. Advised to use dhrh-mrl-hcatuqf Metamucil/:/MiraLAX and she can also use prunes, [...] prolapse. She will make appointment with your operations and maintenance specialist at [facility]. She has seen them before. She will need referral to a operations and maintenance specialist. She had mammogram done roughly 2 years [...] syndrome currently on Suboxone and gabapentin through [facility], generalized anxiety disorder/depression /insomnia, narcolepsy without cataplexy, mixed hyperlipidemia, GERD, hypothyroidism, mild intermittent asthma, vitamin D deficiency, constipation is here to establish care. Plan is as Burkitt's lymphoma. According to the patient diagnosed in 2006 with stage IV/metastatic Burkitt's lymphoma especially in the spine. She have Port in scalp for chemotherapy or CSF. She is not seen hematology oncology at [facility] but no records were found at [...] going to have intake with GI at [facility] for upper endoscopy and colonoscopy in the next few weeks Generalized anxiety disorder/depression . She is stable at this point on duloxetine 60 mg 1 tablet daily, bupropion ER 300 mg 1 tablet daily and she is also on Klonopin 1 mg. Chronic constipation. Most likely secondary to opioid use. Advised to use rlec-nxj-alygpaf Metamucil/:/MiraLAX and she can also use prunes, [...] prolapse. She will make appointment with your operations and maintenance specialist at [facility]. She has seen them before. She will need referral to a operations and maintenance specialist. She had mammogram done roughly 2 years [...] syndrome currently on Suboxone and gabapentin through [facility], generalized anxiety disorder/depression /insomnia, narcolepsy without cataplexy, mixed hyperlipidemia, GERD, hypothyroidism, mild intermittent asthma, vitamin D deficiency, constipation is here to establish care. Plan is as Burkitt's lymphoma. According to the patient diagnosed in 2006 with stage IV/metastatic Burkitt's lymphoma especially in the spine. She have Port in scalp for chemotherapy or CSF. She is not seen hematology oncology at [facility] but no records were found at [...] going to have intake with GI at [facility] for upper endoscopy and colonoscopy in the next few weeks Generalized anxiety disorder/depression . She is stable at this point on duloxetine 60 mg 1 tablet daily, bupropion ER 300 mg 1 tablet daily and she is also on Klonopin 1 mg. Chronic constipation. Most likely secondary to opioid use. Advised to use rgbg-qus-tweouku Metamucil/:/MiraLAX and she can also use prunes, [...] prolapse. She will make appointment with your operations and maintenance specialist at [facility]. She has seen them before. She will need referral to a operations and maintenance specialist. She had mammogram done roughly 2 years [...] syndrome currently on Suboxone and gabapentin through [facility], generalized anxiety disorder/depression /insomnia, narcolepsy without cataplexy, mixed hyperlipidemia, GERD, hypothyroidism, mild intermittent asthma, vitamin D deficiency, constipation is here to establish care. Plan is as Burkitt's lymphoma. According to the patient diagnosed in 2006 with stage IV/metastatic Burkitt's lymphoma especially in the spine. She have Port in scalp for chemotherapy or CSF. She is not seen hematology oncology at [facility] but no records were found at [...] going to have intake with GI at [facility] for upper endoscopy and colonoscopy in the next few weeks Generalized anxiety disorder/depression . She is stable at this point on duloxetine 60 mg 1 tablet daily, bupropion ER 300 mg 1 tablet daily and she is also on Klonopin 1 mg. Chronic constipation. Most likely secondary to opioid use. Advised to use oewa-jud-cbfnhle Metamucil/:/MiraLAX and she can also use prunes, [...] prolapse. She will make appointment with your operations and maintenance specialist at [facility]. She has seen them before. She will need referral to a operations and maintenance specialist. She had mammogram done roughly 2 years [...] syndrome currently on Suboxone and gabapentin through [facility], generalized anxiety disorder/depression /insomnia, narcolepsy without cataplexy, mixed hyperlipidemia, GERD, hypothyroidism, mild intermittent asthma, vitamin D deficiency, constipation is here to establish care. Plan is as Burkitt's lymphoma. According to the patient diagnosed in 2006 with stage IV/metastatic Burkitt's lymphoma especially in the spine. She have Port in scalp for chemotherapy or CSF. She is not seen hematology oncology at [facility] but no records were found at [...] going to have intake with GI at [facility] for upper endoscopy and colonoscopy in the next few weeks Generalized anxiety disorder/depression . She is stable at this point on duloxetine 60 mg 1 tablet daily, bupropion ER 300 mg 1 tablet daily and she is also on Klonopin 1 mg. Chronic constipation. Most likely secondary to opioid use. Advised to use dozn-omk-srdwneq Metamucil/:/MiraLAX and she can also use prunes, [...] prolapse. She will make appointment with your operations and maintenance specialist at [facility]. She has seen them before. She will need referral to a operations and maintenance specialist. She had mammogram done roughly 2 years ago. 60 minutes spent with the patient reviewing her history, making a plan, documentation, referrals Plan Of Treatment Next Appt Details Provider Name:ANDREW SANTOS , 01/07/2025 10:30:00 AM, [address] [place] [address] [address], [place], [address], Insurance Providers Payer Name Payer Address Payer Phone Subscriber Number Group Number Insured Name Patient Relationship to Insured Coverage Start Date Coverage End Date [employer] [address] [place] [address] [id number] Kia Mckeon Self - patient is the insured 3 [employer] [address] [address] [place] [address] [id number] Kia Mckeon Self - patient is the [...]
--- OUTSIDE RECORDS SUMMARY | 2024-12-17 14:32 | XMS_ITS | Clinical Summary ---
Author Organization [facility] it Address [address] [place] [address] Care Team Providers Care Furniture Mover Name Role Phone David Britton MD Primary Care Provider [phone] Encounters Date Type Department Care Team Description 10/22/2024 Telephone Gastroenterology - [address] [place] [address] Maame Razo MA from Last 3 Months Surgical History Surgery Date Site/Laterality Comments PARTIAL HYSTERECTOMY 2014 PROCEDURE: MD SUPRACERVICAL ABDL HYSTER W/WO RMVL TUBE OVARY CHOLECYSTECTOMY PROCEDURE: MD LAPAROSCOPY SURG CHOLECYSTECTOMY OTHER SURGICAL HISTORY 2012 PROCEDURE: HISTORY OTHER; COMMENT: Shpincteroplasty with perineum reconstruction OTHER SURGICAL HISTORY 2014 PROCEDURE: HISTORY OTHER; COMMENT: supracervical hysterectomy, BSO, reduciton of perineum, vaginal reconstruction, enterocele repair OTHER SURGICAL HISTORY 2018 PROCEDURE: MD OPEN IMPLANTATION SHARON SACRAL NERVE OTHER SURGICAL [...] Procedure Name Priority Date/Time Associated Diagnosis Comments [facility] SCREEN[facility] DIGITAL Routine 05/07/2022 11:31 AM EDT Encounter for screening mammogram for malignant neoplasm of breast from Last 3 Months or Most Recently Relevant to Health Maintenance Results * [facility] SCRE[facility]ING [facility] (05/07/2022 11:31 AM EDT) Anatomical Region Laterality Modality Mammography 05/02/2022 1:26 PM EDT Narrative 05/07/2022 11:31 AM EDT [facility] Diagnostic Imaging Department [address] [place], [place] [id number] Patient: ??MAGGIE MCKEON ?/Age/Sex: 1960 - 61 - F Unit#: ??[id number] ? Location/Status: ??SPDIMAM/REG CLI ? Mnemonic/Ordering Site: ??DIGSC/SPMAM Ordering Physician: ??DAVID BRITTON MD [facility] Screening Digital - 05/02/22 - 1952 INDICATION: SCREENING COMPARISON: No prior studies are available for comparison. TECHNIQUE: CC and MLO views of the breasts were obtained, using full field digital mammography with 3D tomosynthesis views in the MLO projection. XCCL views of each breast were obtained. Computer aided detection with the [employer] 7.2-H was employed. FINDINGS: The breasts contain [...] additional imaging evaluation. 3340F, 7025F (G0202 / 95026) , ??[id number] Dictating Physician: ??VISHNU MORALES MD Electronically Signed by: ??VISHNU MORALES MD Dic Date/Time: ??05/07/22 1126 Sign date/Time: ??05/07/22 1131 Procedure Note Vishnu Morales MD - 10/17/2022 [facility] Diagnostic Imaging Department [address] [place] [id number] Patient: MAGGIE MCKEON /Age/Sex: 1960 - 61 - F Unit#: [id number] Location/Status: SPDIMA/REG CLI Mnemonic/Ordering Site: [facility] Ordering Physician: DAVID BRITTON MD [facility] Screening Digital - 05/02/22 - 1456 INDICATION: SCREENING COMPARISON: No prior studies are available for comparison. TECHNIQUE: CC and MLO views of the breasts were obtained, using full field digital mammography with 3D tomosynthesis views in the MLO projection. XCCL viewsof each breast were obtained. Computer aided detection with the [employer] 7.2-H was employed. FINDINGS: The breasts contain [...] needs additional imaging evaluation.3340F, 7025F (G0202 / 41546) , [id number] Dictating Physician: VISHNU MORALES MD Electronically Signed by: VISHNU MORALES MD Dic Date/Time: 05/07/22 1126 Sign date/Time: 05/07/22 1131 David Britton MD IMG BI PROCEDURES Final Result from Last 3 Months or Most Recently Relevant to Health Maintenance Care Teams Furniture Mover Relationship Specialty Start Date End Date David Britton MD PCP - General Internal Medicine 02/23/21
--- OUTSIDE RECORDS SUMMARY | 2024-12-17 14:33 | XMS_ITS ---
Author Organization [facility] Address [address] [place] [address] Care Team Providers Care Physiatrist Name Role Phone DAVID BRITTON Primary Care Provider David Britton Unavailable [phone] REASON FOR VISIT refill controlled Medications Medication SIG (Take, Route, Fr equency, Duration) Notes Start Date End Date Status clonazePAM 1 MG 1 tablet Orally Once a day for 30 days 10/17/2023 Active Encounters Encounter Location Date Provider Diagnosis [facility] [address] [place] [address] 10/16/2023 DAVID BRITTON Plan Of Treatment Medication Medication Name Sig Start Date Stop Date Notes clonazePAM 1 MG 1 tablet Orally Once a day for 30 days Progress Notes * Mary MCKEONiDOB:1960 (63 yo F)Acc No.[id number]:10/16/2023 Patient:?MikeMaryi :1960???Age:63 Y???Sex:Female Address:[address] [place], [address] * Refills? Refill clonazePAM Tablet, 1 MG, Orally, 30 Tablet, 1 tablet, Once a day, 30 days, Refills=2 * true * Date:? Generated for Printi ng/Fataneshag/eTransmitting on:?12/17/2024 02:32 PM EST
--- OUTSIDE RECORDS SUMMARY | 2024-12-17 14:33 | XMS_ITS | Patient Health Record ---
Author Organization [facility] Address [address] [place] [id number] Care Team Providers Care City Treasurer Name Role Phone TC HAHN Primary Care Provider MARTITA DARNELL Unavailable [phone] ALLERGIES Allergen (clinical drug ingredient) Drug/Non Drug Allergy documented on EMR Reaction Allergy Type Onset Date Status Shellfish (FN) Shell Fish (uncoded) anaphylaxis Allergy Active codeine Codeine Itchy, SOB Drug Allergy Active RESULTS Component Value Reference Range Notes CARDIO IQ(R) APOLIPOPROTEIN EVAL (23140) Reviewed date:08/26/2024 09:12:12 AM Interpretation: Performing Lab:[facility], [facility] [place] [address], [address], GwafdsvenXV[address] Matt Smalls PhD,[facility] Notes/Report: NON-FASTING; NON-FASTING; NON-FASTING; NON-FASTING; NON-FAST FASTING:YES FASTING: YES APOLIPOPROTEIN A1 163 >124 mg/dL Risk, Male: Optimal >= 115 mg/dL; High < 115 mg/dL; Risk, Female: Optimal >= 125 mg/dL; High <125 mg/dL; Cardiovascular event risk category cut points (optimal, high) are based on the AMORIS study Fausto G et al. J Dog Pound Attendant Med. 2004;255:188-205. APOLIPOPROTEIN B 120 <90 mg/dL Risk: Optimal <90 mg/dL; Moderate 90-119 mg/dL; High >= 120 mg/dL; Cardiovascular event risk category cut points (optimal, moderate, high) are based on National Lipid Association recommendations- Marlene TA et al. J of Clin Lipid. 2015; 9: 129-169 and Ari PS et al. Endocr Pract. 2017;23(Suppl 2):1-87. APOLIPOPROTEIN B/A1 RATIO 0.74 <0.63 Risk, Male: Optimal <0.77 mg/dL; Moderate 0.77-0.95 mg/dL; High >0.95 mg/dL; Risk, Female: Optimal <0.63 mg/dL; Moderate 0.63-0.78 mg/dL; High >0.78 mg/dL. Cardiovascular event risk category cut points (optimal, moderate, high) are based on the AMORIS study, Bruce G et al. J Dog Pound Attendant Med. 2004;255:188-205. CARDIO IQ(R) HEMOGLOBIN A1c (52305) Reviewed date:08/26/2024 09:12:12 AM Interpretation: Performing Lab:[place], [facility], [address], OzsiyajbwIW[address] Matt Smalls PhD,[facility] Notes/Report: NON-FASTING; NON-FASTING; NON-FASTING; NON-FASTING; NON-FAST FASTING:YES [...] diagnosis of diabetes in children. According to [place] Diabetes Association (ADA) guidelines, hemoglobin A1c <7.0% represents optimal control in non- diabetic patients. Different metrics may apply to specific patient populations. Standards of Medical Care in Diabetes (ADA). This test was performed on the Annamarie ciera c503 platform. Effective 12/31/2023, a change in test platforms from the [employer] Accounting Manager to the Annamarie ciera c503 may have shifted HbA1c results compared to historical results. Based on laboratory validation testing conducted at [facility], the Annamarie platform relative to the Marinelli platform had an average increase in HbA1c value of <=0.3%. This difference is within accepted variability established by the National Glycohemoglobin Standardization Program. Note that not all individuals will have had a shift in their results and direct comparisons between historical and current results for testing conducted on different platforms is not recommended. CARDIO IQ(R) HOMOCYSTEINE (9 1733) Reviewed date:08/26/2024 09:12:12 AM Interpretation: Performing Lab:[facility], [facility] [place] [address], [address], PumygcjcuNG[address] Matt Smalls PhD,[facility] Notes/Report: NON-FASTING; NON-FASTING; NON-FASTING; NON-FASTING; NON-FAST FASTING:YES FASTING: YES HOMOCYSTEINE 11.0 <10.4 umol/L Homocysteine is increased by functional deficiency of folate or vitamin B12. Testing for methylmalonic acid differentiates between these deficiencies. Other causes of increased homocysteine include renal failure, folate antagonists such as methotrexate and phenytoin, and exposure to nitrous oxide. Chris Amin, et al. [place] [facility] Med. 1999;131(5):331-9. Homocysteine is increased by functional deficiency of folate or vitamin B12. Testing for methylmalonic acid differentiates between these deficiencies. Other causes of increased homocysteine include renal failure, folate antagonists such as methotrexate and phenytoin, and exposure to nitrous oxide. Chris Amin, et al., [place] [facility] Med. 1999;131(5):331-9. CARDIO IQ(R) HS CRP (95544) Reviewed date:08/26/2024 09:12:12 AM Interpretation: Performing Lab:[facility], [facility] [place] [address], [address], XfpymyafiKA[address] Matt Smalls PhD,[facility] Notes/Report: NON-FASTING; NON-FASTING; NON-FASTING; NON-FASTING; NON-FAST FASTING:YES [...] inflammation. The AHA/CDC recommendations are based on Chanelle Goodman, Donn SOLORIO, et al. Markers of inflammation and cardiovascular disease: application to clinical and public health practice: A statement for healthcare professionals from the Centers for Disease Control and Prevention and the [place] Heart Association. Circulation 2003; 107(3): 499-511. For [...] may be associated with infection and inflammation. Chanelle Goodman, Donn SOLORIO, et al. Markers of inflammation and cardiovascular disease: application to clinical and public health practice: A statement for healthcare professionals from the Centers for Disease Control and Prevention and the [place] Heart Association. Circulation 2003; 107(3): 499-511. CARDIO IQ(R) INSULIN (81245) Reviewed date:08/26/2024 09:12:12 AM Interpretation: Performing Lab:[facility] [employer] ( [facility] ), [address], ZazwtntaiYD[address] Matt Smalls PhD,[facility] Notes/Report: NON-FASTING; NON-FASTING; NON-FASTING; NON-FASTING; NON-FAST FASTING:YES FASTING: YES INSULIN 7.3 <18.5 uIU/mL CARDIO IQ(R) LIPID PANEL (91 716) Reviewed date:08/26/2024 09:12:04 AM Interpretation: Performing Lab:[facility] [employer] ( [employer] ), [address], FqxaoxjbzWR[address] Matt Smalls PhD,[facility] Notes/Report: NON-FASTING; NON-FASTING; NON-FASTING; NON-FASTING; NON-FAST FASTING:YES [...] LDL-C. Sivakumar SS et al. FLAKO. 2013;310(19): 5954-5494 (http://education.Veronica.SilverBack Technologies/faq/IIK477) LDL-C is now calculated using the Sivakumar-Elam calculation, which is a validated novel method providing better accuracy than the Friedewald equation in the estimation of LDL-C. Sivakumar SS et al. FLAKO. 2013;310(19): 1497-1919 (http://education.Veronica.[employer]/faq/KNU434) CHOL/HDLC RATIO 3.5 <5.0 calc NON HDL [...] is considered a therapeutic option. CARDIO IQ(R) LIPOPROTEIN (a) (78985) Reviewed date:08/26/2024 09:12:12 AM Interpretation: Performing Lab:[facility] [place] [address], [address] [facility] [address] HospitalFaqfghuxkMB[address] Matt Smalls PhD,[facility] Notes/Report: NON-FASTING; NON-FASTING; NON-FASTING; NON-FASTING; NON-FAST FASTING:YES FASTING: YES LIPOPROTEIN (a) 42 <75 nmol/L Risk: Optimal <75 nmol/L; Moderate 75-125 nmol/L; High >125 nmol/L. Cardiovascular event risk category cut points (optimal, moderate, high) are based on Isaura Quiñones JACC 2017;69:692-711. CARDIO IQ(R) VITAMIN D, 25 H YDROXY (23479) Reviewed date:08/26/2024 09:11:34 AM Interpretation: Performing Lab:[facility] [id number] Nicole Gannon, NfqacchjhZP[address] Luca Tan M.D.,PhD Notes/Report: NON-FASTING; NON-FASTING; NON-FASTING; [...] ng/mL. For additional information, please refer to http://education.Regeneca Worldwide/faq/KRN781 (This link is being provided for informational/ educational purposes only.) VITAMIN D, 25-OH, D3 11 This test was developed and its analytical performance characteristics have been determined by [facility] [employer], [place]. It has not been cleared or approved by the U.S. Food and Drug Administration. This assay has been validated pursuant to the CLIA regulations and is used for clinical purposes. VITAMIN D, 25-OH, D2 10 This test was developed and its analytical performance characteristics have been determined by [facility] [employer], [place]. It has not been cleared or approved by the U.S. Food and Drug Administration. This assay has been validated pursuant to the CLIA regulations and is used for clinical purposes. CBC (INCLUDES DIFF/PLT) (639 9) Reviewed date:08/20/2024 08:47:45 AM Interpretation: Performing Lab:TIARA [facility] Ma[facility]en [facility] Sdhhrkiy052 [facility] WindberIzwzaxryvciKB[address] Emely Chatman Notes/Report: NON-FASTING; NON-FASTING; NON-FASTING; NON-FASTING; [...] MPV 10.0 7.5-12.5 fL ABSOLUTE NEUTROPHILS 2372 3084-9323 cells/uL ABSOLUTE LYMPHOCYTES 2264 850-3900 cells/uL ABSOLUTE MONOCYTES 342 200-950 cells/uL ABSOLUTE EOSINOPHILS 92 15-500 cells/uL ABSOLUTE BASOPHILS 31 0-200 cells/uL NEUTROPHILS 46.5 LYMPHOCYTES 44.4 MONOCYTES 6.7 EOSINOPHILS 1.8 BASOPHILS 0.6 COMPREHENSIVE METABOLIC PANE L (41667) Reviewed date:08/20/2024 08:47:45 AM Interpretation: Performing Lab:NL2, [facility] N[address] [place], [place] [address] Emely Chatman Notes/Report: NON-FASTING; NON-FASTING; NON-FASTING; NON-FASTING; [...] 11 10-35 U/L ALT 14 6-29 U/L IRON, TIBC AND FERRITIN PANE L (5616) Reviewed date:08/20/2024 08:47:45 AM Interpretation: Performing Lab:TIARA [facility] Emely Chatman Notes/Report: NON-FASTING; NON-FASTING; NON-FASTING; NON-FASTING; NON-FAST FASTING:YES FASTING: YES IRON, TOTAL 67 45-160 mcg/dL IRON BINDING CAPACITY 417 250-450 mcg/dL (altaf c) % SATURATION 16 16-45 % (calc) FERRITIN 7 16-288 ng/mL MAGNESIUM (622) Reviewed date:08/20/2024 08:47:45 AM Interpretation: Performing Lab:TIARA [facility] Emely Chatman Notes/Report: NON-FASTING; NON-FASTING; NON-FASTING; NON-FASTING; NON-FAST FASTING:YES FASTING: YES MAGNESIUM 2.1 1.5-2.5 mg/dL METHYLMALONIC ACID (02224) Reviewed date:08/24/2024 01:40:29 PM Interpretation: Performing Lab:SRINIVAS [facility] Maureen/Elizabeth Kebede [id number] [facility] Centeraugustina Gannon, GxwkgzwuuIY[address] Luca Tan M.D.,PhD Notes/Report: NON-FASTING; NON-FASTING; NON-FASTING; [...] neural tube defects and intrauterine growth restriction. [facility] utilized Multi-Modal Decomposition (MMD) analysis to establish first and second trimester- specific MMA reference intervals in , as given below: MMA, First trimester (<13 wks gestation): 58-167 nmol/L MMA, Second trimester (13-23 wks gestation): 63-241 nmol/L This test was developed and its analytical performance characteristics have been determined by [facility]. It has not been cleared or approved by the FDA. This assay has been validated pursuant to the CLIA regulations and is used for clinical purposes. SED RATE BY MODIFIED JEANNA MCCULLOUGH (809) Reviewed date:08/20/2024 08:47:45 AM Interpretation: Performing Lab:TIARA [facility] Mutyncxy[address] Emely Chatman Notes/Report: NON-FASTING; NON-FASTING; NON-FASTING; NON-FASTING; NON-FAST FASTING:YES FASTING: YES SED RATE BY MODIFIED BRIT 6 < OR = 30 mm/h TESTOSTERONE, FREE (DIALYSIS ) AND TOTAL,MS (67180) Reviewed date:08/25/2024 04:36:02 PM Interpretation: Performing Lab:Yanick [facility] [id number] Nicole Gannon, LhmzbksuoCY[address] Luca Tan M.D.,PhD Notes/Report: NON-FASTING; NON-FASTING; NON-FASTING; NON-FASTING; NON-FAST FASTING:YES FASTING: YES TESTOSTERONE, TOTAL, MS 13 2-45 ng/dL For additional information, please refer to http://education.Ghz Technology.SilverBack [employer]/faq/ TotalTestosteroneLCMSMSFAQ1 65 (This link is being provided for informational/ educational purposes only.) This test was developed and its analytical performance characteristics have been determined by [employer], [place]. It has not been cleared or approved by the U.S. Food and Drug Administration. This assay has been validated pursuant to the CLIA regulations and is used for clinical purposes. TESTOSTERONE, FREE 1.8 0.1-6.4 pg/mL This test was developed and its analytical performance characteristics have been determined by [employer], [place]. It has not been cleared or approved by the U.S. Food and Drug Administration. This assay has been validated pursuant to the CLIA regulations and is used for clinical purposes. THYROID PANEL WITH TSH (7444 ) Reviewed date:08/20/2024 08:47:45 AM Interpretation: Performing Lab:2, [facility] Emely Chatman Notes/Report: NON-FASTING; NON-FASTING; NON-FASTING; NON-FASTING; NON-FAST FASTING:YES FASTING: YES T3 UPTAKE 30 22-35 % T4 (THYROXINE), TOTAL 7.3 5.1-11.9 mcg/dL FREE T4 INDEX (T7) 2.2 1.4-3.8 TSH 1.69 0.40-4.50 mIU/L THYROID PEROXIDASE AND THYRO GLOBULIN ANTIBODIES (7260) Reviewed date:08/20/2024 08:47:45 AM Interpretation: Performing Lab:NL2, [facility] Emely Chatman Notes/Report: NON-FASTING; NON-FASTING; NON-FASTING; NON-FASTING; NON-FAST FASTING:YES FASTING: YES THYROGLOBULIN ANTIBODIES <1 < or = 1 IU/mL THYROID PEROXIDASE ANTIBODIES 2 <9 IU/mL URIC ACID (905) Reviewed date:08/20/2024 08:47:45 AM Interpretation: Performing Lab:[facility], [facility] Emely Chatman Notes/Report: NON-FASTING; NON-FASTING; NON-FASTING; NON-FASTING; NON-FAST FASTING:YES FASTING: YES URIC ACID 3.1 2.5-7.0 mg/dL Therapeutic ta rget for gout patients: <6.0 mg/dL REASON FOR REFERRAL Reason please refer pt to [facility] for dx of GERD, dysphagia, abdominal bloating Patient would like to try [facility] (Sandra) please resend Diagnosis 1 GERD without esophag itis (K21.9) Diagnosis 2 Dysphagia, unspecifi ed (R13.10) Diagnosis 3 Bloating (R14.0) Referral Organization [facility] Referring Provider First Name MARTITA Referring Provider Last Name CARIE Referring Provider Speciality Preventive Medicine Referred Organization [facility] Referred Address [address] [place] [phone], Referred Provider Specialty Gastroentero logy General Notes NATHANIEL CELESTE 01/2024 12:14:53 PM >BMP Form, Referral, OV Note and insurane information faxed to [facility] [phone] AMY 09/08/2024 02:13:48 PM >Referral, OV Note and Demographics faxed to Gastro [phone] AMY 09/29/2024 12:38:21 PM >[facility] Form, Referral, OV Note and demographics faxed to [phone]. Referral Priority Routine Reason please refer to [facility] for dx of HLD, elevated inflammation Diagnosis 1 Hyperlipidemia, unsp ecified (E78.5) Diagnosis 2 CRP elevated (R79.82 ) Diagnosis 3 Vitamin D deficiency (E55.9) Diagnosis 4 Low ferritin (R79.0) Referral Organization [facility] Referring Provider First Name MARTITA Referring Provider Last Name CARIE Referring Provider Speciality Preventive Medicine Referred Organization [facility] Referred Address [address] [place] [id number], Referred Provider Specialty Nutrition General Notes SHIV GORDON 1 12/07/2023 02:27:35 PM >demographics, insurance info, referral and office note have been faxed to [facility] Nutrition [phone] Referral Priority Routine MEDICATIONS Medication SIG (Take, [...] a day Active Vitamin D3 1.25 MG (06880 UT) 1 capsule Orally Not-Taking buPROPion HCl [...] use: nonsmoker Section Notes: Kia lives in [place] w /spouse. She loves to read and enjoys watching biographies, documentories and history. Kia lives in [place] w /spouse. She loves to read and enjoys watching biographies, documentories and history. Kia lives in [place] w /spouse. She loves to read and enjoys watching biographies, documentories and history. Kia lives in [place] w /spouse. She loves to read and enjoys watching biographies, documentories and history. 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) Active confirmed Narcolepsy with out cataplexy (26149627596679) Problem Chronic pain syndrome (G89.4) Active confirmed Chronic pain syndrome (078352610) Problem Fibromyalgia (M79.7) Active confirmed Fibromyalgia (242716552) Problem Female genital prolapse, unspecified (N81.9) Active confirmed Prolapse of fem aquiles genital organs (93401233) Problem Dysphagia, unspecified (R13.10) Active confirmed Dysphagia (30078371) Problem Mild intermittent asthma without complication (J45.20) Active confirmed Mild intermitte nt asthma (291732963) Problem Vitamin D deficiency (E55.9) Active confirmed Vitamin D deficiency (98090897) Problem Low ferritin (R79.0) Active confirmed Ferritin level low (194094135) Problem Mixed anxiety and depressive disorder (F41.8) Active confirmed Mixed anxiety a nd depressive disorder (350179509) Problem GERD without esophagitis (K21.9) Active confirmed Gastroesophagea l reflux disease (166098430) Problem 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) Active confirmed Blood chemistry abnormal (491954498) Problem CRP elevated (R79.82) Active confirmed C-reactive prot ein abnormal (165914221) Problem Opiate dependence, continuous (F11.20) Active confirmed Opioid dependen ce (51014901) VITAL SIGNS Heart Rate 109 /min 08/28/2024 Height-cm 166.37 cm 11/05/2024 Oximetry 99 % 08/28/2024 Blood pressure diastolic 88 mm Hg 08/28/2024 Weight-kg 78.47 kg 08/28/2024 Height 65.5 in 11/05/2024 Blood pressure systolic 138 mm Hg 08/28/2024 Weight 173 lbs 08/28/2024 BMI 28.35 kg/m2 08/28/2024 Encounters Encounter Location Date Provider Diagnosis [address] [id number] 07/31/2024 MARTITA DARNELL Chronic pain syndrom e G89.4 ; Opiate dependence, continuous F11.20 ; Fibromyalgia M79.7 ; Hypothyroidism, unspecified E03.9 ; Mixed anxiety and depressive disorder F41.8 ; Insomnia, unspecified G47.00 ; Narcolepsy without cataplexy G47.419 ; Anemia, unspecified D64.9 ; Mild intermittent asthma without complication J45.20 ; GERD without esophagitis K21.9 ; Hyperlipidemia, unspecified E78.5 and Female genital prolapse, unspecified N81.[address] [id number] 08/28/2024 [facility] Hyperlipidemia, unspecified E78.5 ; Vitamin D deficiency E55.9 ; CRP elevated R79.82 ; Elevated homocysteine R79.89 ; Low ferritin R79.0 ; GERD without esophagitis K21.9 ; Bloating R14.0 ; Dysphagia, unspecified R13.10 and Hypothyroidism, unspecified E03.[address] [id number] 09/29/2024 [facility] Hyperlipidemia, unspecified E78.5 and Elevated homocysteine R79.[address] [id number] 11/05/2024 [facility] Hyperlipidemia, unspecified E78.5 ; GERD without esophagitis K21.9 and Bronchitis J40 [address] [id number] 11/09/[address] [id number] 11/19/2024 [facility] GERD without esophagitis K21.9 and Hyperlipidemia, unspecified E78.[address] [id number] 12/01/[address] [id number] 09/29/2024 [facility] ASSESSMENTS Encounter Date Diagnosis Assessment Notes Treatment Notes Treatment Clinical Notes Section Notes 07/31/2024 Chronic pain syndrome (ICD-10 - G89.4) 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 and gabapentin also in place Will continue [...] Will trial Zetia 10mg daily Agreed to gas station manager to assist with diet, decrease inflammation Will [...] treatment on nonpharm therapies as well through [facility] 07/31/2024 Insomnia, unspecified (ICD-10 - G47.00) Pt [...] TSH (7444) 08/28/2024 CARDIO IQ(R) LIPID PANEL (40028) 024 IRON, TIBC AND FERRITIN PANEL (5616) 10/2023 COMPREHENSIVE METABOLIC PANEL (47649) CARDIO IQ(R) HS CRP (93641) 08/28/2024 CARDIO IQ(R) APOLIPOPROTEIN EVAL (24903) 08/28/2024 CARDIO IQ(R) HOMOCYSTEINE (31734) 2023 CARDIO IQ(R) VITAMIN D, 25 HYDROXY (9173 5) 08/28/2024 Next Appt Details Provider Name:MARTITA CLAYDYLAN Robb, 01/06/2025 02:15:00 PM, [address] [place] [address], [place], [place], [phone], Insurance Providers Payer Name Payer Address Payer Phone Subscriber Number Group Number Insured Name Patient Relationship to Insured Coverage Start Date Coverage End Date [employer] MEDICARE [address] [place]ACHA ARANA [phone] [id number] KIA SANDERS Self - [facility] the [facility] [address] [place] [address] [id number] KIA SANDERS Self - patient is the insured MEDICAL (GENERAL) HISTORY Medical History History ICD Code Allergies Hay fever Anxiety Exercise induced Asthma Blood Transfusion Cancer Depression Fractured coccyx GERD Endometriosis Vaginal prolapse Hyperlipidemia IBS Walking Pneumonia Hypothyroidism Insomnia Fibromyalgia Colon Polyp Surgical History Surgery Date(Month/Year) Endometriosos 1979, 1983 Lumbar Back surgery, PLIF wi th instrumentation 2019 install [employer] [facility] System 2004, 2019 Bilateral breast biopsy 2017, 2021 Colonoscopy Torturous Sphincter - Colon Polyp 2014 Echocardiogram 2021 Stomach Endoscopy 2008 Gallbladder removal - cancerous 2008 Hysterectomy 2017 Sigmoidoscopy - Multiple Stress Echo - 2021 Stress Test (thallium perfusion) 2021 Stage 4 Burkitt's Lymphoma 2007 DEXA Scan 2021 - [facility] normal per patien t 2021 Endoscopy 2014 Hospitalization History Reason Date(Month/Year) [facility] Cancer 2009
--- OUTSIDE RECORDS SUMMARY | 2024-12-17 14:33 | XMS_ITS | Clinical Summary ---
Author Organization [facility] Address [address] [place] [address] Care Team Providers Care Dishtank Operator Name Role Phone David Britton MD Primary Care Provider [phone] Allergies Active Allergy Reactions Criticality Noted Date [...] age to complete this topic Care Teams Dishtank Operator Relationship Specialty Start Date End Date David Britton MD PCP - General Internal Medicine 02/26/22
--- OUTSIDE RECORDS SUMMARY | 2024-12-17 14:33 | XMS_ITS ---
Author Organization [facility], [facility] Address [address] [place] [phone] Care Team Providers Care Special Education Administrator Name Role Phone TC HAHN Primary Care Provider [phone] MARTITA DARNELL Unavailable [phone] REASON FOR VISIT Referral? Encounters Encounter Location Date Provider Diagnosis [facility], [address] [id number] 12/01/2024 MARTITA DARNELL PLAN OF TREATMENT Next Appt Details Provider Name:MARTITA Robb, 01/06/2025 02:15:00 PM, [address] [place] [address], [phone], Progress Notes * STONE SANDERSIDOB:1960 (64 yo F)Acc No.[id number]:12/01/2024 Patient:??MAGGIE SANDERS :1960?Age:64 Y?Sex:Fe male Phone: Address:[address] [place] [address] * true * Date:??
--- OUTSIDE RECORDS SUMMARY | 2024-12-17 14:33 | XMS_ITS | Continuity of Care Document ---
Author Organization [facility] Address [address] [place] [address] Phone Care Team Providers Care Seismograph Helper Name Role Phone Krystin Monge Unavailable Unavailable [...] Problems Procedures Procedure Date Offic/outpt E&m Estab [facility] 2 15 Offic/outpt E&m Estab [facility] 2 15 Offic/outpt E&m Estab [facility] 2 15 Offic/outpt E&m Estab [facility] 2 15 Offic/outpt E&m Estab Low-mod 5 Offic/outpt E&m Estab Low-mod 5 Offic/outpt E&m Estab [facility] 2 14 Offic/outpt E&m Estab [facility] 2 14 Init Preven Meds E&m [...] Diagnoses Date Provider Providers Copied on Encounter [facility], [address], [place], [place], [id number], [place] tel:[phone] [facility] No Information 5 Lutter Krystin. [address], [address], [place], [place], [address] , [place]. tel:[phone] Offic/outpt E&m Estab Mod-hi 2 [facility], [address], [place], [place], [address], [place] tel:[phone] [facility] menopausal symptoms (chief complaint) ClimactericFatigue InsomniaVitamin D deficiency 5 Lutter Krystin. [address], [address], [place], [place], [id number] , [place]. tel:[phone] Offic/outpt E&m Estab Mod-hi 2 [facility], [address], [place], [place], [address], [place] tel:[phone] [facility] menopausal symptoms (chief complaint) ClimactericInsomni a 5 Lutter Krystin. [address], [address], [place], [place], [id number] , [place]. tel:[phone] [facility], [address], [place], [place], [address], [place] tel:[phone] VALENTIN PALM No Information 5 Lutter Krystin. [address], [address], [place], [place], [address] , [place]. tel:[phone] Offic/outpt E&m Estab Low-mod [facility], [address], [place], [place], [address], [place] tel:[phone] VALENTIN PALM menopausal symptoms (chief complaint) ClimactericVitamin D deficiency 5 Mariposa Mcclelland. [address], [facility] [address], [place], [place], [address] , . tel:[phone] Offic/outpt E&m Estab Mod-hi 2 [facility], [address], [place], [place], [address], tel:[phone] VALENTIN PALM menopausal symptoms (chief complaint) ClimactericVitamin D deficiencyFatigue 4 Mariposa Mcclelland. [address], [address], [place], [place], [address] , [place]. tel:[phone] Init Preven Meds E&m New Pt; 40-64 [facility], [address], [place], [place], [address], tel:[phone] VALENTIN PALM annual exam (chief complaint)M enopausal symptoms (chief complaint) ROUTINE LABOR MEDIATOR EXAMINATION Jun- 4 Bakarier Krystin. [address], [facility] [address], [place], [place], [id number] , [place]. tel:[phone] [facility], [address], [place], [place], [address], tel:[phone] VALENTIN PALM No Information Sep-0 4 Luroberter Krystin. [address], [address], [place], [place], [address] , [place]. tel:[phone] Family History Family Member Type Diagnosis Age At Onset Maternal grandmother Problem (finding) hypercholestero lemia Father Problem (finding) hypertension Paternal grandmother Problem (finding) hypertension Payers Payer name Insurance type Covered constitution party ID Authordoron murilloalberto(s) Xenia JUSTINOO BL [id number] Social History Type Description Quantity Date Captured [...] (comments) Gillian chau is a 54 yo [id number] WF, here for a follow-up on her [...] (comments) Gillian chau is a 54 yo [id number] WF, here for a follow-up visit on [...] (comments) S he is a 53 yo [id number] WF, here for follow-up from her complex [...] followed by her PCP, Dr. Mcdaniels at [facility]. Menopausal symptoms annual exam : 5. [...] exam (comments) Pt. is a 53 yo [id number] WF, here for a new patient annual [...] traditional options for menopause. Related to Climacteric Discussed diet and exercise Rela tasha to Fatigue Perform self breast exam Related to Fatigue Calcium supplementation Related to Fatigue Kegel exercises Related to Fatig ue Menopause Related to ROUTI NE LABOR MEDIATOR EXAMINATION Kegel exercises Related to ROUTI NE LABOR MEDIATOR EXAMINATION Calcium supplementation Related to ROUTINE LABOR MEDIATOR EXAMINATION Perform self breast exam Related to ROUTINE LABOR MEDIATOR EXAMINATION Discussed Diet and exercise Rela tasha to ROUTINE LABOR MEDIATOR EXAMINATION Assessments Type Assessment Date No Information Patient Care Teams Name Effective Dates (start - stop) Status Members No Information
--- OUTSIDE RECORDS SUMMARY | 2024-12-17 14:33 | XMS_ITS ---
Author Organization [facility] [employer] [facility] Address [address] [place] [address] Care Team Providers Care Community Health Nurse Name Role Phone ANDREW SANTOS Primary Care Provider Allergies Allergen (clinical drug ingredient) Drug/Non Drug Allergy documented on EMR Reaction Allergy Type Onset Date Status codeine Codeine hives Drug Allergy Active Shellfish (FN) Shellfish-derived Products anaphylaxis Drug Allergy Active Reason For Referral Reason Burkitt lymphoma- Dr Frazier Referral Organization [facility] Referring Provider First Name ANDREW Referring Provider Last Name JANET Referring Provider Speciality Internal edicine Referred Provider Specialty Hematology Referral Priority Routine Reason narcolepsy without c ataplexy- Dr Dinh Referral Organization [facility] Referring Provider First Name ANDREW Referring Provider Last Name [facility] Referring Provider Speciality Internal edicine Referred [...] W/U Status Risk Notes Problem Mixed hyperlipidemia (482517076) Mixed hyperlipidemia (E78.2) Active confirmed Problem Gastro-esophageal reflux disease without esophagitis (323519665) Gastro-esophageal reflux disease without esophagitis (K21.9) Active confirmed Problem Hypothyroidism (51259874) Hypothyroidism, unspecified (E03.9) Active confirmed Problem Mild intermittent asthma (801304274) Mild intermittent asthma, uncomplicated (J45.20) Active confirmed Problem Vitamin D deficiency (75367762) Vitamin D deficiency, unspecified (E55.9) Active confirmed Problem Generalized anxiety disorder (91142611) Generalized anxiety disorder (F41.1) Active confirmed Problem Narcolepsy without cataplexy (21063653499714) 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) Active confirmed Problem Fibromyalgia (549255797) Fibromyalgia (M79.7) Active confirmed Problem Chronic pain syndrome (799326766) Chronic pain syndrome (G89.4) Active confirmed Problem Degeneration of thoracolumbar intervertebral disc (62646496) Other intervertebral disc degeneration, thoracolumbar region (M51.35) Active confirmed Vital Signs Temperature 97.8 degrees Fahrenheit 12/10/19 25 Oximetry 97 % 12/10/2024 Heart Rate 112 /min 12/10/2024 Blood pressure systolic 150 mm Hg 12/10/19 25 Blood pressure diastolic 100 mm Hg 025 Weight 185.1 lbs 12/10/2024 BMI 30.8 kg/m2 12/10/2024 Height 5'5'' in 12/10/2024 Encounters Encounter Location Date Provider Diagnosis [address] [address] 12/10/2024 ANDREW SANTOS Mixed hyperlipidemia E78.2 ; [...] syndrome currently on Suboxone and gabapentin through [facility], generalized anxiety disorder/depression /insomnia, narcolepsy without cataplexy, mixed hyperlipidemia, GERD, hypothyroidism, mild intermittent asthma, vitamin D deficiency, constipation is here to establish care. Plan is as Burkitt's lymphoma. According to the patient diagnosed in 2006 with stage IV/metastatic Burkitt's lymphoma especially in the spine. She have Port in scalp for chemotherapy or CSF. She is not seen hematology oncology at [facility] but no records were found at [...] going to have intake with GI at [facility] for upper endoscopy and colonoscopy in the next few weeks Generalized anxiety disorder/depression . She is stable at this point on duloxetine 60 mg 1 tablet daily, bupropion ER 300 mg 1 tablet daily and she is also on Klonopin 1 mg. Chronic constipation. Most likely secondary to opioid use. Advised to use qngj-imf-opnrvht Metamucil/:/MiraLAX and she can also use prunes, [...] prolapse. She will make appointment with your applied technologist at [facility]. She has seen them before. She will need referral to a applied technologist. She had mammogram done roughly 2 years [...] syndrome currently on Suboxone and gabapentin through [facility], generalized anxiety disorder/depression /insomnia, narcolepsy without cataplexy, mixed hyperlipidemia, GERD, hypothyroidism, mild intermittent asthma, vitamin D deficiency, constipation is here to establish care. Plan is as Burkitt's lymphoma. According to the patient diagnosed in 2006 with stage IV/metastatic Burkitt's lymphoma especially in the spine. She have Port in scalp for chemotherapy or CSF. She is not seen hematology oncology at [facility] but no records were found at [...] going to have intake with GI at [facility] for upper endoscopy and colonoscopy in the next few weeks Generalized anxiety disorder/depression . She is stable at this point on duloxetine 60 mg 1 tablet daily, bupropion ER 300 mg 1 tablet daily and she is also on Klonopin 1 mg. Chronic constipation. Most likely secondary to opioid use. Advised to use jihe-xhr-kgvubyj Metamucil/:/MiraLAX and she can also use prunes, [...] prolapse. She will make appointment with your applied technologist at [facility]. She has seen them before. She will need referral to a applied technologist. She had mammogram done roughly 2 years [...] syndrome currently on Suboxone and gabapentin through [facility], generalized anxiety disorder/depression /insomnia, narcolepsy without cataplexy, mixed hyperlipidemia, GERD, hypothyroidism, mild intermittent asthma, vitamin D deficiency, constipation is here to establish care. Plan is as Burkitt's lymphoma. According to the patient diagnosed in 2006 with stage IV/metastatic Burkitt's lymphoma especially in the spine. She have Port in scalp for chemotherapy or CSF. She is not seen hematology oncology at [facility] but no records were found at [...] going to have intake with GI at [facility] for upper endoscopy and colonoscopy in the next few weeks Generalized anxiety disorder/depression . She is stable at this point on duloxetine 60 mg 1 tablet daily, bupropion ER 300 mg 1 tablet daily and she is also on Klonopin 1 mg. Chronic constipation. Most likely secondary to opioid use. Advised to use wmug-mxz-tvkjvtu Metamucil/:/MiraLAX and she can also use prunes, [...] prolapse. She will make appointment with your applied technologist at [facility]. She has seen them before. She will need referral to a applied technologist. She had mammogram done roughly 2 years [...] syndrome currently on Suboxone and gabapentin through [facility], generalized anxiety disorder/depression /insomnia, narcolepsy without cataplexy, mixed hyperlipidemia, GERD, hypothyroidism, mild intermittent asthma, vitamin D deficiency, constipation is here to establish care. Plan is as Burkitt's lymphoma. According to the patient diagnosed in 2006 with stage IV/metastatic Burkitt's lymphoma especially in the spine. She have Port in scalp for chemotherapy or CSF. She is not seen hematology oncology at [facility] but no records were found at [...] going to have intake with GI at [facility] for upper endoscopy and colonoscopy in the next few weeks Generalized anxiety disorder/depression . She is stable at this point on duloxetine 60 mg 1 tablet daily, bupropion ER 300 mg 1 tablet daily and she is also on Klonopin 1 mg. Chronic constipation. Most likely secondary to opioid use. Advised to use cefz-wgr-etcoffm Metamucil/:/MiraLAX and she can also use prunes, [...] prolapse. She will make appointment with your applied technologist at [facility]. She has seen them before. She will need referral to a applied technologist. She had mammogram done roughly 2 years [...] syndrome currently on Suboxone and gabapentin through [facility], generalized anxiety disorder/depression /insomnia, narcolepsy without cataplexy, mixed hyperlipidemia, GERD, hypothyroidism, mild intermittent asthma, vitamin D deficiency, constipation is here to establish care. Plan is as Burkitt's lymphoma. According to the patient diagnosed in 2006 with stage IV/metastatic Burkitt's lymphoma especially in the spine. She have Port in scalp for chemotherapy or CSF. She is not seen hematology oncology at [facility] but no records were found at [...] going to have intake with GI at [facility] for upper endoscopy and colonoscopy in the next few weeks Generalized anxiety disorder/depression . She is stable at this point on duloxetine 60 mg 1 tablet daily, bupropion ER 300 mg 1 tablet daily and she is also on Klonopin 1 mg. Chronic constipation. Most likely secondary to opioid use. Advised to use rddu-rgl-huvjpbe Metamucil/:/MiraLAX and she can also use prunes, [...] prolapse. She will make appointment with your applied technologist at [facility]. She has seen them before. She will need referral to a applied technologist. She had mammogram done roughly 2 years [...] syndrome currently on Suboxone and gabapentin through [facility], generalized anxiety disorder/depression /insomnia, narcolepsy without cataplexy, mixed hyperlipidemia, GERD, hypothyroidism, mild intermittent asthma, vitamin D deficiency, constipation is here to establish care. Plan is as Burkitt's lymphoma. According to the patient diagnosed in 2006 with stage IV/metastatic Burkitt's lymphoma especially in the spine. She have Port in scalp for chemotherapy or CSF. She is not seen hematology oncology at [facility] but no records were found at [...] going to have intake with GI at [facility] for upper endoscopy and colonoscopy in the next few weeks Generalized anxiety disorder/depression . She is stable at this point on duloxetine 60 mg 1 tablet daily, bupropion ER 300 mg 1 tablet daily and she is also on Klonopin 1 mg. Chronic constipation. Most likely secondary to opioid use. Advised to use yvcv-ofg-fmiyral Metamucil/:/MiraLAX and she can also use prunes, [...] prolapse. She will make appointment with your applied technologist at [facility]. She has seen them before. She will need referral to a applied technologist. She had mammogram done roughly 2 years [...] syndrome currently on Suboxone and gabapentin through [facility], generalized anxiety disorder/depression /insomnia, narcolepsy without cataplexy, mixed hyperlipidemia, GERD, hypothyroidism, mild intermittent asthma, vitamin D deficiency, constipation is here to establish care. Plan is as Burkitt's lymphoma. According to the patient diagnosed in 2006 with stage IV/metastatic Burkitt's lymphoma especially in the spine. She have Port in scalp for chemotherapy or CSF. She is not seen hematology oncology at [facility] but no records were found at [...] going to have intake with GI at [facility] for upper endoscopy and colonoscopy in the next few weeks Generalized anxiety disorder/depression . She is stable at this point on duloxetine 60 mg 1 tablet daily, bupropion ER 300 mg 1 tablet daily and she is also on Klonopin 1 mg. Chronic constipation. Most likely secondary to opioid use. Advised to use varm-bft-nxsyknh Metamucil/:/MiraLAX and she can also use prunes, [...] prolapse. She will make appointment with your applied technologist at [facility]. She has seen them before. She will need referral to a applied technologist. She had mammogram done roughly 2 years [...] syndrome currently on Suboxone and gabapentin through [facility], generalized anxiety disorder/depression /insomnia, narcolepsy without cataplexy, mixed hyperlipidemia, GERD, hypothyroidism, mild intermittent asthma, vitamin D deficiency, constipation is here to establish care. Plan is as Burkitt's lymphoma. According to the patient diagnosed in 2006 with stage IV/metastatic Burkitt's lymphoma especially in the spine. She have Port in scalp for chemotherapy or CSF. She is not seen hematology oncology at [facility] but no records were found at [...] going to have intake with GI at [facility] for upper endoscopy and colonoscopy in the next few weeks Generalized anxiety disorder/depression . She is stable at this point on duloxetine 60 mg 1 tablet daily, bupropion ER 300 mg 1 tablet daily and she is also on Klonopin 1 mg. Chronic constipation. Most likely secondary to opioid use. Advised to use ypms-fmb-utqbngy Metamucil/:/MiraLAX and she can also use prunes, [...] prolapse. She will make appointment with your applied technologist at [facility]. She has seen them before. She will need referral to a applied technologist. She had mammogram done roughly 2 years [...] syndrome currently on Suboxone and gabapentin through [facility], generalized anxiety disorder/depression /insomnia, narcolepsy without cataplexy, mixed hyperlipidemia, GERD, hypothyroidism, mild intermittent asthma, vitamin D deficiency, constipation is here to establish care. Plan is as Burkitt's lymphoma. According to the patient diagnosed in 2006 with stage IV/metastatic Burkitt's lymphoma especially in the spine. She have Port in scalp for chemotherapy or CSF. She is not seen hematology oncology at [facility] but no records were found at [...] going to have intake with GI at [facility] for upper endoscopy and colonoscopy in the next few weeks Generalized anxiety disorder/depression . She is stable at this point on duloxetine 60 mg 1 tablet daily, bupropion ER 300 mg 1 tablet daily and she is also on Klonopin 1 mg. Chronic constipation. Most likely secondary to opioid use. Advised to use zbgu-ikx-kotmzlk Metamucil/:/MiraLAX and she can also use prunes, [...] prolapse. She will make appointment with your applied technologist at [facility]. She has seen them before. She will need referral to a applied technologist. She had mammogram done roughly 2 years [...] syndrome currently on Suboxone and gabapentin through [facility], generalized anxiety disorder/depression /insomnia, narcolepsy without cataplexy, mixed hyperlipidemia, GERD, hypothyroidism, mild intermittent asthma, vitamin D deficiency, constipation is here to establish care. Plan is as Burkitt's lymphoma. According to the patient diagnosed in 2006 with stage IV/metastatic Burkitt's lymphoma especially in the spine. She have Port in scalp for chemotherapy or CSF. She is not seen hematology oncology at [facility] but no records were found at [...] going to have intake with GI at [facility] for upper endoscopy and colonoscopy in the next few weeks Generalized anxiety disorder/depression . She is stable at this point on duloxetine 60 mg 1 tablet daily, bupropion ER 300 mg 1 tablet daily and she is also on Klonopin 1 mg. Chronic constipation. Most likely secondary to opioid use. Advised to use roby-siy-ibumvva Metamucil/:/MiraLAX and she can also use prunes, [...] prolapse. She will make appointment with your applied technologist at [facility]. She has seen them before. She will need referral to a applied technologist. She had mammogram done roughly 2 years [...] syndrome currently on Suboxone and gabapentin through [facility], generalized anxiety disorder/depression /insomnia, narcolepsy without cataplexy, mixed hyperlipidemia, GERD, hypothyroidism, mild intermittent asthma, vitamin D deficiency, constipation is here to establish care. Plan is as Burkitt's lymphoma. According to the patient diagnosed in 2006 with stage IV/metastatic Burkitt's lymphoma especially in the spine. She have Port in scalp for chemotherapy or CSF. She is not seen hematology oncology at [facility] but no records were found at [...] going to have intake with GI at [facility] for upper endoscopy and colonoscopy in the next few weeks Generalized anxiety disorder/depression . She is stable at this point on duloxetine 60 mg 1 tablet daily, bupropion ER 300 mg 1 tablet daily and she is also on Klonopin 1 mg. Chronic constipation. Most likely secondary to opioid use. Advised to use ttku-dsm-drhdtxu Metamucil/:/MiraLAX and she can also use prunes, [...] prolapse. She will make appointment with your applied technologist at [facility]. She has seen them before. She will need referral to a applied technologist. She had mammogram done roughly 2 years [...] syndrome currently on Suboxone and gabapentin through [facility], generalized anxiety disorder/depression /insomnia, narcolepsy without cataplexy, mixed hyperlipidemia, GERD, hypothyroidism, mild intermittent asthma, vitamin D deficiency, constipation is here to establish care. Plan is as Burkitt's lymphoma. According to the patient diagnosed in 2006 with stage IV/metastatic Burkitt's lymphoma especially in the spine. She have Port in scalp for chemotherapy or CSF. She is not seen hematology oncology at [facility] but no records were found at [...] going to have intake with GI at [facility] for upper endoscopy and colonoscopy in the next few weeks Generalized anxiety disorder/depression . She is stable at this point on duloxetine 60 mg 1 tablet daily, bupropion ER 300 mg 1 tablet daily and she is also on Klonopin 1 mg. Chronic constipation. Most likely secondary to opioid use. Advised to use vrqa-swy-bneebty Metamucil/:/MiraLAX and she can also use prunes, [...] prolapse. She will make appointment with your applied technologist at [facility]. She has seen them before. She will need referral to a applied technologist. She had mammogram done roughly 2 years ago. 60 minutes spent with the patient reviewing her history, making a plan, documentation, referrals Plan Of Treatment Referrals Referral Date Details 12/10/2024 12/10/2024, Burkitt lymphoma- Dr Frazier 12/10/2024 12/10/2024, narcolep sy without cataplexy- Dr Dinh Next Appt Details Follow Up: 4 Weeks- Suboxone , Reason: Provider Name:ANDREW SANTOS , 01/07/2025 10:30:00 AM, [address] [place] [address], [id number], Progress Notes * Mary MCKEONiDOB:1960 (64 yo F)Acc No.[id number]:12/10/2024 Progress Notes Patient:?Kia MCKEON Provider:?ANDREW SANTOS MD :1960???Age:64 Y???Sex:Female D ate:12/10/2024 Phone: Address:[address] [place] [address] , [place], [id number] Subjective: * Chief Complaints: * ???New patient; ppw mailed * HPI: ???Internal Medicine:? Mrs. Mckeon is 64-year-old lady with history of stage IV Burkitt's lymphoma diagnosed in 2006 when she was in [place] with significant metastases to the spine, hyperlipidemia, [...] seen hematology oncology since he came to [place] 2- 3 years ago. She has chronic pain syndrome and she is currently on Suboxone 7.5 mcg weekly patch and she gets it from [facility] pain management.? She has acid reflux and she is going to have upper endoscopy and colonoscopy intake in the next few weeks.? She is seeing your applied technologist at [facility] for uterine prolapse and stress incontinence.? She has narcolepsy and insomnia without cataplexy but she has not seen process assistant for further workup.? She has anxiety/depression and [...] and lower extremities, sensory exam intact.?FEMALE GENITOURINARY:?__.?MALE GENITOURINARY:?__.?PODIATRIC:?Normal.?Visual Basic Developer? .? Assessment: * Assessment: 1.?Burkitt lymphoma, in [...] syndrome currently on Suboxone and gabapentin through [facility], generalized anxiety disorder/depression/insomnia, narcolepsy without cataplexy, mixed hyperlipidemia, GERD, hypothyroidism, mild intermittent asthma, vitamin D deficiency, constipation is here to establish care.? Plan is as Burkitt's lymphoma.? According to the patient diagnosed in 2006 with stage IV/metastatic Burkitt's lymphoma especially in the spine.? She have Port in scalp for chemotherapy or CSF.? She is not seen hematology oncology at [facility] but no records were found at [...] going to have intake with GI at [facility] for upper endoscopy and colonoscopy in the next few weeks Generalized anxiety disorder/depression.? She is stable at this point on duloxetine 60 mg 1 tablet daily, bupropion ER 300 mg 1 tablet daily and she is also on Klonopin 1 mg. Chronic constipation.? Most likely secondary to opioid use.? Advised to use mggl-eay-ptsztkl Metamucil/:/MiraLAX and she can also use prunes, [...] prolapse.? She will make appointment with your applied technologist at [facility].? She has seen them before. She will need referral to a applied technologist.? She had mammogram done roughly 2 years ago. 60 minutes spent with the patient reviewing her history, making a plan, documentation, referrals Plan: * Treatment: * Procedure Codes:?3077F SYST BP = 140 MM HG6 [id number] DIAST BP = 90 MM HG * Preventive Medicine:?COVID- DONE FLU- DONE Pneumonia- Shingrix- Tdap- Colonoscopy- Mammogram-2022 Ladle Cleaner-? Eye Exam-? Derm-. * Follow Up:?4 Weeks- Suboxone * * Sign off status: Completed true * Provider:?ANDREW SANTOS MD Date:?12/10 Generated for Rob cordero/Elsi/eTransmitting on:?12/17/2024 02:33 PM EST History and Physical Notes * HPI (History of Present Illness) Category Sub-Category Detail Notes Category Not es Internal Medicine Mrs. Minoo mullins is 64-year-old lady with history of stage IV Burkitt's lymphoma diagnosed in 2006 when she was in [place] with significant metastases to the spine, hyperlipidemia, [...] seen hematology oncology since he came to [place] 2-3 years ago. She has chronic pain syndrome and she is currently on Suboxone 7.5 mcg weekly patch and she gets it from [facility] pain management. She has acid reflux and she is going to have upper endoscopy and colonoscopy intake in the next few weeks. She is seeing your applied technologist at [facility] for uterine prolapse and stress incontinence. She has narcolepsy and insomnia without cataplexy but she has not seen process assistant for further workup. She has anxiety/depression and [...] Normal Psychiatry Normal OROPHARYNX Normal SINUSES Normal Visual Basic Developer Consultation Request Notes Referral Date Referring Provider Referred Provider Not es 12/10/2024 ANDREW SANTOS Burkitt lympho ma- Dr Frazier 12/10/2024 ANDREW SANTOS narcolepsy wit hout cataplexy- Dr Dinh
--- OUTSIDE RECORDS SUMMARY | 2024-12-17 14:33 | XMS_ITS ---
Author Organization [facility] Address [address] [place], [place] [id number] Care Team Providers Care Sign Language Interpreter Name Role Phone TC HAHN Primary Care Provider [phone] [facility] MARTITA DARNELL Unavailable [phone] REASON FOR VISIT Refills MEDICATIONS Medication SIG (Take, Route, Frequency, Duration) Notes Start Date End Date Status Buprenorphine 7.5 MCG/HR 1 patch to skin Transdermal once a week for 28 days 11/09/2024 12/09/2024 Active Encounters Encounter Location Date Provider Diagnosis [facility] [address] [place], [place] [id number] 11/09/2024 MARTITA DARNELL PLAN OF TREATMENT Medication Medication Name Sig Start Date Stop Date Notes Buprenorphine 7.5 MCG/HR 1 patch to skin Transdermal once a week for 28 days 11/09/2024 12/09/2024 Next Appt Details Provider Name:MARTITA Robb, 01/06/2025 02:15:00 PM, [address] [place] [address], [id number], Progress Notes * LIYAH SANDERSB:1960 (64 yo F)Acc No.[id number]:11/09/2024 Patient:??MAGGIE SANDERS :1960?Age:64 Y?Sex:Fe male Phone: Address:[address] [place] [address] * Refills?? Refill Buprenorphine Patch Weekly, 7.5 MCG/HR, Transdermal, 4, 1 patch to skin, once a week, 28 days, Refills=0 * true * Date:??
--- OUTSIDE RECORDS SUMMARY | 2024-12-17 14:33 | XMS_ITS ---
Author Organization [facility] Address [address] [place] [address] Care Team Providers Care Pneumatic System Conveyor Operator Name Role Phone DAVID BRITTON Primary Care Provider David Britton Unavailable [phone] REASON FOR VISIT controlled refill Medications Medication SIG (Take, Route, Frequency, Duration) Notes Start Date End Date Status HYDROmorphone HCl ER 8 MG 1 tablet Orall y Once a day for 30 days 09/16/2023 Active clonazePAM 1 MG 1 tablet Orally Once a day for 30 days 09/16/2023 Active Encounters Encounter Location Date Provider Diagnosis [facility] [address] [place] [address] 09/16/2023 DAVID BRITTON Plan Of Treatment Medication Medication Name Sig Start Date Stop Date Notes HYDROmorphone HCl ER 8 MG 1 tablet Orall y Once a day for 30 days 09/16/2023 clonazePAM 1 MG 1 tablet Orally Once a day for 30 days 09/16/2023 Progress Notes * Mary MCKEONiDOB:1960 (62 yo F)Acc No.[id number]:09/16/2023 Patient:?Mike Kia :1960???Age:62 Y???Sex:Female Address:[address] [place], [address] * Refills? Refill clonazePAM Tablet, 1 MG, Orally, 30 Tablet, 1 tablet, Once a day, 30 days, Refills=0 Refill HYDROmorphone HCl ER Tablet Extended Release 24 Hour, 8 MG, Orally, 30 Tablet, 1 tablet, Once a day, 30 days, Refills=0 * true * Date:? Generated for Rob cordero/Elsi/Danielle on:?12/17/2024 02:33 PM EST
== END 2024-12-17 14:09 | disposition home or self-care (01) ==
PROVIDERS: PCP Hospitalist; Visit Provider Nurse Practitioner Family
DX: K29.60 Other gastritis without bleeding (principal)

== ENCOUNTER 2025-03-08 08:30 | Outpatient (REF) | payer MEDICARE, OTHER, SELFPAY ==
--- NOTE | ~2025-03-08 | FL_ITS ---
EXAMINATION: XR UPPER GI SERIES WITH SMALL BOWEL CLINICAL INFORMATION: Gastroesophageal reflux disease without esophagitis. COMPARISON: None available. TECHNIQUE: Routine upper GI air contrast study with barium swallow was performed. FINDINGS: Following oral administration of thick barium and effervescent granules there is normal propagation of bolus from the oral cavity through the pharynx, esophagus into stomach without any evidence of obstruction, narrowing or stricture. On placing patient in supine and prone lying the course, caliber of the stomach is normal. There are multiple gastric erosions seen throughout the body and antrum of the stomach with increased secretions as well. The gastric wall is normal. The duodenal bulb and sweep appears normal. The mucosal pattern of duodenum is normal. There is moderate gastroesophageal reflux without hiatal hernia. FLUOROSCOPY TIME: 2 minutes 30 seconds. DOSE AREA PRODUCT: 2802 uGy-m2 (microgray-meter squared) FL/FL upper GI w air w Ba Swallow IMPRESSION: Moderate to large gastroesophageal reflux without hiatal hernia. Multiple gastric erosions and increased gastric secretions/acidity are noted but no ulceration seen. Electronically signed by: Adama Dennis MD 03/08/2025 02:09 PM EDT
--- OUTSIDE RECORDS SUMMARY | 2025-03-08 08:32 | XMS_ITS | Continuity of Care Document ---
Author Organization [facility] Address [address] [place] [address] Phone Care Team Providers Care Microscopist Name Role Phone Krystin Monge Unavailable Unavailable [...] Problems Procedures Procedure Date Offic/outpt E&m Estab [facility] 2 15 Offic/outpt E&m Estab [facility] 2 15 Offic/outpt E&m Estab [facility] 2 15 Offic/outpt E&m Estab [facility] 2 15 Offic/outpt E&m Estab Low-mod 5 Offic/outpt E&m Estab Low-mod 5 Offic/outpt E&m Estab [facility] 2 14 Offic/outpt E&m Estab [facility] 2 14 Init Preven Meds E&m New [...] Diagnoses Date Provider Providers Copied on Encounter [facility], [address], [place], [place], [address], [place] tel:[phone] VALENTIN Monge MD [facility] No Information 5 [address] Krystin. [address] [facility], [address], [place], [place], [address] , [place]. tel:[phone] Offic/outpt E&m Estab Mod-hi 2 [facility], [address], [place], [place], [address], [place] tel:[phone] VALENTIN Monge MD [facility] menopausal symptoms (chief complaint) ClimactericFatigue InsomniaVitamin D deficiency 5 Lutter Krystin. [address] [facility], [address], [place], [place], [address] , [place]. tel:[phone] Offic/outpt E&m Estab Mod-hi 2 [facility], [address], [place], [place], [address], [place] tel:[phone] VALENTIN Monge MD [facility] menopausal symptoms (chief complaint) ClimactericInsomni a 5 Lutter Krystin. [address] [facility] [address], [address], [place], [place], [address] , [place]. tel:[phone] [facility], [address], [place], [place], [address], [place] tel:[phone] VALENTIN PALM No Information 5 Lutter Krystin. [address] [facility], [address], [place], [place], [address] , [place]. tel:[phone] Offic/outpt E&m Estab Low-mod [facility], [address], [place], [place], [address], [place] tel:[phone] VALENTIN PALM menopausal symptoms (chief complaint) ClimactericVitamin D deficiency 5 Mariposa Mcclelland. [address] [facility], [facility] [address], [place], [place], [address] , . tel:[phone] Offic/outpt E&m Estab Mod-hi 2 [facility], [address], [place], [place], [address], tel:[phone] VALENTIN PALM menopausal symptoms (chief complaint) ClimactericVitamin D deficiencyFatigue 4 Mariposa Mcclelland. [address] [facility] [address], [address], [place], [place], [address] , [place]. tel:[phone] Init Preven Meds E&m New Pt; 40-64 [facility], [address], [place], [place], [address], tel:[phone] VALENTIN PALM annual exam (chief complaint)M enopausal symptoms (chief complaint) ROUTINE WOOD GANG SAWYER EXAMINATION Jun- 4 Bakarier Krystin. [address] [facility], [facility] [address], [place], [place], [address] , [place]. tel:[phone] [facility], [address], [place], [place], [address], tel:[phone] VALENTIN PALM No Information Sep-0 4 Luroberter Krystin. [address] [facility], [address], [place], [place], [address] , [place]. tel:[phone] Family History Family Member Type Diagnosis Age At Onset Maternal grandmother Problem (finding) hypercholestero lemia Father Problem (finding) hypertension Paternal grandmother Problem (finding) hypertension Payers Payer name Insurance type Covered alliance party ID Authordoron murilloalberto(s) Xenia JUSTINOO BL [id number] Social History Type Description Quantity Date Captured [...] (comments) Gillian chau is a 54 yo [id number] WF, here for a follow-up on her [...] (comments) Gillian chau is a 54 yo [id number] WF, here for a follow-up visit on [...] (comments) S he is a 53 yo [id number] WF, here for follow-up from her complex [...] followed by her PCP, Dr. Mcdaniels at [facility]. Menopausal symptoms annual exam : 5. [...] exam (comments) Pt. is a 53 yo [id number] WF, here for a new patient annual [...] ue Kegel exercises Related to ROUTI NE WOOD GANG SAWYER EXAMINATION Calcium supplementation Related to ROUTINE WOOD GANG SAWYER EXAMINATION Perform self breast exam Related to ROUTINE WOOD GANG SAWYER EXAMINATION Menopause Related to ROUTI NE WOOD GANG SAWYER EXAMINATION Discussed Diet and exercise Rela tasha to ROUTINE WOOD GANG SAWYER EXAMINATION Assessments Type Assessment Date No Information Patient Care Teams Name Effective Dates (start - stop) Status Members No Information
--- OUTSIDE RECORDS SUMMARY | 2025-03-08 08:32 | XMS_ITS | Clinical Summary ---
Author Organization [facility] it Address [address] [place] [address] Care Team Providers Care Giving Officer Name Role Phone David Britton MD Primary Care Provider [phone] Surgical History Surgery Date Site/Laterality Comments PARTIAL HYSTERECTOMY 2014 PROCEDURE: CT SUPRACERVICAL ABDL HYSTER W/WO RMVL TUBE OVARY CHOLECYSTECTOMY PROCEDURE: CT LAPAROSCOPY SURG CHOLECYSTECTOMY OTHER SURGICAL HISTORY 2012 PROCEDURE: HISTORY OTHER; COMMENT: Shpincteroplasty with perineum reconstruction OTHER SURGICAL HISTORY 2014 PROCEDURE: HISTORY OTHER; COMMENT: supracervical hysterectomy, BSO, reduciton of perineum, vaginal reconstruction, enterocele repair OTHER SURGICAL HISTORY 2018 PROCEDURE: CT OPEN IMPLANTATION SHARON SACRAL NERVE OTHER SURGICAL HISTORY 2006 PROCEDURE: HISTORY OTHER; COMMENT: Ommaya port insertion BACK SURGERY 2004 PROCEDURE: HISTORICAL BACK SURGERY; COMMENT: Lumbar laminectomy with instrumentation COLONOSCOPY PROCEDURE: HISTORICAL COLONOSCOPY Medical History Medical History Date Comments Burkitt lymphoma (CMS/HCC V2 4, CMS/HCC V28) 2006 DX:Burkitt lymphoma (HCC); C OMMENT: stage 4 High cholesterol DX:High cholest syed [...] Influencers of Health Screening 09/30/2022 RSV Immunization Adult Patie nts (1 - Risk 60-74 years 1-dose series) 2022 Breast Cancer Screening 05/07/2024 05/07/2022 Influenza Vaccine (Season Ended) 2025 HIB Vaccines Aged Out No longer eligi [...] age to complete this topic Meningococcal B Vaccine Aged Out No l onger eligible based on patient's age to complete this topic RSV Immunization Patients Un rodger 20 months Aged Out No longer eligible b ased on patient's age to complete this topic Varicella Vaccines Aged Out No longer eligible based on patient's age to complete this topic Procedures Procedure Name Priority Date/Time Associated Diagnosis Comments [facility] SCREENING DIGITAL Routine 05/07/2022 11:31 AM EDT Encounter for screening mammogram for malignant neoplasm of breast from Last 3 Months or Most Recently Relevant to Health Maintenance Results * [facility] SCREENING DIGITAL (05/07/2022 11:31 AM EDT) Anatomical Region Laterality Modality Mammography 05/02/2022 1:26 PM EDT Narrative 05/07/2022 11:[address] [facility] Diagnostic Imaging Department [address] [place] [address] Patient: ??MAGGIE MCKEON ?/Age/Sex: 1960 - 61 - F Unit#: ??[id number] ? Location/Status: ??SPDIMAM/REG CLI ? Mnemonic/Ordering Site: ??DIGSC/SPMAM Ordering Physician: ??DAVID BRITTON MD [facility] Screening Digital - 05/02/22 - 9216 INDICATION: SCREENING COMPARISON: No prior studies are available for comparison. TECHNIQUE: CC and MLO views of the breasts were obtained, using full field digital mammography with 3D tomosynthesis views in the MLO projection. XCCL views of each breast were obtained. Computer aided detection with the Mojostreet 7.2-H was employed. FINDINGS: The breasts contain [...] additional imaging evaluation. 3340F, 7025F (G0202 / 44352) , ??[id number] Dictating Physician: ??VISHNU MORALES MD Electronically Signed by: ??VISHNU MORALES MD Dic Date/Time: ??05/07/22 1126 Sign date/Time: ??05/07/22 1131 Procedure Note Vishnu Morales MD - 10/17/2022 [facility] Diagnostic Imaging Department [address] [place] [address] [id number] Patient: MAGGIE MCKEONO.B./Age/Sex: 1960 - 61 - F Unit#: [id number] Location/Status: [facility] CLI Mnemonic/Ordering Site: [facility] Ordering Physician: DAVID BRITTON MD [facility] Screening Digital - 05/02/22 - 1456 INDICATION: SCREENING COMPARISON: No prior studies are available for comparison. TECHNIQUE: CC and MLO views of the breasts were obtained, using full field digital mammography with 3D tomosynthesis views in the MLO projection. XCCL viewsof each breast were obtained. Computer aided detection with the Mojostreet 7.2-H was employed. FINDINGS: The breasts contain [...] 0 - Incomplete needs additional imaging evaluation.3340F, 7003F (G0202 / 30801) , [id number] Dictating Physician: VISHNU MORALES MD Electronically Signed by: VISHNU MORALES MD Dic Date/Time: 05/07/22 1126 Sign date/Time: 05/07/22 1131 David Britton MD IMG BI PROCEDURES Final Result from Last 3 Months or Most Recently Relevant to Health Maintenance Care Teams Giving Officer Relationship Specialty Start Date End Date David Britton MD PCP - General Internal Medicine 02/23/21
--- OUTSIDE RECORDS SUMMARY | 2025-03-08 08:33 | XMS_ITS | Clinical Summary ---
Author Organization [facility] Address [address] [place] [id number] Care Team Providers Care Textile Broker Name Role Phone David Britton MD Primary Care Provider [phone] Allergies Active Allergy Reactions Criticality Noted Date [...] age to complete this topic Care Teams Textile Broker Relationship Specialty Start Date End Date David Britton MD PCP - General Internal Medicine 02/26/22
== END 2025-03-08 08:31 | disposition home or self-care (01) ==
LOC: HO.XRAY 08:30
PROVIDERS: PCP Hospitalist; Visit Provider Nurse Practitioner Family
DX: K21.9 Gastro-esophageal reflux disease without esophagitis (principal)
CPT/HCPCS: 74246

== ENCOUNTER → 2025-03-08 08:32 | Outpatient (BNV) | payer MEDICARE, OTHER, SELFPAY | PROVIDERS: PCP Hospitalist; Visit Provider Radiology Diagnostic Radiology | DX: K21.9 Gastro-esophageal reflux disease without esophagitis (principal) | CPT/HCPCS: 74246 ==

== ENCOUNTER 2025-03-15 15:35 | Outpatient (AMB) | payer MEDICARE, SELFPAY ==
--- NOTE | 2025-03-15 15:36 | A.OFFVIS_ITS ---
Vital Signs 03/15/25 15:38 Height 5 ft 5.5 in Weight 187 lb 6.287 oz BMI 30.7 BP 133/69 Blood Pressure Location Lt brachial Position Sitting Pulse 104 H Intake Visit Reasons: GERD, dysphagia, abd d/c, 30 m per Matilda Intake Note: Kia presents in the office as a follow up for GERD, Dysphagia and Abd d/c. CC: She states that she had a bad week after the test. She is not sure if it was the pop rocks or moving around on the table. Allergies shellfish derived Allergy (Severe, Verified 03/15/25 15:39) Anaphylaxis codeine Adverse Reaction (Mild, Verified 03/15/25 15:39) Anxiety fentanyl patch Allergy (Intermediate, Uncoded 03/15/25 15:39) Redness of Skin HPI HPI GERD, dysphagia, abd d/c, 30 m per Matilda: Details: LAST VISIT: IBS (irritable bowel syndrome) GERD (gastroesophageal reflux disease) Constipation Postprandial abdominal bloating Dyspepsia Plan Discussed with patient the importance of avoiding dietary triggers late night snacking. Staying upright for minimal 3 hours after meals discussed with patient. Patient will start taking pantoprazole. Will check H pylori before patient starts and she can take famotidine in the meantime. Will check transglutaminase, vitamin B12, folate, vitamin-D level. Patient reports constipation. Will start her on Dulcolax daily. Patient will be sent for upper GI with barium swallow. Message sent to Surgical schedule tubal patient for upper endoscopy and colonoscopy. I will see patient in 3 months, sooner on as needed basis. She is agreeable to this plan and verbalizes understanding of instructions. She was given the opportunity to ask questions and all questions answered. ? Thank you for allowing me to participate in her care Orders Orders Transglutaminase IgA 12/16/24 R10.9 Vitamin B12 and Folate 12/16/24 R19.7 FL upper GI w Ba Swallow 12/16/24 K21.9 Vitamin D 25-OH (D2 and D3) 12/16/24 E55.9 Medications New pantoprazole take one tablet half an hour before breakfast 40 mg PO DAILY 30 tabs 2RF K21.9 bisacodyl (Dulcolax (bisacodyl)) 10 mg (2 x 5 mg) PO BEDTIME 180 tabs 4RF TODAY'S VISIT Patient is here today for follow-up and to discuss lab and upper GI with barium swallow results. Patient is accompanied by her . Patient reports that after her tests she was heavy severe abdominal pain and diarrhea. Patient was suffering for few days with these symptoms. Significant abdominal bloating. Patient reports that she is trying to pain point of what food may cause her to have the symptoms, however she is unable to fully determine. On and of bowels between diarrhea and constipation. Occasional blood in the stool. Home ports occasional dyspepsia with dysphagia without odynophagia. Patient denies melena, unintentional weight loss or ribbon like stools. Patient is due to go for colonoscopy we will send her also for endoscopy. Message sent to manager surgical to call patient. [facility] Medical History Hx of sigmoidoscopy Long COVID Rhinitis Constipation by outlet dysfunction Muscular deconditioning Gastritis, unspecified, without bleeding Vitamin D deficiency, unspecified Postmenopausal Presence of neurostimulator Degenerative disc disease, lumbar Lumbar stenosis with neurogenic claudication Acquired hypothyroidism Moderate persistent asthma, uncomplicated Generalized anxiety disorder Lumbar back pain with radiculopathy affecting lower extremity 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 Rosacea, unspecified Varicose eczema Major depressive disorder, recurrent, in remission, unspecified Fibromyalgia Encounter for screening mammogram for malignant neoplasm of breast IBS (irritable bowel syndrome) Chronic sinusitis, unspecified Moderate persistent asthma with (acute) exacerbation Encounter for therapeutic drug level monitoring 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, intra-abdominal lymph nodes Burkitt's lymphoma of extranodal site excluding spleen and other solid organs Surgical History S/P colon polypectomy History of colonoscopy History of esophagogastroduodenoscopy (EGD) Hx laparoscopic cholecystectomy H/O: hysterectomy Family History Father Diabetes Mother HTN (hypertension) Social History Household Members: Family Alcohol intake: current Alcohol intake frequency: holidays/special occasions only Patient Tobacco Use Status: Tobacco use Unknown Review of Systems Const Denies weight gain and Denies weight loss ENT Reports no additional complaints, Denies dysphagia and Denies odynophagia Card Reports no additional complaints Resp Reports no additional complaints GI Reports abdominal pain, Denies belching, Denies melena, Reports bloating, Denies change in bowel habits, Reports constipation, Denies dysphagia, Denies excessive flatus, Denies dyspepsia, Reports heartburn, Denies diarrhea, Reports loose stools, Denies nausea, Denies odynophagia and Denies vomiting Reports no additional complaints Musc Reports no additional complaints Neuro Reports no additional complaints Psych Reports no additional complaints Endo Reports no additional complaints Physical Exam Vital Signs: Last Vital Signs Pulse 104 H 03/15/25 15:38 BP 133/69 03/15/25 15:38 BMI result Body Mass Index 30.7 Const General: healthy appearing, no acute distress and well developed Nutritional Appearance: well nourished Orientation/consciousness: patient oriented x3 Resp Effort & Inspection: normal respiratory effort, able to speak in complete sentences, no tracheal deviation and symmetric chest movement Auscultation: clear to auscultation bilaterally Cardio Rate: regular rate GI Inspection: Yes normal to inspection and No distended Palpation (GI): Soft to palpation, not firm, nontender and No hepatosplenomegaly present Auscultation: normal bowel sounds General: Yes no CVA tenderness Back/Spine/Pelvis Back: no CVA tenderness Skin General skin exam: elasticity normal, turgor normal and dry skin Neuro General: patient oriented x3 Psych Appearance: grossly normal Mental Status: mental status grossly normal Results Reviewed Results Reviewed: Laboratory Tests 12/16/24 12/17/24 11:28 14:16 Vitamin B12 333 25-OH Vitamin D Total 29 L Folate 6.3 Tiss Transglutamin IgA <1.0 H. pylori Breath Test Negative UPPER GI WITH BARIUM SWALLOW FINDINGS: Following oral administration of thick barium and effervescent granules there is normal propagation of bolus from the oral cavity through the pharynx, esophagus into stomach without any evidence of obstruction, narrowing or stricture. On placing patient in supine and prone lying the course, caliber of the stomach is normal. There are multiple gastric erosions seen throughout the body and antrum of the stomach with increased secretions as well. The gastric wall is normal. The duodenal bulb and sweep appears normal. The mucosal pattern of duodenum is normal. There is moderate gastroesophageal reflux without hiatal hernia. FLUOROSCOPY TIME: 2 minutes 30 seconds. DOSE AREA PRODUCT: 2802 uGy-m2 (microgray-meter squared) FL/FL upper GI w air w Ba Swallow IMPRESSION: Moderate to large gastroesophageal reflux without hiatal hernia. Multiple gastric erosions and increased gastric secretions/acidity are noted but no ulceration seen. Assessment & Plan Assessment & Plan (1) Failed back syndrome of lumbar spine: Code(s): M96.1 - Postlaminectomy syndrome, not elsewhere classified Category: Medical (2) Chronic pain syndrome: Code(s): G89.4 - Chronic pain syndrome Category: Medical (3) Lumbar back pain with radiculopathy affecting lower extremity: Code(s): M54.16 - Radiculopathy, lumbar region Category: Medical (4) IBS (irritable bowel syndrome): Code(s): K58.9 - Irritable bowel syndrome, unspecified Category: Medical Qualifiers: Irritable bowel syndrome type: with constipation Qualified Code(s): K58.1 - Irritable bowel syndrome with constipation (5) GERD (gastroesophageal reflux disease): Code(s): K21.9 - Gastro-esophageal reflux disease without esophagitis Qualifiers: Esophagitis presence: esophagitis presence not specified Qualified C ode(s): K21.9 - Gastro-esophageal reflux disease without esophagitis (6) Constipation: Code(s): K59.00 - Constipation, unspecified Qualifiers: Constipation type: slow transit constipation Qualified Code(s): K59.01 - Slow transit constipation (7) Postprandial abdominal bloating: Code(s): R14.0 - Abdominal distension (gaseous) (8) Dyspepsia: Code(s): R10.13 - Epigastric pain Plan Patient will be sent for endoscopy and colonoscopy. Patient reports severe back pain with like to see someone for better pain management. Script for senna sent to pharmacy. Patient is a Dulcolax was too much and was causing too much abdominal pain. Continue pantoprazole to avoid dietary triggers and late night snacking. Staying upright for minimum 3 hours after meals discussed with patient. Significant reflux seen on upper GI series with barium swallow. Discussed with patient also low FODMAP diet. List of food recommended as well as list of food to avoid given to patient. Patient will follow-up with us after the procedure. Patient was encouraged to call us if you have any GI concerning symptoms. She is agreeable to this plan and verbalizes understanding of instructions. She was given the opportunity to ask questions and all questions answered. Thank you for allowing me to participate in her care Orders: Referrals Pain Management Referral G89.4 - Chronic pain syndrome, M54.16 - Radiculopa thy, lumbar region, M96.1 - Postlaminectomy syndrome, not elsewhere classified Medications: New polyethylene glycol 3350 (Miralax) As directed by gastro[facility]ology department at [facility] 238 grams PO ONCE 238 grams 0RF Z12.11 - Encounter for screening for malignant neoplasm of colon hydrocortisone 2.5% (Proctosol HC) 1 appl RI BID-QID PRN 30 grams 2RF hemorrhoids K64.9 - Unspecified hemorrhoids sennosides (Natural Senna Laxative) 17.2 mg (2 x 8.6 mg) PO BEDTIME 60 tabs 3RF constipation K59.00 - Constipation, unspecified Discontinued bisacodyl (Dulcolax (bisacodyl)) Discontinued Reason: Doctor's Order 10 mg (2 x 5 mg) PO BEDTIME 180 tabs 4RF Coding Level of Care Code Est Pt Level 4 (00040) Complex EM visit Add On G2211 Diagnoses Failed back syndrome of lumbar spine M96.1 Chronic pain syndrome G89.4 Lumbar back pain with radiculopathy affecting lower extremity M54.16 Irritable bowel syndrome with constipation K58.1 Irritable bowel syndrome type: with constipation Gastroesophageal reflux disease, unspecified whether esophagitis present K21.9 Esophagitis presence: esophagitis presence not specified Slow transit constipation K59.01 Constipation type: slow transit constipation Postprandial abdominal bloating R14.0 Dyspepsia R10.13 Time Spent (min) 40 Comment 25 minute spent with patient and additional 15 minutes spent reviewing her records
[2025-03-15 15:38] VITALS: BP 133/69; PULSE 104; BMI 30.7
== END 2025-03-15 17:00 | disposition home or self-care (01) ==
LOC: HO.HGI 15:36
PROVIDERS: PCP Internal Medicine; Visit Provider Nurse Practitioner Family
DX: M96.1 Postlaminectomy syndrome, not elsewhere classified (principal); G89.4 Chronic pain syndrome; M54.16 Radiculopathy, lumbar region; K58.1 Irritable bowel syndrome with constipation; K21.9 Gastro-esophageal reflux disease without esophagitis; K59.01 Slow transit constipation; R14.0 Abdominal distension (gaseous); R10.13 Epigastric pain
CPT/HCPCS: 99214; G2211

== ENCOUNTER → 2025-03-15 15:35 | Outpatient (BNVA) | payer MEDICARE, SELFPAY | PROVIDERS: PCP Internal Medicine; Visit Provider Nurse Practitioner Family | DX: K21.9 Gastro-esophageal reflux disease without esophagitis (principal); K58.1 Irritable bowel syndrome with constipation; K59.01 Slow transit constipation; M96.1 Postlaminectomy syndrome, not elsewhere classified; M54.16 Radiculopathy, lumbar region; R14.0 Abdominal distension (gaseous); R10.13 Epigastric pain; G89.4 Chronic pain syndrome | CPT/HCPCS: 99212 ==